=== PATIENT | female | born 1935 | race Hispanic/Latino ===

== ENCOUNTER 2018-03-19 11:46 | Inpatient (IN) | payer OTHER, SELFPAY ==
--- OUTSIDE RECORDS SUMMARY | 2018-03-19 11:49 | XMS REPORT ---
:1935 [facility] Address [address] [place] [address] Care Team Providers Name Role Phone HERLINDA BOO Unavailable Unavailable Problems This patient has no known problems. Allergies, Adverse Reactions, Alerts This patient has no known allergies or adverse reactions. Medications This patient has no known medications. Results Test Description Test Time Test Comments Text Results Atomic Results Result Comments POCT-GLUCOSE METER 2018-02-04 13:06:00 Test Item Value Reference Range Comments POC-GLUCOSE METER (BEAKER) (test 187 mg/dL 70-110 TESTED AT [facility] [address] [place] [address] yyvi=[id number]) [facility] [address] POCT-GLUCOSE [id number] 08:56:00 Test Item Value Reference Range Comments POC-GLUCOSE METER (BEAKER) 243 mg/dL 70-110 TESTED AT [address] (test gbds=9956) [facility] [address] BASIC METABOLIC [id number] 04:21:00 Test Item Value Reference Range Comments SODIUM (BEAKER) (test 136 meq/L 136-145 acig=038) POTASSIUM (BEAKER) (test 3.9 meq/L 3.5-5.1 vhrj=532) CHLORIDE (BEAKER) (test 103 meq/L 98-107 dlgr=479) CO2 (BEAKER) (test 26 meq/L 22-29 drrb=337) BLOOD UREA NITROGEN 17 mg/dL 7-21 (BEAKER) (test buiw=438) CREATININE (BEAKER) (test 0.80 mg/dL 0.57-1.25 luma=392) GLUCOSE RANDOM (BEAKER) 152 mg/dL 70-105 (test bdrs=827) CALCIUM (BEAKER) (test 8.7 mg/dL 8.4-10.2 runj=142) EGFR (BEAKER) (test mL/min/1.73 sq m INSUFFICIENT CLINICAL DATA cgjb=6033) TO CALCULATE ESTIMATED GFR. [id number] 04:19:00 Test Item Value Reference Range Comments MAGNESIUM (BEAKER) (test ofve=621) 2.4 mg/dL 1.6-2.6 CBC W/PLT COUNT & AUTO [id number] 04:15:00 Test Item Value Reference Range Comments WHITE BLOOD CELL COUNT (BEAKER) (test xnnd=573) 10.3 K/ L 3.5-10.5 RED BLOOD CELL COUNT (BEAKER) (test gifc=343) 3.03 M/ L 3.93-5.22 HEMOGLOBIN (BEAKER) (test ggpb=720) 9.6 GM/DL 11.2-15.7 HEMATOCRIT (BEAKER) (test kdou=929) 28.6 % 34.1-44.9 MEAN CORPUSCULAR VOLUME (BEAKER) (test exys=548) 94.4 fL 79.4-94.8 MEAN CORPUSCULAR HEMOGLOBIN (BEAKER) (test 31.7 pg 25.6-32.2 lhww=911) MEAN CORPUSCULAR HEMOGLOBIN CONC (BEAKER) (test 33.6 GM/DL 32.2-35.5 kmsz=560) RED CELL DISTRIBUTION WIDTH (BEAKER) (test 12.7 % 11.7-14.4 tysd=129) PLATELET COUNT (BEAKER) (test ghwr=630) 183 K/CU MM 150-450 MEAN PLATELET VOLUME (BEAKER) (test fdsf=770) 10.9 fL 9.4-12.3 NUCLEATED RED BLOOD CELLS (BEAKER) (test 0 /100 WBC 0-0 lfyk=239) NEUTROPHILS RELATIVE PERCENT (BEAKER) (test 73 % bzsp=508) LYMPHOCYTES RELATIVE PERCENT (BEAKER) (test 15 % ulbv=814) MONOCYTES RELATIVE PERCENT (BEAKER) (test 9 % qkjn=077) EOSINOPHILS RELATIVE PERCENT (BEAKER) (test 3 % gvjp=493) BASOPHILS RELATIVE PERCENT (BEAKER) (test 0 % ocoz=679) NEUTROPHILS ABSOLUTE COUNT (BEAKER) (test 7.50 K/ L 1.56-6.13 spue=329) LYMPHOCYTES ABSOLUTE COUNT (BEAKER) (test 1.53 K/ L 1.18-3.74 tirh=341) MONOCYTES ABSOLUTE COUNT (BEAKER) (test 0.91 K/ L 0.24-0.36 pduy=015) EOSINOPHILS ABSOLUTE COUNT (BEAKER) (test 0.30 K/ L 0.04-0.36 xxmy=965) BASOPHILS ABSOLUTE COUNT (BEAKER) (test 0.02 K/ L 0.01-0.08 lisa=400) IMMATURE GRANULOCYTES-RELATIVE PERCENT (BEAKER) 0 % 0-1 (test klxw=8378) POCT-GLUCOSE [id number] 17:40:00 Test Item Value Reference Range Comments POC-GLUCOSE METER (BEAKER) 281 mg/dL 70-110 TESTED AT [address] (test epne=6256) [place] [address] POCT-GLUCOSE [id number] 12:44:00 Test Item Value Reference Range Comments POC-GLUCOSE METER (BEAKER) 273 mg/dL 70-110 TESTED AT [address] (test rmbj=5344) [place] [address] RAD, CHEST, 1 VIEW, NON [id number] 08:46:00Reason for exam:->s/p dual chamber PPM eval for PTXShould this be performed at the bedside?->YesFINAL REPORT Chest one view. Clinical history: s/p dual chamber PPM eval forPTX Comparison: January 30, 2018 Discussion: A frontal chest is provided. Cardiomediastinal contours are unchanged. Status post placement of a left-sided dual-lead pacemaker, leads project over the expected location of right atrium and right ventricle. There is no pneumothorax. Mild vascular congestion. No new consolidation. There is mild atelectasis at the left lung base, question a small left effusion. Signed: Aixa Swift Verified Date/ Time: 02/03/2018 08:46:43 Reading Location: [facility] [id number] Consult Reading Room POCT -GLUCOSE [id number] 08:36:00 Test Item Value Reference Range Comments POC-GLUCOSE METER (BEAKER) 242 mg/dL 70-110 TESTED AT [address] (test vfpo=5997) [place] [id number] BASIC METABOLIC [id number] 05:37:00 Test Item Value Reference Range Comments SODIUM (BEAKER) (test 137 meq/L 136-145 ezqt=844) POTASSIUM (BEAKER) (test 4.0 meq/L 3.5-5.1 gbvj=451) CHLORIDE (BEAKER) (test 103 meq/L 98-107 qnfl=613) CO2 (BEAKER) (test 28 meq/L 22-29 uoya=424) BLOOD UREA NITROGEN 24 mg/dL 7-21 (BEAKER) (test gwrk=314) CREATININE (BEAKER) (test 0.87 mg/dL 0.57-1.25 gauf=202) GLUCOSE RANDOM (BEAKER) 248 mg/dL 70-105 (test cpnl=103) CALCIUM (BEAKER) (test 8.5 mg/dL 8.4-10.2 gtmj=681) EGFR (BEAKER) (test mL/min/1.73 sq m INSUFFICIENT CLINICAL DATA uhwn=4137) TO CALCULATE ESTIMATED GFR. [id number] 05:35:00 Test Item Value Reference Range Comments MAGNESIUM (BEAKER) (test eayu=035) 2.4 mg/dL 1.6-2.6 CBC W/PLT COUNT & AUTO [id number] 05:08:00 Test Item Value Reference Range Comments WHITE BLOOD CELL COUNT (BEAKER) (test dhzu=887) 8.6 K/ L 3.5-10.5 RED BLOOD CELL COUNT (BEAKER) (test bjbc=409) 2.74 M/ L 3.93-5.22 HEMOGLOBIN (BEAKER) (test rkyj=490) 8.7 GM/DL 11.2-15.7 HEMATOCRIT (BEAKER) (test sddl=147) 26.1 % 34.1-44.9 MEAN CORPUSCULAR VOLUME (BEAKER) (test zwfa=095) 95.3 fL 79.4-94.8 MEAN CORPUSCULAR HEMOGLOBIN (BEAKER) (test 31.8 pg 25.6-32.2 kgsj=623) MEAN CORPUSCULAR HEMOGLOBIN CONC (BEAKER) (test 33.3 GM/DL 32.2-35.5 mnad=299) RED CELL DISTRIBUTION WIDTH (BEAKER) (test 12.6 % 11.7-14.4 yyfe=064) PLATELET COUNT (BEAKER) (test efsr=943) 172 K/CU MM 150-450 MEAN PLATELET VOLUME (BEAKER) (test vgdp=587) 11.5 fL 9.4-12.3 NUCLEATED RED BLOOD CELLS (BEAKER) (test 0 /100 WBC 0-0 biom=030) NEUTROPHILS RELATIVE PERCENT (BEAKER) (test 74 % wfkf=916) LYMPHOCYTES RELATIVE PERCENT (BEAKER) (test 14 % zkfw=012) MONOCYTES RELATIVE PERCENT (BEAKER) (test 9 % fsbz=517) EOSINOPHILS RELATIVE PERCENT (BEAKER) (test 3 % kdin=775) BASOPHILS RELATIVE PERCENT (BEAKER) (test 0 % dcyc=327) NEUTROPHILS ABSOLUTE COUNT (BEAKER) (test 6.32 K/ L 1.56-6.13 jerv=245) LYMPHOCYTES ABSOLUTE COUNT (BEAKER) (test 1.18 K/ L 1.18-3.74 ovmg=281) MONOCYTES ABSOLUTE COUNT (BEAKER) (test 0.79 K/ L 0.24-0.36 ocht=109) EOSINOPHILS ABSOLUTE COUNT (BEAKER) (test 0.21 K/ L 0.04-0.36 acxi=893) BASOPHILS ABSOLUTE COUNT (BEAKER) (test 0.03 K/ L 0.01-0.08 lujg=288) IMMATURE GRANULOCYTES-RELATIVE PERCENT (BEAKER) 1 % 0-1 (test xygd=3407) POCT-GLUCOSE [id number] 16:20:00 Test Item Value Reference Range Comments POC-GLUCOSE METER (BEAKER) 195 mg/dL 70-110 TESTED AT [facility] [address] [facility] (test pigj=2236) [facility] [address] BASIC METABOLIC [id number] 04:16:00 Test Item Value Reference Range Comments SODIUM (BEAKER) (test 136 meq/L 136-145 cqqn=095) POTASSIUM (BEAKER) (test 4.4 meq/L 3.5-5.1 oyyr=747) CHLORIDE (BEAKER) (test 101 meq/L 98-107 drtr=309) CO2 (BEAKER) (test 28 meq/L 22-29 qils=911) BLOOD UREA NITROGEN 33 mg/dL 7-21 (BEAKER) (test cjbb=257) CREATININE (BEAKER) (test 1.16 mg/dL 0.57-1.25 ssxc=533) GLUCOSE RANDOM (BEAKER) 211 mg/dL 70-105 (test rwud=866) CALCIUM (BEAKER) (test 8.4 mg/dL 8.4-10.2 ciso=341) EGFR (BEAKER) (test mL/min/1.73 sq m INSUFFICIENT CLINICAL DATA twyv=2569) TO CALCULATE ESTIMATED GFR. [id number] 04:08:00 Test Item Value Reference Range Comments MAGNESIUM (BEAKER) (test irqg=201) 2.2 mg/dL 1.6-2.6 CBC W/PLT COUNT & AUTO [id number] 03:52:00 Test Item Value Reference Range Comments WHITE BLOOD CELL COUNT (BEAKER) (test dzdy=895) 9.0 K/ L 3.5-10.5 RED BLOOD CELL COUNT (BEAKER) (test xpkz=925) 2.73 M/ L 3.93-5.22 HEMOGLOBIN (BEAKER) (test lljx=037) 8.7 GM/DL 11.2-15.7 HEMATOCRIT (BEAKER) (test gdme=502) 25.9 % 34.1-44.9 MEAN CORPUSCULAR VOLUME (BEAKER) (test ijlu=983) 94.9 fL 79.4-94.8 MEAN CORPUSCULAR HEMOGLOBIN (BEAKER) (test 31.9 pg 25.6-32.2 nltj=501) MEAN CORPUSCULAR HEMOGLOBIN CONC (BEAKER) (test 33.6 GM/DL 32.2-35.5 nsvk=116) RED CELL DISTRIBUTION WIDTH (BEAKER) (test 12.8 % 11.7-14.4 ihbt=941) PLATELET COUNT (BEAKER) (test pdft=418) 172 K/CU MM 150-450 MEAN PLATELET VOLUME (BEAKER) (test bfgd=344) 11.5 fL 9.4-12.3 NUCLEATED RED BLOOD CELLS (BEAKER) (test 0 /100 WBC 0-0 edgx=543) NEUTROPHILS RELATIVE PERCENT (BEAKER) (test 70 % zmtv=751) LYMPHOCYTES RELATIVE PERCENT (BEAKER) (test 17 % jlwj=346) MONOCYTES RELATIVE PERCENT (BEAKER) (test 9 % ukra=736) EOSINOPHILS RELATIVE PERCENT (BEAKER) (test 3 % jvqf=239) BASOPHILS RELATIVE PERCENT (BEAKER) (test 0 % tabj=127) NEUTROPHILS ABSOLUTE COUNT (BEAKER) (test 6.29 K/ L 1.56-6.13 khbv=248) LYMPHOCYTES ABSOLUTE COUNT (BEAKER) (test 1.55 K/ L 1.18-3.74 qgge=468) MONOCYTES ABSOLUTE COUNT (BEAKER) (test 0.83 K/ L 0.24-0.36 ethn=745) EOSINOPHILS ABSOLUTE COUNT (BEAKER) (test 0.22 K/ L 0.04-0.36 haha=760) BASOPHILS ABSOLUTE COUNT (BEAKER) (test 0.03 K/ L 0.01-0.08 ajlp=584) IMMATURE GRANULOCYTES-RELATIVE PERCENT (BEAKER) 0 % 0-1 (test vkxo=8766) BASIC METABOLIC [id number] 06:15:00 Test Item Value Reference Range Comments SODIUM (BEAKER) (test 137 meq/L 136-145 kycs=243) POTASSIUM (BEAKER) (test 4.6 meq/L 3.5-5.1 gccz=311) CHLORIDE (BEAKER) (test 100 meq/L 98-107 wbef=099) CO2 (BEAKER) (test 26 meq/L 22-29 nrbq=125) BLOOD UREA NITROGEN 38 mg/dL 7-21 (BEAKER) (test vodo=877) CREATININE (BEAKER) (test 1.55 mg/dL 0.57-1.25 yfmm=229) GLUCOSE RANDOM (BEAKER) 191 mg/dL 70-105 (test pipy=925) CALCIUM (BEAKER) (test 8.5 mg/dL 8.4-10.2 jfkw=861) EGFR (BEAKER) (test mL/min/1.73 sq m INSUFFICIENT CLINICAL DATA proa=7089) TO CALCULATE ESTIMATED GFR. [id number] 05:44:00 Test Item Value Reference Range Comments MAGNESIUM (BEAKER) (test gztx=153) 2.4 mg/dL 1.6-2.6 CBC W/PLT COUNT & AUTO [id number] 04:51:00 Test Item Value Reference Range Comments WHITE BLOOD CELL COUNT (BEAKER) (test vzcs=487) 9.4 K/ L 3.5-10.5 RED BLOOD CELL COUNT (BEAKER) (test cavu=541) 3.04 M/ L 3.93-5.22 HEMOGLOBIN (BEAKER) (test wzoj=120) 9.6 GM/DL 11.2-15.7 HEMATOCRIT (BEAKER) (test dgfq=175) 29.3 % 34.1-44.9 MEAN CORPUSCULAR VOLUME (BEAKER) (test cekg=923) 96.4 fL 79.4-94.8 MEAN CORPUSCULAR HEMOGLOBIN (BEAKER) (test 31.6 pg 25.6-32.2 hvdp=216) MEAN CORPUSCULAR HEMOGLOBIN CONC (BEAKER) (test 32.8 GM/DL 32.2-35.5 ggsb=597) RED CELL DISTRIBUTION WIDTH (BEAKER) (test 13.0 % 11.7-14.4 qkft=378) PLATELET COUNT (BEAKER) (test okzc=549) 181 K/CU MM 150-450 MEAN PLATELET VOLUME (BEAKER) (test dwfq=228) 11.7 fL 9.4-12.3 NUCLEATED RED BLOOD CELLS (BEAKER) (test 0 /100 WBC 0-0 hfyl=916) NEUTROPHILS RELATIVE PERCENT (BEAKER) (test 71 % jtxn=992) LYMPHOCYTES RELATIVE PERCENT (BEAKER) (test 19 % djup=446) MONOCYTES RELATIVE PERCENT (BEAKER) (test 8 % uyow=577) EOSINOPHILS RELATIVE PERCENT (BEAKER) (test 2 % leqg=570) BASOPHILS RELATIVE PERCENT (BEAKER) (test 0 % flxh=798) NEUTROPHILS ABSOLUTE COUNT (BEAKER) (test 6.65 K/ L 1.56-6.13 wojh=616) LYMPHOCYTES ABSOLUTE COUNT (BEAKER) (test 1.81 K/ L 1.18-3.74 xjmz=568) MONOCYTES ABSOLUTE COUNT (BEAKER) (test 0.71 K/ L 0.24-0.36 tnov=915) EOSINOPHILS ABSOLUTE COUNT (BEAKER) (test 0.20 K/ L 0.04-0.36 oecx=999) BASOPHILS ABSOLUTE COUNT (BEAKER) (test 0.03 K/ L 0.01-0.08 qzyk=265) IMMATURE GRANULOCYTES-RELATIVE PERCENT (BEAKER) 0 % 0-1 (test mtod=8502) [id number] 21:49:00 Test Item Value Reference Range Comments POTASSIUM (BEAKER) (test imvt=283) 5.2 meq/L 3.5-5.1 Check Serum Potassium level 2 hours after oral potassium replacement completed or 30 min after intravenous potassium replacement.[id number] 21:49:00 Test Item Value Reference Range Comments MAGNESIUM (BEAKER) (test brvn=039) 2.2 mg/dL 1.6-2.6 Check Serum Potassium level 2 hours after oral potassium replacement completed or 30 min after intravenous potassium replacement.URINALYSIS W/ [id number] 10:39:00 Test Item Value Reference Range Comments COLOR (BEAKER) (test zfuj=367) Light Yellow CLARITY (BEAKER) (test ddmj=056) Clear SPECIFIC GRAVITY UA (BEAKER) (test dovx=950) 1.005 1.001-1.035 PH UA (BEAKER) (test vqrg=055) 5.0 5.0-8.0 PROTEIN UA (BEAKER) (test dafk=003) Negative Negative GLUCOSE UA (BEAKER) (test nnyw=082) Negative Negative KETONES UA (BEAKER) (test clib=306) Negative Negative BILIRUBIN UA (BEAKER) (test pfzm=452) Negative Negative BLOOD UA (BEAKER) (test rhpc=184) Negative Negative NITRITE UA (BEAKER) (test zjpb=700) Negative Negative LEUKOCYTE ESTERASE UA (BEAKER) (test chhu=147) Negative Negative UROBILINOGEN UA (BEAKER) (test vwzv=493) 0.2 mg/dL 0.2-1.0 RBC UA (BEAKER) (test rbxc=394) 1 /HPF WBC UA (BEAKER) (test ghla=823) 3 /HPF SQUAMOUS EPITHELIAL (BEAKER) (test tdrh=302) 1 /HPF AMORPHOUS CRYSTALS (BEAKER) (test jffj=0459) Rare SOURCE(BEAKER) (test dwmo=2905) Urine, [place] CREATINE KINASE (CK), TOTAL AND [id number] 10:07:00 Test Item Value Reference Range Comments CREATINE KINASE TOTAL (BEAKER) (test eixf=297) 35 U/L 29-200 CREATINE KINASE-MB (BEAKER) (test rxig=848) 1.7 ng/mL 0.0-6.6 CREATINE KINASE-MB INDEX (BEAKER) (test veue=932) 4.9 % CK-MB Reference Range:<6.7 Normal6.7-10.0 Borderline>10.0 AbnormalTROPONIN [id number] 10:07:00 Test Item Value Reference Range Comments TROPONIN I (BEAKER) (test oduf=078) 0.02 ng/mL 0.00-0.03 Troponin I (TnI) levels must be interpreted in the context of the presenting symptoms and the clinical findings. Elevated TnI levels indicate myocardial damage, but are not specific for ischemic heart disease. Elevated TnI levels are seen in patients with other cardiac conditions (including myocarditis and congestive heart failure), and slight TnI elevations occur in patients with other conditions, including sepsis, renal failure, acidosis, acute neurological disease, and persistent tachyarrhythmia.BASIC METABOLIC [id number] 05:51:00 Test Item Value Reference Range Comments SODIUM (BEAKER) (test 141 meq/L 136-145 mkjx=203) POTASSIUM (BEAKER) (test 3.7 meq/L 3.5-5.1 dgkm=315) CHLORIDE (BEAKER) (test 103 meq/L 98-107 pzwr=090) CO2 (BEAKER) (test 26 meq/L 22-29 jiwt=384) BLOOD UREA NITROGEN 35 mg/dL 7-21 (BEAKER) (test tqoz=704) CREATININE (BEAKER) (test 1.22 mg/dL 0.57-1.25 ocej=096) GLUCOSE RANDOM (BEAKER) 121 mg/dL 70-105 (test sqqh=046) CALCIUM (BEAKER) (test 8.9 mg/dL 8.4-10.2 bplb=550) EGFR (BEAKER) (test mL/min/1.73 sq m INSUFFICIENT CLINICAL DATA addq=8244) TO CALCULATE ESTIMATED GFR. [id number] 05:50:00 Test Item Value Reference Range Comments MAGNESIUM (BEAKER) (test urrb=664) 2.4 mg/dL 1.6-2.6 CBC W/PLT COUNT & AUTO [id number] 05:04:00 Test Item Value Reference Range Comments WHITE BLOOD CELL COUNT (BEAKER) (test vtcv=674) 9.8 K/ L 3.5-10.5 RED BLOOD CELL COUNT (BEAKER) (test dbwt=558) 3.09 M/ L 3.93-5.22 HEMOGLOBIN (BEAKER) (test zile=501) 9.7 GM/DL 11.2-15.7 HEMATOCRIT (BEAKER) (test klic=844) 29.4 % 34.1-44.9 MEAN CORPUSCULAR VOLUME (BEAKER) (test olrl=551) 95.1 fL 79.4-94.8 MEAN CORPUSCULAR HEMOGLOBIN (BEAKER) (test 31.4 pg 25.6-32.2 wrtl=276) MEAN CORPUSCULAR HEMOGLOBIN CONC (BEAKER) (test 33.0 GM/DL 32.2-35.5 pujs=332) RED CELL DISTRIBUTION WIDTH (BEAKER) (test 12.9 % 11.7-14.4 ncuv=361) PLATELET COUNT (BEAKER) (test pxhs=542) 186 K/CU MM 150-450 MEAN PLATELET VOLUME (BEAKER) (test emcy=937) 11.8 fL 9.4-12.3 NUCLEATED RED BLOOD CELLS (BEAKER) (test 0 /100 WBC 0-0 raox=831) NEUTROPHILS RELATIVE PERCENT (BEAKER) (test 75 % mpst=980) LYMPHOCYTES RELATIVE PERCENT (BEAKER) (test 15 % dobu=476) MONOCYTES RELATIVE PERCENT (BEAKER) (test 8 % bdtx=871) EOSINOPHILS RELATIVE PERCENT (BEAKER) (test 2 % mtlu=025) BASOPHILS RELATIVE PERCENT (BEAKER) (test 0 % sxhc=541) NEUTROPHILS ABSOLUTE COUNT (BEAKER) (test 7.36 K/ L 1.56-6.13 efjy=559) LYMPHOCYTES ABSOLUTE COUNT (BEAKER) (test 1.42 K/ L 1.18-3.74 rsou=776) MONOCYTES ABSOLUTE COUNT (BEAKER) (test 0.75 K/ L 0.24-0.36 xrqh=027) EOSINOPHILS ABSOLUTE COUNT (BEAKER) (test 0.20 K/ L 0.04-0.36 aata=478) BASOPHILS ABSOLUTE COUNT (BEAKER) (test 0.03 K/ L 0.01-0.08 mstj=445) IMMATURE GRANULOCYTES-RELATIVE PERCENT (BEAKER) 0 % 0-1 (test mewn=8838) CREATINE KINASE (CK), TOTAL AND [id number] 03:23:00 Test Item Value Reference Range Comments CREATINE KINASE TOTAL (BEAKER) (test ttlw=666) 27 U/L 29-200 CREATINE KINASE-MB (BEAKER) (test bssv=545) 1.3 ng/mL 0.0-6.6 CREATINE KINASE-MB INDEX (BEAKER) (test bqoz=778) 4.8 % CK-MB Reference Range:<6.7 Normal6.7-10.0 Borderline>10.0 AbnormalTROPONIN [id number] 03:23:00 Test Item Value Reference Range Comments TROPONIN I (BEAKER) (test rgza=436) 0.03 ng/mL 0.00-0.03 Troponin I (TnI) levels must be interpreted in the context of the presenting symptoms and the clinical findings. Elevated TnI levels indicate myocardial damage, but are not specific for ischemic heart disease. Elevated TnI levels are seen in patients with other cardiac conditions (including myocarditis and congestive heart failure), and slight TnI elevations occur in patients with other conditions, including sepsis, renal failure, acidosis, acute neurological disease, and persistent tachyarrhythmia.RAD, CHEST, 1 VIEW, NON [id number] 22:06:00Reason for exam:->SOBShould this be performed at the bedside?-> YesFINAL REPORT INDICATION: SOB COMPARISON: None. TECHNIQUE: Chest radiograph, single view, portable technique. FINDINGS / IMPRESSION: There is mild hyperexpansion which may represent chronic obstructive pulmonary disease. There is mild enlargement of the heart shadow and pulmonaryvenous congestion. No consolidation, pneumothorax, or large pleural effusion. Osseous structures unremarkable. Signed: [facility] Verified Date/Time: 01/30/2018 22:06:47 Reading Location: [address] Consult Reading Room CREATINE KINASE (CK), TOTAL AND [id number] 21:32:00 Test Item Value Reference Range Comments CREATINE KINASE TOTAL (BEAKER) (test yrvd=747) 29 U/L 29-200 CREATINE KINASE-MB (BEAKER) (test xjfx=342) 1.1 ng/mL 0.0-6.6 CREATINE KINASE-MB INDEX (BEAKER) (test paos=108) 3.8 % CK-MB Reference Range:<6.7 Normal6.7-10.0 Borderline>10.0 AbnormalTROPONIN [id number] 21:32:00 Test Item Value Reference Range Comments TROPONIN I (BEAKER) (test nydq=439) 0.03 ng/mL 0.00-0.03 Troponin I (TnI) levels must be interpreted in the context of the presenting symptoms and the clinical findings. Elevated TnI levels indicate myocardial damage, but are not specific for ischemic heart disease. Elevated TnI levels are seen in patients with other cardiac conditions (including myocarditis and congestive heart failure), and slight TnI elevations occur in patients with other conditions, including sepsis, renal failure, acidosis, acute neurological disease, and persistent tachyarrhythmia.B-TYPE NATRIURETIC FACTOR (BNP) 21:32:00 Test Item Value Reference Range Comments B-TYPE NATRIURETIC PEPTIDE (BEAKER) (test 2547 pg/mL 0-100 jqzm=295) BASIC METABOLIC [id number] 21:27:00 Test Item Value Reference Range Comments SODIUM (BEAKER) (test 139 meq/L 136-145 urvp=056) POTASSIUM (BEAKER) (test 4.0 meq/L 3.5-5.1 ixqm=426) CHLORIDE (BEAKER) (test 104 meq/L 98-107 gkzm=108) CO2 (BEAKER) (test 26 meq/L 22-29 cnwc=347) BLOOD UREA NITROGEN 38 mg/dL 7-21 (BEAKER) (test fndp=026) CREATININE (BEAKER) (test 1.32 mg/dL 0.57-1.25 kpli=901) GLUCOSE RANDOM (BEAKER) 125 mg/dL 70-105 (test dtyu=869) CALCIUM (BEAKER) (test 9.1 mg/dL 8.4-10.2 ogim=539) EGFR (BEAKER) (test mL/min/1.73 sq m INSUFFICIENT CLINICAL DATA ynwg=7033) TO CALCULATE ESTIMATED GFR. [id number] 21:26:00 Test Item Value Reference Range Comments PHOSPHORUS (BEAKER) (test egyn=602) 4.0 mg/dL 2.3-4.7 [id number] 21:26:00 Test Item Value Reference Range Comments MAGNESIUM (BEAKER) (test hylb=665) 2.4 mg/dL 1.6-2.6 HEPATIC FUNCTION [id number] 21:26:00 Test Item Value Reference Range Comments TOTAL PROTEIN (BEAKER) (test hfqm=294) 7.2 gm/dL 6.0-8.3 ALBUMIN (BEAKER) (test nmpc=8801) 3.7 g/dL 3.5-5.0 BILIRUBIN TOTAL (BEAKER) (test zheu=924) 0.6 mg/dL 0.2-1.2 BILIRUBIN DIRECT (BEAKER) (test glfy=138) 0.3 mg/dL 0.1-0.5 ALKALINE PHOSPHATASE (BEAKER) (test pcie=912) 103 U/L 40-150 AST (SGOT) (BEAKER) (test qhsb=715) 32 U/L 5-34 ALT (SGPT) (BEAKER) (test pkos=131) 18 U/L 6-55 [id number] 21:22:00 Test Item Value Reference Range Comments PARTIAL THROMBOPLASTIN TIME (BEAKER) (test 34.5 seconds 22.5-36.0 mihx=719) PROTHROMBIN [id number] 21:16:00 Test Item Value Reference Range Comments PROTIME (BEAKER) (test jjym=902) 15.9 seconds 11.7-14.7 INR (BEAKER) (test knju=048) 1.3 <=5.9 RECOMMENDED COUMADIN/WARFARIN INR THERAPY RANGESSTANDARD DOSE: 2.0 - 3.0 Includes: PROPHYLAXIS forvenous thrombosis, systemic embolization; TREATMENT for venous thrombosis and/or pulmonary embolus.HIGH RISK: Target INR is 2.5-3.5 for patients with mechanical heart valves.CBC W/PLT COUNT & AUTO [id number] 21:08:00 Test Item Value Reference Range Comments WHITE BLOOD CELL COUNT (BEAKER) (test vpmx=719) 9.4 K/ L 3.5-10.5 RED BLOOD CELL COUNT (BEAKER) (test gxoy=240) 3.20 M/ L 3.93-5.22 HEMOGLOBIN (BEAKER) (test njeo=732) 10.1 GM/DL 11.2-15.7 HEMATOCRIT (BEAKER) (test vsdd=910) 30.7 % 34.1-44.9 MEAN CORPUSCULAR VOLUME (BEAKER) (test xyiq=197) 95.9 fL 79.4-94.8 MEAN CORPUSCULAR HEMOGLOBIN (BEAKER) (test 31.6 pg 25.6-32.2 psui=516) MEAN CORPUSCULAR HEMOGLOBIN CONC (BEAKER) (test 32.9 GM/DL 32.2-35.5 btjs=311) RED CELL DISTRIBUTION WIDTH (BEAKER) (test 13.1 % 11.7-14.4 smzj=573) PLATELET COUNT (BEAKER) (test dkng=631) 189 K/CU MM 150-450 MEAN PLATELET VOLUME (BEAKER) (test umrp=518) 11.7 fL 9.4-12.3 NUCLEATED RED BLOOD CELLS (BEAKER) (test 0 /100 WBC 0-0 uphg=350) NEUTROPHILS RELATIVE PERCENT (BEAKER) (test 73 % vmwr=295) LYMPHOCYTES RELATIVE PERCENT (BEAKER) (test 18 % owjc=756) MONOCYTES RELATIVE PERCENT (BEAKER) (test 8 % wsuh=064) EOSINOPHILS RELATIVE PERCENT (BEAKER) (test 1 % mope=939) BASOPHILS RELATIVE PERCENT (BEAKER) (test 0 % okji=287) NEUTROPHILS ABSOLUTE COUNT (BEAKER) (test 6.87 K/ L 1.56-6.13 hkod=611) LYMPHOCYTES ABSOLUTE COUNT (BEAKER) (test 1.70 K/ L 1.18-3.74 ehar=825) MONOCYTES ABSOLUTE COUNT (BEAKER) (test 0.71 K/ L 0.24-0.36 uddy=954) EOSINOPHILS ABSOLUTE COUNT (BEAKER) (test 0.11 K/ L 0.04-0.36 rdmd=160) BASOPHILS ABSOLUTE COUNT (BEAKER) (test 0.03 K/ L 0.01-0.08 guqb=604) IMMATURE GRANULOCYTES-RELATIVE PERCENT (BEAKER) 0 % 0-1 (test zpkg=5218)
--- OUTSIDE RECORDS SUMMARY | 2018-03-19 11:49 | XMS REPORT ---
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 inadequate dietary iron intake Assessment Cold intolerance R68.89 Active Assessment Type 2 diabetes mellitus without E11.9 Active complications Assessment senior care current use of 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 Problem Iron deficiency anemia due to D50.0 Active chronic blood loss Assessment Pacemaker Z95.0 Active Problem Allergic rhinitis, seasonal J30.2 Active Assessment Mixed hyperlipidemia E78.2 Active Problem Diabetes mellitus type 2 in E11.9 Active nonobese Problem Asthma without acute exacerbation J45.909 Active Problem Mixed hyperlipidemia E78.2 Active Problem Pacemaker Z95.0 Active Problem senior care current use of 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 Assessment CHF (congestive heart failure) I50.9 Active Assessment Bilateral edema of lower extremity R60.0 Active Problem HTN (hypertension) I10 Active Assessment HTN (hypertension) I10 Active Problem Pulmonary hypertension, unspecified I27.20 Active Problem 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 Problem Type 2 diabetes mellitus without E11.9 Active complications Problem Iron deficiency anemia 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 inadequate dietary iron intake Problem CAD (coronary artery disease) I25.10 Active Problem Anxiety F41.9 Active Problem CHF (congestive heart failure) I50.9 Active Problem Weakness R53.1 Active Problem Gastro-esophageal reflux disease K21.9 Active without esophagitis Problem Unsteady gait R26.81 Active Problem COPD (chronic obstructive pulmonary J44.9 Active disease) Problem Hypertension I10 Active Medications Medication Code Code Instructions Start End Status Dosage System Date Date Xanax [facility] 50844420256 0.5 MG Orally Active 1 tablet Twice a day Ventolin HFA ND 80059294613 90 MCG/ACT Active 2 puffs as Inhalation needed every 6 hrs Ferrous ND 57054901044 325MG Active TAKE ONE Sulfate TABLET BY MOUTH THREE TIMES DAILY Advair Diskus [facility] 23632098823 250/50 Active INHALE ONE DOSE BY MOUTH TWICE DAILY Aspirin 81 [facility] 97042326190 81 MG Orally Active 1 tablet Once a day Losartan [facility] 55690766572 50 MG Active TAKE 1 TABLET Potassium EVERY DAY Amlodipine ND 76514675707 10 MG Orally Dec 23, Inactive 1 tablet Besylate Once a day 2018 Zocor [facility] 02924761941 20 MG Orally Active 1 tablet in Once a day the evening Tresiba [facility] 56426279700 200 UNIT/ML Active not defined FlexTouch Subcutaneous Neurontin [facility] 21633438154 300 MG Orally Active 1 capsule Once a day before bedtime Iron [facility] 06520451551 325 (65 Fe) MG Active 1 tablet Orally Once a day Furosemide ND 30085823170 40 MG Orally Dec 23, Active 1 tablet Once a day and 2018 may increase to twice daily x approiximatly 3-7 days if increased swelling Trulicity [facility] 50172369013 0.75 MG/0.5ML Inactive not defined Subcutaneous Nystatin [facility] 03947270307 610663 UNIT/GM Active 1 application Externally to affected Twice a day area Lasix [facility] 45912112984 20 MG Orally Inactive 1 tablet Once a day Advair Diskus [facility] [address]-89 250-50 MCG/DOSE Active not defined Inhalation NitroQuick ND 0 0.4 MG Active not defined Sublingual Zantac [facility] 78956549538 150 MG Orally Active 1 tablet at Once a day bedtime Results No Known Results Summary Purpose eClinicalWorks Submission
--- OUTSIDE RECORDS SUMMARY | 2018-03-19 11:49 | XMS REPORT ---
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
--- OUTSIDE RECORDS SUMMARY | 2018-03-19 11:49 | XMS REPORT | Clinical Summary ---
:1935 Author Organization [facility] Address [address] [place] [address] Phone Care Team Providers Name Role Phone Unavailable Primary Care Provider Unavailable Allergies Active Allergy Reactions Severity Noted Date Comments Penicillins Rash Low 01/30/2018 Current Medications Prescription Sig. Disp. Refills Start End Date Status Date fluticasone-salmeterol Inhale 1 Active (ADVAIR) 250-50 mcg/dose puff by diskus inhaler mouth via inhaler 2 (two) times daily. aspirin 81 MG EC tablet Take 81 mg Active by mouth daily. gabapentin (NEURONTIN) Take 300 mg Active 300 MG capsule by mouth 3 (three) times daily. traMADol (ULTRAM) 50 mg Take 50 mg Active tablet by mouth every 4 (four) hours as needed for Pain. albuterol HFA (VENTOLIN Inhale 1 Active HFA) 90 mcg/actuation puff by inhaler mouth via inhaler every 4 (four) hours as needed for Wheezing. amLODIPine (NORVASC) 10 Take 1 30 tablet 02/06/20 Active MG tablet tablet (10 8 19 mg total) by mouth daily. hydroCHLOROthiazide Take 1 30 tablet 02/06/20 Active (HYDRODIURIL) 25 MG tablet (25 8 19 tablet mg total) by mouth daily. losartan (COZAAR) 100 MG Take 1 30 tablet 02/06/20 Active tablet tablet (100 8 19 mg total) by mouth daily. losartan-hydroCHLOROthia Take 1 02/05/20 Discontinued zide (HYZAAR) 50-12.5 mg tablet by 18 per tablet mouth daily. spironolactone-hydroCHLO Take 1 02/05/20 Discontinued ROthiazide (ALDACTAZIDE) tablet by 18 25-25 mg per tablet mouth daily. minocycline Take 1 10 capsule 0 02/10/20 (MINOCIN,DYNACIN) 100 MG capsule (100 8 18 capsule mg total) by mouth every 12 (twelve) hours for 5 days. Active Problems Not on file Encounters Date Type Specialty Care Team Description 02/02/2018 Anesthesia Event Rusty Lutz MD 02/02/2018 Procedure Pass 02/02/2018 Surgery Jose, PACEMAKER LEADS - MD Shanelle INSERTION (DUAL) 01/30/2018 - Hospital Encounter Cardiology Bandeali, 02/04/2018 MD Mauro Leary Lubna Syed, MD 01/30/2018 Orders Only General Internal Medicine after 03/18/2017 Family History Medical History Relation Name Comments Diabetes Brother Cancer Father Diabetes Mother Diabetes Sister Relation Name Status Comments Brother Father Ca back Mother Sister Social History Tobacco Use Types Packs/Day Years Used Date Never Smoker Smokeless Tobacco: Never Used Alcohol Use Drinks/Week oz/Week Comments No Sex Assigned at Date Recorded Not on file Last Filed Vital Signs Vital Sign Reading Time Taken Blood Pressure 156/57 02/04/2018 10:35 AM SHIPPING ASSOCIATE Pulse 73 02/04/2018 10:35 AM SHIPPING ASSOCIATE Temperature 36.9 C (98.5 F) 02/04/2018 7:00 AM SHIPPING ASSOCIATE Respiratory Rate 13 02/04/2018 10:35 AM SHIPPING ASSOCIATE Oxygen Saturation 97% 02/04/2018 10:35 AM SHIPPING ASSOCIATE Inhaled Oxygen Concentration - - Weight 57.5 kg (126 lb 12.8 oz) 02/03/2018 8:00 AM SHIPPING ASSOCIATE Height 147.3 cm (4' 10") 01/30/2018 8:00 PM SHIPPING ASSOCIATE Body Mass Index 26.5 02/03/2018 8:00 AM SHIPPING ASSOCIATE Plan of Treatment Not on file Implants Implanted Type Area Pharmacologist Device Expiration Model / Identifier Date Serial / Lot Ld Pacing Ingevity Active 52cm 7741 - [id number] Pacemaker Lead N/A: [employer] 08/15/2019 7741 / Implanted: Qty: 1 on 02/02/2018 by Shanelle Garcia MD Heart SCI:CARDIAC [id number] / RHYTHM [place] Ld Pacing Ingevity Active 45 7740 - [id number] Pacemaker Lead N/A: [employer] 11/04/2019 7740 / Implanted: Qty: 1 on 02/02/2018 by Shanelle Garcia MD Heart SCI:CARDIAC [id number] / RHYTHM MNGT [address] Pacemaker Pacemakers N/A: [employer] 11/11/2019 L111 / Implanted: Qty: 1 on 02/02/2018 by Shanelle Garcia MD Chest SCIENTIFIC [id number] / Procedures Procedure Name Priority Date/Time Associated Diagnosis Comments PACEMAKER LEADS - 02/02/2018 5:15 PM SHIPPING ASSOCIATE chest pain INSERTION (DUAL) after 03/18/2017 Results CARDIAC CATH REPORT - SCAN (02/05/2018 3:22 PM)ARRYTHMIA IMPLANT REPORT - SCAN (02/05/2018 1:11 PM)RHYTHM STRIP - SCAN (02/05/2018 1:11 PM)POC-Glucose meter (02/04/2018 12:08 PM)Only the most recent of6 resultswithin the time period is included. Component Value Ref Range POC-Glucose Meter 187 (H)Comment: TESTED AT [address] 70 - 110 mg/[place] [address] Specimen Performing Laboratory Blood [facility] [address] [address] CBC with platelet count + automated diff (02/04/2018 3:52 AM)Only the most recent of6 resultswithin the time period is included. Component Value Ref Range WBC 10.3 3.5 - 10.5 K/L RBC 3.03 (L) 3.93 - 5.22 M/L Hemoglobin 9.6 (L) 11.2 - 15.7 GM/DL Hematocrit 28.6 (L) 34.1 - 44.9 % MCV 94.4 79.4 - 94.8 fL MCH 31.7 25.6 - 32.2 pg MCHC 33.6 32.2 - 35.5 GM/DL RDW 12.7 11.7 - 14.4 % Platelets 183 150 - 450 K/CU MM MPV 10.9 9.4 - 12.3 fL nRBC 0 0 - 0 /100 WBC % Neutros 73 % % Lymphs 15 % % Monos 9 % % Eos 3 % % Baso 0 % # Neutros 7.50 (H) 1.56 - 6.13 K/L # Lymphs 1.53 1.18 - 3.74 K/L # Monos 0.91 (H) 0.24 - 0.36 K/L # Eos 0.30 0.04 - 0.36 K/L # Baso 0.02 0.01 - 0.08 K/L Immature Granulocytes-Relative 0 0 - 1 % Specimen Performing Laboratory Blood [address] [address] CBC with platelet count + automated diff (02/04/2018 3:52 AM)Only the most recent of6 resultswithin the time period is included. Specimen Performing Laboratory Blood Narrative The following orders were created for panel order CBC with platelet count + automated diff. Procedure Abnormality Status --------- ------ CBC with platelet count ...[[id number]]AbnormalFinal result Please view results for these tests on the individual orders. Magnesium (02/04/2018 3:52 AM)Only the most recent of7 resultswithin the time period is included. Component Value Ref Range Magnesium 2.4 1.6 - 2.6 mg/dL Specimen Performing Laboratory Blood [address] [address] Basic Metabolic Panel (02/04/2018 3:52 AM)Only the most recent of6 resultswithin the time period is included. Component Value Ref Range Sodium 136 136 - 145 meq/L Potassium 3.9 3.5 - 5.1 meq/L Chloride 103 98 - 107 meq/L CO2 26 22 - 29 meq/L BUN 17 7 - 21 mg/dL Creatinine 0.80 0.57 - 1.25 mg/dL Glucose 152 (H) 70 - 105 mg/dL Calcium 8.7 8.4 - 10.2 mg/dL EGFR Comment: INSUFFICIENT CLINICAL DATA TO CALCULATE mL/min/1.73 sq m ESTIMATED GFR. Specimen Performing Laboratory Blood [address] [address] XR chest 1 view portable / bedside (02/03/2018 8:18 AM)Only the most recent of2 resultswithin the time period is included. Specimen Performing Laboratory GE RIS Narrative FINAL REPORT Chest one view. Clinical history: s/p dual chamber PPM eval for PTX Comparison: January 30, 2018 Discussion: A frontal chest is provided. Cardiomediastinal contours are unchanged. Status post placement of a left-sided dual-lead pacemaker, leads project over the expected location of right atrium and right ventricle. There is no pneumothorax. Mild vascular congestion. No new consolidation. There is mild atelectasis at the left lung base, question a small left effusion. Signed: Aixa Swift MD Report Verified Date/Time:02/03/2018 08:46:43 Reading Location: [facility] B1 C013X Ortho Consult Reading Room Procedure Note Interface, External Ris In - 02/03/2018 8:48 AM SHIPPING ASSOCIATE FINAL REPORT Chest one view. Clinical history: s/p dual chamber PPM eval for PTX Comparison: January 30, 2018 Discussion: A frontal chest is provided. Cardiomediastinal contours are unchanged. Status post placement of a left-sided dual-lead pacemaker, leads project over the expected location of right atrium and right ventricle. There is no pneumothorax. Mild vascular congestion. No new consolidation. There is mild atelectasis at the left lung base, question a small left effusion. Signed: Aixa Swift MD Report Verified Date/Time: 02/03/2018 08:46:43 Reading Location: [facility] B1 C013X Ortho Consult Reading Room CARDIOGRAM REPORT - SCAN (02/01/2018 1:50 PM)Potassium (01/31/2018 8:45 PM ) Component Value Ref Range Potassium 5.2 (H) 3.5 - 5.1 meq/L Specimen Performing Laboratory Blood - Arm, [place] [address] Narrative Check Serum Potassium level 2 hours after oral potassium replacement completed or 30 min after intravenous potassium replacement. Transthoracic 2D echo w/ doppler (cw/pw/color) (01/31/2018 12:57 PM) Component Value Ref Range Ejection Fraction Specimen Performing Laboratory [facility] Narrative Transthoracic Echocardiography Report (TTE) Demographics Patient NameMONTIEL, HELENDate of Study01/31/2018 YOMAIRA Female Visit [id number] Unknown Room [id number] [facility] Age 82 year(s)Budget Record Clerk Liberty Manning RDCS Interpreting [facility] Needs to be Pre PhysicianRead Alirio Peres MD Procedure Type of Study TTE procedure:2DECHO W DOPPLER(CW/PW/COLOR) (TAL) Indications:Known or suspected heart failure. Clinical History CHF;COPD;DM HGB 9.7 HCT 29.4 % Height: 58 inches Weight: 58.51 kg (129 lbs) BSA: 1.51 m^2 BMI: 26.96 kg/m^2 HR: 47 bpm BP: 159/47 mmHg Summary The left ventricle is chamber size (by PSLAX dimension) is small (female - LVIDd < 3.8cm) . Mild concentric LV hypertrophy. All of the LV segments contract normally . Estimated LVEF by qualitative assessment is increased (>70%) . Degree of diastolic dysfunction (LAP assessment) is inconclusive due to mitral annular calcification . The right ventricular chamber size and systolic function are within normal limits. There is mild aortic stenosis. Severe mitral annular calcification. Xfvz-ri-tsdcohla mitral regurgitation. MV gradients are increased in part due to mitral annular calcification . Estimated peak systolic PA pressure is 45-50 mmHg + RA pressure. No pericardial effusion is visualized. Signature Findings Left Ventricle The left ventricle is chamber size (by PSLAX dimension) is small (female - LVIDd < 3.8cm) . Mild concentric LV hypertrophy. All of the LV segments contract normally . Estimated LVEF by qualitative assessment is increased (>70 %) . Degree of diastolic dysfunction (LAP assessment) is inconclusive due to mitral annular calcification . Left AtriumLA size is severely enlarged . Right VentricleThe right ventricular chamber size and systolic function are within normal limits. Right Atrium RA size is mildly dilated. Aortic Valve Mild AoV cusp thickening. Mild AoV cusp calcification. There is mild aortic stenosis. Mitral Valve Mild MV leaflet thickening. Mild MV leaflet calcification. Severe mitral annular calcification. Ecjg-io-tldznucg mitral regurgitation. MV gradients are increased in part due to mitral annular calcification . Tricuspid ValveTV structure is normal. Mild tricuspid regurgitation. Estimated peak systolic PA pressure is 45-50 mmHg + RA pressure. Pulmonic Valve PV is not well visualized; function appears normal by Doppler visualized. AortaAortic root size (SInus of Valsalva diameter) is normal . PericardiumNo pericardial effusion is visualized. IVC/SVC/PA/PV/PleuralThe estimated RA pressure by IVC dynamics 5-10mmHg . Chambers/Structures Left Atrium LA Dimension: 4.27 cm LA Area: 30.5 cm^2 LA Volume: 112.23 ml LA Vol. Index: 74 ml/m^2 Left Ventricle LVIDd: 3.45 cm LVIDs: 1.32 cm LV Septum Diastolic: 1.19 cm LV PW Diastolic: 1.16 cm LV FS: 61.7 % LVOT Diameter: 1.82 cm Right Atrium RA Vol. (Sngl Plane): 56.27 ml Aorta Ao Root S of Kindra.: 2.74 cm Doppler/Quantitative Measurements Mitral Valve Mean Velocity: 0.96 m/s Mean Gradient: 6.07 mmHgArea (continuity): 1 cm^2 MV VTI: 87.79 cm MV Son. Peak: 2.5 m/s Aortic Valve Peak Velocity: 2.02 m/sMean Velocity: 1.28 m/s Peak Gradient: 16.29 mmHgMean Gradient: 7.83 mmHg AV Area (continuity): 1.76 cm^2 AV VTI: 49.66 cm AV DVI: 0.68 LVOT Peak Velocity: 1.3 m/sPeak Gradient: 6.71 mmHg Mean Velocity: 0.88 m/s Mean Gradient: 3.7 mmHg LVOT Diameter: 1.82 cmLVOT VTI: 33.63 cm LVOT Area: 2.6 cm^2 LVOT SV:87.45 ml LVOT CO: 4.11 l/min LVOT CI: 2.72 l/min/m^2 Procedure Note Interface, External Ris In - 02/01/2018 1:12 PM SHIPPING ASSOCIATE Transthoracic Echocardiography Report (TTE) Demographics Patient Name KEERTHI KISER Date of Study 01/31/2018 YOMAIRA Gender Female Visit Number [id number] Race Unknown Room Number C827 Number Date of 1935 Referring Stephanie Quiles Physician Age 82 year(s) Budget Record Clerk Liberty Manning RDCS Interpreting [facility] Needs to be Pre Physician Read Alirio Peres MD Procedure Type of Study TTE procedure:2DECHO W DOPPLER(CW/PW/COLOR) (TAL) Indications:Known or suspected heart failure. Clinical History CHF;COPD;DM HGB 9.7 HCT 29.4 % Height: 58 inches Weight: 58.51 kg (129 lbs) BSA: 1.51 m^2 BMI: 26.96 kg/m^2 HR: 47 bpm BP: 159/47 mmHg Summary The left ventricle is chamber size (by PSLAX dimension) is small (female - LVIDd < 3.8cm) . Mild concentric LV hypertrophy. All of the LV segments contract normally . Estimated LVEF by qualitative assessment is increased (>70%) . Degree of diastolic dysfunction (LAP assessment) is inconclusive due to mitral annular calcification . The right ventricular chamber size and systolic function are within normal limits. There is mild aortic stenosis. Severe mitral annular calcification. Apdh-lc-qrmaopaj mitral regurgitation. MV gradients are increased in part due to mitral annular calcification . Estimated peak systolic PA pressure is 45-50 mmHg + RA pressure. No pericardial effusion is visualized. Signature Findings Left Ventricle The left ventricle is chamber size (by PSLAX dimension) is small (female - LVIDd < 3.8cm) . Mild concentric LV hypertrophy. All of the LV segments contract normally . Estimated LVEF by qualitative assessment is increased (>70%) . Degree of diastolic dysfunction (LAP assessment) is inconclusive due to mitral annular calcification . Left Atrium LA size is severely enlarged . Right Ventricle The right ventricular chamber size and systolic function are within normal limits. Right Atrium RA size is mildly dilated. Aortic Valve Mild AoV cusp thickening. Mild AoV cusp calcification. There is mild aortic stenosis. Mitral Valve Mild MV leaflet thickening. Mild MV leaflet calcification. Severe mitral annular calcification. Vlrm-ja-eidzhleu mitral regurgitation. MV gradients are increased in part due to mitral annular calcification . Tricuspid Valve TV structure is normal. Mild tricuspid regurgitation. Estimated peak systolic PA pressure is 45-50 mmHg + RA pressure. Pulmonic Valve PV is not well visualized; function appears normal by Doppler visualized. Aorta Aortic root size (SInus of Valsalva diameter) is normal . Pericardium No pericardial effusion is visualized. IVC/SVC/PA/PV/Pleural The estimated RA pressure by IVC dynamics 5-10mmHg . Chambers/Structures Left Atrium LA Dimension: 4.27 cm LA Area: 30.5 cm^2 LA Volume: 112.23 ml LA Vol. Index: 74 ml/m^2 Left Ventricle LVIDd: 3.45 cm LVIDs: 1.32 cm LV Septum Diastolic: 1.19 cm LV PW Diastolic: 1.16 cm LV FS: 61.7 % LVOT Diameter: 1.82 cm Right Atrium RA Vol. (Sngl Plane): 56.27 ml Aorta Ao Root S of Kindra.: 2.74 cm Doppler/Quantitative Measurements Mitral Valve Mean Velocity: 0.96 m/s Mean Gradient: 6.07 mmHg Area (continuity): 1 cm^2 MV VTI: 87.79 cm MV Son. Peak: 2.5 m/s Aortic Valve Peak Velocity: 2.02 m/s Mean Velocity: 1.28 m/s Peak Gradient: 16.29 mmHg Mean Gradient: 7.83 mmHg AV Area (continuity): 1.76 cm^2 AV VTI: 49.66 cm AV DVI: 0.68 LVOT Peak Velocity: 1.3 m/s Peak Gradient: 6.71 mmHg Mean Velocity: 0.88 m/s Mean Gradient: 3.7 mmHg LVOT Diameter: 1.82 cm LVOT VTI: 33.63 cm LVOT Area: 2.6 cm^2 LVOT SV:87.45 ml LVOT CO: 4.11 l/min LVOT CI: 2.72 l/min/m^2 Troponin I (01/31/2018 9:05 AM)Only the most recent of3 resultswithin the time period is included. Component Value Ref Range Troponin I 0.02 0.00 - 0.03 ng/mL Specimen Performing [place] [address] Narrative Troponin I (TnI) levels must be interpreted [...] failure, acidosis, acute neurological disease, and persistent tachyarrhythmia. Creatine Kinase (CK), Total and MB (01/31/2018 9:05 AM)Only the most recent of3 resultswithin the time period is included. Component Value Ref Range Total CK 35 29 - 200 U/L CK-MB 1.7 0.0 - 6.6 ng/mL MB Relative Index 4.9 % Specimen Performing Laboratory Blood [address] [address] Narrative CK-MB Reference Range: <6.7Normal 6.7-10.0Borderline >10.0 Abnormal Urinalysis, Routine (01/31/2018 1:57 AM) Component Value Ref Range Color, UA Light Yellow Clarity, UA Clear Specific [place], UA 1.005 1.001 - 1.035 pH, UA 5.0 5.0 - 8.0 Protein, UA Negative Negative Glucose, UA Negative Negative Ketones, UA Negative Negative Bilirubin, UA Negative Negative Blood, UA Negative Negative Nitrite, UA Negative Negative Leukocytes, UA Negative Negative Urobilinogen, UA 0.2 0.2 - 1.0 mg/dL RBC, UA 1 /HPF WBC, UA 3 /HPF Squam Epithel, UA 1 /HPF Amorphous Crystals Rare Specimen Source Urine, [place] Specimen Performing Laboratory Urine - Urine, [place] [address] [address] aPTT (01/30/2018 8:51 PM) Component Value Ref Range PTT 34.5 22.5 - 36.0 seconds Specimen Performing Laboratory [address] [address] Prothrombin time/INR (01/30/2018 8:51 PM) Component Value Ref Range Protime 15.9 (H) 11.7 - 14.7 seconds INR 1.3 <=5.9 Specimen Performing Laboratory [address] [address] Narrative RECOMMENDED COUMADIN/WARFARIN INR THERAPY RANGES STANDARD DOSE: 2.0 - 3.0 Includes: PROPHYLAXIS for venous thrombosis, systemic embolization; TREATMENT for venous thrombosis and/or pulmonary embolus. HIGH RISK: Target INR is 2.5-3.5 for patients with mechanical heart valves. Phosphorus (01/30/2018 8:51 PM) Component Value Ref Range Phosphorus 4.0 2.3 - 4.7 mg/dL Specimen Performing Laboratory [address] [address] B-type natriuretic peptide (01/30/2018 8:51 PM) Component Value Ref Range BNP 2547 (H) 0 - 100 pg/mL Specimen Performing Laboratory [address] [address] Hepatic function panel (01/30/2018 8:51 PM) Component Value Ref Range Protein, Total 7.2 6.0 - 8.3 gm/dL Albumin 3.7 3.5 - 5.0 g/dL Total Bilirubin 0.6 0.2 - 1.2 mg/dL Bilirubin, Direct 0.3 0.1 - 0.5 mg/dL Alkaline Phosphatase 103 40 - 150 U/L AST 32 5 - 34 U/L ALT 18 6 - 55 U/L Specimen Performing Laboratory [address] [address] ECG 12 lead (01/30/2018 7:55 PM) Specimen Performing Laboratory GE MUSE Narrative Ventricular Rate 36 BPM Atrial Rate 54 BPM QRS Duration 90 ms Q-T Interval 616 ms QTC Calculation(Bazett) 476 ms P [place] 62 degrees R [place] 44 degrees T [place] 45 degrees Marked sinus bradycardia with 2:1 to 3:[address] abnormality, possible digitalis effect Abnormal ECG No previous ECGs available Confirmed by MD PERES JOSEPH P ([id number]) on 01/31/2018 7:39:41 AM Procedure Note Interface, External Ris In - 01/31/2018 7:39 AM SHIPPING ASSOCIATE Ventricular Rate 36 BPM Atrial Rate 54 BPM QRS Duration 90 ms Q-T Interval 616 ms QTC Calculation(Bazett) 476 ms P [place] 62 degrees R [place] 44 degrees T [place] 45 degrees Marked sinus bradycardia with 2:1 to 3:[address] abnormality, possible digitalis effect Abnormal ECG No previous ECGs available Confirmed by MD PERES JOSEPH P ([id number]) on 01/31/2018 7:39:41 AM after 03/18/2017
[2018-03-19 12:23] LABS: Protime INR 1.16
[2018-03-19 12:27] LABS: Absolute Lymphocytes (CBC) 1.2 K/uL (0.7-4.9); Absolute Monocytes 0.7 K/uL (0.1-1.3); Absolute Neutrophil 9.3 K/uL (1.8-8.0); Basophils % 0.4 % (0-1.3); Hematocrit 24.5 % (36.0-45.0); Lymphocytes % 10.6 % (15.3-44.8); MCH 32.1 pg (27.0-35.0); MCV 93.4 fL (80-100); MPV 10.6 fL (7.6-11.3); Monocytes % 5.9 % (3.3-12.3); RBC Red Blood Cell Count 2.62 M/uL (3.86-4.86)
[2018-03-19 12:38] LABS: Albumin 3.7 g/dL (3.2-5.5); Bilirubin Direct 0.1 mg/dL (0-0.2); Bilirubin Total 0.7 mg/dL (0.3-1.2); Magnesium 2.5 mg/dL (1.8-2.5); Protein, Total 7.4 g/dL (6.0-8.3)
--- NOTE | 2018-03-19 12:39 | RAD REPORT ---
EXAM DESCRIPTION: Dominique Single View03/19/2018 12:20 pm CLINICAL HISTORY: Cough COMPARISON: January 2018 FINDINGS: The left base is hazy. The remainder of the lungs appear clear. The heart is mildly to moderately enlarged Pacemaker leads are in place IMPRESSION: The left base is hazy which may be secondary to a small pleural effusion and atelectasis or pneumonia.
[2018-03-19] MEDS ORDERED: NA CHLORIDE 0.9% 1,000 ML ONE (12:53)
[2018-03-19] MEDS ORDERED: levoFLOXacin 500 MG TAB ONE (12:53)
[2018-03-19] MEDS ORDERED: LEVALBUTEROL 1.25 MG/3 ML NEB ONE (14:50)
--- NOTE | 2018-03-19 14:54 | ER ---
Nurse's Notes [facility] Name: Keerthi Kiser Age: 82 yrs Sex: Female : 1935 Arrival Date: 03/19/2018 Time: 11:49 Bed 6 Private MD: Diagnosis: Dehydration;Pneumonia due to other specified bacteria Presentation: 03/19 11:47 Presenting complaint: EMS states: pt c/o chest pain off and on for 3 days now, gets tw2 really sob when walking, pacemaker 3 weeks ago at [facility], vs stable, hx: afib, dm, htn. Transition of care: patient was not received from another setting of care. Onset of symptoms was March 19, 2018. Initial Sepsis Screen: Does the patient meet any 2 criteria? No. Patient's initial sepsis screen is negative. Does the patient have a suspected source of infection? No. Patient's initial sepsis screen is negative. Care prior to arrival: None. 11:47 Method Of Arrival: EMS: [facility] tw 11:47 Acuity: RAMA 3 tw2 Historical: - Allergies: 11:55 PENICILLINS; tw2 - Home Meds: 11:55 Ventolin Rotahaler/Rotacaps Inhl [Active]; Advair Diskus 250-50 mcg/dose Inhl dsdv tw2 [Active]; aspirin 81 mg Oral TbEC 1 tab once daily [Active]; azithromycin 500 mg Oral tab 1 tab once daily [Active]; Equate multivitamin/multimineral [Active]; gabapentin 300 mg Oral cap 1 cap 3 times per day [Active]; spironolacton-hydrochlorothiaz 25-25 mg Oral tab 1 tab once daily [Active]; losartan-hydrochlorothiazide 50-12.5 mg Oral tab 1 tab once daily [Active]; tramadol 50 mg Oral tab 1 tab every 4-6 hours [Active]; - PMHx: 11:55 Asthma; Diabetes - IDDM; Hypertension; COPD; tw2 - PSHx: 11:55 hip replacement (left); tw2 - Immunization history:: Adult Immunizations up to date. - Social history:: Smoking status: Patient/guardian denies using tobacco. Screenin:02 Abuse screen: Denies threats or abuse. Nutritional screening: No deficits noted. tw2 Tuberculosis screening: No symptoms or risk factors identified. Fall Risk None identified. Assessment: 11:56 General: Appears in no apparent distress. Behavior is calm, cooperative, appropriate tw2 for age. Pain: Complains of pain in chest Pain does not radiate. Pain began 2-3 days ago. Neuro: Level of Consciousness is awake, alert, obeys commands, Oriented to person, place, time, situation. Cardiovascular: Reports chest pain, shortness of breath, Heart tones S1 S2 Capillary refill < 3 seconds Patient's skin is warm and dry. pacemaker upper left chest. Respiratory: Airway is patent Respiratory effort is even, unlabored, Respiratory pattern is regular, symmetrical, Breath sounds are clear bilaterally. GI: No signs and/or symptoms were reported involving the gastrointestinal system. Abdomen is flat. : No deficits noted. Derm: Skin is intact, is healthy with good turgor, Skin temperature is warm. 12:48 Reassessment: Patient appears in no apparent distress at this time. No changes from tw2 previously documented assessment. Patient and/or family updated on plan of care and expected duration. Pain level reassessed. Patient is alert, oriented x 3, equal unlabored respirations, skin warm/dry/pink. 13:26 Reassessment: Daughter Zainab [phone]. hb 13:57 Reassessment: Patient appears in no apparent distress at this time. No changes from tw2 previously documented assessment. Patient and/or family updated on plan of care and expected duration. Pain level reassessed. Patient is alert, oriented x 3, equal unlabored respirations, skin warm/dry/pink. 14:30 Reassessment: Pt ambulated in hallway with assistance. Pt denied dizziness. HR 106-112, hb R25, SpO2 94% on RA. KIAMNI Crocker notified. 15:54 Reassessment: Patient appears in no apparent distress at this time. No changes from tw2 previously documented assessment. Patient and/or family updated on plan of care and expected duration. Pain level reassessed. Patient is alert, oriented x 3, equal unlabored respirations, skin warm/dry/pink. Vital Signs: 11:51 BP 146 / 62; Pulse 84; Resp 14; Temp 98.2(O); Pulse Ox 95% on R/A; Weight 56.25 kg (R); tw2 Height 4 ft. 10 in. (147.32 cm); Pain 8/10; 12:47 BP 142 / 50; Pulse 80; Resp 14; Pulse Ox 97% on R/A; tw2 13:57 BP 151 / 66; Pulse 80; Resp 18; Pulse Ox 97% on R/A; tw2 14:30 BP 177 / 77; Pulse 110; Resp 25; Pulse Ox 94% on R/A; Pain 0/10; hb 15:53 BP 179 / 69; Pulse 86; Resp 16; Pulse Ox 97% on R/A; tw2 11:51 Body Mass Index 25.92 (56.25 kg, 147.32 cm) tw2 ED Course: 11:49 Patient arrived in ED. tw2 11:49 Obi Sanchez PA is PHCP. jr8 11:49 Juan Rodriguez MD is Attending Physician. jr8 11:50 Arm band placed on. tw2 11:51 Triage completed. tw2 11:53 Jazmyn Barriga, RN is Primary Nurse. tw2 11:55 Bed in low position. Side rails up X2. quality assurance monitor body on. Pulse ox on. NIBP on. tw2 11:56 No provider procedures requiring assistance completed. Maintain EMS IV. Dressing tw2 intact. Good blood return noted. Site clean \T\ dry. Gauge \T\ site: 20g LEFT ac. Patient maintains SpO2 saturation greater than 95% on room air. 11:58 EKG done, by technical program manager. reviewed by Obi HARMAN. at1 12:17 X-ray completed. Portable x-ray completed in exam room. Patient tolerated procedure ml well. 12:19 XRAY Chest (1 view) In Process Unspecified. EDMS 14:52 Stephanie Adkins MD is Hospitalizing Provider. jr8 15:59 Patient admitted, IV remains in place. tw2 Administered Medications: 13:00 Drug: NS 0.9% 1000 ml Route: IV; Rate: 1000 ml; Site: left antecubital; hb 13:00 Drug: LevaQUIN 500 mg Route: PO; hb 15:08 Follow up: Response: No adverse reaction tw2 15:00 Drug: Xopenex 1.25 mg Route: Inhalation; tw2 Point of Care Testing: Blood Glucose: 15:58 Blood Glucose: 136 mg/dL; tw2 Ranges: Outcome: 14:53 Decision to Hospitalize by Provider. jr8 15:59 Admitted to Med/surg accompanied by kaylyn via wheelchair, room 212, with chart, Report tw2 called to OMAR Lazaro 15:59 Condition: stable 15:59 Instructed on the need for admit. 16:05 Patient left the ED. tw2 Signatures: Dispatcher [employer] Gale Yousif Josh, PA PA jr8 Alanna lopez, shake backboard notcher EKG Tat1 Sana De La Paz RN RN Jazmyn Barriga RN RN tw2 Corrections: (The following items were deleted from the chart) 12:48 11:51 Pulse 84bpm; Resp 14bpm; Pulse Ox 95% RA; Temp 98.2F Oral; 56.25 kg Reported; tw2 Height 4 ft. 10 in.; BMI: 25.9; Pain 8/10; tw2 15:15 13:30 BP 177 / 77; Pulse 110bpm; Resp 25bpm; Pulse Ox 94% RA; Pain 0/10; hb hb 15:56 11:51 BP 146 / 2; Pulse 84bpm; Resp 14bpm; Pulse Ox 95% RA; Temp 98.2F Oral; 56.25 kg tw2 Reported; Height 4 ft. 10 in.; BMI: 25.9; Pain 8/10; tw2
--- NOTE | 2018-03-19 14:54 | EDPHYS ---
Physician Documentation [facility] Name: Keerthi Kiser Age: 82 yrs Sex: Female : 1935 Arrival Date: 03/19/2018 Time: 11:49 Bed 6 Private MD: ED Physician Juan Rodriguez HPI: 03/19 12:36 This 82 yrs old Female presents to ER via EMS with complaints of Chest Pain > jr8 31 y/o. 12:36 The patient or guardian reports chest pain that is located primarily in the substernal jr8 area. Onset: gradually, 2 day(s) ago. The pain does not radiate. Associated signs and symptoms: Pertinent positives: shortness of breath. The chest pain is described as a pressure. Duration: The patient or guardian reports multiple episodes. Modifying factors: The symptoms are alleviated by remaining still, rest, the symptoms are aggravated by exertion. Severity of pain: At its worst the pain was mild in the emergency department the pain has improved. The patient has not experienced similar symptoms in the past. The patient has not recently seen a physician. Patient had pacemaker placed about 1 month ago. Since then has been doing well. For the past couple of days started to have shortness of breath with exertion and chest tightness. Denies shortness of breath at rest . Historical: - Allergies: 11:55 PENICILLINS; tw2 - Home Meds: 11:55 Ventolin Rotahaler/Rotacaps Inhl [Active]; Advair Diskus 250-50 mcg/dose Inhl dsdv tw2 [Active]; aspirin 81 mg Oral TbEC 1 tab once daily [Active]; azithromycin 500 mg Oral tab 1 tab once daily [Active]; Equate multivitamin/multimineral [Active]; gabapentin 300 mg Oral cap 1 cap 3 times per day [Active]; spironolacton-hydrochlorothiaz 25-25 mg Oral tab 1 tab once daily [Active]; losartan-hydrochlorothiazide 50-12.5 mg Oral tab 1 tab once daily [Active]; tramadol 50 mg Oral tab 1 tab every 4-6 hours [Active]; - PMHx: 11:55 Asthma; Diabetes - IDDM; Hypertension; COPD; tw2 - PSHx: 11:55 hip replacement (left); tw2 - Immunization history:: Adult Immunizations up to date. - Social history:: Smoking status: Patient/guardian denies using tobacco. ROS: 12:36 Eyes: Negative for injury, pain, redness, and discharge, ENT: Negative for injury, jr8 pain, and discharge, Neck: Negative for injury, pain, and swelling, Abdomen/GI: Negative for abdominal pain, nausea, vomiting, diarrhea, and constipation, Back: Negative for injury and pain, MS/Extremity: Negative for injury and deformity, Skin: Negative for injury, rash, and discoloration, Neuro: Negative for headache, weakness, numbness, tingling, and seizure. 12:36 Cardiovascular: Positive for chest pain, Negative for edema, orthopnea, palpitations, paroxysmal nocturnal dyspnea. 12:36 Respiratory: Positive for dyspnea on exertion, Negative for cough, shortness of breath, sputum production, wheezing. Exam: 12:36 Eyes: Pupils equal round and reactive to light, extra-ocular motions intact. Lids and jr8 lashes normal. Conjunctiva and sclera are non-icteric and not injected. Cornea within normal limits. Periorbital areas with no swelling, redness, or edema. ENT: Nares patent. No nasal discharge, no septal abnormalities noted. Tympanic membranes are normal and external auditory canals are clear. Oropharynx with no redness, swelling, or masses, exudates, or evidence of obstruction, uvula midline. Mucous membranes moist. Neck: Trachea midline, no thyromegaly or masses palpated, and no cervical lymphadenopathy. Supple, full range of motion without nuchal rigidity, or vertebral point tenderness. No Meningismus. Cardiovascular: Regular rate and rhythm with a normal S1 and S2. No gallops, murmurs, or rubs. Normal PMI, no JVD. No pulse deficits. Abdomen/GI: Soft, non-tender, with normal bowel sounds. No distension or tympany. No guarding or rebound. No evidence of tenderness throughout. Back: No spinal tenderness. No costovertebral tenderness. Full range of motion. Skin: Warm, dry with normal turgor. Normal color with no rashes, no lesions, and no evidence of cellulitis. MS/ Extremity: Pulses equal, no cyanosis. Neurovascular intact. Full, normal range of motion. Neuro: Awake and alert, GCS 15, oriented to person, place, time, and situation. Cranial nerves II-XII grossly intact. Motor strength 5/5 in all extremities. Sensory grossly intact. Cerebellar exam normal. Normal gait. 12:36 Respiratory: the patient does not display signs of respiratory distress, Respirations: normal, symetrical, no use of accessory muscles, no grunting, no evidence of nasal flaring, no prolonged exhalations, no pursed lip breathing, no retractions, no shallow respirations, no splinting, no tachypnea, Breath sounds: rales, that are mild, are located in both bases, are heard in the left posterior lower lobe. Vital Signs: 11:51 BP 146 / 62; Pulse 84; Resp 14; Temp 98.2(O); Pulse Ox 95% on R/A; Weight 56.25 kg (R); tw2 Height 4 ft. 10 in. (147.32 cm); Pain 8/10; 12:47 BP 142 / 50; Pulse 80; Resp 14; Pulse Ox 97% on R/A; tw2 13:57 BP 151 / 66; Pulse 80; Resp 18; Pulse Ox 97% on R/A; tw2 14:30 BP 177 / 77; Pulse 110; Resp 25; Pulse Ox 94% on R/A; Pain 0/10; hb 15:53 BP 179 / 69; Pulse 86; Resp 16; Pulse Ox 97% on R/A; tw2 11:51 Body Mass Index 25.92 (56.25 kg, 147.32 cm) tw2 MDM: 11:49 Patient medically screened. jr8 14:51 Data reviewed: vital signs, nurses notes, lab test result(s), EKG, radiologic studies, jr8 plain films, and as a result, I will admit patient. Data interpreted: Pulse oximetry: on room air is 95 %. Interpretation: acceptable. Counseling: I had a detailed discussion with the patient and/or guardian regarding: the historical points, exam findings, and any diagnostic results supporting the discharge/admit diagnosis, lab results, radiology results, the need for further work-up and treatment in the hospital. ED course: after fluids had patient do a light walk to assess respiratory status. Patient after walk was tachypneic, dyspneic, and fatigued. Will admit for oxygen therapy and continued antibiotics . 03/19 11:57 Order name: Basic Metabolic Panel; Complete Time: 12:42 jr8 03/19 11:57 Order name: BNP; Complete Time: 13:37 03/19 11:57 Order name: CBC with Diff; Complete Time: 12:28 03/19 11:57 Order name: LFT's; Complete Time: 12:42 03/19 11:57 Order name: Magnesium; Complete Time: 12:42 03/19 11:57 Order name: PT-INR; Complete Time: 12:28 03/19 11:57 Order name: Troponin (emerg Dept Use Only); Complete Time: 12:42 03/19 11:57 Order name: XRAY Chest (1 view); Complete Time: 12:42 03/19 11:57 Order name: EKG; Complete Time: 11:57 03/19 11:57 Order name: Cardiac monitoring; Complete Time: 12:49 03/19 11:57 Order name: EKG - Nurse/Tech; Complete Time: 12:49 03/19 11:57 Order name: IV Saline Lock; Complete Time: 12:50 03/19 11:57 Order name: Labs collected and sent; Complete Time: 12:50 03/19 11:57 Order name: O2 Per Protocol; Complete Time: 12:50 03/19 11:57 Order name: O2 Sat Monitoring; Complete Time: 12:50 Administered Medications: 13:00 Drug: NS 0.9% 1000 ml Route: IV; Rate: 1000 ml; Site: left antecubital; hb 13:00 Drug: LevaQUIN 500 mg Route: PO; hb 15:08 Follow up: Response: No adverse reaction tw2 15:00 Drug: Xopenex 1.25 mg Route: Inhalation; tw2 Point of Care Testing: Blood Glucose: 15:58 Blood Glucose: 136 mg/dL; tw2 Ranges: Critical Glucose Levels:Adult <50 mg/dl or >400 mg/dl <40 mg/dl or >180 mg/dl Disposition: 19:12 Co-signature as Attending Physician, Juan Rodriguez MD I agree with the assessment and glenda plan of care. Disposition: 03/19/18 14:53 Hospitalization ordered by Stephaine Adkins for Inpatient Admission. Preliminary diagnosis are Dehydration, Pneumonia due to other specified bacteria. - Bed requested for Telemetry/MedSurg (Inpatient). - Status is Inpatient Admission. tw2 - Condition is Stable. - Problem is new. - Symptoms are unchanged. UTI on Admission? No Signatures: Dispatcher [employer] EDJuan Oh MD MD cha Roszak, Josh, PA PA jr8 Sana De La Paz, RN RN Jazmyn Barriga RN RN tw2 David Pichardo 2
[2018-03-19] MEDS ORDERED: ACETAMINOPHEN 500 MG TAB PO PRN (15:00)
[2018-03-19] MEDS ORDERED: ONDANSETRON 4 MG/2 ML VIAL IV PRN (15:00)
[2018-03-19] MEDS ORDERED: ALBUTEROL 2.5 MG/3 ML NEB SOL NEB PRN (15:00)
--- NOTE | 2018-03-19 17:01 | EKG ---
Test Date: 2018-03-19 Test Time: 11:51:02 Immigration Manager: PADDY MEASUREMENT RESULTS: Intervals: Rate: 83 IA: 216 QRSD: 90 QT: 384 QTc: 451 [place]: P: 41 IA: 216 QRS: -13 T: 90 INTERPRETIVE STATEMENTS: Atrial-sensed ventricular-paced rhythm Abnormal ECG Compared to ECG 01/30/2018 15:44:02 Sinus tachycardia no longer present High degree AV block is no longer present Paced rhythm is now present Electronically Signed On 03-19-18 17:01:34 CDT by Chau Sultana
[2018-03-19] MEDS ORDERED: D50W 25 GM/50 ML SYRINGE IV PRN (17:18)
[2018-03-19] MEDS ORDERED: GLUCAGON 1 MG/VIAL IM PRN (17:18)
[2018-03-19] MEDS: ENOXAPARIN 30 MG/0.3 ML SQ SCH (17:21)
[2018-03-19] MEDS: NA CHLORIDE 0.9% 1,000 ML IV SCH (17:21)
[2018-03-19 17:51] VITALS: BMI 25.9
[2018-03-19] MEDS: IPRATROPIUM BROM 0.5MG/2.5ML NEB SCH (20:07)
[2018-03-19] MEDS: INSULIN -REGULAR HUMAN 50 UNIT/0.5 ML ML SQ SCH (21:00)
[2018-03-19] MEDS: CEFTRIAXONE/SWI 1gm 1 GM/10 ML SYR IVP SCH (21:32)
[2018-03-20] MEDS: IPRATROPIUM BROM 0.5MG/2.5ML NEB SCH ×4 (01:58→19:40)
[2018-03-20 02:23] LABS: Urine Appearance CLOUDY; Urine Bilirubin NEGATIVE (NEG); Urine Blood 2+ (NEG); Urine Color YELLOW; Urine Glucose NEGATIVE (NEG); Urine Protein TRACE (NEG); Urine Urobilinogen 0.2 mg/dL (0.2-1.0)
[2018-03-20 02:28] LABS: Urine Microscopic Reflex ORDER UMIC
--- NOTE | 2018-03-20 02:30 | HP ---
Date of Admission: 03/19/2018 Primary Care Physician: Dr. Power. Chief Complaint: Shortness of breath. History Of Present Illness: The patient is an 82-year-old female with past medical history of COPD, CHF, recent pacemaker placement approximately 1 month ago, and diabetes, who was in her usual state of health until 1 month ago when the patient had a pacemaker placement done at [facility]. Approximately 3-4 days ago, the patient started developing nausea, vomiting, and has been progressively dyspneic upon exertion for the past 2 days. The patient does report some cough, but no significant sputum production. Denies any fevers or chills, but has been lethargic and decreased appetite. No chest pain. The patient's symptoms are constant, moderate, and progressively worsening. The patient therefore came into the ER for further evaluation. Upon arrival, her vital signs were stable. She was afebrile, however, became very dyspneic with exertion. Her chest x-ray showed left base which is hazy secondary to small effusion, atelectasis, or pneumonia. The patient's lab workup revealed white count of 11.6 with left shift. Her BNP was 148. Creatinine was 1.58. Troponin was negative. The patient was therefore referred for admission for pneumonia. When seen in the ER, the patient was awake, alert, and oriented x3, somewhat in acute distress, lethargic. Past Medical History: Diabetes, asthma, hypertension, hyperlipidemia, diabetic neuropathy, and COPD. Past Surgical History: Hysterectomy. Social History: The patient is , lives with her daughter. Does need some assistance with her activities of daily living. Does not use any assistive ambulatory devices. Denies any smoking, alcohol, or illicit drug use. Family History: Mother had heart disease, hypertension, and diabetes. Father had asthma. Brother also has diabetes. Allergies: TO PENICILLIN, WHICH CAUSES ITCHING AND RASH. Medications: Reviewed. Review of Systems: An 11-point system reviewed, negative except as per HPI. Physical Examination: Vital Signs: Blood pressure 146/58, pulse 84, respirations 14, temperature 98.2 , and pulse ox 95% on room air. General: Awake, alert, and oriented x3, in some mild distress, ill-appearing elderly female, lethargic. HEENT: Normocephalic, atraumatic. PERRLA. EOMI. Slightly dry mucous membranes. Oropharynx is clear. Conjunctivae anicteric. Neck: Supple. Trachea midline. No JVD. CV: S1, S2. Regular rate and rhythm. Peripheral pulses are weak bilaterally. No murmurs. Respiratory: Diminished breath sounds, left worse than right. No crackles. Some rhonchi heard. No wheezing. No use of accessory muscles. No stridor. Gastrointestinal: Soft abdomen, nontender, nondistended. Positive bowel sounds. No guarding or rigidity. No palpable masses. Bowel sounds are positive. Extremities: No clubbing, cyanosis, or edema. No calf tenderness. Neuro: Cranial nerves 2 through 12 intact grossly. Strength is 5/5 in bilateral upper and lower extremities. Sensation intact to light touch except at the feet and decreased sensation to light touch. Speech is normal. Skin: No rashes. Normal skin turgor. Psych: Mood is okay. Affect is full. Insight and judgment are good. Laboratory Data: Sodium 135, potassium 4, chloride 98, CO2 31, BUN 71, creatinine 1.58, glucose 124, calcium 8.8, and magnesium 2.5. Troponin less than 0.03. BNP 148. Albumin 3.7. INR 1.16. WBC 11.6, H and H 8.4 and 24.5, and platelets 187, neutrophils 80%. Chest x-ray shows left base is hazy, which may be secondary to small pleural effusion, atelectasis, or pneumonia. Assessment: An 82-year-old female with; 1. Left basilar pneumonia. We will continue the patient on IV antibiotics. We will obtain blood cultures and sputum culture. Continue with IV fluids. The patient is not septic. 2. Diabetes mellitus type 2 with diabetic neuropathy. We will continue on sliding scale insulin. 3. Chronic kidney disease. Creatinine is 1.5, stage III. We will continue to monitor. Continue with IV fluids. 4. Essential hypertension. We will resume home medications as appropriate. 5. Chronic obstructive pulmonary disease, not oxygen dependent. We will continue with breathing treatments. 6. Hyperlipidemia, statin. 7. Congestive heart failure, diastolic dysfunction, compensated. BNP only mildly elevated. No peripheral edema. 8. Gastrointestinal and deep venous thrombosis prophylaxis PPI and Lovenox. Plan: Admit the patient to med-surg, place as inpatient. No medical power assistant city attorney or living will SA/MODL Voice ID: [id number] MTDD
[2018-03-20 03:24] LABS: Urine Bacteria <20 /HPF (<20); Urine Culture Reflex Order REFLEXED
[2018-03-20 03:25] LABS: Urine RBC <5 /HPF (NONE SEEN)
[2018-03-20 04:45] LABS: Absolute Lymphocytes (CBC) 1.2 K/uL (0.7-4.9); Absolute Monocytes 0.7 K/uL (0.1-1.3); Absolute Neutrophil 7.1 K/uL (1.8-8.0); Basophils % 0.2 % (0-1.3); Eosinophils % 2.3 % (0-4.4); Hematocrit 23.4 % (36.0-45.0); Lymphocytes % 13.4 % (15.3-44.8); MCV 93.8 fL (80-100); MPV 10.2 fL (7.6-11.3); Monocytes % 7.3 % (3.3-12.3); RBC Red Blood Cell Count 2.49 M/uL (3.86-4.86)
[2018-03-20 04:59] LABS: Albumin 3.2 g/dL (3.2-5.5); Bilirubin Total 0.6 mg/dL (0.3-1.2); Potassium 3.9 mEq/L (3.6-5.0); Protein, Total 6.3 g/dL (6.0-8.3)
[2018-03-20] MEDS: NA CHLORIDE 0.9% 1,000 ML IV SCH ×2 (05:08→09:40)
[2018-03-20] MEDS: INSULIN -REGULAR HUMAN 50 UNIT/0.5 ML ML SQ SCH ×4 (07:30→20:43)
[2018-03-20] MEDS ORDERED: POLYETHYL GLY 3350 17 GM/DOSE PO PRN (08:51)
[2018-03-20] MEDS: DOCUSATE NA 100 MG CAP PO SCH ×2 (09:00→20:42)
[2018-03-20] MEDS: CEFTRIAXONE/SWI 1gm 1 GM/10 ML SYR IVP SCH ×2 (09:41→20:42)
[2018-03-20] MEDS: AZITHROMYCIN IV 500 MG in NA CHLORIDE 0.9% 250 ML IVPB SCH (09:41)
[2018-03-20] MEDS: GABAPENTIN 300 MG CAP PO SCH ×2 (13:35→20:42)
--- NOTE | 2018-03-20 16:06 | PN ---
Date of Progress Note: 03/20/2018 Subjective: The patient seen and examined, chart reviewed and case discussed with RN. The patient s tates, she is feeling significantly better. No family at the bedside. The patient does report some swelling of her face. Review of Systems: Negative except as above. Medications: Reviewed. Physical Examination: Vital Signs: Temperature 98.2, heart rate 78, blood pressure 150/66, respirations 18, and O2 100% on room air. General: Awake, alert, oriented x3. Some mild distress, ill-appearing elderly female. CV: S1, S2. No murmurs. Regular rate and rhythm. Peripheral pulses present bilaterally. Respiratory: Diminished breath sounds. Some wheezing heard. No use of accessory muscles. No strid or Gastrointestinal: Abdomen is soft, nontender, nondistended. Positive bowel sounds. No guarding or rigidity. Extremities: No clubbing, cyanosis, or edema. Neurologic: Nonfocal. Laboratory Data: Sodium 139, potassium 3.9, chloride 103, CO2 30, BUN 53, creatinine 1.22, and gluco se 73. Calcium 8.6. Albumin 3.2. WBC 9.3, H and H 8 and 23.4, platelets 179, and neutrophils 76%. Blood cultures pending. Urine culture pending. Assessment And Plan: An 82-year-old female with; 1.Left basilar pneumonia. We will continue antibiotics and follow up on cultures. 2.Diabetes mellitus type 2 with diabetic neuropathy. We will continue sliding scale insulin. Tyra nue Accu-Cheks. 3.Chronic kidney disease. Creatinine around baseline, stage 3. We will discontinue IV fluids. We will encourage p.o. intake and oral hydration. 4.Essential hypertension. We will resume home medications as appropriate, stable. 5.Chronic obstructive pulmonary disease, not oxygen dependent. We will continue breathing treatment s. 6.Hyperlipidemia. 7.Continue statin. 8.Congestive heart failure, diastolic dysfunction, compensated. Monitor urinary output and fluid ba love closely. Free fluid restriction. 9.Gastrointestinal and deep venous thrombosis prophylaxis with PPI and Lovenox. SA/MODL Voice ID: [id number] Report ID: [id number]
[2018-03-20] MEDS: ENOXAPARIN 30 MG/0.3 ML SQ SCH (17:12)
[2018-03-20] MEDS: CARVEDILOL 3.125 MG TAB PO SCH (20:43)
[2018-03-21] MEDS: IPRATROPIUM BROM 0.5MG/2.5ML NEB SCH ×3 (01:27→13:39)
[2018-03-21] MEDS: NA CHLORIDE 0.9% 1,000 ML IV SCH (03:56)
[2018-03-21 05:26] LABS: Absolute Lymphocytes (CBC) 1.5 K/uL (0.7-4.9); Absolute Monocytes 0.7 K/uL (0.1-1.3); Basophils % 0.4 % (0-1.3); Eosinophils % 2.8 % (0-4.4); Hematocrit 22.1 % (36.0-45.0); Lymphocytes % 17.3 % (15.3-44.8); MCH 32.1 pg (27.0-35.0); MCV 93.8 fL (80-100); Monocytes % 8.8 % (3.3-12.3); RBC Red Blood Cell Count 2.35 M/uL (3.86-4.86)
[2018-03-21 05:39] LABS: Albumin 2.9 g/dL (3.2-5.5); Bilirubin Total 0.4 mg/dL (0.3-1.2); Potassium 3.6 mEq/L (3.6-5.0); Protein, Total 5.9 g/dL (6.0-8.3)
[2018-03-21] MEDS: INSULIN -REGULAR HUMAN 50 UNIT/0.5 ML ML SQ SCH ×2 (07:30→11:30)
--- NOTE | 2018-03-21 08:27 | RAD REPORT ---
EXAM DESCRIPTION: Dominique Single View03/21/2018 6:51 am CLINICAL HISTORY: Chest pain COMPARISON: March 19 2018 FINDINGS: The left basilar opacities have partially resolved. No other change is noted IMPRESSION: Partial resolution in left basilar opacities
[2018-03-21] MEDS ORDERED: hydroCHLOROthiazide 25 MG TAB PO SCH (09:00)
[2018-03-21] MEDS ORDERED: FERROUS SULFATE 325 MG TAB PO SCH (09:00)
[2018-03-21] MEDS ORDERED: PANTOPRAZOLE 40MG TABLET PO SCH (09:00)
[2018-03-21] MEDS ORDERED: INSULIN DEGLUDEC 20 UNIT SQ SCH (09:00)
[2018-03-21] MEDS ORDERED: AMLODIPINE 10 MG TAB PO SCH (09:00)
[2018-03-21] MEDS ORDERED: LOSARTAN POTASSIUM 50 MG TABLET PO SCH (09:00)
[2018-03-21] MEDS ORDERED: ASPIRIN EC 81 MG TAB PO SCH (09:00)
[2018-03-21] MEDS ORDERED: HOME MED 1 EA UNK (Fluticasone/Salmeterol [Advair 250-50 Diskus] 1 EACH) IH SCH (09:00)
[2018-03-21] MEDS: DOCUSATE NA 100 MG CAP PO SCH (09:00)
[2018-03-21] MEDS: CARVEDILOL 3.125 MG TAB PO SCH (09:47)
[2018-03-21] MEDS: CEFTRIAXONE/SWI 1gm 1 GM/10 ML SYR IVP SCH (09:48)
[2018-03-21] MEDS: AZITHROMYCIN IV 500 MG in NA CHLORIDE 0.9% 250 ML IVPB SCH (09:48)
[2018-03-21] MEDS: GABAPENTIN 300 MG CAP PO SCH (09:48)
[2018-03-21 10:04] VITALS: O2SAT 97
[2018-03-21 12:01] LABS: Hematocrit 24.2 % (36.0-45.0)
--- NOTE | 2018-03-21 14:16 | DS ---
Date of Discharge: 03/21/2018 Admitting Diagnoses: 1.Left basilar pneumonia. 2.Diabetes mellitus type 2 with diabetic neuropathy. 3.Chronic kidney disease, stage 3. 4.Essential hypertension. 5.Chronic obstructive pulmonary disease, qwm-glwtqw-vrtahckey. Chronic bronchitis. 6.Hyperlipidemia. 7.Diastolic heart failure, compensated, chronic. Discharge Diagnoses: 1.Left basilar pneumonia, improved. 2.Diabetes mellitus type 2 with diabetic neuropathy, insulin dependent. 3.Chronic kidney disease, stage 3. Creatinine is stable. 4.Hypertension, stable. 5.Chronic obstructive pulmonary disease, non-oxygen dependent, chronic bronchitis, stable. 6.Hyperlipidemia. 7.Continue statin. 8.Diastolic congestive heart failure, chronic. 9.Anemia normocytic normochromic, likely anemia of chronic disease. 10.Moderate protein-calorie malnutrition. Albumin 2.9. Hospital Course: The patient is an 82-year-old female who came in with shortness of breath. The pat ient has a history of COPD, CHF, recently had a pacemaker placed. The patient was found to have left basilar pneumonia on chest x-ray. She did have a white count of 11.6 with left shift. Troponin lev el was negative. The patient was started on IV antibiotics. Blood cultures were obtained, which didier wed no growth to date. Urine culture was also done, which did not show any growth, showed mixed wade a. The patient's white count improved. Her breathing also improved significantly. Her generalized weakness resolved. She was able to ambulate without assist. She was doing well on room air, not hav e any desaturation. The patient's hemoglobin did drop slightly to 7.5, likely secondary to dilutiona l effect of IV fluids. Repeat hemoglobin will be checked. The patient has been cleared for discharg e to go home in a stable condition. Activity: As tolerated. Fall precautions. Diet: Diabetic. Medications: As per medication reconciliation list. Followup: Follow up with primary care physician in 2-3 days. Return to ER for worsening condition. Medications: As per medication reconciliation list. Total time spent discharging patient was 35 minutes. Physical Examination: General: Awake, alert, oriented, no acute distress, elderly female. CV: S1, S2. No murmurs. Respiratory: Moving air well bilaterally. No wheezing. Abdomen: Soft, nontender, nondistended. Positive bowel sounds. Extremities: No clubbing, cyanosis, edema. Neuro: Nonfocal. SA/MODL Voice ID: [id number] Report ID: [id number]
[2018-03-21 15:16] VITALS: BP 135/59; TEMP 98.1
== END 2018-03-21 14:04 | disposition home health service (06) | DRG 194 ==
LOC: ER 11:46 → ERHOLD 14:54 → 2ND 15:59
PROVIDERS: ADMIT Family Medicine; ATTEND Family Medicine
DX: J18.9 Pneumonia, unspecified organism (principal); J44.0 Chronic obstructive pulmonary disease with (acute) lower respiratory infection; I13.0 Hypertensive heart and chronic kidney disease with heart failure and stage 1 through stage 4 chronic kidney disease, or unspecified chronic kidney disease; I50.32 Chronic diastolic (congestive) heart failure; E44.0 Moderate protein-calorie malnutrition; E11.22 Type 2 diabetes mellitus with diabetic chronic kidney disease; N18.3 Chronic kidney disease, stage 3 (moderate); E11.40 Type 2 diabetes mellitus with diabetic neuropathy, unspecified; E78.5 Hyperlipidemia, unspecified; D63.1 Anemia in chronic kidney disease; Z68.25 Body mass index [BMI] 25.0-25.9, adult; Z95.0 Presence of cardiac pacemaker; Z88.0 Allergy status to penicillin; Z96.642 Presence of left artificial hip joint
CPT/HCPCS: 36415; 71045; 80048; 80053; 80076; 81003; 81015; 82962; 83735; 83880; 84484; 85014; 85018; 85025; 85610; 87040; 87086; 87088; 93005; 94760; 97163; 99285; J0456; J0696; J1650; J7030

== ENCOUNTER 2020-02-10 20:45 | Emergency (ER) | payer OTHER, SELFPAY ==
--- OUTSIDE RECORDS SUMMARY | 2020-02-10 20:49 | XMS REPORT ---
:1935 [facility] Address [address] [place] [address] Care Team Providers Name Role Phone KAYLYNN BOO Unavailable Unavailable Problems This patient has no known problems. Allergies, Adverse Reactions, Alerts This patient has no known allergies or adverse reactions. Medications This patient has no known medications. Results Test Description Test Time Test Comments Text Results Atomic Results Result Comments POCT-GLUCOSE METER 2018-02-04 13:06:00 Test Item Value Reference Range Comments POC-GLUCOSE METER (BEAKER) (test 187 mg/dL 70-110 TESTED AT [facility] [address] [place] [address] oovu=[id number]) [facility] [address] POCT-GLUCOSE [id number] 08:56:00 Test Item Value Reference Range Comments POC-GLUCOSE METER (BEAKER) 243 mg/dL 70-110 TESTED AT [address] (test nrzn=3771) [facility] [address] BASIC METABOLIC [id number] 04:21:00 Test Item Value Reference Range Comments SODIUM (BEAKER) (test 136 meq/L 136-145 lzga=920) POTASSIUM (BEAKER) (test 3.9 meq/L 3.5-5.1 mmrl=435) CHLORIDE (BEAKER) (test 103 meq/L 98-107 vzdc=561) CO2 (BEAKER) (test 26 meq/L 22-29 fufq=519) BLOOD UREA NITROGEN 17 mg/dL 7-21 (BEAKER) (test hwkk=527) CREATININE (BEAKER) (test 0.80 mg/dL 0.57-1.25 sotd=081) GLUCOSE RANDOM (BEAKER) 152 mg/dL 70-105 (test dxbl=516) CALCIUM (BEAKER) (test 8.7 mg/dL 8.4-10.2 zrhc=029) EGFR (BEAKER) (test mL/min/1.73 sq m INSUFFICIENT CLINICAL DATA ogiy=4082) TO CALCULATE ESTIMATED GFR. [id number] 04:19:00 Test Item Value Reference Range Comments MAGNESIUM (BEAKER) (test righ=255) 2.4 mg/dL 1.6-2.6 CBC W/PLT COUNT & AUTO [id number] 04:15:00 Test Item Value Reference Range Comments WHITE BLOOD CELL COUNT (BEAKER) (test ivnj=322) 10.3 K/ L 3.5-10.5 RED BLOOD CELL COUNT (BEAKER) (test dtai=781) 3.03 M/ L 3.93-5.22 HEMOGLOBIN (BEAKER) (test fihk=678) 9.6 GM/DL 11.2-15.7 HEMATOCRIT (BEAKER) (test irxe=598) 28.6 % 34.1-44.9 MEAN CORPUSCULAR VOLUME (BEAKER) (test wgeg=085) 94.4 fL 79.4-94.8 MEAN CORPUSCULAR HEMOGLOBIN (BEAKER) (test 31.7 pg 25.6-32.2 bwdf=929) MEAN CORPUSCULAR HEMOGLOBIN CONC (BEAKER) (test 33.6 GM/DL 32.2-35.5 alnr=190) RED CELL DISTRIBUTION WIDTH (BEAKER) (test 12.7 % 11.7-14.4 lpkg=403) PLATELET COUNT (BEAKER) (test jcti=485) 183 K/CU MM 150-450 MEAN PLATELET VOLUME (BEAKER) (test krha=963) 10.9 fL 9.4-12.3 NUCLEATED RED BLOOD CELLS (BEAKER) (test 0 /100 WBC 0-0 flfi=784) NEUTROPHILS RELATIVE PERCENT (BEAKER) (test 73 % shnl=188) LYMPHOCYTES RELATIVE PERCENT (BEAKER) (test 15 % wkid=815) MONOCYTES RELATIVE PERCENT (BEAKER) (test 9 % rmnm=319) EOSINOPHILS RELATIVE PERCENT (BEAKER) (test 3 % mowr=229) BASOPHILS RELATIVE PERCENT (BEAKER) (test 0 % oqee=525) NEUTROPHILS ABSOLUTE COUNT (BEAKER) (test 7.50 K/ L 1.56-6.13 tkxk=547) LYMPHOCYTES ABSOLUTE COUNT (BEAKER) (test 1.53 K/ L 1.18-3.74 pwhf=378) MONOCYTES ABSOLUTE COUNT (BEAKER) (test 0.91 K/ L 0.24-0.36 fmwo=366) EOSINOPHILS ABSOLUTE COUNT (BEAKER) (test 0.30 K/ L 0.04-0.36 jrdk=199) BASOPHILS ABSOLUTE COUNT (BEAKER) (test 0.02 K/ L 0.01-0.08 inef=331) IMMATURE GRANULOCYTES-RELATIVE PERCENT (BEAKER) 0 % 0-1 (test ajnu=7737) POCT-GLUCOSE [id number] 17:40:00 Test Item Value Reference Range Comments POC-GLUCOSE METER (BEAKER) 281 mg/dL 70-110 TESTED AT [address] (test yxyx=1717) [place] [address] POCT-GLUCOSE [id number] 12:44:00 Test Item Value Reference Range Comments POC-GLUCOSE METER (BEAKER) 273 mg/dL 70-110 TESTED AT [address] (test mlpf=6395) [place] [address] RAD, CHEST, 1 VIEW, NON [id number] 08:46:00Reason for exam:->s/p dual chamber PPM eval [...] Verified Date/ Time: 02/03/2018 08:46:43 Reading Location: [facility] [id number] Consult Reading Room POCT -GLUCOSE [id number] 08:36:00 Test Item Value Reference Range Comments POC-GLUCOSE METER (BEAKER) 242 mg/dL 70-110 TESTED AT [address] (test zmci=0167) [place] [id number] BASIC METABOLIC [id number] 05:37:00 Test Item Value Reference Range Comments SODIUM (BEAKER) (test 137 meq/L 136-145 gktn=486) POTASSIUM (BEAKER) (test 4.0 meq/L 3.5-5.1 vzag=304) CHLORIDE (BEAKER) (test 103 meq/L 98-107 ljjl=380) CO2 (BEAKER) (test 28 meq/L 22-29 pfqk=853) BLOOD UREA NITROGEN 24 mg/dL 7-21 (BEAKER) (test aoeu=069) CREATININE (BEAKER) (test 0.87 mg/dL 0.57-1.25 vjmf=663) GLUCOSE RANDOM (BEAKER) 248 mg/dL 70-105 (test teka=132) CALCIUM (BEAKER) (test 8.5 mg/dL 8.4-10.2 ilpu=218) EGFR (BEAKER) (test mL/min/1.73 sq m INSUFFICIENT CLINICAL DATA eebi=2064) TO CALCULATE ESTIMATED GFR. [id number] 05:35:00 Test Item Value Reference Range Comments MAGNESIUM (BEAKER) (test gxqr=191) 2.4 mg/dL 1.6-2.6 CBC W/PLT COUNT & AUTO [id number] 05:08:00 Test Item Value Reference Range Comments WHITE BLOOD CELL COUNT (BEAKER) (test foed=326) 8.6 K/ L 3.5-10.5 RED BLOOD CELL COUNT (BEAKER) (test qciy=882) 2.74 M/ L 3.93-5.22 HEMOGLOBIN (BEAKER) (test iiwx=848) 8.7 GM/DL 11.2-15.7 HEMATOCRIT (BEAKER) (test aalu=787) 26.1 % 34.1-44.9 MEAN CORPUSCULAR VOLUME (BEAKER) (test qfda=168) 95.3 fL 79.4-94.8 MEAN CORPUSCULAR HEMOGLOBIN (BEAKER) (test 31.8 pg 25.6-32.2 nkto=591) MEAN CORPUSCULAR HEMOGLOBIN CONC (BEAKER) (test 33.3 GM/DL 32.2-35.5 owqs=273) RED CELL DISTRIBUTION WIDTH (BEAKER) (test 12.6 % 11.7-14.4 zpir=343) PLATELET COUNT (BEAKER) (test bhcc=153) 172 K/CU MM 150-450 MEAN PLATELET VOLUME (BEAKER) (test srou=837) 11.5 fL 9.4-12.3 NUCLEATED RED BLOOD CELLS (BEAKER) (test 0 /100 WBC 0-0 olbm=877) NEUTROPHILS RELATIVE PERCENT (BEAKER) (test 74 % ntyf=198) LYMPHOCYTES RELATIVE PERCENT (BEAKER) (test 14 % dvtd=693) MONOCYTES RELATIVE PERCENT (BEAKER) (test 9 % knzo=043) EOSINOPHILS RELATIVE PERCENT (BEAKER) (test 3 % boyx=977) BASOPHILS RELATIVE PERCENT (BEAKER) (test 0 % ymoz=745) NEUTROPHILS ABSOLUTE COUNT (BEAKER) (test 6.32 K/ L 1.56-6.13 ildh=881) LYMPHOCYTES ABSOLUTE COUNT (BEAKER) (test 1.18 K/ L 1.18-3.74 vcoz=026) MONOCYTES ABSOLUTE COUNT (BEAKER) (test 0.79 K/ L 0.24-0.36 xzvi=185) EOSINOPHILS ABSOLUTE COUNT (BEAKER) (test 0.21 K/ L 0.04-0.36 acus=585) BASOPHILS ABSOLUTE COUNT (BEAKER) (test 0.03 K/ L 0.01-0.08 qmbz=897) IMMATURE GRANULOCYTES-RELATIVE PERCENT (BEAKER) 1 % 0-1 (test mrgv=1041) POCT-GLUCOSE [id number] 16:20:00 Test Item Value Reference Range Comments POC-GLUCOSE METER (BEAKER) 195 mg/dL 70-110 TESTED AT [facility] [address] [facility] (test dqrz=3348) [facility] [address] BASIC METABOLIC [id number] 04:16:00 Test Item Value Reference Range Comments SODIUM (BEAKER) (test 136 meq/L 136-145 kwwj=239) POTASSIUM (BEAKER) (test 4.4 meq/L 3.5-5.1 kuep=364) CHLORIDE (BEAKER) (test 101 meq/L 98-107 nkra=575) CO2 (BEAKER) (test 28 meq/L 22-29 vicv=614) BLOOD UREA NITROGEN 33 mg/dL 7-21 (BEAKER) (test chra=036) CREATININE (BEAKER) (test 1.16 mg/dL 0.57-1.25 curl=366) GLUCOSE RANDOM (BEAKER) 211 mg/dL 70-105 (test xqrh=037) CALCIUM (BEAKER) (test 8.4 mg/dL 8.4-10.2 uugi=651) EGFR (BEAKER) (test mL/min/1.73 sq m INSUFFICIENT CLINICAL DATA mofv=9989) TO CALCULATE ESTIMATED GFR. [id number] 04:08:00 Test Item Value Reference Range Comments MAGNESIUM (BEAKER) (test evxa=987) 2.2 mg/dL 1.6-2.6 CBC W/PLT COUNT & AUTO [id number] 03:52:00 Test Item Value Reference Range Comments WHITE BLOOD CELL COUNT (BEAKER) (test ivly=190) 9.0 K/ L 3.5-10.5 RED BLOOD CELL COUNT (BEAKER) (test eipp=004) 2.73 M/ L 3.93-5.22 HEMOGLOBIN (BEAKER) (test waqa=330) 8.7 GM/DL 11.2-15.7 HEMATOCRIT (BEAKER) (test jqqk=995) 25.9 % 34.1-44.9 MEAN CORPUSCULAR VOLUME (BEAKER) (test gsvs=543) 94.9 fL 79.4-94.8 MEAN CORPUSCULAR HEMOGLOBIN (BEAKER) (test 31.9 pg 25.6-32.2 lbvu=797) MEAN CORPUSCULAR HEMOGLOBIN CONC (BEAKER) (test 33.6 GM/DL 32.2-35.5 vxbt=049) RED CELL DISTRIBUTION WIDTH (BEAKER) (test 12.8 % 11.7-14.4 kdko=598) PLATELET COUNT (BEAKER) (test nrml=518) 172 K/CU MM 150-450 MEAN PLATELET VOLUME (BEAKER) (test umoc=764) 11.5 fL 9.4-12.3 NUCLEATED RED BLOOD CELLS (BEAKER) (test 0 /100 WBC 0-0 epew=882) NEUTROPHILS RELATIVE PERCENT (BEAKER) (test 70 % rcdm=471) LYMPHOCYTES RELATIVE PERCENT (BEAKER) (test 17 % ihvs=098) MONOCYTES RELATIVE PERCENT (BEAKER) (test 9 % pvpr=914) EOSINOPHILS RELATIVE PERCENT (BEAKER) (test 3 % nkkk=346) BASOPHILS RELATIVE PERCENT (BEAKER) (test 0 % ncdt=511) NEUTROPHILS ABSOLUTE COUNT (BEAKER) (test 6.29 K/ L 1.56-6.13 gsqr=699) LYMPHOCYTES ABSOLUTE COUNT (BEAKER) (test 1.55 K/ L 1.18-3.74 rilf=081) MONOCYTES ABSOLUTE COUNT (BEAKER) (test 0.83 K/ L 0.24-0.36 lkir=835) EOSINOPHILS ABSOLUTE COUNT (BEAKER) (test 0.22 K/ L 0.04-0.36 vnbb=420) BASOPHILS ABSOLUTE COUNT (BEAKER) (test 0.03 K/ L 0.01-0.08 ouug=856) IMMATURE GRANULOCYTES-RELATIVE PERCENT (BEAKER) 0 % 0-1 (test xudh=4664) BASIC METABOLIC [id number] 06:15:00 Test Item Value Reference Range Comments SODIUM (BEAKER) (test 137 meq/L 136-145 bilq=740) POTASSIUM (BEAKER) (test 4.6 meq/L 3.5-5.1 xbfz=502) CHLORIDE (BEAKER) (test 100 meq/L 98-107 msmy=026) CO2 (BEAKER) (test 26 meq/L 22-29 qqdg=219) BLOOD UREA NITROGEN 38 mg/dL 7-21 (BEAKER) (test rqqs=156) CREATININE (BEAKER) (test 1.55 mg/dL 0.57-1.25 woey=149) GLUCOSE RANDOM (BEAKER) 191 mg/dL 70-105 (test blei=806) CALCIUM (BEAKER) (test 8.5 mg/dL 8.4-10.2 oitl=541) EGFR (BEAKER) (test mL/min/1.73 sq m INSUFFICIENT CLINICAL DATA nqma=0579) TO CALCULATE ESTIMATED GFR. [id number] 05:44:00 Test Item Value Reference Range Comments MAGNESIUM (BEAKER) (test jwom=300) 2.4 mg/dL 1.6-2.6 CBC W/PLT COUNT & AUTO [id number] 04:51:00 Test Item Value Reference Range Comments WHITE BLOOD CELL COUNT (BEAKER) (test crbb=730) 9.4 K/ L 3.5-10.5 RED BLOOD CELL COUNT (BEAKER) (test egur=877) 3.04 M/ L 3.93-5.22 HEMOGLOBIN (BEAKER) (test olra=151) 9.6 GM/DL 11.2-15.7 HEMATOCRIT (BEAKER) (test fquw=627) 29.3 % 34.1-44.9 MEAN CORPUSCULAR VOLUME (BEAKER) (test hdnh=711) 96.4 fL 79.4-94.8 MEAN CORPUSCULAR HEMOGLOBIN (BEAKER) (test 31.6 pg 25.6-32.2 zsah=221) MEAN CORPUSCULAR HEMOGLOBIN CONC (BEAKER) (test 32.8 GM/DL 32.2-35.5 omjw=474) RED CELL DISTRIBUTION WIDTH (BEAKER) (test 13.0 % 11.7-14.4 uhaj=067) PLATELET COUNT (BEAKER) (test xurc=405) 181 K/CU MM 150-450 MEAN PLATELET VOLUME (BEAKER) (test yfkt=294) 11.7 fL 9.4-12.3 NUCLEATED RED BLOOD CELLS (BEAKER) (test 0 /100 WBC 0-0 xnnb=452) NEUTROPHILS RELATIVE PERCENT (BEAKER) (test 71 % vbhg=614) LYMPHOCYTES RELATIVE PERCENT (BEAKER) (test 19 % ldnx=855) MONOCYTES RELATIVE PERCENT (BEAKER) (test 8 % gnca=911) EOSINOPHILS RELATIVE PERCENT (BEAKER) (test 2 % drqk=111) BASOPHILS RELATIVE PERCENT (BEAKER) (test 0 % ufnc=363) NEUTROPHILS ABSOLUTE COUNT (BEAKER) (test 6.65 K/ L 1.56-6.13 sgnt=522) LYMPHOCYTES ABSOLUTE COUNT (BEAKER) (test 1.81 K/ L 1.18-3.74 oqac=785) MONOCYTES ABSOLUTE COUNT (BEAKER) (test 0.71 K/ L 0.24-0.36 sffg=520) EOSINOPHILS ABSOLUTE COUNT (BEAKER) (test 0.20 K/ L 0.04-0.36 dzav=249) BASOPHILS ABSOLUTE COUNT (BEAKER) (test 0.03 K/ L 0.01-0.08 cjue=863) IMMATURE GRANULOCYTES-RELATIVE PERCENT (BEAKER) 0 % 0-1 (test hbjg=6501) [id number] 21:49:00 Test Item Value Reference Range Comments POTASSIUM (BEAKER) (test johp=438) 5.2 meq/L 3.5-5.1 Check Serum Potassium level 2 hours after oral potassium replacement completed or 30 min after intravenous potassium replacement.[id number] 21:49:00 Test Item Value Reference Range Comments MAGNESIUM (BEAKER) (test oymy=016) 2.2 mg/dL 1.6-2.6 Check Serum Potassium level 2 hours after oral potassium replacement completed or 30 min after intravenous potassium replacement.URINALYSIS W/ [id number] 10:39:00 Test Item Value Reference Range Comments COLOR (BEAKER) (test fpdm=432) Light Yellow CLARITY (BEAKER) (test obps=690) Clear SPECIFIC GRAVITY UA (BEAKER) (test nvsz=976) 1.005 1.001-1.035 PH UA (BEAKER) (test etfa=752) 5.0 5.0-8.0 PROTEIN UA (BEAKER) (test vkyo=929) Negative Negative GLUCOSE UA (BEAKER) (test tgbz=905) Negative Negative KETONES UA (BEAKER) (test rxrq=741) Negative Negative BILIRUBIN UA (BEAKER) (test jram=609) Negative Negative BLOOD UA (BEAKER) (test yrdd=207) Negative Negative NITRITE UA (BEAKER) (test nzfv=195) Negative Negative LEUKOCYTE ESTERASE UA (BEAKER) (test czyn=247) Negative Negative UROBILINOGEN UA (BEAKER) (test qdhq=287) 0.2 mg/dL 0.2-1.0 RBC UA (BEAKER) (test wqcb=984) 1 /HPF WBC UA (BEAKER) (test lpht=023) 3 /HPF SQUAMOUS EPITHELIAL (BEAKER) (test zpyr=295) 1 /HPF AMORPHOUS [place] (BEAKER) (test klwk=3055) Rare SOURCE(BEAKER) (test valv=8416) Urine, [place] CREATINE KINASE (CK), TOTAL AND [id number] 10:07:00 Test Item Value Reference Range Comments CREATINE KINASE TOTAL (BEAKER) (test cwag=034) 35 U/L 29-200 CREATINE KINASE-MB (BEAKER) (test balz=023) 1.7 ng/mL 0.0-6.6 CREATINE KINASE-MB INDEX (BEAKER) (test ulht=859) 4.9 % CK-MB Reference Range:<6.7 Normal6.7-10.0 Borderline>10.0 AbnormalTROPONIN [id number] 10:07:00 Test Item Value Reference Range Comments TROPONIN I (BEAKER) (test deih=806) 0.02 ng/mL 0.00-0.03 Troponin I (TnI) levels [...] acute neurological disease, and persistent tachyarrhythmia.BASIC METABOLIC [id number] 05:51:00 Test Item Value Reference Range Comments SODIUM (BEAKER) (test 141 meq/L 136-145 cikp=702) POTASSIUM (BEAKER) (test 3.7 meq/L 3.5-5.1 tbrm=430) CHLORIDE (BEAKER) (test 103 meq/L 98-107 kefi=088) CO2 (BEAKER) (test 26 meq/L 22-29 sbyw=888) BLOOD UREA NITROGEN 35 mg/dL 7-21 (BEAKER) (test gcru=282) CREATININE (BEAKER) (test 1.22 mg/dL 0.57-1.25 ygda=375) GLUCOSE RANDOM (BEAKER) 121 mg/dL 70-105 (test omve=161) CALCIUM (BEAKER) (test 8.9 mg/dL 8.4-10.2 hkte=001) EGFR (BEAKER) (test mL/min/1.73 sq m INSUFFICIENT CLINICAL DATA vxik=5008) TO CALCULATE ESTIMATED GFR. [id number] 05:50:00 Test Item Value Reference Range Comments MAGNESIUM (BEAKER) (test oznl=714) 2.4 mg/dL 1.6-2.6 CBC W/PLT COUNT & AUTO [id number] 05:04:00 Test Item Value Reference Range Comments WHITE BLOOD CELL COUNT (BEAKER) (test kpun=035) 9.8 K/ L 3.5-10.5 RED BLOOD CELL COUNT (BEAKER) (test svwh=285) 3.09 M/ L 3.93-5.22 HEMOGLOBIN (BEAKER) (test divf=246) 9.7 GM/DL 11.2-15.7 HEMATOCRIT (BEAKER) (test ltet=912) 29.4 % 34.1-44.9 MEAN CORPUSCULAR VOLUME (BEAKER) (test ylhp=748) 95.1 fL 79.4-94.8 MEAN CORPUSCULAR HEMOGLOBIN (BEAKER) (test 31.4 pg 25.6-32.2 lzcp=624) MEAN CORPUSCULAR HEMOGLOBIN CONC (BEAKER) (test 33.0 GM/DL 32.2-35.5 nril=585) RED CELL DISTRIBUTION WIDTH (BEAKER) (test 12.9 % 11.7-14.4 hgwf=017) PLATELET COUNT (BEAKER) (test tzpp=552) 186 K/CU MM 150-450 MEAN PLATELET VOLUME (BEAKER) (test vldr=357) 11.8 fL 9.4-12.3 NUCLEATED RED BLOOD CELLS (BEAKER) (test 0 /100 WBC 0-0 hvlb=074) NEUTROPHILS RELATIVE PERCENT (BEAKER) (test 75 % mrtl=755) LYMPHOCYTES RELATIVE PERCENT (BEAKER) (test 15 % pnbr=446) MONOCYTES RELATIVE PERCENT (BEAKER) (test 8 % zgob=744) EOSINOPHILS RELATIVE PERCENT (BEAKER) (test 2 % zqye=963) BASOPHILS RELATIVE PERCENT (BEAKER) (test 0 % vbzy=356) NEUTROPHILS ABSOLUTE COUNT (BEAKER) (test 7.36 K/ L 1.56-6.13 waih=428) LYMPHOCYTES ABSOLUTE COUNT (BEAKER) (test 1.42 K/ L 1.18-3.74 ydag=411) MONOCYTES ABSOLUTE COUNT (BEAKER) (test 0.75 K/ L 0.24-0.36 vdok=011) EOSINOPHILS ABSOLUTE COUNT (BEAKER) (test 0.20 K/ L 0.04-0.36 qnzc=292) BASOPHILS ABSOLUTE COUNT (BEAKER) (test 0.03 K/ L 0.01-0.08 vqph=419) IMMATURE GRANULOCYTES-RELATIVE PERCENT (BEAKER) 0 % 0-1 (test nxah=5576) CREATINE KINASE (CK), TOTAL AND [id number] 03:23:00 Test Item Value Reference Range Comments CREATINE KINASE TOTAL (BEAKER) (test xamu=680) 27 U/L 29-200 CREATINE KINASE-MB (BEAKER) (test lfur=739) 1.3 ng/mL 0.0-6.6 CREATINE KINASE-MB INDEX (BEAKER) (test nktx=865) 4.8 % CK-MB Reference Range:<6.7 Normal6.7-10.0 Borderline>10.0 AbnormalTROPONIN [id number] 03:23:00 Test Item Value Reference Range Comments TROPONIN I (BEAKER) (test dbbm=577) 0.03 ng/mL 0.00-0.03 Troponin I (TnI) levels [...] and persistent tachyarrhythmia.RAD, CHEST, 1 VIEW, NON [id number] 22:06:00Reason for exam:->SOBShould this be performed at the bedside?-> YesFINAL REPORT INDICATION: SOB COMPARISON: None. TECHNIQUE: Chest radiograph, single view, portable technique. FINDINGS / IMPRESSION: There is mild hyperexpansion which may represent chronic obstructive pulmonary disease. There is mild enlargement of the heart shadow and pulmonaryvenous congestion. No consolidation, pneumothorax, or large pleural effusion. Osseous structures unremarkable. Signed: [facility] Verified Date/Time: 01/30/2018 22:06:47 Reading Location: [address] Consult Reading Room CREATINE KINASE (CK), TOTAL AND [id number] 21:32:00 Test Item Value Reference Range Comments CREATINE KINASE TOTAL (BEAKER) (test qfee=250) 29 U/L 29-200 CREATINE KINASE-MB (BEAKER) (test yeqw=702) 1.1 ng/mL 0.0-6.6 CREATINE KINASE-MB INDEX (BEAKER) (test evga=510) 3.8 % CK-MB Reference Range:<6.7 Normal6.7-10.0 Borderline>10.0 AbnormalTROPONIN [id number] 21:32:00 Test Item Value Reference Range Comments TROPONIN I (BEAKER) (test oyfa=330) 0.03 ng/mL 0.00-0.03 Troponin I (TnI) levels [...] NATRIURETIC PEPTIDE (BEAKER) (test 2547 pg/mL 0-100 lqht=957) BASIC METABOLIC [id number] 21:27:00 Test Item Value Reference Range Comments SODIUM (BEAKER) (test 139 meq/L 136-145 keor=777) POTASSIUM (BEAKER) (test 4.0 meq/L 3.5-5.1 hcfu=290) CHLORIDE (BEAKER) (test 104 meq/L 98-107 yyzg=503) CO2 (BEAKER) (test 26 meq/L 22-29 gitt=621) BLOOD UREA NITROGEN 38 mg/dL 7-21 (BEAKER) (test qgqd=996) CREATININE (BEAKER) (test 1.32 mg/dL 0.57-1.25 zgyz=602) GLUCOSE RANDOM (BEAKER) 125 mg/dL 70-105 (test bldi=052) CALCIUM (BEAKER) (test 9.1 mg/dL 8.4-10.2 zrif=269) EGFR (BEAKER) (test mL/min/1.73 sq m INSUFFICIENT CLINICAL DATA fmxz=0208) TO CALCULATE ESTIMATED GFR. [id number] 21:26:00 Test Item Value Reference Range Comments PHOSPHORUS (BEAKER) (test tekx=773) 4.0 mg/dL 2.3-4.7 [id number] 21:26:00 Test Item Value Reference Range Comments MAGNESIUM (BEAKER) (test zxjl=424) 2.4 mg/dL 1.6-2.6 HEPATIC FUNCTION [id number] 21:26:00 Test Item Value Reference Range Comments TOTAL PROTEIN (BEAKER) (test kjsr=006) 7.2 gm/dL 6.0-8.3 ALBUMIN (BEAKER) (test yube=0669) 3.7 g/dL 3.5-5.0 BILIRUBIN TOTAL (BEAKER) (test qllw=991) 0.6 mg/dL 0.2-1.2 BILIRUBIN DIRECT (BEAKER) (test yaaz=348) 0.3 mg/dL 0.1-0.5 ALKALINE PHOSPHATASE (BEAKER) (test rbbw=248) 103 U/L 40-150 AST (SGOT) (BEAKER) (test rdwh=453) 32 U/L 5-34 ALT (SGPT) (BEAKER) (test noha=013) 18 U/L 6-55 [id number] 21:22:00 Test Item Value Reference Range Comments PARTIAL THROMBOPLASTIN TIME (BEAKER) (test 34.5 seconds 22.5-36.0 mees=598) PROTHROMBIN [id number] 21:16:00 Test Item Value Reference Range Comments PROTIME (BEAKER) (test tepq=404) 15.9 seconds 11.7-14.7 INR (BEAKER) (test flcr=519) 1.3 <=5.9 RECOMMENDED COUMADIN/WARFARIN INR THERAPY RANGESSTANDARD DOSE: 2.0 - 3.0 Includes: PROPHYLAXIS forvenous thrombosis, systemic embolization; TREATMENT for venous thrombosis and/or pulmonary embolus.HIGH RISK: Target INR is 2.5-3.5 for patients with mechanical heart valves.CBC W/PLT COUNT & AUTO [id number] 21:08:00 Test Item Value Reference Range Comments WHITE BLOOD CELL COUNT (BEAKER) (test jemm=807) 9.4 K/ L 3.5-10.5 RED BLOOD CELL COUNT (BEAKER) (test dqru=920) 3.20 M/ L 3.93-5.22 HEMOGLOBIN (BEAKER) (test gtca=977) 10.1 GM/DL 11.2-15.7 HEMATOCRIT (BEAKER) (test iavb=020) 30.7 % 34.1-44.9 MEAN CORPUSCULAR VOLUME (BEAKER) (test ndpj=957) 95.9 fL 79.4-94.8 MEAN CORPUSCULAR HEMOGLOBIN (BEAKER) (test 31.6 pg 25.6-32.2 xvlq=929) MEAN CORPUSCULAR HEMOGLOBIN CONC (BEAKER) (test 32.9 GM/DL 32.2-35.5 xgpx=636) RED CELL DISTRIBUTION WIDTH (BEAKER) (test 13.1 % 11.7-14.4 kmol=793) PLATELET COUNT (BEAKER) (test rapv=808) 189 K/CU MM 150-450 MEAN PLATELET VOLUME (BEAKER) (test lrdf=409) 11.7 fL 9.4-12.3 NUCLEATED RED BLOOD CELLS (BEAKER) (test 0 /100 WBC 0-0 pqgi=710) NEUTROPHILS RELATIVE PERCENT (BEAKER) (test 73 % jrsh=022) LYMPHOCYTES RELATIVE PERCENT (BEAKER) (test 18 % mbnm=565) MONOCYTES RELATIVE PERCENT (BEAKER) (test 8 % tewc=371) EOSINOPHILS RELATIVE PERCENT (BEAKER) (test 1 % gznp=727) BASOPHILS RELATIVE PERCENT (BEAKER) (test 0 % ikif=798) NEUTROPHILS ABSOLUTE COUNT (BEAKER) (test 6.87 K/ L 1.56-6.13 pxyi=766) LYMPHOCYTES ABSOLUTE COUNT (BEAKER) (test 1.70 K/ L 1.18-3.74 ofbe=232) MONOCYTES ABSOLUTE COUNT (BEAKER) (test 0.71 K/ L 0.24-0.36 cdzr=601) EOSINOPHILS ABSOLUTE COUNT (BEAKER) (test 0.11 K/ L 0.04-0.36 ckkx=501) BASOPHILS ABSOLUTE COUNT (BEAKER) (test 0.03 K/ L 0.01-0.08 flfr=905) IMMATURE GRANULOCYTES-RELATIVE PERCENT (BEAKER) 0 % 0-1 (test jmkn=1202)
--- OUTSIDE RECORDS SUMMARY | 2020-02-10 20:50 | XMS REPORT ---
:1935 Author Organization eClinicalWorks Care Team Providers Name Role Phone Power, Na Provider Role Unavailable Allergies, Adverse Reactions, Alerts Substance Reaction Event Type Macrobid Info Not Available Drug Allergy Amoxicillin Info Not Available Drug Allergy Problems Problem Type Condition Code Onset Dates Condition Status Problem Hypertension I10 Active Problem Anxiety F41.9 Active Problem CHF (congestive heart failure) I50.9 Active Problem Unsteady gait R26.81 Active Problem Weakness R53.1 Active Assessment 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 Problem CAD (coronary artery disease) I25.10 Active Assessment Weakness R53.1 Active Problem 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 Problem Iron deficiency anemia due to D50.0 Active chronic blood loss Problem Allergic rhinitis, seasonal J30.2 Active Problem Diabetes mellitus type 2 in E11.9 Active nonobese Problem Hospital discharge follow-up Z09 Active Problem Essential hypertension I10 Active Problem Mixed hyperlipidemia E78.2 Active Problem 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 Active associated with type 2 diabetes mellitus Problem Pericardial effusion I31.3 Active Problem Iron deficiency anemia, unspecified D50.9 Active iron deficiency anemia type Problem 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 Problem Type 2 diabetes mellitus with E11.40 Active diabetic neuropathy, unspecified Problem Pulmonary hypertension, unspecified I27.20 Active Problem Asthma without acute exacerbation J45.909 Active Assessment 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 Problem 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 Problem Gastro-esophageal reflux disease K21.9 Active without esophagitis Assessment 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 Problem Seasonal allergic rhinitis, J30.2 Active unspecified trigger Assessment Iron deficiency anemia, unspecified D50.9 Active iron deficiency anemia type Problem Gastroesophageal reflux disease, K21.9 Active esophagitis presence not specified Assessment Gastroesophageal reflux disease, K21.9 Active esophagitis presence not specified Problem Type 2 diabetes mellitus with E11.65 Active hyperglycemia Assessment Unsteady gait R26.81 Active Problem Cough R05 Active Assessment Type 2 diabetes mellitus with E11.65 Active hyperglycemia Problem Type 2 diabetes mellitus without E11.9 Active complications Problem HTN (hypertension) I10 Active Assessment Mixed hyperlipidemia E78.2 Active Problem Iron deficiency anemia 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 inadequate dietary iron intake Assessment Type 2 diabetes mellitus with E11.40 Active diabetic neuropathy, unspecified Problem prison current use of 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 Assessment 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 Active failure Problem Chronic fatigue R53.82 Active Assessment Essential hypertension I10 Active Problem 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 Active failure Problem Pacemaker Z95.0 Active Problem 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 Medications Medication Code Code Instructions Start End Status Dosage System Date Date NitroQuick NDC 0 0.4 MG Active not defined Sublingual Furosemide ND 64987876286 40 MG Orally Active 1 tablet Once a day and may increase to twice daily x approiximatly 3-7 days if increased swelling Gabapentin ND 47594661987 300 MG Active TAKE 1 CAPSULE THREE TIMES DAILY Breo Ellipta [facility] 58067508274 100-25 MCG/INH Active USE 1 INHALATION ORALLY EVERY DAY Ventolin HFA ND 41346761275 90 MCG/ACT Active 2 puffs as Inhalation needed every 6 hrs Breo Ellipta ND 58595413490 100-25 MCG/INH Active 1 puff Inhalation Once a day Tresiba ND 36516439937 200 UNIT/ML Active 20 units in FlexTouch Subcutaneous pm once a day Losartan ND 45687304789 100 MG Orally Active 1 tablet Potassium Once a day Flonase ND 58879803948 50 MCG/DOSE Oct 19, Active 2 spray in Nasally Once a 2017 each nostril day FreeStyle [place]inka ND 34136767502 - daily Active as directed 14 Day [place] Klor-Con M20 ND 69683691658 20 MEQ Orally Active 1 tablet with Once a day food Zocor ND 02238960037 20 MG Orally Active 1 tablet in Once a day the evening Cetirizine HCl ND 90214519249 10 MG Orally Oct 19, Active 1 tablet Once a day 2018 Alcohol Prep ND 0 May Active as directed 2017 Metoprolol ND 51829264522 25 MG Orally Active 1 tablet Succinate ER Once a day Xanax ND 70994804029 0.5 MG Orally Active 1 tablet Twice a day Lidocaine [facility] 07967449828 5 % Externally May Active 1 patch to Once a day 10, skin remove 2017 after 12 hours Neurontin [facility] 82085357169 300 MG Orally Active 2 capsule Once a day before bedtime Multi For Her [facility] 64988625678 - Orally Active as directed 50+ Metoprolol [facility] 84224381401 25 MG Orally Active 1 tablet Succinate ER Once a day Lancets Super ND 0 n/s finger Active one Thin stick twice a day Accu-Chek Yaa [facility] 77640099602 - In Vitro Active as directed Plus twice daily Nystatin [facility] 32012229065 948308 UNIT/GM Active 1 application Externally to affected Twice a day area Aspirin 81 [facility] 70287229610 81 MG Orally Active 1 tablet Once a day FreeStyle Yinka [facility] 01490552270 - Active USE 14 Day Sensor DIRECTED EVERY 14 DAYS Diclofenac [facility] 29053715396 1 % Transdermal Dec 16March Active 2 gram Sodium Three times a 2019, application day 2019 to affected area Ferrous Sulfate [facility] 83979451167 325 (65 Fe) MG Active 1 tablet Orally three times a day Rosuvastatin [facility] 81219026137 10 MG Orally Active 1 tablet Calcium Once a day Ferrous Sulfate [facility] 80824711171 325MG Active TAKE ONE TABLET BY MOUTH THREE TIMES DAILY Pantoprazole [facility] 86725658089 40 MG Orally Active 1 tablet Sodium Once a day Results Name Result Date Reference Range Unit Abnormality Flag Ferritin, Serum ----Ferritin, Serum 513 52812371 15-150 ng/mL H Microalbumin/Creat Ratio, Random Ur ----Creatinine, Urine 61.8 73123124 Not Estab. mg/dL ----Alb/Creat Ratio 69.7 80111387 0.0-30.0 mg/g creat H ----Albumin, Urine 43.1 10019212 Not Estab. ug/mL Lipid Panel w/ Chol/HDL Ratio ----T. Chol/HDL Ratio 2.9 54632249 0.0-4.4 ratio ----LDL Cholesterol Calc 44 36129027 0-99 mg/dL ----Cholesterol, Total 153 49723183 100-199 mg/dL ----Triglycerides 279 37659296 0-149 mg/dL H ----HDL Cholesterol 53 20191216 >39 mg/dL ----VLDL Cholesterol Baron 56 20191216 5-40 mg/dL H Iron and TIBC ----Iron Saturation 23 21035759 15-55 % ----UIBC 187 20191216 118-369 ug/dL ----Iron 55 20191216 27-139 ug/dL ----Iron Bind.Cap.(TIBC) 242 20191216 250-450 ug/dL L CBC w/ Diff w/o Plt ----MCH 31.9 48612661 26.6-33.0 pg ----MCV 99 59656967 79-97 fL H ----Immature Grans (Abs) 0.0 10850018 0.0-0.1 x10E3/uL ----Hematocrit 33.0 98524390 34.0-46.6 % L ----Hemoglobin 10.7 82374287 11.1-15.9 g/dL L ----Neutrophils 73 93763982 Not Estab. % ----RDW 13.1 97844411 11.7-15.4 % ----MCHC 32.4 76882415 31.5-35.7 g/dL ----Eos 2 51009584 Not Estab. % ----Basos 0 44029513 Not Estab. % ----Neutrophils 7.1 81453029 1.4-7.0 x10E3/uL H (Absolute) ----Lymphs (Absolute) 1.7 68067120 0.7-3.1 x10E3/uL ----RBC 3.35 24472498 3.77-5.28 x10E6/uL L ----WBC 9.7 46226932 3.4-10.8 x10E3/uL ----Lymphs 18 79309058 Not Estab. % ----Monocytes 7 74342653 Not Estab. % ----Baso (Absolute) 0.0 30453019 0.0-0.2 x10E3/uL ----Immature 0 36239419 Not Estab. % Granulocytes ----Monocytes(Absolute) 0.7 21483053 0.1-0.9 x10E3/uL ----Eos (Absolute) 0.1 16792912 0.0-0.4 x10E3/uL Shoulder Right 2 View Hemoglobin A1c ----Hemoglobin A1c 7.7 41930029 4.8-5.6 % H Comp. Metabolic Panel (14) (CMP) ----Creatinine 1.65 39666787 0.57-1.00 mg/dL H ----BUN 47 47708005 8-27 mg/dL H ----eGFR If Africn Am 33 80950773 >59 mL/min/1.73 L ----eGFR If NonAfricn Am 29 84965902 >59 mL/min/1.73 L ----Sodium 142 46245668 134-144 mmol/L ----BUN/Creatinine Ratio 28 11569393 12-28 ----Chloride 100 31502360 96-106 mmol/L ----Potassium 5.2 09622392 3.5-5.2 mmol/L ----Carbon Dioxide, 22 21966357 20-29 mmol/L Total ----Protein, Total 7.4 69344165 6.0-8.5 g/dL ----Calcium 8.9 73041415 8.7-10.3 mg/dL ----Globulin, Total 3.4 62565314 1.5-4.5 g/dL ----Albumin 4.0 70916007 3.5-4.7 g/dL ----Bilirubin, Total 0.3 65900600 0.0-1.2 mg/dL ----Glucose 261 26759596 65-99 mg/dL H ----A/G Ratio 1.2 79450920 1.2-2.2 ----ALT (SGPT) 9 32082035 0-32 IU/L ----Alkaline Phosphatase 96 97728073 39-117 IU/L ----AST (SGOT) 20 77729375 0-40 IU/L Summary Purpose eClinicalWorks Submission
--- OUTSIDE RECORDS SUMMARY | 2020-02-10 20:50 | XMS REPORT ---
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 Problem Gastro-esophageal reflux disease K21.9 Active without esophagitis Problem Seasonal allergic rhinitis, J30.2 Active unspecified trigger Problem Gastroesophageal reflux disease, K21.9 Active esophagitis presence not specified Problem Type 2 diabetes mellitus with E11.65 Active hyperglycemia Problem Cough R05 Active Problem Type 2 diabetes mellitus without E11.9 Active complications Problem HTN (hypertension) I10 Active Problem Iron deficiency anemia 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 inadequate dietary iron intake Problem 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
--- OUTSIDE RECORDS SUMMARY | 2020-02-10 20:50 | XMS REPORT ---
:1935 Author Organization [employer]Works Care Team Providers Name Role Phone AllanSuhas Provider Role Unavailable Allergies, Adverse Reactions, Alerts Substance Reaction Event Type Macrobid Info Not Available Drug Allergy Amoxicillin Info Not Available Drug Allergy Problems Problem Type Condition Code Onset Dates Condition Status Problem CHF (congestive heart failure) I50.9 Active Problem Unsteady gait R26.81 Active Problem CAD (coronary artery disease) I25.10 Active Problem Weakness R53.1 Active Problem 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 Problem Iron deficiency anemia due to D50.0 Active chronic blood loss Problem Allergic rhinitis, seasonal J30.2 Active Problem Diabetes mellitus type 2 in E11.9 Active nonobese Problem Mixed hyperlipidemia E78.2 Active Problem Gastro-esophageal reflux disease K21.9 Active without esophagitis Problem 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 Active associated with type 2 diabetes mellitus Problem Iron deficiency anemia, unspecified D50.9 Active iron deficiency anemia type Problem Asthma without acute exacerbation J45.909 Active Problem Pericardial effusion I31.3 Active Problem Seasonal allergic rhinitis, J30.2 Active unspecified trigger Problem Gastroesophageal reflux disease, K21.9 Active esophagitis presence not specified Problem Rotator cuff arthropathy of right M12.811 Active shoulder Problem 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 Problem 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 of 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 Problem Iron deficiency anemia 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 inadequate dietary iron intake Problem Rotator cuff arthropathy of left M12.812 Active shoulder Problem Pulmonary hypertension, unspecified I27.20 Active Problem Type 2 diabetes mellitus with E11.65 Active hyperglycemia Problem Cough R05 Active Problem 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 Problem Type 2 diabetes mellitus with E11.40 Active diabetic neuropathy, unspecified Problem Anxiety F41.9 Active Problem Pacemaker Z95.0 Active Problem Hypertension I10 Active Problem 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 Assessment Pain in joint of right shoulder M25.511 Active Problem Type 2 diabetes mellitus without E11.9 Active complications Problem HTN (hypertension) I10 Active Problem Hospital discharge follow-up Z09 Active Assessment Rotator cuff arthropathy of right M12.811 Active shoulder Problem Essential hypertension I10 Active Problem Chronic fatigue R53.82 Active Problem 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 Active failure Medications Medication Code Code Instructions Start End Status Dosage System Date Date Lidocaine ND 73990502655 5 % Externally May Active 1 patch to Once a day 10, skin remove 2017 after 12 hours Flonase ND 89928560848 50 MCG/DOSE Oct 19, Active 2 spray in Nasally Once a 2018 each nostril day Breo Ellipta ND 51122845436 100-25 MCG/INH Active USE 1 INHALATION ORALLY EVERY DAY Accu-Chek Yaa ND 06714761073 - In Vitro Active as directed Plus twice daily Klor-Con M20 [facility] 56765168044 20 MEQ Orally Active 1 tablet with Once a day food Ventolin HFA ND 35912956628 90 MCG/ACT Active 2 puffs as Inhalation needed every 6 hrs Breo Ellipta ND 88720085534 100-25 MCG/INH Active 1 puff Inhalation Once a day Nystatin ND 62038586568 426053 UNIT/GM Active 1 application Externally to affected Twice a day area Gabapentin ND 77141683078 300 MG Active TAKE 1 CAPSULE THREE TIMES DAILY Ferrous Sulfate ND 95850047160 325MG Active TAKE ONE TABLET BY MOUTH THREE TIMES DAILY FreeStyle Yinka [facility] 40117588659 - Active USE 14 Day Sensor DIRECTED EVERY 14 DAYS FreeStyle [place] ND 20600446763 - daily Active as directed 14 Day [place] Diclofenac ND 20493701611 1 % Transdermal Dec 16March Active 2 gram Sodium Three times a 2019, application day 2019 to affected area Tresiba ND 45078469621 200 UNIT/ML Active 20 units in FlexTouch Subcutaneous pm once a day Alcohol Prep NDC 0 May Active as directed Pads 2017 NitroQuick NDC 0 0.4 MG Active not defined Sublingual Xanax ND 33458539408 0.5 MG Orally Active 1 tablet Twice a day Multi For Her ND 23933182054 - Orally Active as directed 50+ Ferrous Sulfate ND 67774231899 325 (65 Fe) MG Active 1 tablet Orally three times a day Lancets Super NDC 0 n/s finger Active one Thin stick twice a day Neurontin [facility] 17482685389 300 MG Orally Active 2 capsule Once a day before bedtime Metoprolol [facility] 43721814885 25 MG Orally Active 1 tablet Succinate ER Once a day Furosemide [facility] 73953807380 40 MG Orally Active 1 tablet Once a day and may increase to twice daily x approiximatly 3-7 days if increased swelling Aspirin 81 [facility] 58794707171 81 MG Orally Active 1 tablet Once a day Zocor [facility] 90982238263 20 MG Orally Active 1 tablet in Once a day the evening Cetirizine HCl [facility] 29124157173 10 MG Orally Oct 19, Active 1 tablet Once a day 2017 Rosuvastatin [facility] 91956227788 10 MG Orally Active 1 tablet Calcium Once a day Losartan [facility] 24375263222 100 MG Orally Active 1 tablet Potassium Once a day Metoprolol [facility] 41041732250 25 MG Orally Active 1 tablet Succinate ER Once a day Pantoprazole [facility] 12974576932 40 MG Orally Active 1 tablet Sodium Once a day Results No Known Results Summary Purpose eClinicalWorks Submission
--- OUTSIDE RECORDS SUMMARY | 2020-02-10 20:50 | XMS REPORT ---
:1936 Author Organization eClinicalWorks Care Team Providers Name Role Phone Power, Na Provider Role Unavailable Allergies, Adverse Reactions, Alerts Substance Reaction Event Type Macrobid Info Not Available Drug Allergy Amoxicillin Info Not Available Drug Allergy Problems Problem Type Condition Code Onset Dates Condition Status Problem Anxiety F41.9 Active Problem Unsteady gait R26.81 Active Problem Hypertension I10 Active Problem CHF (congestive heart failure) I50.9 Active Problem Weakness R53.1 Active Assessment Weakness R53.1 Active Problem CAD (coronary artery disease) I25.10 Active Problem 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 Problem Iron deficiency anemia due to D50.0 Active chronic blood loss Problem Allergic rhinitis, seasonal J30.2 Active Problem Essential hypertension I10 Active Problem Hospital discharge follow-up Z09 Active Problem Diabetes mellitus type 2 in E11.9 Active nonobese Problem Chronic fatigue R53.82 Active Problem Iron deficiency anemia, unspecified D50.9 Active iron deficiency anemia type Problem 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 Active failure Problem Type 2 diabetes mellitus with E11.65 Active hyperglycemia Problem 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 Problem Gastro-esophageal reflux disease K21.9 Active without esophagitis Problem Asthma without acute exacerbation J45.909 Active Assessment 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 Problem Type 2 diabetes mellitus with E11.40 Active diabetic neuropathy, unspecified Problem Mixed hyperlipidemia E78.2 Active Assessment Iron deficiency anemia, unspecified D50.9 Active iron deficiency anemia type Problem Gastroesophageal reflux disease, K21.9 Active esophagitis presence not specified Assessment Gastroesophageal reflux disease, K21.9 Active esophagitis presence not specified Problem Pericardial effusion I31.3 Active Assessment Needs flu shot Z23 Active Problem Seasonal allergic rhinitis, J30.2 Active unspecified trigger Assessment Unsteady gait R26.81 Active Problem Cough R05 Active Assessment Type 2 diabetes mellitus with E11.40 Active diabetic neuropathy, unspecified Problem long-term current use of 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 Assessment Type 2 diabetes mellitus with E11.65 Active hyperglycemia Problem Type 2 diabetes mellitus without E11.9 Active complications Assessment Mixed hyperlipidemia E78.2 Active Problem Pulmonary hypertension, unspecified I27.20 Active Assessment 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 Problem Iron deficiency anemia 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 inadequate dietary iron intake Assessment Essential hypertension I10 Active Problem 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 Assessment 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 Active failure Problem 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 Active associated with type 2 diabetes mellitus Problem HTN (hypertension) I10 Active Problem Pacemaker Z95.0 Active Medications Medication Code Code Instructions Start End Status Dosage System Date Date Gabapentin [facility] 40303737144 300 MG Active take 1 capsule three times daily Accu-Chek Yaa [facility] 69342795917 - In Vitro Active as directed Plus twice daily Ferrous Sulfate [facility] 69569637365 325 (65 Fe) MG Active 1 tablet Orally three times a day Tresiba ND 15969136296 200 UNIT/ML Active 20 units in FlexTouch Subcutaneous pm once a day Flonase ND 06416389996 50 MCG/DOSE Oct 19, Active 2 spray in Nasally Once a 2018 each nostril day NitroQuick ND 0 0.4 MG Active not defined Sublingual Xanax ND 35362885147 0.5 MG Orally Active 1 tablet Twice a day Neurontin ND 04566407968 300 MG Orally Active 2 capsule Once a day before bedtime Gabapentin ND 04832545488 300 MG Active take 1 capsule three times daily Metoprolol ND 43002892121 25 MG Orally Active 1 tablet Succinate ER Once a day Rosuvastatin ND 06829687885 10 MG Orally Aug 31, Active 1 tablet Calcium Once a day 2019 Breo Ellipta ND 38335937443 100-25 MCG/INH Nov 22, Active 1 puff Inhalation Once 2019 a day Nystatin [facility] 53608693145 788265 UNIT/GM Active 1 application Externally to affected Twice a day area Ferrous Sulfate [facility] 77893126484 325MG Active TAKE ONE TABLET BY MOUTH THREE TIMES DAILY Ventolin HFA ND 23116216111 90 MCG/ACT Active 2 puffs as Inhalation needed every 6 hrs Lancets Super ND 0 n/s finger Active one Thin stick twice a day Metoprolol [facility] 91257106786 25 MG Orally Active 1 tablet Succinate ER Once a day Alcohol Prep ND 0 May Active as directed Pads 2017 Zocor [facility] 97273017487 20 MG Orally Active 1 tablet in Once a day the evening Aspirin 81 ND 11986832095 81 MG Orally Active 1 tablet Once a day Breo Ellipta ND 56460425952 100-25 MCG/INH Sep 18, Active 1 puff Inhalation Once 2018 a day Cetirizine HCl ND 02243491788 10 MG Orally Oct 19, Active 1 tablet Once a day 2017 FreeStyle Yinka [facility] 99674812473 - daily Aug 31, Active as directed 14 Day [place] 2019 Multi For Her ND 47510146653 - Orally Active as directed 50+ Losartan ND 22575832258 100 MG Orally Active 1 tablet Potassium Once a day Klor-Con M20 [facility] 95825458005 20 MEQ Orally January Active 1 tablet with Once a day , food 2019 Lidocaine ND 48941467275 5 % Externally May Active 1 patch to Once a day 10, skin remove 2017 after 12 hours FreeStyle Yinka [facility] 27246375547 - Aug 31, Active USE 14 Day Sensor 2019 DIRECTED EVERY 14 DAYS Pantoprazole ND 45844886379 40 MG Orally Active 1 tablet Sodium Once a day Furosemide ND 98881072143 40 MG Orally Active 1 tablet Once a day and may increase to twice daily x approiximatly 3-7 days if increased swelling Results Name Result Date Reference Range Unit Abnormality Flag Comprehensive Metabolic Panel ----Alkaline Phosphatase 111 20190906 45-117 U/L ----ALT/SGPT 13 20190906 12-78 U/L ----Chloride Level 106 20190906 98-107 mmol/L ----Bicarbonate 29 20190906 21-32 mmol/L ----Albumin/Globulin Ratio 0.8 20190906 1.1-1.8 L ----Glucose Level 86 20190906 74-106 mg/dL ----Globulin 4.4 20190906 2.3-3.5 g/dL H ----BUN Blood Urea Nitrogen 56 20190906 7-18 mg/dL H ----Albumin 3.7 20190906 3.4-5.0 g/dL ----Creatinine 1.68 20190906 0.55-1.3 mg/dL H ----Protein, Total 8.1 20190906 6.4-8.2 g/dL ----Glomerular Filtration 29 20190906 =/>90 mL L Rate ----Calcium Level 9.0 20190906 8.5-10.1 mg/dL ----Sodium Level 142 20190906 136-145 mmol/L ----AST/SGOT 16 20190906 15-37 U/L ----Potassium 4.3 20190906 3.5-5.1 mmol/L ----Bilirubin Total 0.4 20190906 0.2-1.0 mg/dL Hemoglobin A1C ----Hemoglobin A1c 8.3 20190906 4.2-6.3 % H Lipid Profile ----Cholesterol/HDL Ratio 4.26 20190906 ----Cholesterol Level 226 65454316 <200 mg/dL H ----Triglycerides Level 205 34117211 <150 mg/dL H ----HDL Cholesterol 53 20190906 40-60 mg/dL ----LDL Cholesterol, 132 28365179 <130 H Calculated Urine Microalbumin, Random ----UR MICROALBUMIN 1.7 [id number] < 1.9 mg/dL IRON AND TOTAL IRON BINDING CAPACITY Immunizations Vaccine Administration Date FluAD Aug 31, 2019 Summary Purpose eClinicalWorks Submission
[2020-02-10] MEDS ORDERED: NA CHLORIDE 0.9% 1,000 ML ONE (22:57)
[2020-02-10 23:27] LABS: Protime INR 1.11
[2020-02-10 23:28] LABS: Absolute Lymphocytes (CBC) 1.7 K/uL (0.7-4.9); Basophils % 0.3 % (0-1.3); Hematocrit 29.7 % (36.0-45.0); Lymphocytes % 19.6 % (15.3-44.8); RBC Red Blood Cell Count 3.08 M/uL (3.86-4.86)
[2020-02-10 23:40] LABS: ALT/SGPT 13 U/L (12-78); AST/SGOT 16 U/L (15-37); Albumin 3.3 g/dL (3.4-5.0); Alkaline Phosphatase 116 U/L (45-117); BUN Blood Urea Nitrogen 49 mg/dL (7-18); Bicarbonate 29 mmol/L (21-32); Bilirubin Direct 0.2 mg/dL (0-0.2); Bilirubin Total 0.6 mg/dL (0.2-1.0); Glucose Level 152 mg/dL (74-106); Magnesium 2.5 mg/dL (1.8-2.4); NT PRO-BNP 4034 pg/mL (<450); Potassium 4.7 mmol/L (3.5-5.1); Protein, Total 7.6 g/dL (6.4-8.2); Sodium Level 139 mmol/L (136-145); Troponin (Emerg Dept Use Only) < 0.02 ng/mL (0.0-0.045)
--- NOTE | 2020-02-11 00:06 | ER ---
Nurse's Notes [facility] Name: Keerthi Kiser Age: 84 yrs Sex: Female : 1935 Arrival Date: 02/10/2020 Time: 20:48 Bed 6 Private MD: Diagnosis: Type 1 diabetes mellitus-POORLY CONTROLLED;Anemia, unspecified;Unspecified kidney failure-CHRONIC;Urinary tract infection, site not specified Presentation: 02/09 20:53 Chief complaint: Patient's son or daughter states: She hasn't been feeling well since aj1 Friday last night we checked her blood sugar and it was 318 and then today it was 350. We called Dr. Power's answering service and they said to come here. Coronavirus screen: The patient has NOT traveled to a country currently being monitored by the [facility] within the last 14 days. Ebola Screen: Patient denies travel to an Ebola-affected area in the 21 days before illness onset. Initial Sepsis Screen: Does the patient meet any 2 criteria? No. Patient's initial sepsis screen is negative. Does the patient have a suspected source of infection? No. Patient's initial sepsis screen is negative. Risk Assessment: Do you want to hurt yourself or someone else? Patient reports no desire to harm self or others. 20:53 Method Of Arrival: Ambulatory aj 20:53 Acuity: RAMA 3 aj1 20:53 Onset of symptoms is unknown. Triage Assessment: 20:58 General: Appears in no apparent distress. comfortable, Behavior is calm, cooperative, aj1 appropriate for age. Pain: Denies pain. Neuro: Level of Consciousness is awake, alert, obeys commands. Cardiovascular: Patient's skin is warm and dry. Respiratory: Airway is patent Respiratory effort is even, unlabored, Respiratory pattern is regular, symmetrical. Historical: - Allergies: 20:58 PENICILLINS; aj1 - Home Meds: 20:58 aspirin 81 mg Oral TbEC 1 tab once daily [Active]; Breo Ellipta 100-25 mcg/dose aj1 inhalation dsdv 1 puff once daily [Active]; ferrous sulfate 325 mg (65 mg iron) Oral TbEC daily [Active]; furosemide 40 mg Oral tab 1 tab once daily [Active]; gabapentin 300 mg oral cap 1 cap at bedtime [Active]; losartan 100 mg oral tab 1 tab once daily [Active]; metoprolol tartrate 25 mg Oral tab 1 tab 2 times per day [Active]; Equate multivitamin/multimineral [Active]; pantoprazole 40 mg oral TbEC 1 tab once daily [Active]; Ventolin Rotahaler/Rotacaps Inhl [Active]; cetirizine 10 mg oral tab 1 tab once daily [Active]; Tresiba FlexTouch U-200 200 unit/mL (3 mL) subcutaneous inpn [Active]; - PMHx: 20:58 Asthma; COPD; Diabetes - IDDM; Hypertension; Pacemaker; CHF; aj1 - Immunization history:: Flu vaccine is not up to date. - Social history:: Smoking status: Patient/guardian denies using tobacco. - Family history:: not pertinent. Screenin/13 00:20 Abuse screen: Denies threats or abuse. Nutritional screening: No deficits noted. ah Tuberculosis screening: No symptoms or risk factors identified. Fall Risk None identified. Assessment: 02/09 22:00 General: Appears in no apparent distress. Behavior is calm. Pain: Denies pain. Neuro: ah Level of Consciousness is awake, alert, Oriented to person, place, time, [employer] are equal bilaterally. Neuro: Denies blurred vision. Cardiovascular: Heart tones S1 S2 present Capillary refill < 3 seconds Patient's skin is warm and dry. Respiratory: Airway is patent Respiratory effort is even, unlabored, Respiratory pattern is regular, symmetrical. GI: Bowel sounds present X 4 quads. Abd is soft and non tender X 4 quads. : No signs and/or symptoms were reported regarding the genitourinary system. EENT: No signs and/or symptoms were reported regarding the EENT system. Derm: No signs and/or symptoms reported regarding the dermatologic system. Musculoskeletal: Reports generalized weakness. 23:55 Reassessment: Patient appears in no apparent distress at this time. Patient is alert, ah oriented x 3, equal unlabored respirations, skin warm/dry/pink. Assisted Pt to the restroom so she can give urine sample. Vital Signs: 20:53 BP 128 / 58; Pulse 89; Resp 18; Temp 97.0; Pulse Ox 98% on R/A; Weight 66.22 kg (R); aj1 Height 4 ft. 11 in. (149.86 cm) (R); 21:15 BP 131 / 76; Pulse 53; Resp 16; Pulse Ox 97% ; 22:00 BP 124 / 50; Pulse 80; Resp 16; Pulse Ox 100% ; 02/10 00:15 BP 149 / 41; Pulse 78; Resp 16; Pulse Ox 100% ; 02/09 20:53 Body Mass Index 29.49 (66.22 kg, 149.86 cm) [facility] ED Course: 02/09 20:48 Patient arrived in ED. jg7 20:55 Triage completed. [facility] 20:58 Arm band placed on Patient placed in waiting room, Patient notified of wait time. [facility] 21:45 Michelle Sultana, RN is Primary Nurse. 21:55 Juan Rodriguez MD is Attending Physician. [facility] 23:01 XRAY Chest (1 view) In Process Unspecified. EDCA 02/10 00:20 Patient has correct armband on for positive identification. Placed in gown. Bed in low ah position. Call light in reach. Side rails up X2. Adult w/ patient. 00:20 No provider procedures requiring assistance completed. IV discontinued, intact, bleeding controlled, No redness/swelling at site. Pressure dressing applied. Administered Medications: Discontinued: NS 0.9% 1000 ml IV at 1 bolus Per protocol; 1000 mL bolus 02/09 23:20 Drug: NS 0.9% 1000 ml Route: IV; Rate: 1 bolus; Site: left antecubital; 02/10 04:55 Follow up: IV Status: Order to discontinue infusion 00:12 Drug: Rocephin 1 grams Route: IV; Rate: per protocol; Site: left antecubital; rr5 00:47 Follow up: Response: No adverse reaction; IV Status: Completed infusion; IV Intake: 10ml 00:12 Drug: Cipro 250 mg Route: PO; rr5 00:47 Follow up: Response: No adverse reaction Intake: 00:47 IV: 10ml; Total: 10ml. Outcome: 00:05 Discharge ordered by . [facility] 00:45 Discharged to home ambulatory. 00:45 Condition: good 00:45 Discharge instructions given to patient, family, Instructed on discharge instructions, medication usage, Demonstrated understanding of instructions, Prescriptions given X 1. 00:48 Patient left the ED. Addendum: 02/13/2020 07:18 Addendum: Culture Results: Positive urine culture. No further action required. Bacteria e b sensitive to prescribed antibiotic. Signatures: Dispatcher [employer] Ivonne Johnson, RN RN [email or web address] Juan Rodriguez MD MD cha Botello, Elizabeth eb Roque, Raymond RN RN rr5 Milton, Michelle Leblanc, RN RN ah
--- NOTE | 2020-02-11 00:08 | EDPHYS ---
Physician Documentation [facility] Name: Keerthi Kiser Age: 84 yrs Sex: Female : 1935 Arrival Date: 02/10/2020 Time: 20:48 Bed 6 Private MD: BASIA Physician Juan Rodriguez HPI: 02/09 22:47 This 84 yrs old Female presents to ER via Ambulatory with complaints of High glenda Blood Sugar. 22:47 The patient or guardian reports hyperglycemia. Onset: The symptoms/episode glenda began/occurred 2 day(s) ago. Associated signs and symptoms: Pertinent positives: nausea. Current symptoms: In the emergency department the patient's symptoms have improved, moderately. The patient has not experienced similar symptoms in the past. Historical: - Allergies: 20:58 PENICILLINS; aj1 - Home Meds: 20:58 aspirin 81 mg Oral TbEC 1 tab once daily [Active]; Breo Ellipta 100-25 mcg/dose aj1 inhalation dsdv 1 puff once daily [Active]; ferrous sulfate 325 mg (65 mg iron) Oral TbEC daily [Active]; furosemide 40 mg Oral tab 1 tab once daily [Active]; gabapentin 300 mg oral cap 1 cap at bedtime [Active]; losartan 100 mg oral tab 1 tab once daily [Active]; metoprolol tartrate 25 mg Oral tab 1 tab 2 times per day [Active]; Equate multivitamin/multimineral [Active]; pantoprazole 40 mg oral TbEC 1 tab once daily [Active]; Ventolin Rotahaler/Rotacaps Inhl [Active]; cetirizine 10 mg oral tab 1 tab once daily [Active]; Tresiba FlexTouch U-200 200 unit/mL (3 mL) subcutaneous inpn [Active]; - PMHx: 20:58 Asthma; COPD; Diabetes - IDDM; Hypertension; Pacemaker; CHF; aj1 - Immunization history:: Flu vaccine is not up to date. - Social history:: Smoking status: Patient/guardian denies using tobacco. - Family history:: not pertinent. ROS: 22:47 Constitutional: Negative for fever, chills, and weight loss, Eyes: Negative for injury, glenda pain, redness, and discharge, ENT: Negative for injury, pain, and discharge, Neck: Negative for injury, pain, and swelling, Cardiovascular: Negative for chest pain, palpitations, and edema, Respiratory: Negative for shortness of breath, cough, wheezing, and pleuritic chest pain, Abdomen/GI: Negative for abdominal pain, nausea, vomiting, diarrhea, and constipation, Back: Negative for injury and pain, : Negative for injury, bleeding, discharge, and swelling, MS/Extremity: Negative for injury and deformity, Skin: Negative for injury, rash, and discoloration, Psych: Negative for depression, anxiety, suicide ideation, homicidal ideation, and hallucinations, Allergy/Immunology: Negative for hives, rash, and allergies, Endocrine: Negative for neck swelling, polydipsia, polyuria, polyphagia, and marked weight changes, Hematologic/Lymphatic: Negative for swollen nodes, abnormal bleeding, and unusual bruising. 22:47 Neuro: Positive for weakness. Exam: 22:47 Constitutional: This is a well developed, well nourished patient who is awake, alert, glenda and in no acute distress. Head/Face: Normocephalic, atraumatic. Eyes: Pupils equal round and reactive to light, extra-ocular motions intact. Lids and lashes normal. Conjunctiva and sclera are non-icteric and not injected. Cornea within normal limits. Periorbital areas with no swelling, redness, or edema. ENT: Nares patent. No nasal discharge, no septal abnormalities noted. Tympanic membranes are normal and external auditory canals are clear. Oropharynx with no redness, swelling, or masses, exudates, or evidence of obstruction, uvula midline. Mucous membranes moist. Neck: Trachea midline, no thyromegaly or masses palpated, and no cervical lymphadenopathy. Supple, full range of motion without nuchal rigidity, or vertebral point tenderness. No Meningismus. Chest/axilla: Normal chest wall appearance and motion. Nontender with no deformity. No lesions are appreciated. Cardiovascular: Regular rate and rhythm with a normal S1 and S2. No gallops, murmurs, or rubs. Normal PMI, no JVD. No pulse deficits. Respiratory: Lungs have equal breath sounds bilaterally, clear to auscultation and percussion. No rales, rhonchi or wheezes noted. No increased work of breathing, no retractions or nasal flaring. Abdomen/GI: Soft, non-tender, with normal bowel sounds. No distension or tympany. No guarding or rebound. No evidence of tenderness throughout. Back: No spinal tenderness. No costovertebral tenderness. Full range of motion. Skin: Warm, dry with normal turgor. Normal color with no rashes, no lesions, and no evidence of cellulitis. MS/ Extremity: Pulses equal, no cyanosis. Neurovascular intact. Full, normal range of motion. Neuro: Awake and alert, GCS 15, oriented to person, place, time, and situation. Cranial nerves II-XII grossly intact. Motor strength 5/5 in all extremities. Sensory grossly intact. Cerebellar exam normal. Normal gait. Psych: Awake, alert, with orientation to person, place and time. Behavior, mood, and affect are within normal limits. 22:47 Musculoskeletal/extremity: DVT Exam: No signs of deep vein thrombosis. no pain, no swelling, no tenderness, negative Homans' sign noted on exam, no appreciated bluish discoloration, no erythema, no increased warmth. Vital Signs: 20:53 BP 128 / 58; Pulse 89; Resp 18; Temp 97.0; Pulse Ox 98% on R/A; Weight 66.22 kg (R); aj1 Height 4 ft. 11 in. (149.86 cm) (R); 21:15 BP 131 / 76; Pulse 53; Resp 16; Pulse Ox 97% ; 22:00 BP 124 / 50; Pulse 80; Resp 16; Pulse Ox 100% ; 02/10 00:15 BP 149 / 41; Pulse 78; Resp 16; Pulse Ox 100% ; 02/09 20:53 Body Mass Index 29.49 (66.22 kg, 149.86 cm) [facility] MDM: 02/09 21:55 Patient medically screened. [facility] 22:49 Data reviewed: vital signs, nurses notes, lab test result(s), EKG, radiologic studies, glenda plain films. 02/09 21:14 Order name: Glucose, Ancillary Testing; Complete Time: 23:32 EDFL 02/09 22:47 Order name: Basic Metabolic Panel; Complete Time: 23:53 [facility] 02/09 22:47 Order name: CBC with Diff; Complete Time: 23:32 glenda 02/09 22:47 Order name: LFT's; Complete Time: 23:53 [facility] 02/09 22:47 Order name: Magnesium; Complete Time: 23:53 [facility] 02/09 22:47 Order name: NT PRO-BNP; Complete Time: 23:53 [facility] 02/09 22:47 Order name: PT-INR; Complete Time: 23:32 [facility] 02/09 22:47 Order name: Troponin (emerg Dept Use Only); Complete Time: 23:53 [facility] 02/09 22:47 Order name: XRAY Chest (1 view) [facility] 02/09 22:47 Order name: Urine Culture [facility] 02/10 00:10 Order name: Urine Dipstick--Ancillary (enter results) [facility] 02/09 22:47 Order name: EKG; Complete Time: 22:48 [facility] 02/09 22:47 Order name: Cardiac monitoring; Complete Time: 23:34 [facility] 02/09 22:47 Order name: EKG - Nurse/Tech; Complete Time: 23:34 [facility] 02/09 22:47 Order name: IV Saline Lock; Complete Time: 23:34 [facility] 02/09 22:47 Order name: Labs collected and sent; Complete Time: 23:34 [facility] 02/09 22:47 Order name: O2 Per Protocol; Complete Time: 23:34 [facility] 02/09 22:47 Order name: O2 Sat Monitoring; Complete Time: 23:34 [facility] Administered Medications: Discontinued: NS 0.9% 1000 ml IV at 1 bolus Per protocol; 1000 mL bolus 23:20 Drug: NS 0.9% 1000 ml Route: IV; Rate: 1 bolus; Site: left antecubital; 02/10 04:55 Follow up: IV Status: Order to discontinue infusion 00:12 Drug: Rocephin 1 grams Route: IV; Rate: per protocol; Site: left antecubital; rr5 00:47 Follow up: Response: No adverse reaction; IV Status: Completed infusion; IV Intake: 10ml 00:12 Drug: Cipro 250 mg Route: PO; rr5 00:47 Follow up: Response: No adverse reaction Disposition: 02/11/20 00:05 Discharged to Home. Impression: Type 1 diabetes mellitus - POORLY CONTROLLED, Anemia, unspecified, Unspecified kidney failure - CHRONIC, Urinary tract infection, site not specified. - Condition is Stable. - Discharge Instructions: Anemia, Nonspecific, Type 1 Diabetes Mellitus, Diagnosis, Adult, Urinary Tract Infection, Adult, Urinary Tract Infection, Adult, [id number]-[id number], Diabetes Mellitus and Food, Chronic Kidney Disease, Adult, Hbxp-yx-Fypx, Type 1 Diabetes Mellitus, Self Care, Adult, Type 1 Diabetes Mellitus, Diagnosis, Adult, [id number], Type 1 Diabetes Mellitus, Self Care, Adult, Lztf-bi-Jynm. - Prescriptions for Cipro 250 mg Oral Tablet - take 1 tablet by ORAL route every 12 hours; 14 tablet. - Medication Reconciliation Form, Thank You Letter, Antibiotic Education, Prescription Opioid Use form. - Follow up: Private Physician; When: 2 - 3 days; Reason: Recheck today's complaints, Continuance of care, Re-evaluation by your physician. - Problem is new. - Symptoms have improved. Signatures: Dispatcher [employer] EDIvonne Vela RN RN aj1 Juan Rodriguez MD MD cha Roque, Raymond RN RN rr5 Michlele Sultana RN RN Corrections: (The following items were deleted from the chart) 00:48 00:05 02/11/2020 00:05 Discharged to Home. Impression: Type 1 diabetes mellitus - ah POORLY CONTROLLED; Anemia, unspecified; Unspecified kidney failure - CHRONIC; Urinary tract infection, site not specified. Condition is Stable. Discharge Instructions: Anemia, Nonspecific, Type 1 Diabetes Mellitus, Diagnosis, Adult, Diabetes Mellitus and Food, Chronic Kidney Disease, Adult, Ctct-je-[id number], Type 1 Diabetes Mellitus, Self Care, Adult, Type 1 Diabetes Mellitus, Diagnosis, Adult, Bzuk-dq-Hwrv, Type 1 Diabetes Mellitus, Self Care, Adult, Jyhx-pi-Wisj. Forms are Medication Reconciliation Form, Thank You Letter, Antibiotic Education, Prescription Opioid Use. Follow up: Private Physician; When: 2 - 3 days; Reason: Recheck today's complaints, Continuance of care, Re-evaluation by your physician. Problem is new. Symptoms have improved. glenda
[2020-02-11] MEDS ORDERED: CIPROFLOXACIN HCL 500 MG TAB ONE (00:12)
[2020-02-11] MEDS ORDERED: CEFTRIAXONE/SWI 1gm 1 GM/10 ML SYR ONE (00:12)
[2020-02-11 00:38] LABS: Urine Blood TRACE (NEG); Urine Glucose NEGATIVE (NEG); Urine Protein 1+ (NEG); Urine Specific Gravity 1.015 (1.005-1.030)
[2020-02-11 00:54] VITALS: TEMP 97
[2020-02-11 00:57] VITALS: O2SAT 100
[2020-02-11 00:58] VITALS: BP 149/41
--- NOTE | 2020-02-11 07:29 | EKG ---
Test Date: 2020-02-10 Test Time: 23:02:09 Disposal Operator: SANDRA MEASUREMENT RESULTS: Intervals: Rate: 78 DC: 196 QRSD: 104 QT: 410 QTc: 467 [place]: P: 57 DC: 196 QRS: -14 T: 73 INTERPRETIVE STATEMENTS: Normal sinus rhythm Incomplete right bundle branch block Nonspecific ST and T wave abnormality Abnormal ECG Compared to ECG 03/19/2018 11:51:02 Incomplete right bundle-branch block now present ST (T wave) deviation now present Ventricular-paced complex(es) or rhythm no longer present Atrial-sensed ventricular-paced complex(es) or rhythm no longer present Electronically Signed On 02-11-20 07:27:41 CDT by Chalo Brown
--- NOTE | 2020-02-11 08:34 | RAD REPORT ---
EXAM DESCRIPTION: RAD - Chest Single View - 02/10/2020 11:00 pm CLINICAL HISTORY: COUGH, hyperglycemia COMPARISON: Portable chest March 2018 TECHNIQUE: AP portable chest image was obtained 02/10/2020 11:00 pm . FINDINGS: Lung volumes are low. No peripheral mass or consolidation. Interstitial pattern is not sub stantially different from comparison. There is no cardiomegaly on the current examination. Pulmonary vasculature within normal limits. Pacemaker remains in place. No measurable pleural effusion and no p neumothorax. No acute bony abnormality seen. No acute aortic findings suspected. IMPRESSION: No acute cardiopulmonary process. Baseline interstitial pattern is accentuated by shallow inspiration.
== END 2020-02-11 00:48 | disposition home or self-care (01) ==
LOC: ER 20:45
DX: E10.65 Type 1 diabetes mellitus with hyperglycemia (principal); N39.0 Urinary tract infection, site not specified; D64.9 Anemia, unspecified; E10.22 Type 1 diabetes mellitus with diabetic chronic kidney disease; I13.0 Hypertensive heart and chronic kidney disease with heart failure and stage 1 through stage 4 chronic kidney disease, or unspecified chronic kidney disease; N18.9 Chronic kidney disease, unspecified; I50.9 Heart failure, unspecified; J44.9 Chronic obstructive pulmonary disease, unspecified; Z79.82 Long term (current) use of aspirin; Z79.4 Long term (current) use of insulin; Z95.0 Presence of cardiac pacemaker
CPT/HCPCS: 96365; 96361; 93005; 87088; 85025; 87086; 80048; 36415; 83735; 85610; 82947; 80076; 87077; 87186; 81003; 84484; 83880; 71045; 99283; J0696; J7030

== ENCOUNTER 2020-06-22 08:45 | Emergency (ER) | payer OTHER ==
--- OUTSIDE RECORDS SUMMARY | 2020-06-22 09:04 | XMS REPORT | Clinical Summary ---
:1935 Author Organization [facility] Address [address] [place] [address] Care Team Providers Name Role Phone Jesika Power DO Primary Care Provider Allergies Active Allergy Reactions Severity Noted Date Comments Penicillins Rash Low 04/24/2018 Medications Medication Sig Dispensed Refills Start Date End Date Status gabapentin (NEURONTIN) Take 600 mg by 0 Active 300 mg capsule mouth nightly. furosemide (LASIX) 40 Take 40 mg by 0 Active mg tablet mouth daily. potassium chloride Take 20 mEq by 0 Active (K-DUR,KLOR-CON) 10 MEQ mouth daily. CR tablet Active Problems Problem Noted Date Pleural effusion 05/01/2018 Pericardial effusion 04/24/2018 Pericardial effusion 04/24/2018 Essential hypertension 04/24/2018 Type 2 diabetes mellitus 04/24/2018 Moderate asthma 04/24/2018 Arthritis 04/24/2018 Pacemaker 04/24/2018 Social History Tobacco Use Types Packs/Day Years Used Date Never Smoker Alcohol Use Drinks/Week oz/Week Comments No Sex Assigned at Date Recorded Not on file Job Start Date Occupation Industry Not on file Not on file Not on file Travel History Travel Start Travel End No recent travel history available. Last Filed Vital Signs Not on file Plan of Treatment Health Maintenance Due Date Last Done Comments DIABETIC RETINAL EYE EXAM 1935 DIABETIC FOOT EXAM 1945 URINE MICROALBUMIN 1946 SHINGLES VACCINES (#1) 1986 65+ PNEUMOCOCCAL VACCINE (1 of 2 - PCV13) 2001 INFLUENZA VACCINE 07/01/2020 Results Not on fileafter 06/22/2019 Insurance Payer Benefit Plan / Subscriber ID Effective Dates Phone Addre ss Type Group HUMANA MEDICARE HUMANA MEDICARE xxxxxxxxx 2017-Present PPO PPO/PFFS/ERS [place] ([place]) [place] [address] Advance Directives For more information, please contact: [phone] Type Date Recorded Patient Social Work Supervisor Explanati on Advance Directives, Living Will and Medical Power of Water Pumper Code Status Date Activated Date Inactivated Comments Full Code 04/24/2018 6:52 PM 05/05/2018 3:38 PM Code Status decision reached by: Patient
--- OUTSIDE RECORDS SUMMARY | 2020-06-22 09:04 | XMS REPORT | Clinical Summary ---
:1935 [facility] Address [address] [place] [address] Care Team Providers Name Role Phone Unavailable Primary Care Provider Unavailable Allergies Active Allergy Reactions Severity Noted Date Comments Penicillins Rash Low 01/30/2018 Medications Medication Sig Dispensed Refills Start Date End Date Status fluticasone-salmeterol Inhale 1 puff by 0 Active (ADVAIR) 250-50 mouth via inhaler mcg/dose diskus 2 (two) times inhaler daily. aspirin 81 MG EC Take 81 mg by 0 Active tablet mouth daily. gabapentin (NEURONTIN) Take 300 mg by 0 Active 300 MG capsule mouth 3 (three) times daily. traMADol (ULTRAM) 50 Take 50 mg by 0 Active mg tablet mouth every 4 (four) hours as needed for Pain. albuterol HFA Inhale 1 puff by 0 Active (VENTOLIN HFA) 90 mouth via inhaler mcg/actuation inhaler every 4 (four) hours as needed for Wheezing. Active Problems Not on file Family History Medical History Relation Name Comments [...] Signs Not on file Plan of Treatment Not on file Implants Implanted Type Area Field Education Coordinator Device Shelf Model / Identifier Expiration Serial / Date Lot Ld Pacing Ingevity Active 52cm [id number] - [id number] Pacemaker Lead N/A: [employer] 08/15/2019 7741 / Implanted: Qty: 1 on 02/02/2018 by Shanelle Garcia MD Heart SCI:CARDIAC [id number] / RHYTHM MNGT Ld Pacing Ingevity Active 45 1669 - [id number] Pacemaker Lead N/A: [employer] 11/04/2019 7740 / Implanted: Qty: 1 on 02/02/2018 by Shanelle Garcia MD Heart SCI:CARDIAC [id number] / RHYTHM MNGT [address] Pacemaker Pacemakers N/A: [employer]ON 10/2019 L111 / Implanted: Qty: 1 on 02/02/2018 by Shanelle Garcia MD Chest SCIENTIFIC [id number] / Results Not on fileafter 06/22/2019 Insurance Payer Benefit Plan / Group Subscriber ID Type Phone A ddress HUMANA - MEDICARE MGD HUMANA MEDICARE ADV xxxxxxxxx Maps Contracted CARE (Home) [place] [address] Advance Directives For more information, please contact:[address] [phone] Code Status Date Activated Date Inactivated Comments Full Code 01/30/2018 8:36 PM 02/04/2018 2:37 PM This code status was determined by: Patient
--- OUTSIDE RECORDS SUMMARY | 2020-06-22 09:06 | XMS REPORT ---
:1935 Author Organization [employer] Care Team Providers Name Role Phone Bashir Kirk Provider Role Unavailable Allergies No Known Allergies Problems Problem Type Condition Code Onset Dates Condition Statu s Problem Weakness R53.1 Active Problem CHF (congestive heart failure) I50.9 Active Problem 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 Problem CAD (coronary artery disease) I25.10 Active Problem Iron deficiency anemia due to D50.0 Active chronic blood loss Problem Allergic rhinitis, seasonal J30.2 Active Problem Diabetes mellitus type 2 in E11.9 Active nonobese Problem Mixed hyperlipidemia E78.2 Active Problem Gastro-esophageal reflux disease K21.9 Active without esophagitis Problem Asthma without acute exacerbation J45.909 Active Problem Iron deficiency anemia, unspecified D50.9 Active iron deficiency anemia type Problem Pericardial effusion I31.3 Active Problem Pulmonary hypertension, unspecified I27.20 Active Problem Gastroesophageal reflux disease, K21.9 Active esophagitis presence not specified Problem Cough R05 Active Problem Seasonal allergic rhinitis, J30.2 Active unspecified trigger Problem Rotator cuff arthropathy of left M12.812 Active shoulder Problem Rotator cuff arthropathy of right M12.811 Active shoulder Problem Type 2 diabetes mellitus without E11.9 Active complications 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 Problem Neuropathy G62.9 Active Problem Iron deficiency anemia 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 inadequate dietary iron intake Problem Type 2 diabetes mellitus with E11.40 Active diabetic neuropathy, unspecified Problem Type 2 diabetes mellitus with E11.65 Active hyperglycemia Problem 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 Problem 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 Problem Hypertension I10 Active Problem 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 Problem Unsteady gait R26.81 Active Problem Chronic fatigue R53.82 Active Problem HTN (hypertension) I10 Active Problem Anxiety F41.9 Active Problem Pacemaker Z95.0 Active Problem Essential hypertension I10 Activ e Problem 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
--- OUTSIDE RECORDS SUMMARY | 2020-06-22 09:06 | XMS REPORT | Continuity of Care Document ---
:1935 Author Organization [facility] t Address [address] [place] [address] Care Team Providers Name Role Phone Kim Power DO Primary Care Physician HERLINDA BOO Attending Clinician Unavailable HERLINDA BOO Admitting Clinician Unavailable Problems Condition Condition Condition Status Onset Resolution Last Treating Co mments Source Name Details Category Date Date Treatment Clinician Date Pleural Pleural Disease Active [place] effusion effusion 6-01 Method i 00:00: st Pericardia Pericardia Disease Active [place] l effusion l effusion 5-25 Me thodi 00:00: st 00 Essential Essential Disease Active Elisabeth ston hypertensi hypertensi 5-25 Me thodi on on 00:00: st 00 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 5-25 Method i mellitus mellitus 00:00: st 00 Moderate Moderate Disease Active [place] on asthma asthma 5-25 Methodi 00:00: st 00 Arthritis Arthritis Disease Active Elisabeth ston 5-25 Methodi 00:00: st Pacemaker Pacemaker Disease Active Elisabeth ston 5-25 Methodi 00:00: st 00 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 kes - anemia anemia Memoria secondary secondary l to to Outpati inadequate inadequate en t dietary dietary Clinics iron iron intake intake Type 2 Type 2 [facility] - mellitus mellitus Memori a without without l complicati complicati Ou tpati ons ons ent Clinics [facility] Problem Active [facility] current current [facility] - use of use of Memoria insulin insulin l Outpati ent Clinics 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 Me moria to chronic to chronic l blood loss blood loss Ou tpati ent Clinics Pacemaker Pacemaker Problem Active [facility] Seasonal Seasonal Problem Active [facility] allergic allergic [facility]ukes - rhinitis, rhinitis, Lazarus selwny unspecifie unspecifie l d trigger d trigger Outp ati ent Clinics 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 hyperlipid Eve kes - emia emia Memoria l Outpati ent Clinics Asthma Asthma Problem Active [facility] without without [facility] - acute acute Memoria exacerbati exacerbati l on on Outpati ent Clinics CHF CHF Problem Active [facility] (congestiv (congestiv Eve kes - e heart e heart Memoria failure) failure) l [facility] Clinics Essential Essential Problem Active [facility] hypertensi hypertensi Eve kes - on on Memoria l [facility] Clin[facility] Pulmonary Pulmonary Problem Active [facility] hypertensi hypertensi Eve kes - on, on, Memoria unspecifie unspecifie l d d Outpati ent Clinics Other Other Problem Active [facility] specified specified Luke s - diabetes diabetes Memori a mellitus mellitus l with with Outpati diabetic diabetic ent polyneurop polyneurop Cl inics athy athy CAD CAD Problem Active [facility] (coronary (coronary Luke s - artery artery Memoria disease) disease) l Outpati ent Clinics Anxiety Anxiety Problem Active [facility] Weakness Weakness Problem Active [facility] Gastroesop Gastroesop Problem Active [facility] hageal hageal Lukes - reflux reflux Memoria disease, disease, l esophagiti esophagiti Ou tpati s presence s presence en t not not Clinics specified specified Unsteady Unsteady Problem Active [facility] gait gait [facility] - [facility] COPD COPD Problem Active [facility] (chronic (chronic [facility]ukes - obstructiv obstructiv Me moria e e l pulmonary pulmonary Outp ati disease) disease) ent with with Clinics chronic chronic bronchitis bronchitis Diabetic Diabetic Problem Active [facility] 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 Me moria associated associated l with type with type Outp ati 2 diabetes 2 diabetes en t mellitus mellitus Clinic s Chronic Chronic Problem Active [facility] fatigue fatigue [facility] - [facility] Iron Iron Problem Active [facility] deficiency deficiency Eve kes - anemia, anemia, Memoria unspecifie unspecifie l d iron d iron Outpati deficiency deficiency en t anemia anemia Clinics type type Chronic Chronic Problem Active [facility] diastolic diastolic Luke s - congestive congestive Me moria heart heart l failure failure [facility] Hospital Hospital Problem Active [facility] discharge discharge Luke s - follow-up follow-up Lazarus selwyn l [facility] Clinics Pericardia Pericardia Problem Active [facility] l effusion l effusion Eve kes - Memoria l [facility] Clinics Cough Cough Problem Active [facility] Type 2 Type [address] diabetes diabetes Lukes - mellitus mellitus Memori a with with l hyperglyce hyperglyce Ou tpati kenji kenji ent Clinics 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 Eve kes - athy athy Memoria associated associated l with type with type Outp ati 2 diabetes 2 diabetes en t mellitus mellitus Clinic s Type 2 Type [address] diabetes diabetes Lukes - mellitus mellitus Memori a with with l diabetic diabetic Outpat i neuropathy neuropathy en t , , Clinics unspecifie unspecifie d d Primary Primary Problem Active [facility] osteoarthr osteoarthr Eve kes - itis [facility] l shoulder shoulder Outpat i ent Clinics Rotator Rotator Problem Active [facility] cuff cuff [facility]ukes - arthropath arthropath Me moria y of right y of right l shoulder shoulder Outpat i ent Clinics Rotator Rotator Problem Active [facility] cuff cuff Lukes - arthropath arthropath Me moria y of left y of left l shoulder shoulder Outpat i ent Clinics Neuropathy Neuropathy Problem Active [facility] Strain of Strain of Diagnosis Active [facility] left left [facility]ukes - shoulder, shoulder, Lazarus selwyn initial initial l encounter encounter Outp ati ent Clinics Contusion Contusion Diagnosis Active [facility] of left of left Lukes - shoulder, shoulder, Lazarus selwyn initial initial l encounter encounter Outp ati ent Clinics Pain, Pain, Diagnosis Active [facility] joint, joint, Lukes - shoulder, shoulder, Lazarus selwyn left left l [facility] Clinics Allergies, Adverse Reactions, Alerts Allergy Allergy Status Severity Reaction(s) Onset Inactive Treating Comm ents Source Name Type Date Date Clinician Penicill Propensi Active Rash [place] ins ty to 04-24 Methodi adverse 00:00: st reaction 00 s to drug Penicill Propensi Active Rash [facility] ins ty to 3 [facility] - adverse 00:00: Medical reaction 00 Center s Macrobid Adverse Active Info Not [facility] t Reaction Available [facility] Amoxicil Adverse Active Info Not [facility] t shanda Reaction Available [facility] Family History Family Member Diagnosis Comments Start Date Stop Date Source Natural brother Diabetes [facility] Natural father Cancer [facility] Natural mother Diabetes [facility] Natural sister Diabetes [facility] Social History Social Habit Start Date Stop Date Quantity Comments Source Sex Assigned At [facility] ethodist Alcohol intake 2018-05-05 2018-05-05 Current [facility] thodi 00:00:00 00:00:00 non-drinker of alcohol (finding) Smoking Status Start Date Stop Date Source Never smoker [place] [email or web address] Medications Ordered Filled Start Stop Current Ordering Indication Dosage Frequency Signature Comments Components Source Medication Medication Date Date Medication? Clinician (SIG) Name Name Cem Priest 2017-12 Yes Su[place] 2 spray in [facility] each Lukes - 00:00: nostril Memoria 00 [facility] ent [facility] Cetirizine Cetirizine 2017-12 Yes Suhas 1 tablet [facility] HCl HCl 12-19 Allan Lukes - 00:00: Memoria 00 [facility] ent [facility] Lidocaine Lidocaine Yes Suhas [address] [facility] St 06-09 Allan skin Lukes - 00:00: remove Memoria 00 after 12 l hours [facility] ent [facility] Alcohol Alcohol Yes Suhas as [facility] St Prep Pads Prep Pads 06-08 Allan directed L ukes - 00:00: Memoria 00 [facility] ent Clinics gabapentin Yes 600mg QD Take 600 [place] (NEURONTIN) 6-05 mg by Methodi 300 mg 11:38: mouth st capsule 03 nightly. furosemide Yes 40mg QD Take 40 mg [place] (LASIX) 40 6-05 by mouth Metho di mg tablet 11:38: daily. st 03 potassium Yes 20meq QD Take 20 [place] chloride 6-05 mEq by Methodi (K-DUR,KLOR 11:38: mouth st -CON) 10 03 daily. MEQ CR tablet aspirin 81 Yes 81mg QD Take [address] MG EC 3-02 by mouth Lukes - tablet 20:22: daily. Medical [facility] Center gabapentin Yes 300mg [id number] Take [address] (NEURONTIN) 3-02 [id number] mg by L ukes - 300 MG 20:22: 3D mouth 3 Medical capsule 50 (three) Center times daily. traMADol Yes 50mg Take [address] (ULTRAM) 50 3-02 by mouth Luke s - mg tablet 20:22: every 4 Medic al 50 (four) Center hours as needed for Pain. albuterol Yes 1{puff} Inhale [address] HFA 3-02 puff by Lukes - (VENTOLIN 20:22: mouth via Med ical HFA) 90 50 inhaler Center mcg/actuati every 4 on inhaler (four) hours as needed for Wheezing. fluticasone Yes 1{puff} Q.5D Inhale [address] -salmeterol 3-02 puff by Lukes - (ADVAIR) 20:22: mouth via Medi ottoniel 250-50 49 inhaler 2 Center mcg/dose (two) diskus times inhaler daily. Losartan Losartan Yes Suhas [address] Potassium Potassium Allan [facility] - Memoria l [facility] Clinics FreeStyle FreeStyle Yes Suhas as [facility] Yinka 14 Yinka 14 Allan directed Hanna es - Day [place] Day [place] Mem oria l [facility] Clinics Ventolin Ventolin Yes Suhas [address] HFA HFA Allan needed [facility]ukes - Memoria l Outpati ent Clinics Ferrous Ferrous Yes Suhas [address] Sulfate Sulfate Allan [facility] - Memoria l Outpati ent Clinics Aspirin 81 Aspirin 81 Yes Suhas [address] Allan [facility] - Memoria l Outpati ent Clinics Breo Breo Yes Suhas INHALE [address] [facility] Ellipta Ellipta Allan PUFF EVERY Hanna es - DAY Memoria l [facility] Clinics Xanax Xanax Yes Suhas [address] Allan [facility] - Memoria l Outpati ent Clinics Gabapentin Gabapentin Yes Suhas TAKE [address] [facility] Allan CAPSULE Lukes - THREE Memoria TIMES l DAILY Outpati ent Clinics Furosemide Furosemide Yes Suhas [address] [facility] Allan [facility] - Memoria l [facility]ics Klor-Con Klor-Con Yes Suhas [address] M20 M20 Allan with food Lukes - Memoria l [facility] Clinics Pantoprazol Pantoprazol Yes Suhas [address] e Sodium e Sodium Allan [facility]ukes - Memoria l Outpati ent Clinics Accu-Chek Accu-Chek Yes Suhas as [facility] Yaa Plus Yaa Plus Allan directed Lukes - Memoria l Outpati ent Clinics NitroQuick NitroQuick Yes Suhas not [facility] Allan defined [facility]ukes - Memoria l [facility] Clinics Lancets Lancets Yes Suhas one [facility] Super Thin Super Thin Allan Hanna es - Memoria l Outpati ent Clinics Rosuvastati Rosuvastati Yes Suhas [address] n Calcium n Calcium Allan [facility]ukes - Memoria l Outpati ent Clinics FreeStyle FreeStyle Yes Suhas USE [facility] Yinka 14 Yinka 14 Allan DIRECTED Hanna es - Day Sensor Day Sensor EVERY 14 Memoria DAYS l Outpati ent Clinics Multi For Multi For Yes Suhas as [facility] Her 50+ Her 50+ Allan directed Lukes - Memoria l [facility] Clinics Metoprolol Metoprolol Yes Suhas [address] Succinate Succinate Allan [facility]ukes - ER ER Memoria l Outpati ent Clinics [facility] Yes Suhas [address] FlexTouch FlexTouch Allan in pm Luke s - Memoria l [facility] Clinics Immunizations Ordered Filled Immunization Date Status Comments Sour e Immunization Name Name FluAD FluAD 2019-08-[address] [facility] - 00:[facility]00 [facility] Outpatient Clinics FluAD FluAD 2018-08-[address] [facility] - 00:[facility]:00 [facility] Outpatient Clinics Procedures This patient has no known procedures. Plan of Care Planned Activity Planned Date Details Comments Source Future Scheduled 2020-07-01 INFLUENZA VACCINE [place] enedelia [facility] Test 00:00:00 [code = INFLUENZA VACCINE] Future Scheduled 2001 65+ PNEUMOCOCCAL Ramírez [facility] Test 00:00:00 VACCINE (1 of 2 - PCV13) [code = 65+ PNEUMOCOCCAL VACCINE (1 of 2 - PCV13)] Future Scheduled 1986 SHINGLES VACCINES (#1) [place] [facility] Test 00:00:00 [code = SHINGLES VACCINES (#1)] Future Scheduled 1946 DIABETIC FOOT EXAM [place] [facility] Test 00:00:00 [code = DIABETIC FOOT EXAM] Future Scheduled 1945 URINE MICROALBUMIN [place] [facility] Test 00:00:00 [code = URINE MICROALBUMIN] Future Scheduled 1936 DIABETIC RETINAL EYE Elisabeth ston [facility] Test 00:00:00 EXAM [code = DIABETIC RETINAL EYE EXAM] Encounters Start End Encounter Admission Attending Care Care Encounter Source Date/Time Date/Time Type Type Clinicians Facility Department ID 2020-03-31 2020-03-31 [facility] [id number] 10:30:00 10:30:00 t [facility] Medicine [facility] Clinics 2020-03-29 2020-03-29 [facility] [id number] 10:30:00 10:30:00 t Bone Bone and [facility] - and Joint Joint [facility] a Clinic of [facility] ent [facility] 2020-03-16 2020-03-16 [facility] [id number] 10:00:00 10:00:00 t [employer] [facility] Medicine l Medicine [facility] Clinics 2020-02-25 2020-02-25 [facility] [id number] 15:47:00 15:47:00 t [employer] [facility] Medicine l Medicine Outpati ent Clinics 2020-02-21 2020-02-21 [facility] [id number] 15:00:00 15:00:00 [facility] [employer] [facility] Medicine Outpati ent Clinics 2020-02-21 2020-02-21 [facility] [id number] 13:45:00 13:45:00 t [employer] [facility] Medicine [facility] Clinics 2020-02-21 2020-02-21 [facility] [id number] 11:15:00 11:15:00 [place] [employer] [facility] Medicine l Medicine Outpati ent Clinics 2020-02-15 2020-02-15 [facility] [id number] 13:29:00 13:29:00 [place] [employer] - Drive [facility] Medicine l Medicine Outpati ent Clinics 2020-01-11 2020-01-11 [facility] [id number] 09:00:00 09:00:00 t Bone Bone and [facility] - and Joint Joint Memori a [facility] ent Clinics 2019-12-21 2019-12-21 [facility] [id number] 12:09:00 12:09:00 [place] [employer] [facility] Medicine Outpati ent Clinics 2019-12-16 2019-12-16 [facility] [id number] 15:00:00 15:00:00 [place] [employer] [facility] Medicine Outpati ent Clinics 2019-08-31 2019-08-31 [facility] [id number] 08:00:00 08:00:00 [place] [employer] - [employer] [facility] Medicine Outpati ent Clinics 2019-07-23 2019-07-23 [facility] [id number] 12:30:00 12:30:00 [place] [employer] [facility] Medicine Outpati ent Clinics 2019-05-31 2019-05-31 [facility] [id number] 08:00:00 08:00:00 [place] [employer] [facility] Medicine Medicine Outpati ent Clinics 2019-02-18 2019-02-18 [facility] [id number] 08:02:00 08:02:00 [place] [employer] [facility] Medicine Outpati ent Clinics 2019-02-02 2019-02-02 [facility] [id number] 16:06:00 16:06:00 [place] [employer] - [employer] [facility] Medicine Outpati ent Clinics 2019-01-08 2019-01-08 [facility] [id number] 11:50:00 11:50:[address] Luke s - Drive [facility] Medicine l Medicine Outpati ent Clinics 2018-12-29 2018-12-29 [facility] [id number] 09:15:00 09:15:[address] Luke s - Drive [facility] Medicine l Medicine Outpati ent Clinics 2018-11-27 2018-11-27 [facility] [id number] 10:44:00 10:44:[address] Luke s - Drive [facility] Family Medicine l Medicine Outpati ent Clinics 2018-11-12 2018-11-12 [facility] [id number] 08:30:00 08:30:[address] Luke s - Drive [facility] Medicine l Medicine Outpati ent Clinics 2018-10-19 2018-10-19 [facility] [id number] 08:45:00 08:45:[address] Luke s - Drive [facility] Medicine l Medicine Outpati ent Clinics 2018-09-01 2018-09-01 [facility] [id number] 16:33:00 16:33:[address] Luke s - Drive [facility] Medicine l Medicine Outpati ent Clinics 2018-08-11 2018-08-11 [facility] [id number] 09:15:00 09:15:[address] Luke s - Drive [facility] Medicine l Medicine Outpati ent Clinics 2018-07-07 2018-07-07 [facility] [id number] 10:03:00 10:03:[address] Luke s - Drive [facility] Medicine l Medicine Outpati ent Clinics 2018-06-30 2018-06-30 [facility] [id number] 10:44:00 10:44:[address] Luke s - Drive [facility] Medicine l Medicine Outpati ent Clinics 2018-06-19 2018-06-19 [facility] [id number] 15:24:00 15:24:[address] Luke s - Drive [facility] Medicine l Medicine Outpati ent Clinics 2018-06-11 2018-06-11 [facility] [id number] 09:51:00 09:51:[address] Luke s - Drive [facility] Medicine l Medicine Outpati ent Clinics 2018-06-11 2018-06-11 [facility] [id number] 09:47:00 09:47:[address] Luke s - Drive [facility] Medicine l Medicine Outpati ent Clinics 2018-06-09 2018-06-09 [facility] [id number] 14:12:00 14:12:[address] Luke s - Drive [facility] Medicine l Medicine Outpati ent Clinics 2018-06-08 2018-06-08 [facility] [id number] 12:50:00 12:50:[address] [place] Luke s - Drive [facility] Medicine l Medicine Outpati ent Clinics 2018-05-25 2018-05-25 [facility] [id number] 09:48:00 09:48:[address] Luke s - Drive [facility] Medicine l Medicine Outpati ent Clinics 2018 2018 [facility] [id number] 09:30:00 09:30:[address] Luke s - Drive [facility] Medicine l Medicine Outpati ent Clinics 2018-04-02 2018-04-02 [facility] [id number] 11:30:00 11:30:[address] Luke s - Drive [facility] Medicine l Medicine Outpati ent Clinics 2018-03-23 2018-03-23 [facility] [id number] 11:04:00 11:04:[address] Luke s - Drive [facility] Medicine l Medicine Outpati ent Clinics 2018-03-09 2018-03-09 [facility] [id number] 14:13:00 14:13:[address] Luke s - Drive [facility] Medicine l Medicine Outpati ent Clinics 2018-02-17 2018-02-17 [facility] [id number] 11:30:00 11:30:00 [facility] Medicine Outpati ent Clinics Results Test Description Test Time Test Comments Results Result Comments Source POCT-GLUCOSE METER 2018-02-04 13:06:00 Test Item Value Reference Range Interpretation Comme nts POC-GLUCOSE METER (BEAKER) (test 187 mg/dL 70-110 H TESTED AT [facility] [address] code = 1538) [place] [address] POCT-GLUCOSE [id number] 08:56:00 Test Item Value Reference Range Interpretation Comments POC-GLUCOSE METER 243 mg/dL 70-110 H TESTED AT [facility] [address] (BEAKER) (test code = [address] R [place] 1538) [id number] BASIC METABOLIC [id number] 04:21:00 Test Item Value Reference Range Interpretation Comments SODIUM (BEAKER) 136 meq/L 136-145 (test code = 381) POTASSIUM (BEAKER) 3.9 meq/L 3.5-5.1 (test code = 379) CHLORIDE (BEAKER) 103 meq/L 98-107 (test code = 382) CO2 (BEAKER) (test 26 meq/L 22-29 code = 355) BLOOD UREA NITROGEN 17 mg/dL 7-21 (BEAKER) (test code = 354) CREATININE (BEAKER) 0.80 mg/dL 0.57-1.25 (test code = 358) GLUCOSE RANDOM 152 mg/dL 70-105 H (BEAKER) (test code = 652) CALCIUM (BEAKER) 8.7 mg/dL 8.4-10.2 (test code = 697) EGFR (BEAKER) (test mL/min/1.73 INSUFFIC IENT CLINICAL code = 1092) sq m DATA TO CALCULA TE ESTIMATED GFR. [id number] 04:19:00 Test Item Value Reference Range Interpretation Comments MAGNESIUM (BEAKER) (test code = 2.4 mg/dL 1.6-2.6 627) CBC W/PLT COUNT & AUTO [id number] 04:15:00 Test Item Value Reference Range Interpretation Comments WHITE BLOOD CELL COUNT (BEAKER) 10.3 K/ L 3.5-10.5 (test code = 775) RED BLOOD CELL COUNT (BEAKER) 3.03 M/ L 3.93-5.22 L (test code = 761) HEMOGLOBIN (BEAKER) (test code = 9.6 GM/DL 11.2-15.7 L 410) HEMATOCRIT (BEAKER) (test code = 28.6 % 34.1-44.9 L 411) MEAN CORPUSCULAR VOLUME (BEAKER) 94.4 fL 79.4-94.8 (test code = 753) MEAN CORPUSCULAR HEMOGLOBIN 31.7 pg 25.6-32.2 (BEAKER) (test code = 751) MEAN CORPUSCULAR HEMOGLOBIN CONC 33.6 GM/DL 32.2-35.5 (BEAKER) (test code = 752) RED CELL DISTRIBUTION WIDTH 12.7 % 11.7-14.4 (BEAKER) (test code = 412) PLATELET COUNT (BEAKER) (test 183 K/CU MM 150-450 code = 756) MEAN PLATELET VOLUME (BEAKER) 10.9 fL 9.4-12.3 (test code = 754) NUCLEATED RED BLOOD CELLS 0 /100 WBC 0-0 (BEAKER) (test code = 413) NEUTROPHILS RELATIVE PERCENT 73 % (BEAKER) (test code = 429) LYMPHOCYTES RELATIVE PERCENT 15 % (BEAKER) (test code = 430) MONOCYTES RELATIVE PERCENT 9 % (BEAKER) (test code = 431) EOSINOPHILS RELATIVE PERCENT 3 % (BEAKER) (test code = 432) BASOPHILS RELATIVE PERCENT 0 % (BEAKER) (test code = 437) NEUTROPHILS ABSOLUTE COUNT 7.50 K/ L 1.56-6.13 H (BEAKER) (test code = 670) LYMPHOCYTES ABSOLUTE COUNT 1.53 K/ L 1.18-3.74 (BEAKER) (test code = 414) MONOCYTES ABSOLUTE COUNT (BEAKER) 0.91 K/ L 0.24-0.36 H (test code = 415) EOSINOPHILS ABSOLUTE COUNT 0.30 K/ L 0.04-0.36 (BEAKER) (test code = 416) BASOPHILS ABSOLUTE COUNT (BEAKER) 0.02 K/ L 0.01-0.08 (test code = 417) IMMATURE GRANULOCYTES-RELATIVE 0 % 0-1 PERCENT (BEAKER) (test code = 2801) POCT-GLUCOSE [id number] 17:40:00 Test Item Value Reference Range Interpretation Comments POC-GLUCOSE METER 281 mg/dL 70-110 H TESTED AT [facility] 6720 (BEAKER) (test code = DARIO Guerra [facility] 1538) [id number] POCT-GLUCOSE [id number] 12:44:00 Test Item Value Reference Range Interpretation Comments POC-GLUCOSE METER 273 mg/dL 70-110 H TESTED AT [place] [address] ([facility]) (test code = DARIO Guerra [facility] 1538) [id number] RAD, CHEST, 1 VIEW, NON [id number] 08:46:00Reason for exam:->s/p dual chamber PPM eval [...] small left effusion. Signed: Aixa Swift Verified Date/Time: 02/03/2018 08:46:43 Reading Location: [facility] [id number] Consult Reading Room POCT-GLUCOSE [id number] 08:36:00 Test Item Value Reference Range Interpretation Comments POC-GLUCOSE METER 242 mg/dL 70-110 H TESTED AT [place] [address] ([facility]) (test code = DARIO Guerra [facility] [place] 1538) [address] BASIC METABOLIC [id number] 05:37:00 Test Item Value Reference Range Interpretation Comments SODIUM (BEAKER) 137 meq/L 136-145 (test code = 381) POTASSIUM (BEAKER) 4.0 meq/L 3.5-5.1 (test code = 379) CHLORIDE (BEAKER) 103 meq/L 98-107 (test code = 382) CO2 (BEAKER) (test 28 meq/L 22-29 code = 355) BLOOD UREA NITROGEN 24 mg/dL 7-21 H (BEAKER) (test code = 354) CREATININE (BEAKER) 0.87 mg/dL 0.57-1.25 (test code = 358) GLUCOSE RANDOM 248 mg/dL 70-105 H (BEAKER) (test code = 652) CALCIUM (BEAKER) 8.5 mg/dL 8.4-10.2 (test code = 697) EGFR (BEAKER) (test mL/min/1.73 INSUFFIC IENT CLINICAL code = 1092) sq m DATA TO CALCULA TE ESTIMATED GFR. [id number] 05:35:00 Test Item Value Reference Range Interpretation Comments MAGNESIUM (BEAKER) (test code = 2.4 mg/dL 1.6-2.6 627) CBC W/PLT COUNT & AUTO [id number] 05:08:00 Test Item Value Reference Range Interpretation Comments WHITE BLOOD CELL COUNT (BEAKER) 8.6 K/ L 3.5-10.5 (test code = 775) RED BLOOD CELL COUNT (BEAKER) 2.74 M/ L 3.93-5.22 L (test code = 761) HEMOGLOBIN (BEAKER) (test code = 8.7 GM/DL 11.2-15.7 L 410) HEMATOCRIT (BEAKER) (test code = 26.1 % 34.1-44.9 L 411) MEAN CORPUSCULAR VOLUME (BEAKER) 95.3 fL 79.4-94.8 H (test code = 753) MEAN CORPUSCULAR HEMOGLOBIN 31.8 pg 25.6-32.2 (BEAKER) (test code = 751) MEAN CORPUSCULAR HEMOGLOBIN CONC 33.3 GM/DL 32.2-35.5 (BEAKER) (test code = 752) RED CELL DISTRIBUTION WIDTH 12.6 % 11.7-14.4 (BEAKER) (test code = 412) PLATELET COUNT (BEAKER) (test 172 K/CU MM 150-450 code = 756) MEAN PLATELET VOLUME (BEAKER) 11.5 fL 9.4-12.3 (test code = 754) NUCLEATED RED BLOOD CELLS 0 /100 WBC 0-0 (BEAKER) (test code = 413) NEUTROPHILS RELATIVE PERCENT 74 % (BEAKER) (test code = 429) LYMPHOCYTES RELATIVE PERCENT 14 % (BEAKER) (test code = 430) MONOCYTES RELATIVE PERCENT 9 % (BEAKER) (test code = 431) EOSINOPHILS RELATIVE PERCENT 3 % (BEAKER) (test code = 432) BASOPHILS RELATIVE PERCENT 0 % (BEAKER) (test code = 437) NEUTROPHILS ABSOLUTE COUNT 6.32 K/ L 1.56-6.13 H (BEAKER) (test code = 670) LYMPHOCYTES ABSOLUTE COUNT 1.18 K/ L 1.18-3.74 (BEAKER) (test code = 414) MONOCYTES ABSOLUTE COUNT (BEAKER) 0.79 K/ L 0.24-0.36 H (test code = 415) EOSINOPHILS ABSOLUTE COUNT 0.21 K/ L 0.04-0.36 (BEAKER) (test code = 416) BASOPHILS ABSOLUTE COUNT (BEAKER) 0.03 K/ L 0.01-0.08 (test code = 417) IMMATURE GRANULOCYTES-RELATIVE 1 % 0-1 PERCENT (BEAKER) (test code = 2801) POCT-GLUCOSE [id number] 16:20:00 Test Item Value Reference Range Interpretation Comments POC-GLUCOSE METER 195 mg/dL 70-110 H TESTED AT [facility] [address] (BEAKER) (test code = DARIO RAMÍREZ [place] 1538) [address] BASIC METABOLIC [id number] 04:16:00 Test Item Value Reference Range Interpretation Comments SODIUM (BEAKER) 136 meq/L 136-145 (test code = 381) POTASSIUM (BEAKER) 4.4 meq/L 3.5-5.1 (test code = 379) CHLORIDE (BEAKER) 101 meq/L 98-107 (test code = 382) CO2 (BEAKER) (test 28 meq/L 22-29 code = 355) BLOOD UREA NITROGEN 33 mg/dL 7-21 H (BEAKER) (test code = 354) CREATININE (BEAKER) 1.16 mg/dL 0.57-1.25 (test code = 358) GLUCOSE RANDOM 211 mg/dL 70-105 H (BEAKER) (test code = 652) CALCIUM (BEAKER) 8.4 mg/dL 8.4-10.2 (test code = 697) EGFR (BEAKER) (test mL/min/1.73 INSUFFIC IENT CLINICAL code = 1092) sq m DATA TO CALCULA TE ESTIMATED GFR. [id number] 04:08:00 Test Item Value Reference Range Interpretation Comments MAGNESIUM (BEAKER) (test code = 2.2 mg/dL 1.6-2.6 627) CBC W/PLT COUNT & AUTO [id number] 03:52:00 Test Item Value Reference Range Interpretation Comments WHITE BLOOD CELL COUNT (BEAKER) 9.0 K/ L 3.5-10.5 (test code = 775) RED BLOOD CELL COUNT (BEAKER) 2.73 M/ L 3.93-5.22 L (test code = 761) HEMOGLOBIN (BEAKER) (test code = 8.7 GM/DL 11.2-15.7 L 410) HEMATOCRIT (BEAKER) (test code = 25.9 % 34.1-44.9 L 411) MEAN CORPUSCULAR VOLUME (BEAKER) 94.9 fL 79.4-94.8 H (test code = 753) MEAN CORPUSCULAR HEMOGLOBIN 31.9 pg 25.6-32.2 (BEAKER) (test code = 751) MEAN CORPUSCULAR HEMOGLOBIN CONC 33.6 GM/DL 32.2-35.5 (BEAKER) (test code = 752) RED CELL DISTRIBUTION WIDTH 12.8 % 11.7-14.4 (BEAKER) (test code = 412) PLATELET COUNT (BEAKER) (test 172 K/CU MM 150-450 code = 756) MEAN PLATELET VOLUME (BEAKER) 11.5 fL 9.4-12.3 (test code = 754) NUCLEATED RED BLOOD CELLS 0 /100 WBC 0-0 (BEAKER) (test code = 413) NEUTROPHILS RELATIVE PERCENT 70 % (BEAKER) (test code = 429) LYMPHOCYTES RELATIVE PERCENT 17 % (BEAKER) (test code = 430) MONOCYTES RELATIVE PERCENT 9 % (BEAKER) (test code = 431) EOSINOPHILS RELATIVE PERCENT 3 % (BEAKER) (test code = 432) BASOPHILS RELATIVE PERCENT 0 % (BEAKER) (test code = 437) NEUTROPHILS ABSOLUTE COUNT 6.29 K/ L 1.56-6.13 H (BEAKER) (test code = 670) LYMPHOCYTES ABSOLUTE COUNT 1.55 K/ L 1.18-3.74 (BEAKER) (test code = 414) MONOCYTES ABSOLUTE COUNT (BEAKER) 0.83 K/ L 0.24-0.36 H (test code = 415) EOSINOPHILS ABSOLUTE COUNT 0.22 K/ L 0.04-0.36 (BEAKER) (test code = 416) BASOPHILS ABSOLUTE COUNT (BEAKER) 0.03 K/ L 0.01-0.08 (test code = 417) IMMATURE GRANULOCYTES-RELATIVE 0 % 0-1 PERCENT (BEAKER) (test code = 2804) BASIC METABOLIC [id number] 06:15:00 Test Item Value Reference Range Interpretation Comments SODIUM (BEAKER) 137 meq/L 136-145 (test code = 381) POTASSIUM (BEAKER) 4.6 meq/L 3.5-5.1 (test code = 379) CHLORIDE (BEAKER) 100 meq/L 98-107 (test code = 382) CO2 (BEAKER) (test 26 meq/L 22-29 code = 355) BLOOD UREA NITROGEN 38 mg/dL 7-21 H (BEAKER) (test code = 354) CREATININE (BEAKER) 1.55 mg/dL 0.57-1.25 H (test code = 358) GLUCOSE RANDOM 191 mg/dL 70-105 H (BEAKER) (test code = 652) CALCIUM (BEAKER) 8.5 mg/dL 8.4-10.2 (test code = 697) EGFR (BEAKER) (test mL/min/1.73 INSUFFIC IENT CLINICAL code = 1092) sq m DATA TO CALCULA TE ESTIMATED GFR. [id number] 05:44:00 Test Item Value Reference Range Interpretation Comments MAGNESIUM (BEAKER) (test code = 2.4 mg/dL 1.6-2.6 627) CBC W/PLT COUNT & AUTO [id number] 04:51:00 Test Item Value Reference Range Interpretation Comments WHITE BLOOD CELL COUNT (BEAKER) 9.4 K/ L 3.5-10.5 (test code = 775) RED BLOOD CELL COUNT (BEAKER) 3.04 M/ L 3.93-5.22 L (test code = 761) HEMOGLOBIN (BEAKER) (test code = 9.6 GM/DL 11.2-15.7 L 410) HEMATOCRIT (BEAKER) (test code = 29.3 % 34.1-44.9 L 411) MEAN CORPUSCULAR VOLUME (BEAKER) 96.4 fL 79.4-94.8 H (test code = 753) MEAN CORPUSCULAR HEMOGLOBIN 31.6 pg 25.6-32.2 (BEAKER) (test code = 751) MEAN CORPUSCULAR HEMOGLOBIN CONC 32.8 GM/DL 32.2-35.5 (BEAKER) (test code = 752) RED CELL DISTRIBUTION WIDTH 13.0 % 11.7-14.4 (BEAKER) (test code = 412) PLATELET COUNT (BEAKER) (test 181 K/CU MM 150-450 code = 756) MEAN PLATELET VOLUME (BEAKER) 11.7 fL 9.4-12.3 (test code = 754) NUCLEATED RED BLOOD CELLS 0 /100 WBC 0-0 (BEAKER) (test code = 413) NEUTROPHILS RELATIVE PERCENT 71 % (BEAKER) (test code = 429) LYMPHOCYTES RELATIVE PERCENT 19 % (BEAKER) (test code = 430) MONOCYTES RELATIVE PERCENT 8 % (BEAKER) (test code = 431) EOSINOPHILS RELATIVE PERCENT 2 % (BEAKER) (test code = 432) BASOPHILS RELATIVE PERCENT 0 % (BEAKER) (test code = 437) NEUTROPHILS ABSOLUTE COUNT 6.65 K/ L 1.56-6.13 H (BEAKER) (test code = 670) LYMPHOCYTES ABSOLUTE COUNT 1.81 K/ L 1.18-3.74 (BEAKER) (test code = 414) MONOCYTES ABSOLUTE COUNT (BEAKER) 0.71 K/ L 0.24-0.36 H (test code = 415) EOSINOPHILS ABSOLUTE COUNT 0.20 K/ L 0.04-0.36 (BEAKER) (test code = 416) BASOPHILS ABSOLUTE COUNT (BEAKER) 0.03 K/ L 0.01-0.08 (test code = 417) IMMATURE GRANULOCYTES-RELATIVE 0 % 0-1 PERCENT (BEAKER) (test code = 2801) [id number] 21:49:00 Test Item Value Reference Range Interpretation Comments POTASSIUM (BEAKER) (test code = 5.2 meq/L 3.5-5.1 H 379) Check Serum Potassium level 2 hours after oral potassium replacement completed or 30 min after intravenous potassium replacement.[id number] 21:49:00 Test Item Value Reference Range Interpretation Comments MAGNESIUM (BEAKER) (test code = 2.2 mg/dL 1.6-2.6 627) Check Serum Potassium level 2 hours after oral potassium replacement completed or 30 min after intravenous potassium replacement.URINALYSIS W/ MICROSCOPIC 2018-01-31 10:39:00 Test Item Value Reference Range Interpretation Comments COLOR (BEAKER) (test code = 470) Light Yellow CLARITY (BEAKER) (test code = Clear 469) SPECIFIC GRAVITY UA (BEAKER) 1.005 1.001-1.035 (test code = 468) PH UA (BEAKER) (test code = 467) 5.0 5.0-8.0 PROTEIN UA (BEAKER) (test code = Negative Negative 464) GLUCOSE UA (BEAKER) (test code = Negative Negative 365) KETONES UA (BEAKER) (test code = Negative Negative 371) BILIRUBIN UA (BEAKER) (test code Negative Negative = 462) BLOOD UA (BEAKER) (test code = Negative Negative 461) NITRITE UA (BEAKER) (test code = Negative Negative 465) LEUKOCYTE ESTERASE UA (BEAKER) Negative Negative (test code = 466) UROBILINOGEN UA (BEAKER) (test 0.2 mg/dL 0.2-1.0 code = 463) RBC UA (BEAKER) (test code = 1 /HPF 519) WBC UA (BEAKER) (test code = 3 /HPF 520) SQUAMOUS EPITHELIAL (BEAKER) 1 /HPF (test code = 516) AMORPHOUS CRYSTALS (BEAKER) Rare (test code = 1584) SOURCE(BEAKER) (test code = Urine, [place] 6865) CREATINE KINASE (CK), TOTAL AND [id number] 10:07:00 Test Item Value Reference Range Interpretation Comments CREATINE KINASE TOTAL (BEAKER) 35 U/L 29-200 (test code = 380) CREATINE KINASE-MB (BEAKER) (test 1.7 ng/mL 0.0-6.6 code = 750) CREATINE KINASE-MB INDEX (BEAKER) 4.9 % (test code = 395) CK-MB Reference Range:<6.7 Normal6.7-10.0 Borderline>10.0 AbnormalTROPONIN [id number] 10:07:00 Test Item Value Reference Range Interpretation Comments TROPONIN I (BEAKER) (test code = 0.02 ng/mL 0.00-0.03 397) Troponin I (TnI) levels must be interpreted [...] acute neurological disease, and persistent tachyarrhythmia.BASIC METABOLIC [id number] 05:51:00 Test Item Value Reference Range Interpretation Comments SODIUM (BEAKER) 141 meq/L 136-145 (test code = 381) POTASSIUM (BEAKER) 3.7 meq/L 3.5-5.1 (test code = 379) CHLORIDE (BEAKER) 103 meq/L 98-107 (test code = 382) CO2 (BEAKER) (test 26 meq/L 22-29 code = 355) BLOOD UREA NITROGEN 35 mg/dL 7-21 H (BEAKER) (test code = 354) CREATININE (BEAKER) 1.22 mg/dL 0.57-1.25 (test code = 358) GLUCOSE RANDOM 121 mg/dL 70-105 H (BEAKER) (test code = 652) CALCIUM (BEAKER) 8.9 mg/dL 8.4-10.2 (test code = 697) EGFR (BEAKER) (test mL/min/1.73 INSUFFIC IENT CLINICAL code = 1092) sq m DATA TO CALCULA TE ESTIMATED GFR. [id number] 05:50:00 Test Item Value Reference Range Interpretation Comments MAGNESIUM (BEAKER) (test code = 2.4 mg/dL 1.6-2.6 627) CBC W/PLT COUNT & AUTO [id number] 05:04:00 Test Item Value Reference Range Interpretation Comments WHITE BLOOD CELL COUNT (BEAKER) 9.8 K/ L 3.5-10.5 (test code = 775) RED BLOOD CELL COUNT (BEAKER) 3.09 M/ L 3.93-5.22 L (test code = 761) HEMOGLOBIN (BEAKER) (test code = 9.7 GM/DL 11.2-15.7 L 410) HEMATOCRIT (BEAKER) (test code = 29.4 % 34.1-44.9 L 411) MEAN CORPUSCULAR VOLUME (BEAKER) 95.1 fL 79.4-94.8 H (test code = 753) MEAN CORPUSCULAR HEMOGLOBIN 31.4 pg 25.6-32.2 (BEAKER) (test code = 751) MEAN CORPUSCULAR HEMOGLOBIN CONC 33.0 GM/DL 32.2-35.5 (BEAKER) (test code = 752) RED CELL DISTRIBUTION WIDTH 12.9 % 11.7-14.4 (BEAKER) (test code = 412) PLATELET COUNT (BEAKER) (test 186 K/CU MM 150-450 code = 756) MEAN PLATELET VOLUME (BEAKER) 11.8 fL 9.4-12.3 (test code = 754) NUCLEATED RED BLOOD CELLS 0 /100 WBC 0-0 (BEAKER) (test code = 413) NEUTROPHILS RELATIVE PERCENT 75 % (BEAKER) (test code = 429) LYMPHOCYTES RELATIVE PERCENT 15 % (BEAKER) (test code = 430) MONOCYTES RELATIVE PERCENT 8 % (BEAKER) (test code = 431) EOSINOPHILS RELATIVE PERCENT 2 % (BEAKER) (test code = 432) BASOPHILS RELATIVE PERCENT 0 % (BEAKER) (test code = 437) NEUTROPHILS ABSOLUTE COUNT 7.36 K/ L 1.56-6.13 H (BEAKER) (test code = 670) LYMPHOCYTES ABSOLUTE COUNT 1.42 K/ L 1.18-3.74 (BEAKER) (test code = 414) MONOCYTES ABSOLUTE COUNT (BEAKER) 0.75 K/ L 0.24-0.36 H (test code = 415) EOSINOPHILS ABSOLUTE COUNT 0.20 K/ L 0.04-0.36 (BEAKER) (test code = 416) BASOPHILS ABSOLUTE COUNT (BEAKER) 0.03 K/ L 0.01-0.08 (test code = 417) IMMATURE GRANULOCYTES-RELATIVE 0 % 0-1 PERCENT (BEAKER) (test code = 2801) CREATINE KINASE (CK), TOTAL AND [id number] 03:23:00 Test Item Value Reference Range Interpretation Comments CREATINE KINASE TOTAL (BEAKER) 27 U/L 29-200 L (test code = 380) CREATINE KINASE-MB (BEAKER) (test 1.3 ng/mL 0.0-6.6 code = 750) CREATINE KINASE-MB INDEX (BEAKER) 4.8 % (test code = 395) CK-MB Reference Range:<6.7 Normal6.7-10.0 Borderline>10.0 AbnormalTROPONIN [id number] 03:23:00 Test Item Value Reference Range Interpretation Comments TROPONIN I (BEAKER) (test code = 0.03 ng/mL 0.00-0.03 397) Troponin I (TnI) levels must be interpreted [...] and persistent tachyarrhythmia.RAD, CHEST, 1 VIEW, NON [id number] 22:06:00Reason for exam:->SOBShould this be performed at the bedside?->Yes FINAL REPORT INDICATION: SOB COMPARISON: None. TECHNIQUE: Chest radiograph, single view, portable technique. FINDINGS / IMPRESSION: There is mild hyperexpansion which may represent chronic obstructive pulmonary disease. There is mild enlargement of the heart shadow and pulmonaryvenous congestion. No consolidation, pneumothorax, or large pleural effusion. Osseous structures unremarkable. Signed: Minh Lafleur MDReport Verified Date/Time: 01/30/2018 22:06:47 Reading Location: [address] Consult Reading Room TINE KINASE (CK), TOTAL AND [id number] 21:32:00 Test Item Value Reference Range Interpretation Comments CREATINE KINASE TOTAL (BEAKER) 29 U/L 29-200 (test code = 380) CREATINE KINASE-MB (BEAKER) (test 1.1 ng/mL 0.0-6.6 code = 750) CREATINE KINASE-MB INDEX (BEAKER) 3.8 % (test code = 395) CK-MB Reference Range:<6.7 Normal6.7-10.0 Borderline>10.0 AbnormalTROPONIN [id number] 21:32:00 Test Item Value Reference Range Interpretation Comments TROPONIN I (BEAKER) (test code = 0.03 ng/mL 0.00-0.03 397) Troponin I (TnI) levels must be interpreted [...] disease, and persistent tachyarrhythmia.B-TYPE NATRIURETIC FACTOR (BNP) 2018-01-30 21:32:00 Test Item Value Reference Range Interpretation Comments B-TYPE NATRIURETIC PEPTIDE 2547 pg/mL 0-100 H (BEAKER) (test code = 700) BASIC METABOLIC [id number] 21:27:00 Test Item Value Reference Range Interpretation Comments SODIUM (BEAKER) 139 meq/L 136-145 (test code = 381) POTASSIUM (BEAKER) 4.0 meq/L 3.5-5.1 (test code = 379) CHLORIDE (BEAKER) 104 meq/L 98-107 (test code = 382) CO2 (BEAKER) (test 26 meq/L 22-29 code = 355) BLOOD UREA NITROGEN 38 mg/dL 7-21 H (BEAKER) (test code = 354) CREATININE (BEAKER) 1.32 mg/dL 0.57-1.25 H (test code = 358) GLUCOSE RANDOM 125 mg/dL 70-105 H (BEAKER) (test code = 652) CALCIUM (BEAKER) 9.1 mg/dL 8.4-10.2 (test code = 697) EGFR (BEAKER) (test mL/min/1.73 INSUFFIC IENT CLINICAL code = 1092) sq m DATA TO CALCULA TE ESTIMATED GFR. [id number] 21:26:00 Test Item Value Reference Range Interpretation Comments PHOSPHORUS (BEAKER) (test code = 4.0 mg/dL 2.3-4.7 604) [id number] 21:26:00 Test Item Value Reference Range Interpretation Comments MAGNESIUM (BEAKER) (test code = 2.4 mg/dL 1.6-2.6 627) HEPATIC FUNCTION [id number] 21:26:00 Test Item Value Reference Range Interpretation Comments TOTAL PROTEIN (BEAKER) (test code = 7.2 gm/dL 6.0-8.3 770) ALBUMIN (BEAKER) (test code = 1145) 3.7 g/dL 3.5-5.0 BILIRUBIN TOTAL (BEAKER) (test code 0.6 mg/dL 0.2-1.2 = 377) BILIRUBIN DIRECT (BEAKER) (test 0.3 mg/dL 0.1-0.5 code = 706) ALKALINE PHOSPHATASE (BEAKER) (test 103 U/L 40-150 code = 346) AST (SGOT) (BEAKER) (test code = 32 U/L 5-34 353) ALT (SGPT) (BEAKER) (test code = 18 U/L 6-55 347) [id number] 21:22:00 Test Item Value Reference Range Interpretation Comments PARTIAL THROMBOPLASTIN TIME 34.5 seconds 22.5-36.0 (BEAKER) (test code = 760) PROTHROMBIN TIME/[id number] 21:16:00 Test Item Value Reference Range Interpretation Comments PROTIME (BEAKER) (test code = 15.9 seconds 11.7-14.7 H 759) INR (BEAKER) (test code = 370) 1.3 <=5.9 RECOMMENDED COUMADIN/WARFARIN INR THERAPY RANGESSTANDARD DOSE: 2.0 - 3.0 Includes: PROPHYLAXIS forvenous thrombosis, systemic embolization; TREATMENT for venous thrombosis and/or pulmonary embolus.HIGH RISK: Target INR is 2.5-3.5 for patients with mechanical heart valves.CBC W/PLT COUNT & AUTO DIFFERENTIAL 2018-01-30 21:08:00 Test Item Value Reference Range Interpretation Comments WHITE BLOOD CELL COUNT (BEAKER) 9.4 K/ L 3.5-10.5 (test code = 775) RED BLOOD CELL COUNT (BEAKER) 3.20 M/ L 3.93-5.22 L (test code = 761) HEMOGLOBIN (BEAKER) (test code = 10.1 GM/DL 11.2-15.7 L 410) HEMATOCRIT (BEAKER) (test code = 30.7 % 34.1-44.9 L 411) MEAN CORPUSCULAR VOLUME (BEAKER) 95.9 fL 79.4-94.8 H (test code = 753) MEAN CORPUSCULAR HEMOGLOBIN 31.6 pg 25.6-32.2 (BEAKER) (test code = 751) MEAN CORPUSCULAR HEMOGLOBIN CONC 32.9 GM/DL 32.2-35.5 (BEAKER) (test code = 752) RED CELL DISTRIBUTION WIDTH 13.1 % 11.7-14.4 (BEAKER) (test code = 412) PLATELET COUNT (BEAKER) (test 189 K/CU MM 150-450 code = 756) MEAN PLATELET VOLUME (BEAKER) 11.7 fL 9.4-12.3 (test code = 754) NUCLEATED RED BLOOD CELLS 0 /100 WBC 0-0 (BEAKER) (test code = 413) NEUTROPHILS RELATIVE PERCENT 73 % (BEAKER) (test code = 429) LYMPHOCYTES RELATIVE PERCENT 18 % (BEAKER) (test code = 430) MONOCYTES RELATIVE PERCENT 8 % (BEAKER) (test code = 431) EOSINOPHILS RELATIVE PERCENT 1 % (BEAKER) (test code = 432) BASOPHILS RELATIVE PERCENT 0 % (BEAKER) (test code = 437) NEUTROPHILS ABSOLUTE COUNT 6.87 K/ L 1.56-6.13 H (BEAKER) (test code = 670) LYMPHOCYTES ABSOLUTE COUNT 1.70 K/ L 1.18-3.74 (BEAKER) (test code = 414) MONOCYTES ABSOLUTE COUNT (BEAKER) 0.71 K/ L 0.24-0.36 H (test code = 415) EOSINOPHILS ABSOLUTE COUNT 0.11 K/ L 0.04-0.36 (BEAKER) (test code = 416) BASOPHILS ABSOLUTE COUNT (BEAKER) 0.03 K/ L 0.01-0.08 (test code = 417) IMMATURE GRANULOCYTES-RELATIVE 0 % 0-1 PERCENT (BEAKER) (test code = 4930)
--- OUTSIDE RECORDS SUMMARY | 2020-06-22 09:06 | XMS REPORT ---
[...] exacerbation J45.909 Active Problem Iron deficiency anemia, D50.9 Acti ve unspecified iron deficiency anemia type Problem Pericardial effusion I31.3 Active Problem Pulmonary hypertension, I27.20 Acti ve unspecified Problem Gastroesophageal reflux disease, K21.9 Active esophagitis presence not specified Problem Cough R05 Active Problem Seasonal allergic rhinitis, J30.2 Active unspecified trigger Problem Rotator cuff arthropathy of left M12.812 Active shoulder Problem Rotator cuff arthropathy of right M12.811 Active shoulder Problem Type 2 diabetes mellitus without E11.9 Active complications Problem skilled nursing current use of 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 Assessment Strain of left shoulder, initial S46.912A Active encounter Problem Neuropathy G62.9 Active Problem Iron deficiency anemia secondary D50.8 Active to inadequate dietary iron intake Problem Type 2 diabetes mellitus with E11.40 Active diabetic neuropathy, unspecified Problem Type 2 diabetes mellitus with E11.65 Active hyperglycemia Problem 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 Problem 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 Problem Hypertension I10 Active Problem 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 Problem Unsteady gait R26.81 Active Problem Chronic fatigue R53.82 Active Problem HTN (hypertension) I10 Active Problem Anxiety F41.9 Active Problem Pacemaker Z95.0 Active Assessment Contusion of left shoulder, S40.012A Active initial encounter Problem Essential hypertension I10 Activ e Assessment Pain, joint, shoulder, left M25.512 Active Problem 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 Active associated with type 2 diabetes mellitus Problem 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 Active failure Problem Hospital discharge follow-up Z09 Active Medications Medication Code Code Instructions Start End Status Dosage System Date Date Losartan ND 76322885701 100 MG Orally Active 1 tab let Potassium Once a day FreeStyle Yinka [facility] 27986840330 - daily Active as directed 14 Day Clovis Ventolin HFA ND 99956692902 90 MCG/ACT Active 2 pu ffs as Inhalation every needed 6 hrs Ferrous Sulfate ND 00817404248 325 (65 Fe) MG Activ e 1 tablet Orally three times a day Aspirin 81 ND 49084246593 81 MG Orally Active 1 ta blet Once a day Breo Ellipta ND 75261800714 100-25 MCG/INH Active 1 puff Inhalation Once a day Xanax ND 09314631651 0.5 MG Orally Active 1 tabl et Twice a day Gabapentin ND 82436051749 300 MG Active TAKE 1 CAPSULE THREE TIMES DAILY Furosemide ND 10214963664 40 MG Orally Active 1 ta blet Once a day and may increase to twice daily x approiximatly 3-7 days if increased swelling Klor-Con M20 ND 89558848639 20 MEQ Orally Active 1 tablet Once a day with food Pantoprazole ND 67841293921 40 MG Orally Active 1 tablet Sodium Once a day Accu-Chek Yaa ND 82844461587 - In Vitro twice Act calin as directed Plus daily Flonase ND 89236526882 50 MCG/DOSE Oct 19, Active 2 spray in Nasally Once a 2018 each day nostril NitroQuick NDC 0 0.4 MG Active not defined Sublingual Lancets Super NDC 0 n/s finger stick Active o ne Thin twice a day Breo Ellipta ND 36812759534 100-25 MCG/INH Active INHALE 1 PUFF EVERY DAY Rosuvastatin ND 85772543605 10 MG Orally Active 1 tablet Calcium Once a day FreeStyle Yinka ND 32179853105 - Active USE 14 Day Sensor DIRECTED EVERY 14 DAYS Multi For Her ND 55898489412 - Orally Active as di rected 50+ Lidocaine ND 18883192971 5 % Externally June 09, Active 1 patch to Once a day 2017 skin remove after 12 hours Alcohol Prep ND 0 June 08, Active as directe d Pads 2017 Metoprolol ND 30558439104 25 MG Orally Active 1 ta blet Succinate ER Once a day Tresiba [facility] 17198466784 200 UNIT/ML Active 20 units in FlexTouch Subcutaneous pm once a day Cetirizine HCl [facility] 10805696683 10 MG Orally Oct 19, Active 1 tablet Once a day 2017 Results No Known Results Summary Purpose eClinicalWorks Submission
[2020-06-22 09:23] LABS: Absolute Lymphocytes (CBC) 0.9 K/uL (0.7-4.9); Basophils % 0.8 % (0-1.3); Hematocrit 35.8 % (36.0-45.0); Lymphocytes % 10.4 % (15.3-44.8); MPV 10.4 fL (7.6-11.3); RBC Red Blood Cell Count 3.77 M/uL (3.86-4.86)
[2020-06-22 09:26] LABS: Protime INR 1.05
[2020-06-22 09:39] LABS: ALT/SGPT 19 U/L (12-78); AST/SGOT 25 U/L (15-37); Albumin 3.6 g/dL (3.4-5.0); Alkaline Phosphatase 126 U/L (45-117); BUN Blood Urea Nitrogen 43 mg/dL (7-18); Bicarbonate 30 mmol/L (21-32); Bilirubin Direct 0.2 mg/dL (0-0.2); Bilirubin Total 0.6 mg/dL (0.2-1.0); Ferritin 424.7 ng/mL (8-388); Glucose Level 151 mg/dL (74-106); Lipase 229 U/L (73-393); Potassium 4.4 mmol/L (3.5-5.1); Protein, Total 8.4 g/dL (6.4-8.2); Sodium Level 139 mmol/L (136-145); Troponin (Emerg Dept Use Only) < 0.02 ng/mL (0.0-0.045)
--- NOTE | 2020-06-22 09:49 | RAD REPORT ---
EXAM DESCRIPTION: RAD - Chest Single View - 06/22/2020 9:44 am CLINICAL HISTORY: COUGH Chest pain. COMPARISON: Chest Single View dated 02/10/2020; Chest Single View dated 03/21/2018; Chest Single View dated 03/19/2018; Chest Single View dated 01/30/2018 FINDINGS: Portable technique limits examination quality. The lungs are grossly clear. The heart is upper limit normal in size with a dual lead pacer device pr esent. No displaced fractures.Aortic atherosclerosis. IMPRESSION: No acute intrathoracic process suspected.
[2020-06-22] MEDS ORDERED: NA CHLORIDE 0.9% 250 ML ONE (10:13)
--- NOTE | 2020-06-22 10:18 | RAD REPORT ---
EXAM DESCRIPTION: CT - Chest For Pe Angio - 06/22/2020 10:02 am CLINICAL HISTORY: Chest pain. R/O PE COMPARISON: No comparisons TECHNIQUE: CT angiogram of the pulmonary arteries was performed with MIP. All CT scans are performed using dose optimization technique as appropriate and may include automated exposure control or mA/KV adjustment according to patient size. FINDINGS: No evidence of pulmonary thromboembolism. No acute aortic finding demonstrated. Linear subsegmental atelectasis is seen in the lingula. The lungs are otherwise clear. No significant pericardial or pleural fluid. No concerning bony finding. IMPRESSION: No evidence of pulmonary thromboembolism. No acute lung findings.
[2020-06-22 10:49] LABS: Urine Blood 2+ (NEG); Urine Glucose NEGATIVE (NEG); Urine Protein 2+ (NEG); Urine Specific Gravity 1.015 (1.005-1.030)
--- NOTE | 2020-06-22 11:19 | ER ---
Nurse's Notes [facility] Name: Keerthi Kiser Age: 85 yrs Sex: Female : 1935 Arrival Date: 06/22/2020 Time: 08:47 Bed 6 Private MD: Diagnosis: Fever, unspecified;Urinary tract infection, site not specified Presentation: 06/22 08:39 Chief complaint: EMS states: generalized weakness, cough, sore throat, fever that sv started today. BP 136/82 HR-92 97% RA Temp 101 BS-157. Coronavirus screen: Patient reports a cough. Patient denies shortness of breath or difficulty breathing. Patient reports a measured and/or subjective temperature greater than 100.4F. Patient denies travel on a cruise ship or to a country the [facility] currently lists as an affected area. Patient denies contact with known and/or suspected case of COVID-19. Patient instructed to continue to wear a mask when interacting with others. Patient moved to private room, placed in contact and droplet isolation with eye protection until further assessment. Ebola Screen: No symptoms or risks identified at this time. 08:39 Method Of Arrival: EMS: [facility] sv 08:43 Initial Sepsis Screen: Does the patient meet any 2 criteria? Temp <36.0*C (96.8*F)) or sv > 38.3*C (100.9*F). HR > 90 bpm. Yes Does the patient have a suspected source of infection? Yes: Other: fever. Risk Assessment: Do you want to hurt yourself or someone else? Patient reports no desire to harm self or others. Onset of symptoms was June 22, 2020. 08:43 Acuity: RAMA 2 sv Triage Assessment: 08:39 General: Appears in no apparent distress. comfortable, well developed, Behavior is sv calm, cooperative, appropriate for age. General: Reports fever for 0-12 hours. Pain: Complains of pain in sore throat. EENT: Reports pain when swallowing. Neuro: Level of Consciousness is awake, alert, obeys commands, Oriented to person, place, time, situation, Moves all extremities. Full function Gait is steady, Speech is normal. Neuro: Reports weakness. Cardiovascular: Rhythm is paced. Respiratory: Reports cough that is non-productive, dry, Airway is patent Respiratory effort is even, unlabored, Respiratory pattern is regular, symmetrical. Derm: Skin is normal. Musculoskeletal: Range of motion: intact in all extremities. Historical: - Allergies: : PENICILLINS; sv - PMHx: :26 Diabetes - IDDM; CHF; Asthma; COPD; Hypertension; Pacemaker; sv - Immunization history:: Adult Immunizations up to date. - Social history:: Smoking status: Patient denies any tobacco usage or history of. Screenin:26 Abuse screen: Denies threats or abuse. Denies injuries from another. Nutritional sv screening: No deficits noted. Tuberculosis screening: No symptoms or risk factors identified. Fall Risk None identified. Assessment: 10:40 Reassessment: Patient appears in no apparent distress at this time. No changes from sv previously documented assessment. Patient and/or family updated on plan of care and expected duration. Pain level reassessed. Patient is alert, oriented x 3, equal unlabored respirations, skin warm/dry/pink. 11:48 Reassessment: Patient appears in no apparent distress at this time. No changes from sv previously documented assessment. Patient and/or family updated on plan of care and expected duration. Pain level reassessed. Patient is alert, oriented x 3, equal unlabored respirations, skin warm/dry/pink. Vital Signs: 08:43 BP 134 / 55; Pulse 108 MON; Resp 16; Temp 100.9(O); Pulse Ox 98% ; sv 09:42 BP 142 / 48; Pulse 81; Resp 15; Pulse Ox 97% on R/A; Weight 66 kg; Height 4 ft. 11 in. sv (149.86 cm); 10:34 BP 125 / 60; Pulse 89; Resp 12; Pulse Ox 98% on R/A; sv 11:30 BP 114 / 51; Pulse 89; Resp 12; Temp 98.9; Pulse Ox 96% ; sv 09:42 Body Mass Index 29.39 (66.00 kg, 149.86 cm) sv 08:43 Paced sv ED Course: 08:45 Arm band placed on. sv 08:45 Patient has correct armband on for positive identification. Placed in gown. Bed in low sv position. Call light in reach. Side rails up X2. teletypesetter monitor on. Pulse ox on. NIBP on. Door closed. Head of bed elevated. 08:47 Patient arrived in ED. sv 08:50 Initial lab(s) drawn, by wa, sent to lab. Inserted saline lock: 20 gauge in right kj1 antecubital area, using aseptic technique. Blood collected. 08:50 First set of blood cultures drawn by ED staff. sv 08:57 Second set of blood cultures drawn by ED staff. sv 09:05 Apollo Price MD is Attending Physician. kdr 09:06 Ree Qureshi, OMAR is Primary Nurse. sv 09:25 Triage completed. sv 09:27 Awaiting lab results, Awaiting for x-ray. sv 09:31 Notified ED physician of a critical lab result(s). [id number]. sv 09:35 X-ray(s) taken. sv 09:43 CXR XRAY In Process Unspecified. EDMS 10:02 CT Chest For PE Angio In Process Unspecified. EDMS 10:06 Patient moved back from CT. sv 11:47 No provider procedures requiring assistance completed. IV discontinued, intact, sv bleeding controlled, No redness/swelling at site. Pressure dressing applied. Administered Medications: 10:40 Drug: NS 0.9% 250 ml Route: IV; Rate: bolus; Site: right antecubital; sv 11:00 Follow up: Response: No adverse reaction; IV Status: Completed infusion; IV Intake: sv 250ml 11:47 Drug: Bactrim (160 mg-800 mg (DS) 1 tablet Route: PO; sv 11:47 Follow up: Response: Medication administered at discharge. sv Intake: 11:00 IV: 250ml; Total: 250ml. sv Outcome: 11:19 Discharge ordered by . kdr 11:48 Discharged to home via wheelchair, with family. sv 11:48 Condition: stable 11:48 Discharge instructions given to patient, family, Instructed on discharge instructions, follow up and referral plans. medication usage, Demonstrated understanding of instructions, follow-up care, medications, Prescriptions given X 1. 11:49 Patient left the ED. sv Addendum: 06/24/2020 13:11 Addendum: COVID-19 Result: Positive result giiven to ED physician to notify pt. h b Physician: Juan Rodriguez MD. 13:14 Addendum: COVID-19 Result: Positive result giiven to ED physician to notify pt. h b Physician was able to contact pt and pt was notified of positive COVID-19 swab result. Physician answered pt questions. 06/25/2020 10:10 Addendum: Culture Results: Positive urine culture. Bacteria is resistant to, has a a5 intermediate sensitivity, or is not tested against prescribed antibiotics. Report given to DERICK for further evaluation and then to match marker for follow up with patient. Prescription called-in to pharmacy of choice. to [facility] pharmacy in [place], [place] per pt's choice. Called-in Macrobid 100mg PO BID x 10 days per Ravinder Lorenzo NP. Signatures: Dispatcher [employer] EDRee Best, RN RN sv Apollo Price MD MD [facility] Sarah Bryant RN RN [id number] Sana De La Paz RN RN Carmen Garcia kj1 Corrections: (The following items were deleted from the chart) 06/22 09:45 09:42 BP 142 / 48; Pulse 81bpm; Resp 15bpm; Pulse Ox 97% RA; sv sv 11:49 11:30 BP 114 / 51; Pulse 89bpm; Resp 12bpm; Pulse Ox 96%; sv sv
--- NOTE | 2020-06-22 11:20 | EDPHYS ---
Physician Documentation [facility] Name: Keerthi Kiser Age: 85 yrs Sex: Female : 1935 Arrival Date: 06/22/2020 Time: 08:47 Bed 6 Private MD: ED Physician Apollo Price HPI: 06/22 10:47 This 85 yrs old Female presents to ER via EMS with complaints of Fever, Cough, kdr General Weakness, Sore Throat. 10:47 The patient or guardian reports cough, that is intermittent, described as mild. Onset: kdr The symptoms/episode began/occurred gradually, yesterday. Modifying factors: The symptoms are alleviated by nothing. the symptoms are aggravated by nothing. Associated signs and symptoms: The patient has no apparent associated signs or symptoms. The patient reports fever, not measured (subjective). Modifying factors: Recent medications: none. Severity of symptoms: At their worst the symptoms were mild in the emergency department the symptoms are unchanged. Associated signs and symptoms: Pertinent positives: cough, Pertinent negatives:. Severity of symptoms: At their worst the symptoms were very mild in the emergency department the symptoms are unchanged. The patient has not experienced similar symptoms in the past. The patient has not recently seen a physician. Historical: - Allergies: 09:26 PENICILLINS; sv - PMHx: 09:26 Diabetes - IDDM; CHF; Asthma; COPD; Hypertension; Pacemaker; sv - Immunization history:: Adult Immunizations up to date. - Social history:: Smoking status: Patient denies any tobacco usage or history of. ROS: 10:43 Constitutional: Negative for fever, chills, and weight loss, Eyes: Negative for injury, kdr pain, redness, and discharge, ENT: Negative for injury, pain, and discharge, Neck: Negative for injury, pain, and swelling, Cardiovascular: Negative for chest pain, palpitations, and edema, Abdomen/GI: Negative for abdominal pain, nausea, vomiting, diarrhea, and constipation, Back: Negative for injury and pain, : Negative for injury, bleeding, discharge, and swelling, MS/Extremity: Negative for injury and deformity, Skin: Negative for injury, rash, and discoloration, Neuro: Negative for headache, weakness, numbness, tingling, and seizure activity. Psych: Negative for depression, anxiety, suicide ideation, homicidal ideation, and hallucinations, Allergy/Immunology: Negative for hives, rash, and allergies, Endocrine: Negative for neck swelling, polydipsia, polyuria, polyphagia, and marked weight changes, Hematologic/Lymphatic: Negative for swollen nodes, abnormal bleeding, and unusual bruising. 10:43 Respiratory: Positive for cough, with no reported sputum, Negative for dyspnea on exertion, hemoptysis, orthopnea, pleurisy, shortness of breath, sputum production, wheezing. Exam: 10:43 Constitutional: This is a well developed, well nourished patient who is awake, alert, kdr and in no acute distress. Head/Face: Normocephalic, atraumatic. Eyes: Pupils equal round and reactive to light, extra-ocular motions intact. Lids and lashes normal. Conjunctiva and sclera are non-icteric and not injected. Cornea within normal limits. Periorbital areas with no swelling, redness, or edema. Neck: Trachea midline, no thyromegaly or masses palpated, and no cervical lymphadenopathy. Supple, full range of motion without nuchal rigidity, or vertebral point tenderness. No Meningismus. Chest/axilla: Normal chest wall appearance and motion. Nontender with no deformity. No lesions are appreciated. Cardiovascular: Regular rate and rhythm with a normal S1 and S2. No gallops, murmurs, or rubs. Normal PMI, no JVD. No pulse deficits. Respiratory: Lungs have equal breath sounds bilaterally, clear to auscultation and percussion. No rales, rhonchi or wheezes noted. No increased work of breathing, no retractions or nasal flaring. Abdomen/GI: Soft, non-tender, with normal bowel sounds. No distension or tympany. No guarding or rebound. No evidence of tenderness throughout. Back: No spinal tenderness. No costovertebral tenderness. Full range of motion. Skin: Warm, dry with normal turgor. Normal color with no rashes, no lesions, and no evidence of cellulitis. MS/ Extremity: Pulses equal, no cyanosis. Neurovascular intact. Full, normal range of motion. Neuro: Awake and alert, GCS 15, oriented to person, place, time, and situation. Cranial nerves II-XII grossly intact. Motor strength 5/5 in all extremities. Sensory grossly intact. Cerebellar exam normal. Normal gait. Psych: Awake, alert, with orientation to person, place and time. Behavior, mood, and affect are within normal limits. 11:56 ECG was reviewed by the Attending Physician. kdr Vital Signs: 08:43 BP 134 / 55; Pulse 108 MON; Resp 16; Temp 100.9(O); Pulse Ox 98% ; sv 09:42 BP 142 / 48; Pulse 81; Resp 15; Pulse Ox 97% on R/A; Weight 66 kg; Height 4 ft. 11 in. sv (149.86 cm); 10:34 BP 125 / 60; Pulse 89; Resp 12; Pulse Ox 98% on R/A; sv 11:30 BP 114 / 51; Pulse 89; Resp 12; Temp 98.9; Pulse Ox 96% ; sv 09:42 Body Mass Index 29.39 (66.00 kg, 149.86 cm) sv 08:43 Paced sv MDM: 10:43 Data reviewed: vital signs, nurses notes, lab test result(s), radiologic studies. kdr Counseling: I had a detailed discussion with the patient and/or guardian regarding: the historical points, exam findings, and any diagnostic results supporting the discharge/admit diagnosis, lab results, radiology results. 11:19 Patient medically screened. kdr 06/22 09:07 Order name: Blood Culture Adult (2) sv 06/22 09:07 Order name: BMP; Complete Time: 09:48 sv 06/22 09:07 Order name: C-Reactive Protein; Complete Time: 09:48 06/22 09:07 Order name: CBC with Diff; Complete Time: 09:48 06/22 09:07 Order name: COVID-19 sv 06/22 09:07 Order name: D-Dimer; Complete Time: 09:48 sv 06/22 09:07 Order name: Ferritin; Complete Time: 09:48 sv 06/22 09:07 Order name: Flu; Complete Time: 09:48 06/22 09:07 Order name: Lactate; Complete Time: 09:48 sv 06/22 09:07 Order name: LFT's; Complete Time: 09:48 sv 06/22 09:07 Order name: Lipase; Complete Time: 09:48 06/22 09:07 Order name: Procalcitonin; Complete Time: 10:21 06/22 09:07 Order name: PT-INR; Complete Time: 09:48 06/22 09:07 Order name: Ptt, Activated; Complete Time: 09:48 sv 06/22 09:07 Order name: Strep; Complete Time: 09:48 sv 06/22 09:07 Order name: Troponin (emerg Dept Use Only); Complete Time: 09:48 sv 06/22 09:07 Order name: Urine Microscopic Only sv 06/22 09:07 Order name: CXR XRAY; Complete Time: 10:21 sv 06/22 09:07 Order name: EKG; Complete Time: 09:08 sv 06/22 09:07 Order name: Cardiac monitoring; Complete Time: 09:27 sv 06/22 09:07 Order name: Droplet/Contact Precautions; Complete Time: 09:27 sv 06/22 09:07 Order name: EKG - Nurse/Tech; Complete Time: 09:27 sv 06/22 09:33 Order name: CT Chest For PE Angio; Complete Time: 10:21 bd 06/22 09:37 Order name: Throat Culture EDMS 06/22 10:24 Order name: Urine Dipstick--Ancillary (enter results); Complete Time: 11:11 bd 06/22 11:03 Order name: Urine Dipstick--Ancillary (enter results) bd 06/22 11:15 Order name: Urine Culture kdr 06/22 09:07 Order name: IV Start; Complete Time: 09:27 sv 06/22 09:07 Order name: Labs collected and sent; Complete Time: 09:27 sv 06/22 09:07 Order name: O2 Per Protocol; Complete Time: 09:27 sv 06/22 09:07 Order name: O2 Sat Monitoring; Complete Time: 09:27 sv 06/22 09:07 Order name: Urine Dipstick-Ancillary (obtain specimen); Complete Time: 10:56 sv EC:56 Rate is 87 beats/min. Rhythm is regular, Paced with No ectopy. QRS [place] is Normal. AR kdr interval is normal. QRS interval is normal. QT interval is normal. Clinical impression: No evidence of ischemia and paced rhythm. Administered Medications: 10:40 Drug: NS 0.9% 250 ml Route: IV; Rate: bolus; Site: right antecubital; sv 11:00 Follow up: Response: No adverse reaction; IV Status: Completed infusion; IV Intake: sv 250ml 11:47 Drug: Bactrim (160 mg-800 mg (DS) 1 tablet Route: PO; sv 11:47 Follow up: Response: Medication administered at discharge. sv Disposition: 06/22/20 11:19 Discharged to Home. Impression: Fever, unspecified, Urinary tract infection, site not specified. - Condition is Stable. - Discharge Instructions: Dysuria, Urinary Tract Infection, Adult, [id number], Antibiotic Medicine, [id number]. - Prescriptions for Bactrim DS 800- 160 mg Oral Tablet - take 1 tablet by ORAL route every 12 hours for 7 days; 14 tablet. - Medication Reconciliation Form, Thank You Letter, Antibiotic Education form. - Follow up: Private Physician; When: 2 - 3 days; Reason: If symptoms return, Further diagnostic work-up, Recheck today's complaints, Continuance of care, Re-evaluation by your physician. - Problem is new. - Symptoms have improved. Signatures: Dispatcher [employer] Ree Ray RN RN sv Rittger, Kevin, MD MD kdr Attema, Lee, AIR QUALITY ENGINEER-C AIR QUALITY ENGINEER-Cla1 Corrections: (The following items were deleted from the chart) 11:49 11:19 06/22/2020 11:19 Discharged to Home. Impression: Fever, unspecified; Urinary sv tract infection, site not specified. Condition is Stable. Forms are Medication Reconciliation Form, Thank You Letter, Antibiotic Education, Prescription Opioid Use. Follow up: Private Physician; When: 2 - 3 days; Reason: If symptoms return, Further diagnostic work-up, Recheck today's complaints, Continuance of care, Re-evaluation by your physician. Problem is new. Symptoms have improved. kdr
[2020-06-22 11:42] LABS: Urine Bacteria >50 /HPF (<20); Urine Culture Reflex Order REFLEXED; Urine RBC <5 /HPF (NONE SEEN)
[2020-06-22] MEDS ORDERED: SMZ./TMP. 800/160 MG TABLET ONE (11:45)
[2020-06-22 12:02] VITALS: BP 114/51; TEMP 98.9; O2SAT 96
[2020-06-22 13:34] LABS: Urine Blood TRACE (NEG); Urine Glucose NEGATIVE (NEG); Urine Protein 2+ (NEG); Urine Specific Gravity 1.015 (1.005-1.030)
--- NOTE | 2020-06-23 15:28 | EKG ---
Test Date: 2020-06-22 Test Time: 08:55:10 Cigar Brander: STEVEN MEASUREMENT RESULTS: Intervals: Rate: 87 NV: 210 QRSD: 136 QT: 406 QTc: 488 [place]: P: 74 NV: 210 QRS: -64 T: 102 INTERPRETIVE STATEMENTS: Electronic ventricular pacemaker Compared to ECG 02/10/2020 23:02:09 Sinus rhythm no longer present Incomplete right bundle-branch block no longer present ST (T wave) deviation no longer present Electronically Signed On 06-23-20 15:24:30 CDT by Chalo Brown
== END 2020-06-22 11:49 | disposition home or self-care (01) ==
LOC: ER 08:45
DX: N39.0 Urinary tract infection, site not specified (principal); I10 Essential (primary) hypertension; Z95.0 Presence of cardiac pacemaker; Z88.0 Allergy status to penicillin
CPT/HCPCS: 96365; 93005; 87040 ×2; 87070; 87088; 85025; 87086; 80048; 36415; 85610; 85379; 80076; 87081; 83605; 85730; 87077; 87186; 84484; 82728; 83690; 84145; 86140; 87804 ×2; 71275; 71045; 99285; U0002; Q9967; J7050; 81003; 81015

== ENCOUNTER 2020-07-12 13:26 | Inpatient (IN) | payer OTHER ==
--- OUTSIDE RECORDS SUMMARY | 2020-07-12 14:26 | XMS REPORT | Clinical Summary ---
:1935 [facility] Address [address] [place] [address] Care Team Providers Name Role Phone Unavailable [...] Not on file Implants Implanted Type Area Mica Plate Layer Device Shelf Model / Identifier Expiration Serial / Date Lot Ld Pacing Ingevity Active 52cm [id number] - [id number] Pacemaker Lead N/A: [employer] 08/15/2019 7741 / Implanted: Qty: 1 on 02/02/2018 by Sahnelle Garcia MD Heart SCI:CARDIAC [id number] / RHYTHM MNGT Ld Pacing Ingevity Active 45 2154 - [id number] Pacemaker Lead N/A: [employer] 11/04/2019 7740 / Implanted: Qty: 1 on 02/02/2018 by Shanelle Garcia MD Heart SCI:CARDIAC [id number] / RHYTHM MNGT [address] Pacemaker Pacemakers N/A: [employer]ON 10/2019 L111 / Implanted: Qty: 1 on 02/02/2018 by Shanelle Garcia MD Chest SCIENTIFIC [id number] / Results Not on fileafter 07/12/2019 Insurance Payer Benefit Plan / Group Subscriber ID Type Phone A ddress HUMANA - MEDICARE MGD HUMANA MEDICARE ADV xxxxxxxxx Maps Contracted CARE (Home) [place] [address] Advance Directives For more information, please contact:[address] [phone] Code Status Date Activated Date Inactivated Comments Full Code 01/30/2018 8:36 PM 02/04/2018 2:37 PM This code status was determined by: Patient
--- OUTSIDE RECORDS SUMMARY | 2020-07-12 14:26 | XMS REPORT | Clinical Summary ---
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
--- OUTSIDE RECORDS SUMMARY | 2020-07-12 14:28 | XMS REPORT ---
:1935 Author Organization [employer] Care Team Providers Name Role Phone Shanna Kirkh Provider Role Unavailable Allergies, Adverse Reactions, Alerts Substance Reaction Event Type Macrobid Info Not Available Drug Allergy Amoxicillin Info Not Available Drug Allergy Problems Problem Type Condition Code Onset Dates Condition Statu s Problem Anxiety F41.9 Active Problem Mixed hyperlipidemia E78.2 Active Problem Unsteady gait R26.81 Active Problem Hypertension I10 Active Problem CHF (congestive heart failure) I50.9 Active Problem Weakness R53.1 Active Problem CAD (coronary artery disease) I25.10 Active Problem 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 Problem Asthma without acute exacerbation J45.909 Active Problem Pulmonary hypertension, unspecified I27.20 Active Problem Iron deficiency anemia 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 inadequate dietary iron intake Problem Pacemaker Z95.0 Active Problem HTN (hypertension) I10 Active Problem Type 2 diabetes mellitus without E11.9 Active complications Problem 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 Problem Chronic fatigue R53.82 Active Problem 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 Problem Hospital discharge follow-up Z09 Active Problem 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 Active failure Problem Iron deficiency anemia, unspecified D50.9 Active iron deficiency anemia type Problem Essential hypertension I10 Activ e Problem 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 Active associated with type 2 diabetes mellitus Assessment Weakness R53.1 Active Assessment 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 Assessment Type 2 diabetes mellitus with E11.40 Active diabetic neuropathy, unspecified Assessment CKD (chronic kidney disease) stage N18.4 Active 4, GFR 15-29 ml/min Assessment Iron deficiency anemia, unspecified D50.9 Active iron deficiency anemia type Assessment 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 Assessment Essential hypertension I10 Activ e Problem Pericardial effusion I31.3 Active Assessment Gastroesophageal reflux disease, K21.9 Active esophagitis presence not specified Problem Gastroesophageal reflux disease, K21.9 Active esophagitis presence not specified Problem Seasonal allergic rhinitis, J30.2 Active unspecified trigger Problem 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 Problem Cough R05 Active Problem Neuropathy G62.9 Active Problem Rotator cuff arthropathy of left M12.812 Active shoulder Problem CKD (chronic kidney disease) stage N18.4 Active 4, GFR 15-29 ml/min Assessment Fever, unspecified fever cause R50.9 Active Problem Type 2 diabetes mellitus with E11.40 Active diabetic neuropathy, unspecified Assessment Type 2 diabetes mellitus with E11.65 Active hyperglycemia Problem Type 2 diabetes mellitus with E11.65 Active hyperglycemia Assessment 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 Problem Rotator cuff arthropathy of right M12.811 Active shoulder Assessment 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 Active failure Problem 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 Assessment Mixed hyperlipidemia E78.2 Active Problem Allergic rhinitis, seasonal J30.2 Active Problem Diabetes mellitus type 2 in E11.9 Active nonobese Problem Iron deficiency anemia due to D50.0 Active chronic blood loss Problem Gastro-esophageal reflux disease K21.9 Active without esophagitis Assessment Acute cystitis with hematuria N30.01 Active Medications Medication Code Code Instructions Start End Status Dosage System Date Date Lancets Super NDC 0 n/s finger stick Active o ne Thin twice a day Multi For Her ND 50216536227 - Orally Active as di rected 50+ Accu-Chek Yaa ND 26867608906 - In Vitro twice Act calin as directed Plus daily Losartan ND 26106653371 100 MG Orally Active 1 tab let Potassium Once a day Easy Touch Pen ND 72165269023 32G X 5 MM March 31, Active 1 needle [place] subcutaneously 2019 for Tresi ba once a day Furosemide NDC 47130048752 40 MG Active TAKE 1 TABLET ONE TIME DAILY (MAY INCREASE TO TWICE DAILY FOR 3 TO 7 DAYS IF INCREASED SWELLING) Breo Ellipta ND 77739617602 100-25 MCG/INH Active 1 puff Inhalation Once a day Cetirizine HCl NDC 07470544890 10 MG Orally Oct 19, Active 1 tablet Once a day 2017 Breo Ellipta NDC 64211428892 100-25 MCG/INH Active INHALE 1 PUFF EVERY DAY Klor-Con M20 ND 20668553126 20 MEQ Orally Active 1 tablet Once a day with food NitroQuick NDC 0 0.4 MG Active not defined Sublingual Xanax [facility] [place] 14598050492 0.5 MG Orally Active 1 tabl et Twice a day Tresiba ND 84073563253 200 UNIT/ML Active 20 units in FlexTouch Subcutaneous pm once a day Gabapentin ND 94511843199 300 MG Inactive TAKE 1 CAPSULE THREE TIMES DAILY Furosemide ND 50716748264 40 MG Orally Active 1 ta blet Once a day and may increase to twice daily x approiximatly 3-7 days if increased swelling FreeStyle Yinka [facility] [place] 12468358520 - daily Active as directed 14 Day Warren Ventolin HFA [facility] [place] 09023911783 90 MCG/ACT Active 2 pu ffs as Inhalation every needed 6 hrs Aspirin 81 ND 53358318742 81 MG Orally Active 1 ta blet Once a day Metoprolol ND 11687404441 25 MG Orally Active 1 ta blet Succinate ER Once a day Flonase [facility] [place] 44657490043 50 MCG/DOSE Oct 19, Active 2 spray in Nasally Once a 2018 each day nostril Rosuvastatin [facility] [place] 88065566626 10 MG Orally Active 1 tablet Calcium Once a day Alcohol Prep ND 0 May Active as directed Pads 2017 Pantoprazole [facility] [place] 20914054675 40 MG Orally Active 1 tablet Sodium Once a day Lidocaine [facility] [place] 75516033168 5 % Externally May Active 1 p atch to Once a day 10, skin remove 2017 after 12 hours FreeStyle Yinka [facility] [place] 59822591581 - Active USE 14 Day Sensor DIRECTED EVERY 14 DAYS Ferrous Sulfate [facility] [place] 33179230729 325 (65 Fe) MG Activ e 1 tablet Orally three times a day Results No Known Results Summary Purpose [employer] Submission
--- OUTSIDE RECORDS SUMMARY | 2020-07-12 14:28 | XMS REPORT ---
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 Problem Cough R05 Active Problem Neuropathy G62.9 Active Problem Rotator cuff arthropathy of left M12.812 Active shoulder Problem Pacemaker Z95.0 Active Problem HTN (hypertension) I10 Active Problem CKD (chronic kidney disease) stage N18.4 Active 4, GFR 15-29 ml/min Problem Type 2 diabetes mellitus without E11.9 Active complications Problem Type 2 diabetes mellitus with E11.40 Active diabetic neuropathy, unspecified Problem Type 2 diabetes mellitus with E11.65 Active hyperglycemia Problem Rotator cuff arthropathy of right M12.811 Active shoulder Problem 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 Problem Allergic rhinitis, seasonal J30.2 Active Problem 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 Problem Diabetes mellitus type 2 in E11.9 Active nonobese Problem Chronic fatigue R53.82 Active Problem Iron deficiency anemia due to D50.0 Active chronic blood loss 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
--- OUTSIDE RECORDS SUMMARY | 2020-07-12 14:28 | XMS REPORT ---
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
--- OUTSIDE RECORDS SUMMARY | 2020-07-12 14:28 | XMS REPORT ---
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
--- OUTSIDE RECORDS SUMMARY | 2020-07-12 14:28 | XMS REPORT | Continuity of Care Document ---
:1935 Author Organization [facility] t Address [address] [place] [address] Care Team Providers Name Role Phone Kim Power DO Primary Care Physician Silvio RN Attending Clinician HERLINDA BOO Attending Clinician Unavailable HERLINDA BOO Admitting Clinician Unavailable Problems Condition Condition Condition Status Onset Resolution Last Treating Co mments Source Name Details Category Date Date Treatment Clinician Date Pleural Pleural Disease Active [place] effusion effusion 6-01 Method i 00:00: st 00 Pericardia Pericardia Disease Active [place] l effusion l effusion 525 Me thodi 00:00: st 00 Essential Essential Disease Active Elisabeth ston hypertensi hypertensi 5-25 Me thodi on on 00:00: st 00 Type 2 Type 2 Disease Active [place]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 diabetes 5-25 Method i mellitus mellitus 00:00: st 00 Moderate Moderate Disease Active [place] asthma asthma 5-25 Methodi 00:00: st 00 Arthritis Arthritis Disease Active Elisabeth ston 5-25 Methodi 00:00: st 00 Pacemaker Pacemaker Disease Active Elisabeth bautista 5-25 Methodi 00:00: st 00 Iron Iron Problem Active [facility] deficiency deficiency Eve kes - anemia anemia Memoria secondary secondary l to to Outpati inadequate inadequate en t dietary dietary Clinics iron iron intake intake Diabetes Diabetes Problem Active [facility] mellitus mellitus [facility] - type 2 in type 2 in Lazarus [place] nonobese nonobese l Outpati ent Clinics 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 Active [facility] current current [facility] - use of use of Memoria insulin insulin l Outpati ent Clinics 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 Me moria to chronic to chronic l blood loss blood loss Ou tpati ent Clinics Pacemaker Pacemaker Problem [facility] Allergic Allergic Problem Active [facility] rhinitis, rhinitis, Luke s - seasonal seasonal Memori a l [facility] 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 hyperlipid Eve kes - emia emia Memoria l Outpati ent Clinics Asthma Asthma Problem Active [facility] without without [facility] - acute acute Memoria exacerbati exacerbati l on on Outpati ent Clinics CHF CHF Problem Active [facility] (congestiv (congestiv Eve kes - e heart e heart Memoria failure) failure) l Outpati ent Clinics Essential Essential Problem Active [facility] hypertensi hypertensi Eve kes - on on Memoria l [facility] Pulmonary Pulmonary Problem Active [...] [facility] Weakness Weakness Problem Active [facility] Gastro-eso Gastro-eso Problem Active [facility] phageal phageal Lukes - reflux reflux Memoria disease disease l without without Outpati esophagiti esophagiti en t s s Clinics Unsteady Unsteady Problem Active [facility] gait gait [facility] Clin[facility] COPD COPD Problem Active CH[facility] [...] St fatigue fatigue [facility] - [facility] ent Clinics Iron Iron Problem Active [facility] deficiency deficiency Eve kes - anemia, anemia, Memoria unspecifie unspecifie l d iron d iron Outpati deficiency deficiency en t anemia anemia Clinics type type Chronic Chronic Problem Active [facility] diastolic diastolic Luke s - congestive congestive Me moria heart heart l failure failure Outpati ent Clinics Hospital Hospital Problem Active [facility] t discharge discharge Luke s - follow-up follow-up Lazar[place] l [facility] Clinics Pericardia Pericardia Problem Active [facility] l effusion l effusion Eve kes - Memoria l Outpati ent Clinics Cough Cough Problem Active [facility] Clin[facility] Type 2 Type 2 Problem [...] unspecifie d d Primary Primary Problem Active [facility] St osteoarthr osteoarthr Eve kes - itis of itis of Memoria right right l shoulder shoulder Outpat i [...] [facility] Out[facility] Clinics CKD CKD Problem Active [facility] (chronic (chronic [facility] - kidney kidney Memoria disease) disease) l stage 4, stage 4, Outpat i GFR 15-29 GFR 15-29 ent ml/min ml/min Clinics Allergies, Adverse Reactions, Alerts Allergy Allergy Status Severity Reaction(s) Onset Inactive Treating Comm ents Source Name Type Date Date Clinician Penicill Propensi Active Rash [place] ins ty to 04-24 Methodi adverse 00:00: st reaction 00 s to drug Penicill Propensi Active Rash [facility] ins [facility] to 01-30 [facility] - adverse 00:00: Medical reaction 00 Center s Macrobid Adverse Active Info Not [facility] Reaction Available [facility] Amoxicil Adverse Active Info Not [facility] t shanda Reaction Available [facility] Family History Family Member Diagnosis Comments Start Date Stop Date Source Natural brother Diabetes [facility] Natural father Cancer [facility] Natural mother Diabetes [facility] Natural sister Diabetes [facility] Social History Social Habit Start Date Stop Date Quantity Comments Source Sex Assigned [facility] Alcohol intake 2018-05-05 2018-05-05 [facility] 00:00:00 non-drinker of alcohol (finding) Smoking Status Start Date Stop Date Source Never smoker [facility] Medications Ordered Filled Start Stop Current Ordering Indication Dosage Frequency Signature Comments Components Source Medication Medication Date Date Medication? Clinician (SIG) Name Name Easy Touch Easy Touch Yes Bashir [address] [facility] Pen [place] 03-31 Kirk for [facility]ukes - 00:00: Tresiba Memoria 00 l [facility] Clinics Flonase Flonase 2017-12 Yes Bashir [address] [facility] 1-19 Kirk each [facility]ukes - 00:00: nostril Memoria 00 l [facility] Clinics Cetirizine Cetirizine 2017-12 Yes Bashir [address] [facility] HCl HCl 1-19 Kirk [facility] - 00:00: Memoria 00 [facility] Clin[facility] Lidocaine Lidocaine Yes Bashir [address] [facility] 7-10 Kirk skin [facility]ukes - 00:00: remove Memoria 00 after 12 l hours [facility] Alcohol Alcohol Yes Bashir as [facility] t Prep Pads Prep Pads 06-08 Kirk directed [facility]ukes - 00:00: Memoria 00 l [facility] Clinics gabapentin 20180 Yes 600mg QD Take 600 [place] (NEURONTIN) 6-05 mg by Methodi 300 mg 11:38: mouth st capsule 03 nightly. furosemide 2018-0 Yes 40mg QD Take 40 mg [place] (LASIX) 40 6-05 by mouth Metho di mg tablet 11:38: daily. st 03 potassium 2018-0 Yes 20meq QD Take 20 [place] chloride 6-05 mEq by Methodi (K-DUR,KLOR 11:38: mouth st -CON) 10 03 daily. MEQ CR tablet aspirin 81 2018-0 Yes 81mg QD Take [address] MG EC 3-02 by mouth [facility]ukes - tablet 20:22: daily. Medical 50 Center gabapentin 20180 Yes 300mg Q.[id number] Take [address] (NEURONTIN) 3-02 [id number] mg by L ukes - 300 MG 20:22: 3D mouth 3 Medical capsule 50 (three) Center times daily. traMADol 20180 Yes 50mg Take [address] (ULTRAM) 50 3-02 by mouth Luke s - mg tablet 20:22: every 4 Medic al 50 (four) Center hours as needed for Pain. albuterol 20180 Yes 1{puff} Inhale [address] HFA 3-02 puff by Lukes - (VENTOLIN 20:22: mouth via Med ical HFA) 90 50 inhaler Center mcg/actuati every 4 on inhaler (four) hours as needed for Wheezing. fluticasone 20180 Yes 1{puff} Q.5D Inhale [address] -salmeterol 3-02 puff by Lukes - (ADVAIR) 20:22: mouth via Medi ottoniel 250-50 49 inhaler 2 Center mcg/dose (two) diskus times inhaler daily. Losartan Losartan Yes Bashir [address] Potassium Potassium Kirk Luke s - Memoria l [facility] Clinics FreeStyle FreeStyle Yes Bashir as [facility] Yinka 14 Yinka 14 Kirk directed Eve kes - Day [place] Day [place] [facility] Ventolin Ventolin Yes Bashir [address] [facility] HFA HFA Kirk needed Greg ford [facility] Ferrous Ferrous Yes Bashir [address] Sulfate Sulfate Kirk [facility]ukes - Memoria l [facility] Clinics Aspirin 81 Aspirin 81 Yes Bashir [address] [facility] [facility] Kirk [facility] - Memoria l [facility] Clinics Breo Breo Yes Bashir INHALE [address] [facility] [facility] Ellipta Ellipta Kirk PUFF EVERY Eve kes - DAY Memoria l [facility] Clinics Xanax Xanax Yes Bashir [address] [facility] [facility] Kirk [facility] - Memoria l [facility]ics Gabapentin Gabapentin Yes Bashir TAKE [address] [facility] Kirk CAPSULE Lukes - THREE Memoria TIMES l DAILY [facility] Furosemide Furosemide Yes Bashir [address] [facility] [facility] Kirk [facility] - Memoria l [facility] Clinics Klor-Con Klor-Con Yes Bashir [address] M20 M20 Kirk with food Lukes - Memoria l [facility] Clinics Pantoprazol Pantoprazol Yes Bashir [address] e Sodium e Sodium Kirk [facility] - Memoria l [facility] Clinics Accu-Chek Accu-Chek Yes Bashir as [facility] Yaa Plus Yaa Plus Kirk directed Lukes - Memoria l [facility] Clinics NitroQuick NitroQuick Yes Bashir not [facility] Kirk defined [facility]ukes - Memoria l [facility] Clinics Lancets Lancets Yes Bashir one [facility] Super Thin Super Thin Kirk Eve kes - Memoria l [facility] Clinics Rosuvastati Rosuvastati Yes Bashir [address] [facility] n Calcium n Calcium Kirk Luke s - Memoria l [facility] Clinics FreeStyle FreeStyle Yes Bashir USE [facility] Yinka 14 Yinka 14 Kirk DIRECTED Eve kes - Day Sensor Day Sensor EVERY 14 Memoria DAYS l [facility] ent Clinics Multi For Multi For Yes Bashir as [facility] Her 50+ Her 50+ Kirk directed Luke s - Memoria l [facility] Clinics Metoprolol Metoprolol Yes Bashir [address] Succinate Succinate Kirk Luke s - ER ER Memoria l [facility] Clinics Tresiba Tresiba Yes Bashir [address] FlexTouch FlexTouch Kirk in pm Hanna es - Memoria l [facility] ent Clinics Immunizations Ordered Filled Immunization Date Status Comments Sourc e Immunization Name Name FluAD FluAD 2019-08-[address] [facility] - 00:00:00 [facility] FluAD FluAD 2018-08-[address] [facility] - 00:00:00 [facility] Outpatient [facility] Procedures This patient has no known procedures. Plan of Care Planned Activity Planned Date Details Comments Source Future Scheduled 2020-08-01 INFLUENZA VACCINE [place] [facility] 00:00:00 [code = INFLUENZA VACCINE] Future Scheduled 2001 65+ PNEUMOCOCCAL [place] [facility] Test 00:00:00 VACCINE (1 of 2 - PCV13) [code = 65+ PNEUMOCOCCAL VACCINE (1 of 2 - PCV13)] Future Scheduled 1986 SHINGLES VACCINES (#1) [place] [facility] Test 00:00:00 [code = SHINGLES VACCINES (#1)] Future Scheduled 1946 DIABETIC FOOT EXAM [place] [facility] Test 00:00:00 [code = DIABETIC FOOT EXAM] Future Scheduled 1945 URINE MICROALBUMIN [place] [facility] Test 00:00:00 [code = URINE MICROALBUMIN] Future Scheduled 1936 DIABETIC RETINAL EYE Elisabeth ston [facility] Test 00:00:00 EXAM [code = DIABETIC RETINAL EYE EXAM] Encounters Start End Encounter Admission Attending Care Care Encounter Source Date/Time Date/Time Type Type Clinicians Facility Department ID 2020-07-07 2020-07-07 [facility] [id number] 16:55:00 16:55:00 t 9facts [facility] Medicine [facility] 2020-07-07 2020-07-07 Chauncey Perez [id number] 00:00:00 00:00:00 of Care Frida Mckenna [id number] Humberto [id number] [facility] 2020-07-06 2020-07-06 [facility] [id number] 08:46:00 08:46:00 t 9facts [facility] Medicine [facility] Clin[facility] 2020-06-29 2020-06-29 [facility] [id number] 10:46:00 10:46:00 t 9facts [facility] Medicine Medicine [facility] Clin[facility] 2020-06-28 2020-06-28 [facility] [id number] 09:15:00 09:15:00 t [employer] s - [employer] [facility] Medicine l Medicine Outpati ent Clinics 2020-06-23 2020-06-23 [facility] [id number] 11:15:00 11:15:00 t [employer] s - Drive [facility] l Medicine Outpati ent Clinics 2020-06-22 2020-06-22 [facility] [id number] 11:12:00 11:12:00 t [employer] [facility] Medicine Outpati ent Clinics 2020-03-31 2020-03-31 [facility] [id number] 10:30:00 10:30:00 t [employer] [facility] l Medicine Outpati ent Clinics 2020-03-29 2020-03-29 [facility] [id number] 10:30:00 10:30:00 t Bone Bone and [facility] - and Joint [facility] 2020-03-16 2020-03-16 [facility] [id number] 10:00:00 10:00:00 t Breath of Life s [employer] [facility] Medicine Outpati ent Clinics 2020-02-25 2020-02-25 [facility] [id number] 15:47:00 15:47:00 t Bre[employer] s - [employer] [facility] Medicine Outpati ent Clinics 2020-02-21 2020-02-21 [facility] [id number] 15:00:00 15:00:00 [facility] Phase Holographic Imaging s [employer] [facility] Medicine Outpati ent Clinics 2020-02-21 2020-02-21 [facility] [id number] 13:45:00 13:45:00 t Breath of [employer] s [employer] [facility] Medicine Outpati ent Clinics 2020-02-21 2020-02-21 [facility] [id number] 11:15:00 11:15:00 t Breath of [employer] s [employer] [facility] Medicine Outpati ent Clinics 2020-02-15 2020-02-15 [facility] [id number] 13:29:00 13:29:00 t Greenleaf [employer] s - Eng[employer] [facility] Family Medicine l Medicine Outpati ent Clinics 2020-01-11 2020-01-11 [facility] [id number] 09:00:00 09:00:00 t Bone Bone and Lukes - and Joint Joint [facility] a [facility] ent Clinics 2019-12-21 2019-12-21 [facility] [id number] 12:09:00 12:09:00 t [employer] s - [employer] [facility] Medicine l Medicine Outpati ent Clinics 2019-12-16 2019-12-16 [facility] [id number] 15:00:00 15:00:00 t [employer] s - [employer] [facility] Medicine l Medicine Outpati ent Clinics 2019-08-31 2019-08-31 [facility] [id number] 08:00:00 08:00:00 t [employer] s - [employer] [facility] Medicine l Medicine Outpati ent Clinics 2019-07-23 2019-07-23 [facility] [id number] 12:30:00 12:30:00 t [employer] s - Eng[employer] [facility] Family Medicine l Medicine Outpati ent Clinics 2019-05-31 2019-05-31 [facility] [id number] 08:00:00 08:00:00 t [employer] s - [employer] [facility] Medicine l Medicine Outpati ent Clinics 2019-02-18 2019-02-18 [facility] [id number] 08:02:00 08:02:00 t Greenleaf [employer] s - Eng[employer] [facility] Medicine l Medicine Outpati ent Clinics 2019-02-02 2019-02-02 [facility] [id number] 16:06:00 16:06:00 t [employer] [facility] Medicine l Medicine Outpati ent Clinics 2019-01-08 2019-01-08 [facility] [id number] 11:50:00 11:50:00 t [employer] [facility] Medicine Medicine Outpati ent Clinics 2018-12-29 2018-12-29 [facility] [id number] 09:15:00 09:15:[address] Luke s - Drive [facility] l Medicine Outpati ent Clinics 2018-11-27 2018-11-27 [facility] [id number] 10:44:00 10:44:00 t Greenleaf [employer] Luke s - Drive [facility] Medicine Outpati ent Clinics 2018-11-12 2018-11-12 [facility] [id number] 08:30:00 08:30:00 t Greenleaf [employer] s - Drive [facility] Medicine Outpati ent Clinics 2018-10-19 2018-10-19 [facility] [id number] 08:45:00 08:45:00 t Greenleaf [employer] s - Drive [facility] Medicine Outpati ent Clinics 2018-09-01 2018-09-01 [facility] [id number] 16:33:00 16:33:00 t Greenleaf [employer] s - Drive [facility] Medicine Medicine Outpati ent Clinics 2018-08-11 2018-08-11 [facility] [id number] 09:15:00 09:15:00 t Greenleaf [employer] s - Drive [facility] Medicine Outpati ent Clinics 2018-07-07 2018-07-07 [facility] [id number] 10:03:00 10:03:00 t Greenleaf [employer] s - Drive [facility] Medicine Outpati ent Clinics 2018-06-30 2018-06-30 [facility] [id number] 10:44:00 10:44:00 t Greenleaf [employer] s - Drive [facility] Medicine Medicine Outpati ent Clinics 2018-06-19 2018-06-19 [facility] [id number] 15:24:00 15:24:00 t Greenleaf [employer] s - Drive [facility] Medicine Outpati ent Clinics 2018-06-11 2018-06-11 [facility] [id number] 09:51:00 09:51:[address] Luke s - Drive [facility] Family Medicine l Medicine Outpati ent Clinics 2018-06-11 2018-06-11 [facility] [id number] 09:47:00 09:47:[address] Luke s - Drive [facility] Medicine l Medicine Outpati ent Clinics 2018-06-09 2018-06-09 [facility] [id number] 14:12:00 14:12:00 t [employer]leaf [employer] Luke s - Drive [facility] Family Medicine l Medicine Outpati ent Clinics 2018-06-08 2018-06-08 [facility] [id number] 12:50:00 12:50:00 t Greenleaf [employer] s - Drive [facility] Medicine l Medicine Outpati ent Clinics 2018-05-25 2018-05-25 [facility] [id number] 09:48:00 09:48:00 t Greenleaf [employer] s - Drive [facility] Medicine l Medicine Outpati ent Clinics 2018 2018 [facility] [id number] 09:30:00 09:30:00 t [employer]leaf [employer] Luke s - Drive [facility] Medicine l Medicine Outpati ent Clinics 2018-04-02 2018-04-02 [facility] [id number] 11:30:00 11:30:00 t Greenleaf [employer] s - Drive [facility] Medicine l Medicine Outpati ent Clinics 2018-03-23 2018-03-23 [facility] [id number] 11:04:00 11:04:00 t [employer]leaf [employer] Luke s - Drive [facility] Medicine l Medicine Outpati ent Clinics 2018-03-09 2018-03-09 [facility] [id number] 14:13:00 14:13:00 t Greenleaf [employer] s - Drive [facility] Medicine l Medicine Outpati ent Clinics 2018-02-17 2018-02-17 [facility] [id number] 11:30:00 11:30:00 t Greenleaf [employer] s - Drive [facility] Medicine l Medicine Outpati ent Clinics Results Test Description Test Time Test Comments Results Result Comments Source POCT-GLUCOSE METER 2018-02-04 13:06:00 Test Item Value Reference Range Interpretation Comme nts POC-GLUCOSE METER (BEAKER) (test 187 mg/dL 70-110 H TESTED AT [facility] [address] code = 1538) [place] [address] POCT-GLUCOSE [id number] 08:56:00 Test Item Value Reference Range Interpretation Comments POC-GLUCOSE METER 243 mg/dL 70-110 H [facility] [address] (BEAKER) (test code = BERTNE R [place] 1538) [id number] BASIC METABOLIC [id number] 04:21:00 Test Item Value Reference Range Interpretation [...] m DATA TO CALCULA TE ESTIMATED GFR. [id number] 04:19:00 Test Item Value Reference Range Interpretation Comments MAGNESIUM (BEAKER) (test code = 2.4 mg/dL 1.6-2.6 627) CBC W/PLT COUNT & AUTO [id number] 04:15:00 Test Item Value Reference Range Interpretation [...] PERCENT (BEAKER) (test code = 2801) POCT-GLUCOSE [id number] 17:40:00 Test Item Value Reference Range Interpretation Comments POC-GLUCOSE METER 281 mg/dL 70-110 H TESTED AT [facility] [address] (BEAKER) (test code = DARIO KEENAN 1538) [id number] POCT-GLUCOSE [id number] 12:44:00 Test Item Value Reference Range Interpretation Comments POC-GLUCOSE METER 273 mg/dL 70-110 H TESTED AT [facility] [address] ([facility]) (test code = DARIO Guerra [place] 1538) [address] RAD, CHEST, 1 VIEW, NON [id number] 08:46:00Reason for exam:->s/p dual chamber PPM eval [...] Swift Verified Date/Time: 02/03/2018 08:46:43 Reading Location: [facility] [id number] Consult Reading Room POCT-GLUCOSE [id number] 08:36:00 Test Item Value Reference Range Interpretation Comments POC-GLUCOSE METER 242 mg/dL 70-110 H TESTED AT [facility] 67[address] ([facility]) (test code = DARIO Guerra [facility] 1538) [id number] BASIC METABOLIC [id number] 05:37:00 Test Item Value Reference Range Interpretation [...] m DATA TO CALCULA TE ESTIMATED GFR. [id number] 05:35:00 Test Item Value Reference Range Interpretation Comments MAGNESIUM (BEAKER) (test code = 2.4 mg/dL 1.6-2.6 627) CBC W/PLT COUNT & AUTO [id number] 05:08:00 Test Item Value Reference Range Interpretation [...] PERCENT (BEAKER) (test code = 2801) POCT-GLUCOSE [id number] 16:20:00 Test Item Value Reference Range Interpretation Comments POC-GLUCOSE METER 195 mg/dL 70-110 H TESTED AT [facility] 6720 (BEAKER) (test code = DARIO RAMÍREZ [place] 1538) [address] BASIC METABOLIC [id number] 04:16:00 Test Item Value Reference Range Interpretation [...] m DATA TO CALCULA TE ESTIMATED GFR. [id number] 04:08:00 Test Item Value Reference Range Interpretation Comments MAGNESIUM (BEAKER) (test code = 2.2 mg/dL 1.6-2.6 627) CBC W/PLT COUNT & AUTO [id number] 03:52:00 Test Item Value Reference Range Interpretation [...] 0-1 PERCENT (BEAKER) (test code = 2801) BASIC METABOLIC [id number] 06:15:00 Test Item Value Reference Range Interpretation [...] m DATA TO CALCULA TE ESTIMATED GFR. [id number] 05:44:00 Test Item Value Reference Range Interpretation Comments MAGNESIUM (BEAKER) (test code = 2.4 mg/dL 1.6-2.6 627) CBC W/PLT COUNT & AUTO [id number] 04:51:00 Test Item Value Reference Range Interpretation [...] 0-1 PERCENT (BEAKER) (test code = 2801) [id number] 21:49:00 Test Item Value Reference Range Interpretation Comments POTASSIUM (BEAKER) (test code = 5.2 meq/L 3.5-5.1 H 379) Check Serum Potassium level 2 hours after oral potassium replacement completed or 30 min after intravenous potassium replacement.[id number] 21:49:00 Test Item Value Reference Range Interpretation [...] 1584) SOURCE(BEAKER) (test code = Urine, [place] 0693) CREATINE KINASE (CK), TOTAL AND [id number] 10:07:00 Test Item Value Reference Range Interpretation Comments CREATINE KINASE TOTAL (BEAKER) 35 U/L 29-200 (test code = 380) CREATINE KINASE-MB (BEAKER) (test 1.7 ng/mL 0.0-6.6 code = 750) CREATINE KINASE-MB INDEX (BEAKER) 4.9 % (test code = 395) CK-MB Reference Range:<6.7 Normal6.7-10.0 Borderline>10.0 AbnormalTROPONIN [id number] 10:07:00 Test Item Value Reference Range Interpretation [...] acute neurological disease, and persistent tachyarrhythmia.BASIC METABOLIC [id number] 05:51:00 Test Item Value Reference Range Interpretation [...] m DATA TO CALCULA TE ESTIMATED GFR. [id number] 05:50:00 Test Item Value Reference Range Interpretation Comments MAGNESIUM (BEAKER) (test code = 2.4 mg/dL 1.6-2.6 627) CBC W/PLT COUNT & AUTO [id number] 05:04:00 Test Item Value Reference Range Interpretation [...] = 2801) CREATINE KINASE (CK), TOTAL AND [id number] 03:23:00 Test Item Value Reference Range Interpretation Comments CREATINE KINASE TOTAL (BEAKER) 27 U/L 29-200 L (test code = 380) CREATINE KINASE-MB (BEAKER) (test 1.3 ng/mL 0.0-6.6 code = 750) CREATINE KINASE-MB INDEX (BEAKER) 4.8 % (test code = 395) CK-MB Reference Range:<6.7 Normal6.7-10.0 Borderline>10.0 AbnormalTROPONIN [id number] 03:23:00 Test Item Value Reference Range Interpretation [...] and persistent tachyarrhythmia.RAD, CHEST, 1 VIEW, NON [id number] 22:06:00Reason for exam:->SOBShould this be performed at the bedside?->Yes FINAL REPORT INDICATION: SOB COMPARISON: None. TECHNIQUE: Chest radiograph, single view, portable technique. FINDINGS / IMPRESSION: There is mild hyperexpansion which may represent chronic obstructive pulmonary disease. There is mild enlargement of the heart shadow and pulmonaryvenous congestion. No consolidation, pneumothorax, or large pleural effusion. Osseous structures unremarkable. Signed: Minh Galindo [facility] [place] Verified Date/Time: 01/30/2018 22:06:47 Reading Location: [facility] [id number] Consult Reading Room TINE KINASE (CK), TOTAL AND [id number] 21:32:00 Test Item Value Reference Range Interpretation Comments CREATINE KINASE TOTAL (BEAKER) 29 U/L 29-200 (test code = 380) CREATINE KINASE-MB (BEAKER) (test 1.1 ng/mL 0.0-6.6 code = 750) CREATINE KINASE-MB INDEX (BEAKER) 3.8 % (test code = 395) CK-MB Reference Range:<6.7 Normal6.7-10.0 Borderline>10.0 AbnormalTROPONIN [id number] 21:32:00 Test Item Value Reference Range Interpretation [...] (BEAKER) (test code = 700) BASIC METABOLIC [id number] 21:27:00 Test Item Value Reference Range Interpretation [...] m DATA TO CALCULA TE ESTIMATED GFR. [id number] 21:26:00 Test Item Value Reference Range Interpretation Comments PHOSPHORUS (BEAKER) (test code = 4.0 mg/dL 2.3-4.7 604) [id number] 21:26:00 Test Item Value Reference Range Interpretation Comments MAGNESIUM (BEAKER) (test code = 2.4 mg/dL 1.6-2.6 627) HEPATIC FUNCTION [id number] 21:26:00 Test Item Value Reference Range Interpretation [...] (test code = 18 U/L 6-55 347) [id number] 21:22:00 Test Item Value Reference Range Interpretation Comments PARTIAL THROMBOPLASTIN TIME 34.5 seconds 22.5-36.0 (BEAKER) (test code = 760) PROTHROMBIN TIME/[id number] 21:16:00 Test Item Value Reference Range Interpretation [...] % 0-1 PERCENT (BEAKER) (test code = 7218)
--- OUTSIDE RECORDS SUMMARY | 2020-07-12 14:30 | XMS REPORT | Summary of Care ---
:1935 Author Organization [facility] Address [address] [place] [id number] Care Team Providers Name Role Phone Javad Kirk Primary Care Provider Reason for Referral (Routine) Status Reason Specialty Diagnoses / Referred By Referred To Procedures Contact Contact New Request IM-CARDIOVASCULAR Diagnoses COVID-19 Nonrheumatic mitral valve stenosis Akil Perez, DISEASE Procedures Discharge Follow-Up: Specialty Service IM-CARDIOVASCULAR DISEASE (Dr. Ramos); [address] [place] [phone] (Routine) Status Reason Specialty Diagnoses / Referred By Referred To Procedures Contact Contact New Request Vascular Surgery Procedures Akil Perez, BILATERAL VENOUS DUPLEX LOWER [address] [place] [address] EXTREMITY [facility] [place] [address] (Routine) Status Reason Specialty Diagnoses / Referred By Referred To Procedures Contact Contact New Request Echocardiograph Diagnoses Chest pain, unspecified type Yuly Cain, Procedures ECHO ROUTINE W/DOPPLER COLOR [address] [place] [phone] MRI/CAT Scan (TAL) Status Reason Specialty Diagnoses / Referred By Referred To Procedures Contact Contact New Request Diagnostic Diagnoses Diarrhea, unspecified type Yuly Cain, Radiology Procedures CT ABDOMEN PELVIS WO CONTRAST [address] [place] [phone] Radiology Services (STAT) Status Reason Specialty Diagnoses / Referred By Referred To Procedures Contact Contact New Request Diagnostic Diagnoses Chest pain, unspecified type Nahed Fiore Radiology Procedures XR CHEST 1 VW COVID XR CHEST 1 VW J, DO [address] [place] [address] Reason for Visit Reason Comments Dehydration Vomiting Auth/Cert Status Reason Specialty Diagnoses / Referred By Referred To Procedures Contact Contact Emergency Medicine [facility] Dept [address] [place] [phone] Fax: Encounter Details Date Type Department Care Team Description 07/03/2020 - Hospital Encounter ADC Intensive Care Nahed Fiore, [address] [place] [id number] COVID-19 07/06/2020 Unit Yuly Cain MD [address] [place] [phone] [place] [address] [phone] Allergies Active Allergy Reactions Severity Noted Date Comments Nitrofurantoin Monohyd/M-Cryst Rash 07/03/2020 Penicillin Rash 07/03/2020 documented as of this encounter (statuses as of 07/06/2020) Medications Medication Sig Dispensed Refills Start Date End Date Status insulin degludec inject 20 0 Act calin (TRESIBA Units under FLEXTOUCH U-200) the skin at 200 unit/mL (3 bedtime. mL) InPn albuterol Inhale 2 Puffs 0 Activ e (VENTOLIN HFA) 90 every 4 (four) mcg/actuation hours as inhaler needed for Wheezing or Shortness of Breath. fluticasone/vilan Inhale 1 Puff 0 Active terol (BREO every morning. ELLIPTA INHALE) gabapentin 300 mg Take 300 mg by 0 Active capsule mouth at bedtime. rosuvastatin 10 Take 10 mg by 0 Active mg tablet mouth at bedtime. cetirizine 10 mg Take 10 mg by 0 Active tablet mouth at bedtime. vit B-comp Take 65 mg by 0 Activ e w-Fe,Ca,FA<1mg mouth daily. (IRON-VITAMINS ORAL) aspirin 81 mg Take 81 mg by 0 Ac tive chewable tablet mouth daily with breakfast. KCL 20 mEq tablet Take 20 mEq by 0 Active mouth daily. pantoprazole Take 40 mg by 0 Act calin sodium mouth with (PANTOPRAZOLE lunch. ORAL) furosemide 20 mg Take 1 tablet 30 tablet 0 07/06/2020 Active tabletIndications by mouth : COVID-19, daily. Nonrheumatic mitral valve stenosis metoprolol Take 1 tablet 60 tablet 0 07/06/2020 Acti ve succinate XL 50 by mouth 2 mg 24 hr (two) times tabletIndications daily. : COVID-19, Nonrheumatic mitral valve stenosis furosemide 40 mg Take 40 mg by 0 Discontinued tablet mouth daily. 0 (Reorde r) metoprolol Take 25 mg by 0 Disco ntinued succinate XL 25 mouth with 0 (Re order) mg 24 hr tablet lunch. After lunch losartan 50 mg Take 50 mg by 0 D iscontinued tablet mouth with 0 lunch. documented as of this encounter (statuses as of 07/06/2020) Active Problems Problem Noted Date Nonrheumatic mitral valve stenosis 07/04/2020 Pulmonary hypertension 07/04/2020 COVID-19 07/03/2020 Troponin I above reference range 07/03/2020 Elevated brain natriuretic peptide (BNP) level 020 Pacemaker 07/03/2020 Chronic diastolic congestive heart failure 07/03/2020 EDU (acute kidney injury) 07/03/2020 Essential hypertension 07/03/2020 Other hyperlipidemia 07/03/2020 Type 2 diabetes mellitus without complication, without long-term current 07/03/2020 use of insulin documented as of this encounter (statuses as of 07/06/2020) Social History Tobacco Use Types Packs/Day Years Used Date Never Smoker Smokeless Tobacco: Never Used Sex Assigned at Date Recorded Not on file COVID-19 Exposure Response Date Recorded In the last month, have you been in contact with Yes 07/03/2020 3:15 AM CDT someone who was confirmed or suspected to have Coronavirus / COVID-19? documented as of this encounter Last Filed Vital Signs Vital Sign Reading Time Taken Comments Blood Pressure 131/43 07/06/2020 12:00 PM CDT Pulse 95 07/06/2020 12:00 PM CDT Temperature 36.7 C (98.1 F) 07/06/2020 11:30 AM CDT Respiratory Rate 23 07/06/2020 12:00 PM CDT Oxygen Saturation 97% 07/06/2020 12:00 PM CDT Inhaled Oxygen Concentration - - Weight 52.9 kg (116 lb 11.2 oz) 07/03/2020 6:16 AM CDT Height - - Body Mass Index - - documented in this encounter Discharge Instructions AttachmentsThe following attachments cannot be sent through Care Everywhere. Infection, Preventing the Spread of: Understanding Isolation Procedures ([facility])Metoprolol tablets ([facility])Furosemide tablets ([facility])Valve Problems, Heart: Mitral Valve Stenosis ([facility])documented in this encounter Progress Notes Rashawn Michael RN - 07/06/2020 9:56 AM CDT Care Management Discharge Disposition Note (DCDN) 5-2-1 Interventions: Home visit/home health referral 5-2-1 Providers: Nurse Calculation Clerk 5-2-1 Patient Capacity Improvements: Transportation arrangements Discharge Plan for ongoing care and services: Home Health (HH) Is this a new referral: Yes Patient Choice completed for referred services: Yes DME location: Other DME location: Durable Medical Equipment: Home Health location: [address] P [phone] F [phone] Discharge location(s): Home Health location: [address] P [phone] F [phone] Patient choice completed for referred services: Yes Discussed with patient/patients family involved in decision making: Yes Patient or family caregiver understands, and agrees with discharge plan. Community resources/referrals made or provided to patient: Resources/Referrals: Transportation: Private Vehicle Mental Status: Alert & Oriented to Person,Place & Time Living Arrangement: Home Other living arrangement: Address of living arrangement: [address] [place] [address] Funding Resources: Medicare Replacement Nursing informed of discharge plan: Yes Name of RN informed: Expected discharge date: Time: Additional Information: ALEXANDER/AYESHA Name & Contact number: Rashawn Michael RN Ph. Rashawn Michael RN, BSN [facility] ADC Commercial Pest Control Technician O [phone] F [phone] The following information has been provided to the facility noted above: reason for the patient discharge or transfer; patients physical and psychosocial status; summary of care, treatment, servicesprovided to patient; and the patient progress toward goals. EPCIONTCbessie, MD Leonardo - 07/06/2020 8:31 AM CDT [facility] Cardiology progress note Date of Service: 07/06/2020 Keerthi Kiser is an 85 years old female hospitalized for COVID. No cardiac events. PHYSICAL EXAM Vitals: 07/06/20 0400 07/06/20 0727 07/06/20 0800 07/06/20 0826 BP: (!) 173/67 135/48 137/58 Pulse: 89 99 Resp: 24 Temp: 35.8 C (96.4 F) 36.6 C (97.9 F) TempSrc: Temporal Artery Axillary SpO2: 94% 96% 94% 96% Weight: Exam is limited due to COVID Constitutional: no apparent distress ENT: normocephalic atraumatic GI: non-distended : not examined Medications: I have reviewed the patient's medications; see Medication Reconciliation. Labs: I have reviewed the patient's labs. ASSESSMENT AND PLAN Principal Problem: COVID-19 Active Problems: Troponin I above reference range Elevated brain natriuretic peptide (BNP) level Pacemaker Chronic diastolic congestive heart failure EDU (acute kidney injury) Essential hypertension Other hyperlipidemia Type 2 diabetes mellitus without complication, without long-term current use of insulin Nonrheumatic mitral valve stenosis Pulmonary hypertension COVID infection--per primary team Troponin elevation--Likely type 2 ME due to demand ischemia. ECHO showed normal LVEF and wall motion. BNP elevation--Chronic HFpEF seems to be compensated. Due to EDU, hold lasix for now. BNP improving. EDU--Improved. HTN--better controlled. Will continue Toprol XL at 50 mg BID. S/p pacemaker--V-paced. Significant mitral stenosis--maybe why BNP is so elevated. We increased Toprol XL to 50 mg BID to lower the heart rate. HR is stable. Leonardo Culp MD, [facility], [employer] Hydraulic Governor Assembler, Division of Cardiology [facility] OlivierNj DO - 07/05/2020 5:33 PM CDT Nephrology Progress Note Admit Date: 07/03/2020 CPS stable without CP or SOB. No acute events overnight. Feeling better. Good urine output. Temp: [35.9 C (96.6 F)-37 C (98.6 F)] Heart Rate (monitor): [83-95] Pulse: [83-98] Resp: [18-21] BP: (143-165)/(46-80) MAP (mmHg): [75-105] POCT Blood Glucose (manual): [125 mg/dL-133 mg/dL] Vitals and medications reviewed in the chart. Blood work and imaging reviewed in the chart. PE: Gen: NAD HEENT: NCAT. MMM. Neck: Supple. No LAD. Lungs: CTA CVS: RRR Abd: Soft. NT. +BS Ext: No C/C. LE Edema none. Skin: No rash Psych: AAO Neuro: Normal speech ASSESSMENT/PLAN Keerthi Kiser is a 85 year old female with PMH as listed above, admitted to the hospital with: The primary encounter diagnosis was Chest pain, unspecified type. Diagnoses of Diarrhea, unspecifiedtype, COVID-19, and Edema, unspecified type were also pertinent to this visit. A/ EDU/ CKD III Hypernatremia Hyperkalemia Acidosis HTN with CKD/ CHF. Diastolic CHF, chronic. Moderate Mitral Stenosis. Pulmonary HTN. DM II with CKD Anemia in chronic illness. Suspected Liver Cirrhosis. Gastroenteritis COVID19. P/ Continue current POC and Medications other than changes listed below. Please see chart and orders for complete details. Encourage free water intake. Consider oral bicarb. COVID isolation. Maintain Oxygen saturation. Titrate insulin as needed. No NSAIDs. AM labs. Daily weight. 07/03/20 0616 Weight: 52.9 kg (116 lb 11.2 oz) Vitals: 07/05/20 1206 07/05/20 1600 07/05/20 1604 07/05/201999 BP: (!) 165/80 Pulse: 86 89 Resp: 20 Temp: 36.6 C (97.9 F) 36.8 C (98.3 F) 35.9 C (96.6 F) TempSrc: Oral Temporal Artery SpO2: 96% Weight: Intake/Output Summary (Last 24 hours) at 07/04/2020 1836 Last data filed at 07/04/2020 0500 Gross per 24 hour Intake Output 500 ml Net -500 ml Hospital Encounter on 07/03/20 XR CHEST 1 VW COVID Narrative PROCEDURE: CHEST, SINGLE VIEW CLINICAL INDICATION: 85 years Female presenting with sob COMPARISON: Chest radiographs None FINDINGS: Lines/hardware: Left chest wall pacemaker with leads terminating in the right ventricle right atrium. Lungs: Fine lower lung zone peripheral airspace opacities are indeterminate.. No focal consolidation, pleural effusion, or pneumothorax. The left costophrenic angle is blunted. Mediastinum: The cardiomediastinal silhouette is normal in size. Osseous structures: No acute bony abnormality. Impression Findings lower lung zone airspace opacities are indeterminate. No focal consolidation, pleural effusion or pneumothorax. Preliminary Report Dictated by Resident: Neto Rodriguez MD., have reviewed this study and agree with the above report. CT ABDOMEN PELVIS WO CONTRAST Narrative Exam: CT ABDOMEN PELVIS WO CONTRAST Clinical History: Abd pain, acute, generalized Comparison: None Findings: Visualized lung bases show multifocal peripheral groundglass opacities. There is no evidence of pleural or pericardial effusion. Valvular calcifications are partially evaluated. The visualized breast tissue is symmetric. Limited evaluation of the solid organs in the absence of IV contrast. The nodular contour of the liver is concerning for cirrhosis. No focal lesions are seen in the liver. No evidence of intrahepatic biliary ductal dilatation. Hyperdense layering sludge/gallstones are seen in the gallbladder. The spleen, adrenals, pancreas, and the kidneys are unremarkable. No evidence of free fluid, air, or lymphadenopathy seen in the abdomen and pelvis. No evidence of dilated bowel loops. Diverticulosis with no evidence of diverticulitis. No evidence of appendicitis is seen. 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 Urinary bladder and the prostate are unremarkable. The abdominal wall is thin and there is atrophy of bilateral rectus abdominis muscle. A hernia is seen in the midline anterior abdominal wall, at the level of the umbilicus with herniation of a part of a small bowel loop best seen on 2:118 and 6:67). The vasculature shows atherosclerotic calcifications. Degenerative changes are seen in the spine with no suspicious lesions. Impression Impression: 1. Findings seen in lung bases suggest Covid 19 pneumonia. 2. Nodular contour of the liver is concerning for cirrhosis. Hyperdense layering gallstones versus sludge. Recommend right upper quadrant ultrasound, as clinically indicated. 3. Thinning of the anterior abdominal wall and a umbilical hernia containing a portion of a small bowel loop. 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 Recent Results (from the past 48 hour(s)) POCT GLUCOSE (AUTOMATED) Collection Time: 07/04/20 4:23 AM Result Value Ref Range POCT GLU 128 (H) 70 - 110 mg/dL CBC WITH DIFF Collection Time: 07/04/20 4:26 AM Result Value Ref Range WBC 20.65 (H) 4.30 - 11.10 10*3/L RBC 3.46 (L) 3.93 - 5.25 10*6/L HGB 11.1 (L) 11.6 - 15.0 g/dL HCT 34.9 (L) 35.7 - 45.2 % MCV 100.9 (H) 80.6 - 95.5 fL MCH 32.1 25.9 - 32.8 pg MCHC 31.8 31.6 - 35.1 g/dL RDW-SD 46.7 39.0 - 49.9 fL RDW-CV 12.7 12.0 - 15.5 % PLT 188 166 - 358 10*3/L MPV 11.7 9.5 - 12.9 fL NRBC/100 WBC 0.0 0.0 - 10.0 /100 WBCs NRBC x10^3 <0.01 10*3/L GRAN MAT (NEUT) % 90.5 % IMM GRAN % 1.50 % LYMPH % 3.5 % MONO % 4.4 % EOS % 0.0 % BASO % 0.1 % GRAN MAT x10^3(ANC) 18.66 (H) 1.88 - 7.09 10*3/uL IMM GRAN x10^3 0.32 (H) 0.00 - 0.06 10*3/uL LYMPH x10^3 0.73 (L) 1.32 - 3.29 10*3/uL MONO x10^3 0.91 0.33 - 0.92 10*3/uL EOS x10^3 <0.03 (L) 0.03 - 0.39 10*3/uL BASO x10^3 0.03 0.01 - 0.07 10*3/uL LIPASE Collection Time: 07/04/20 4:27 AM Result Value Ref Range LIPASE 331 (H) 0 - 220 U/L C-REACTIVE PROTEIN Collection Time: 07/04/20 4:27 AM Result Value Ref Range CRP 6.8 (H) <0.8 mg/dL TROPONIN I Collection Time: 07/04/20 4:27 AM Result Value Ref Range TROPONIN I 0.057 (H) <=0.034 ng/mL COMP. METABOLIC PANEL (33302) Collection Time: 07/04/20 4:27 AM Result Value Ref Range NA 146 (H) 135 - 145 mmol/L K 4.5 3.5 - 5.0 mmol/L CL 122 (H) 98 - 108 mmol/L CO2 TOTAL 18 (L) 23 - 31 mmol/L AGAP 6 2 - 16 BUN 59 (H) 7 - 23 mg/dL GLUCOSE 124 (H) 70 - 110 mg/dL CREATININE 1.19 (H) 0.50 - 1.04 mg/dL TOTAL BILI 0.4 0.1 - 1.1 mg/dL CALCIUM 9.0 8.6 - 10.6 mg/dL T PROTEIN 7.1 6.3 - 8.2 g/dL ALBUMIN 3.5 3.5 - 5.0 g/dL ALK PHOS 84 34 - 122 U/L ALTv 14 5 - 35 U/L AST(SGOT) 40 13 - 40 U/L eGFR Calculation (Non-) 43.2 mL/min/1.73m2 eGFR Calculation () 52.4 mL/min/1.73m2 N-TERMINAL PRO-BNP Collection Time: 07/04/20 4:27 AM Result Value Ref Range NT-proBNP 15,700 (H) <=450 pg/mL D-DIMER Collection Time: 07/04/20 4:28 AM Result Value Ref Range D-DIMER 3.95 (H) <0.41 g/mL (FEU) PROCALCITONIN Collection Time: 07/04/20 4:28 AM Result Value Ref Range Procalcitonin 0.05 <0.07 ng/mL POCT GLUCOSE (AUTOMATED) Collection Time: 07/04/20 7:53 AM Result Value Ref Range POCT GLU 120 (H) 70 - 110 mg/dL BLOOD CULTURE SCREEN Collection Time: 07/04/20 10:07 AM Specimen: VENOUS; Blood Result Value Ref Range Blood Culture-Aerobic No growth at 24 hours No growth Blood Culture-Anaerobic No growth at 24 hours No growth BLOOD CULTURE SCREEN Collection Time: 07/04/20 10:18 AM Specimen: ARM, LEFT; Blood Result Value Ref Range Blood Culture-Aerobic No growth at 24 hours No growth Blood Culture-Anaerobic No growth at 24 hours No growth POCT GLUCOSE (AUTOMATED) Collection Time: 07/04/20 11:52 AM Result Value Ref Range POCT GLU 171 (H) 70 - 110 mg/dL POCT GLUCOSE (AUTOMATED) Collection Time: 07/05/20 7:59 AM Result Value Ref Range POCT GLU 126 (H) 70 - 110 mg/dL BASIC METABOLIC PANEL (NA, K, CL, CO2, GLUCOSE, BUN, CREATININE, CA) Collection Time: 07/05/20 9:31 AM Result Value Ref Range NA 145 135 - 145 mmol/L K 4.6 3.5 - 5.0 mmol/L CL 119 (H) 98 - 108 mmol/L CO2 TOTAL 19 (L) 23 - 31 mmol/L AGAP 7 2 - 16 BUN 42 (H) 7 - 23 mg/dL GLUCOSE 135 (H) 70 - 110 mg/dL CREATININE 1.09 (H) 0.50 - 1.04 mg/dL CALCIUM 9.2 8.6 - 10.6 mg/dL eGFR Calculation (Non-) 47.8 mL/min/1.73m2 eGFR Calculation () 58.0 mL/min/1.73m2 N-TERMINAL PRO-BNP Collection Time: 07/05/20 9:31 AM Result Value Ref Range NT-proBNP 18,000 (H) <=450 pg/mL CBC WITH DIFF Collection Time: 07/05/20 9:32 AM Result Value Ref Range WBC 16.55 (H) 4.30 - 11.10 10*3/L RBC 3.72 (L) 3.93 - 5.25 10*6/L HGB 11.9 11.6 - 15.0 g/dL HCT 37.2 35.7 - 45.2 % MCV 100.0 (H) 80.6 - 95.5 fL MCH 32.0 25.9 - 32.8 pg MCHC 32.0 31.6 - 35.1 g/dL RDW-SD 45.7 39.0 - 49.9 fL RDW-CV 12.6 12.0 - 15.5 % PLT 181 166 - 358 10*3/L MPV 11.6 9.5 - 12.9 fL NRBC/100 WBC 0.0 0.0 - 10.0 /100 WBCs NRBC x10^3 <0.01 10*3/L GRAN MAT (NEUT) % 91.0 % IMM GRAN % 1.20 % LYMPH % 4.4 % MONO % 3.1 % EOS % 0.1 % BASO % 0.2 % GRAN MAT x10^3(ANC) 15.04 (H) 1.88 - 7.09 10*3/uL IMM GRAN x10^3 0.20 (H) 0.00 - 0.06 10*3/uL LYMPH x10^3 0.73 (L) 1.32 - 3.29 10*3/uL MONO x10^3 0.52 0.33 - 0.92 10*3/uL EOS x10^3 <0.03 (L) 0.03 - 0.39 10*3/uL BASO x10^3 0.04 0.01 - 0.07 10*3/uL POCT GLUCOSE (AUTOMATED) Collection Time: 07/05/20 12:06 PM Result Value Ref Range POCT GLU 125 (H) 70 - 110 mg/dL POCT GLUCOSE (AUTOMATED) Collection Time: 07/05/20 4:05 PM Result Value Ref Range POCT GLU 133 (H) 70 - 110 mg/dL POCT GLUCOSE (AUTOMATED) Collection Time: 07/05/20 8:25 PM Result Value Ref Range POCT GLU 118 (H) 70 - 110 mg/dL Current Facility-Administered Medications Medication Dose Route Frequency Last Rate Last Dose gabapentin (NEURONTIN) capsule 300 mg 300 mg Oral QHS 300 mg at 07/05/202149 metoprolol succinate XL (TOPROL XL) tablet 50 mg 50 mg Oral BID 50 mg at 07/05/202151 acetaminophen (TYLENOL) tablet 650 mg 650 mg Oral Q6HPRN albuterol (VENTOLIN) inhaler 2 Puff 2 Puff Inhalation Q4HPRN ascorbic acid (vitamin C) (VITAMIN C) tablet 500 mg 500 mg Oral BID 500 mg at 07/05/202149 aspirin chewable tablet 81 mg 81 mg Oral DAILY 81 mg at 07/05/20 08 budesonide-formoteroL (SYMBICORT) 160-4.5 mcg/actuation inhaler 2 Puff 2 Puff Inhalation BID 2 Puff at 07/05/201948 dextromethorphan-guaifenesin (ROBITUSSIN DM) 10-100 mg/5 mL solution 5 mL 5 mL Oral Q6HPRN 5 mL at 07/04/202115 ergocalciferol (vitamin d2) (CALCIFEROL) capsule 50,000 Units 50,000 Units Oral QWEEKLY 50,000 Units at 07/03/20 08 ferrous sulfate tablet 325 mg 325 mg Oral BID 325 mg at 07/05/202149 heparin (porcine) injection 5,000 Units 5,000 Units Subcutaneous Q8H 5,000 Units at 07/05/202149 hydralAZINE (APRESOLINE) injection 10 mg 10 mg Intravenous Q4HPRN 10 mg at 07/03/20 0703 insulin glargine (LANTUS U-100) injection 20 Units 20 Units Subcutaneous QHS 10 Units at 07/05/202101 ondansetron (ZOFRAN (PF)) injection 4 mg 4 mg Slow IV Push Q6HPRN pantoprazole (PROTONIX) EC tablet 40 mg 40 mg Oral DAILY 40 mg at 07/05/20 0818 Sliding Scale Insulin-Regular + Fsbg Testing Subcutaneous Q4H Stopped at 07/04/20 1600 zinc sulfate (ORAZINC) capsule 220 mg 220 mg Oral BID 220 mg at 07/05/202149 Greater than 30min patient care. Kole case PTA - 07/05/2020 3:30 PM CDT Physical Therapy Progress Note: Discharge Recommendations: Therapy Needs and Potential: Patient demonstrates good potential to improve and meet therapy goals with further physical therapy services. Challenges to Home Transition: increased risk of falls decreased safety awareness Equipment recommendations: rolling walker PAIN: denies pain PRECAUTIONS: Weight Bearing Precaution: NA General Precautions: PPE used:Gloves, Gown and N-95 Mask, IV . Bracing/Cast present or required:N/A S: Patient agreeable to working with PT. Patient declines OOB or sitting at EOB but agrees to in bed exercise. At end of session patient reports discomfort to B heels. O: Patient met Semi reclined in bed. Patient seen for the following: Therapeutic exercise: instructed patient in the following: B UE/LE AROM in supine, all avaiable planes x 10 reps After session, patient supine in bed and call selby provided. RN aware A: Patient tolerated session fair. Patient reports she does not walk much at home and is too fatigued after her bath to get OOB. Patient fatigued after AROM. Also noted B heels with purple discoloration in circular pattern. Heels off loaded and RN advised. P: PT will continue POC with emphasis on functional mobility. Total Timed Tx Codes in Minutes: 21 Min Total Treatment Time in Minutes: 21 Min Kole Amador PTA Dennis Lic [id number] [facility] Rehab Services [facility] [phone] Nury Marcus PT supv Akil Perez MD - 07/05/2020 12:43 PM CDT [facility] Hospitalist Progress Note SUBJECTIVE: No acute events overnight. CURRENT MEDICATIONS - reviewed. Current Facility-Administered Medications Medication Dose Route Frequency Last Rate Last Dose metoprolol succinate XL (TOPROL XL) tablet 50 mg 50 mg Oral BID 50 mg at 07/05/20816 acetaminophen (TYLENOL) tablet 650 mg 650 mg Oral Q6HPRN albuterol (VENTOLIN) inhaler 2 Puff 2 Puff Inhalation Q4HPRN ascorbic acid (vitamin C) (VITAMIN C) tablet 500 mg 500 mg Oral BID 500 mg at 07/05/20816 aspirin chewable tablet 81 mg 81 mg Oral DAILY 81 mg at 07/05/20 0817 budesonide-formoteroL (SYMBICORT) 160-4.5 mcg/actuation inhaler 2 Puff 2 Puff Inhalation BID 2 Puff at 07/05/20 08 dextromethorphan-guaifenesin (ROBITUSSIN DM) 10-100 mg/5 mL solution 5 mL 5 mL Oral Q6HPRN 5 mL at 07/04/20 211 ergocalciferol (vitamin d2) (CALCIFEROL) capsule 50,000 Units 50,000 Units Oral QWEEKLY 50,000 Units at 07/03/20 08 ferrous sulfate tablet 325 mg 325 mg Oral BID 325 mg at 07/05/20 08 gabapentin (NEURONTIN) capsule 300 mg 300 mg Oral TID Stopped at 07/04/201999 heparin (porcine) injection 5,000 Units 5,000 Units Subcutaneous Q8H 5,000 Units at 07/05/20 08 hydralAZINE (APRESOLINE) injection 10 mg 10 mg Intravenous Q4HPRN 10 mg at 07/03/20 0703 insulin glargine (LANTUS U-100) injection 20 Units 20 Units Subcutaneous QHS 20 Units at 07/04/20 211 ondansetron (ZOFRAN (PF)) injection 4 mg 4 mg Slow IV Push Q6HPRN pantoprazole (PROTONIX) EC tablet 40 mg 40 mg Oral DAILY 40 mg at 07/05/20 08 Sliding Scale Insulin-Regular + Fsbg Testing Subcutaneous Q4H Stopped at 07/04/20 1600 zinc sulfate (ORAZINC) capsule 220 mg 220 mg Oral BID 220 mg at 07/05/20 0817 PHYSICAL EXAM: BP (!) 144/48 | Pulse 83 | Temp 36.6 C (97.9 F) | Resp 20 | Wt 116 lb 11.2 oz (52.9 kg) | SpO2 95% General: No respiratory distress Skin: No rash or lesions Neuro: AAOx3, no focal deficits Psych: Normal affect LABS/IMAGING - reviewed, pertinent results as below: CBC BMP PT/INR WBC (10*3/L) Date Value 07/05/2020 16.55 (H) NA (mmol/L) Date Value 07/05/2020 145 No results found for: PT RBC (10*6/L) Date Value 07/05/2020 3.72 (L) K (mmol/L) Date Value 07/05/2020 4.6 No results found for: PTINR PLT (10*3/L) Date Value 07/05/2020 181 CALCIUM (mg/dL) Date Value 07/05/2020 9.2 HGB (g/dL) Date Value 07/05/2020 11.9 CL (mmol/L) Date Value 07/05/2020 119 (H) aPTT HCT (%) Date Value 07/05/2020 37.2 BUN (mg/dL) Date Value 07/05/2020 42 (H) No results found for: APTTPAT CREATININE (mg/dL) Date Value 07/05/2020 1.09 (H) IMAGING- Hospital Encounter on 07/03/20 XR CHEST 1 VW COVID Narrative PROCEDURE: CHEST, SINGLE VIEW CLINICAL INDICATION: 85 years Female presenting with sob COMPARISON: Chest radiographs None FINDINGS: Lines/hardware: Left chest wall pacemaker with leads terminating in the right ventricle right atrium. Lungs: Fine lower lung zone peripheral airspace opacities are indeterminate.. No focal consolidation, pleural effusion, or pneumothorax. The left costophrenic angle is blunted. Mediastinum: The cardiomediastinal silhouette is normal in size. Osseous structures: No acute bony abnormality. Impression Findings lower lung zone airspace opacities are indeterminate. No focal consolidation, pleural effusion or pneumothorax. Preliminary Report Dictated by Resident: Neto Rodriguez MD., have reviewed this study and agree with the above report. CT ABDOMEN PELVIS WO CONTRAST Narrative Exam: CT ABDOMEN PELVIS WO CONTRAST Clinical History: Abd pain, acute, generalized Comparison: None Findings: Visualized lung bases show multifocal peripheral groundglass opacities. There is no evidence of pleural or pericardial effusion. Valvular calcifications are partially evaluated. The visualized breast tissue is symmetric. Limited evaluation of the solid organs in the absence of IV contrast. The nodular contour of the liver is concerning for cirrhosis. No focal lesions are seen in the liver. No evidence of intrahepatic biliary ductal dilatation. Hyperdense layering sludge/gallstones are seen in the gallbladder. The spleen, adrenals, pancreas, and the kidneys are unremarkable. No evidence of free fluid, air, or lymphadenopathy seen in the abdomen and pelvis. No evidence of dilated bowel loops. Diverticulosis with no evidence of diverticulitis. No evidence of appendicitis is seen. 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 Urinary bladder and the prostate are unremarkable. The abdominal wall is thin and there is atrophy of bilateral rectus abdominis muscle. A hernia is seen in the midline anterior abdominal wall, at the level of the umbilicus with herniation of a part of a small bowel loop best seen on 2:118 and 6:67). The vasculature shows atherosclerotic calcifications. Degenerative changes are seen in the spine with no suspicious lesions. Impression Impression: 1. Findings seen in lung bases suggest Covid 19 pneumonia. 2. Nodular contour of the liver is concerning for cirrhosis. Hyperdense layering gallstones versus sludge. Recommend right upper quadrant ultrasound, as clinically indicated. 3. Thinning of the anterior abdominal wall and a umbilical hernia containing a portion of a small bowel loop. 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 ASSESSMENT/PLAN Keerhti Kiser is a 85 year old female with PMH as listed above, admitted to the hospital with: Covid + - cxr was neg for pneumonia. And no respiratory distress or need for O2 Resume supportive care. Will hold steroid/z-gail (given diarrhea and no respiratory symptoms, and have completed 4 days) COVID 19 isolation protocol O2 per Protocol Keep SpO2 > 92 % Aggressive Incentive spirometry Albuterol inhaler Zinc, Vit C and Vit D Po Inflammatory markers Some leukocytosis like sec to steroids, check urine antigens Repeat blood cx for persistent leukocytosis Diarrhea - maybe be related to covid vs recent antibiotics Iv fluids -gentle (given elvated bnp) Stool studies, c diff dm2 w/ hyperglycemia - sec to recent steroid use Will hold steroids Given insulin R 10 units in ER Will resume lantus 20 units qhs and RISS q4 (until b/s improves) No AG to suggest dka hga1c Elevated lipase - no sig abdominal discomfort to suggest pancreatitis Will get CT a/p to eval pancreas For now IV fluid in case of pancreatitis is noted + troponin, high BNP - likey sec to demand Echo showed mod-sev mitral stenosis F/u trend, serial trop, tele, TTE Aspirin/statin Cardio consult. Increase metoprolol to 50 mg bid today and monitor bp, HR. edu - prior 2017 creatinine was 0.8 in careE. likely sec to dehydration, hold lasix/losartan 100 mg F/u bmp, avoid nephrotoxic agents Consult nephro - dr. [facility] (has seen in past) hypperkalemia - mild like sec to edu Hold kcl 10 and losartan F/u trend Chronic diastolic CHF - clinically no sign of volume overload, patient seem more dehydrated Will get TTE to check for any covid related cardiomyopathy Hold lasix 40 mg and losartan 100. Resume toprol xl 25 mg htn - resume toprol xl 25 mg. Hold losartan 100 mg and lasix 40 mg Asthma - no breo will do symbicort dyslipid -crestor 10 mg Iron def anemia -ferrous sulfate Neuropathy -gabapentin 300 tid Prophylaxis: DVT- heparin Stress Ulcer: pantoprazole Code Status: Full Disposition: Home health when medically cleared Akil Perez MD Rashawn Gonzalez RN - 07/05/2020 11:24 AM [facility] referral faxed over to [facility]. Awaiting auth and acceptance. Rashawn Michael RN, BSN [facility] ADC Commercial Pest Control Technician O [phone] Leonardo Hammer MD - 07/05/2020 8:23 AM CDT [facility] Cardiology progress note Date of Service: 07/05/2020 Keerthi Kiser is an 85 years old female hospitalized for COVID. No cardiac events. PHYSICAL EXAM Vitals: 07/05/20 0100 07/05/20 0400 07/05/20 0800 07/05/20 0809 BP: (!) 143/46 (!) 148/67 Pulse: 84 86 98 Resp: 18 18 21 Temp: 37 C (98.6 F) 36.6 C (97.9 F) TempSrc: Oral Oral SpO2: 96% 95% 95% Weight: Exam is limited due to COVID Constitutional: no apparent distress ENT: normocephalic atraumatic GI: non-distended : not examined Medications: I have reviewed the patient's medications; see Medication Reconciliation. Labs: I have reviewed the patient's labs. ASSESSMENT AND PLAN Principal Problem: COVID-19 Active Problems: Troponin I above reference range Elevated brain natriuretic peptide (BNP) level Pacemaker Chronic diastolic congestive heart failure EDU (acute kidney injury) Essential hypertension Other hyperlipidemia Type 2 diabetes mellitus without complication, without long-term current use of insulin Nonrheumatic mitral valve stenosis Pulmonary hypertension COVID infection--per primary team Troponin elevation--Likely type 2 ME due to demand ischemia. ECHO showed normal LVEF and wall motion. BNP elevation--Chronic HFpEF seems to be compensated. Due to EDU, hold lasix for now. EDU--Improved. HTN--elevated. Will increase Toprol XL to 50 mg BID. S/p pacemaker--V-paced. Significant mitral stenosis--maybe why BNP is so elevated. Will increase Toprol XL to 50 mg BID to lower the heart rate. HR is better. Leonardo Culp MD, FAC, [employer], Division of Cardiology [facility] Akil Wallace MD - 07/04/2020 6:41 PM CDT [facility] Hospitalist Progress Note SUBJECTIVE: No acute events overnight. CURRENT MEDICATIONS - reviewed. Current Facility-Administered Medications Medication Dose Route Frequency Last Rate Last Dose metoprolol succinate XL (TOPROL XL) tablet 50 mg 50 mg Oral DAILY 50 mg at 07/04/20 0950 acetaminophen (TYLENOL) tablet 650 mg 650 mg Oral Q6HPRN albuterol (VENTOLIN) inhaler 2 Puff 2 Puff Inhalation Q4HPRN ascorbic acid (vitamin C) (VITAMIN C) tablet 500 mg 500 mg Oral BID 500 mg at 07/04/20 0950 aspirin chewable tablet 81 mg 81 mg Oral DAILY 81 mg at 07/04/20 0950 budesonide-formoteroL (SYMBICORT) 160-4.5 mcg/actuation inhaler 2 Puff 2 Puff Inhalation BID 2 Puff at 07/04/20 0740 dextromethorphan-guaifenesin (ROBITUSSIN DM) 10-100 mg/5 mL solution 5 mL 5 mL Oral Q6HPRN ergocalciferol (vitamin d2) (CALCIFEROL) capsule 50,000 Units 50,000 Units Oral QWEEKLY 50,000 Units at 07/03/20 0823 ferrous sulfate tablet 325 mg 325 mg Oral BID 325 mg at 07/04/20 0950 gabapentin (NEURONTIN) capsule 300 mg 300 mg Oral TID 300 mg at 07/04/20 1435 heparin (porcine) injection 5,000 Units 5,000 Units Subcutaneous Q8H 5,000 Units at 07/04/20 1435 hydralAZINE (APRESOLINE) injection 10 mg 10 mg Intravenous Q4HPRN 10 mg at 07/03/20 0703 insulin glargine (LANTUS U-100) injection 20 Units 20 Units Subcutaneous QHS 10 Units at 07/03/202058 ondansetron (ZOFRAN (PF)) injection 4 mg 4 mg Slow IV Push Q6HPRN pantoprazole (PROTONIX) EC tablet 40 mg 40 mg Oral DAILY 40 mg at 07/04/20 0950 Sliding Scale Insulin-Regular + Fsbg Testing Subcutaneous Q4H Stopped at 07/04/20 1600 zinc sulfate (ORAZINC) capsule 220 mg 220 mg Oral BID 220 mg at 07/04/20 0950 PHYSICAL EXAM: BP (!) 140/56 | Pulse 86 | Temp 36.8 C (98.2 F) (Oral) | Resp 18 | Wt 116 lb 11.2 oz (52.9 kg) | SpO2 96% General: No respiratory distress Skin: No rash or lesions Neuro: AAOx3, no focal deficits Psych: Normal affect LABS/IMAGING - reviewed, pertinent results as below: CBC BMP PT/INR WBC (10*3/L) Date Value 07/04/2020 20.65 (H) NA (mmol/L) Date Value 07/04/2020 146 (H) No results found for: PT RBC (10*6/L) Date Value 07/04/2020 3.46 (L) K (mmol/L) Date Value 07/04/2020 4.5 No results found for: PTINR PLT (10*3/L) Date Value 07/04/2020 188 CALCIUM (mg/dL) Date Value 07/04/2020 9.0 HGB (g/dL) Date Value 07/04/2020 11.1 (L) CL (mmol/L) Date Value 07/04/2020 122 (H) aPTT HCT (%) Date Value 07/04/2020 34.9 (L) BUN (mg/dL) Date Value 07/04/2020 59 (H) No results found for: APTTPAT CREATININE (mg/dL) Date Value 07/04/2020 1.19 (H) IMAGING- Hospital Encounter on 07/03/20 XR CHEST 1 VW COVID Narrative PROCEDURE: CHEST, SINGLE VIEW CLINICAL INDICATION: 85 years Female presenting with sob COMPARISON: Chest radiographs None FINDINGS: Lines/hardware: Left chest wall pacemaker with leads terminating in the right ventricle right atrium. Lungs: Fine lower lung zone peripheral airspace opacities are indeterminate.. No focal consolidation, pleural effusion, or pneumothorax. The left costophrenic angle is blunted. Mediastinum: The cardiomediastinal silhouette is normal in size. Osseous structures: No acute bony abnormality. Impression Findings lower lung zone airspace opacities are indeterminate. No focal consolidation, pleural effusion or pneumothorax. Preliminary Report Dictated by Resident: Alisa Crowder I, Neto Hollingsworth MD., have reviewed this study and agree with the above report. CT ABDOMEN PELVIS WO CONTRAST Narrative Exam: CT ABDOMEN PELVIS WO CONTRAST Clinical History: Abd pain, acute, generalized Comparison: None Findings: Visualized lung bases show multifocal peripheral groundglass opacities. There is no evidence of pleural or pericardial effusion. Valvular calcifications are partially evaluated. The visualized breast tissue is symmetric. Limited evaluation of the solid organs in the absence of IV contrast. The nodular contour of the liver is concerning for cirrhosis. No focal lesions are seen in the liver. No evidence of intrahepatic biliary ductal dilatation. Hyperdense layering sludge/gallstones are seen in the gallbladder. The spleen, adrenals, pancreas, and the kidneys are unremarkable. No evidence of free fluid, air, or lymphadenopathy seen in the abdomen and pelvis. No evidence of dilated bowel loops. Diverticulosis with no evidence of diverticulitis. No evidence of appendicitis is seen. 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 Urinary bladder and the prostate are unremarkable. The abdominal wall is thin and there is atrophy of bilateral rectus abdominis muscle. A hernia is seen in the midline anterior abdominal wall, at the level of the umbilicus with herniation of a part of a small bowel loop best seen on 2:118 and 6:67). The vasculature shows atherosclerotic calcifications. Degenerative changes are seen in the spine with no suspicious lesions. Impression Impression: 1. Findings seen in lung bases suggest Covid 19 pneumonia. 2. Nodular contour of the liver is concerning for cirrhosis. Hyperdense layering gallstones versus sludge. Recommend right upper quadrant ultrasound, as clinically indicated. 3. Thinning of the anterior abdominal wall and a umbilical hernia containing a portion of a small bowel loop. 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 ASSESSMENT/PLAN Keerthi Kiser is a 85 year old female with PMH as listed above, admitted to the hospital with: Covid + - cxr was neg for pneumonia. And no respiratory distress or need for O2 Resume supportive care. Will hold steroid/z-gail (given diarrhea and no respiratory symptoms, and have completed 4 days) COVID 19 isolation protocol O2 per Protocol Keep SpO2 > 92 % Aggressive Incentive spirometry Albuterol inhaler Zinc, Vit C and Vit D Po Inflammatory markers Some leukocytosis like sec to steroids, check urine antigens Repeat blood cx for persistent leukocytosis Diarrhea - maybe be related to covid vs recent antibiotics Iv fluids -gentle (given elvated bnp) Stool studies, c diff dm2 w/ hyperglycemia - sec to recent steroid use Will hold steroids Given insulin R 10 units in ER Will resume lantus 20 units qhs and RISS q4 (until b/s improves) No AG to suggest dka hga1c Elevated lipase - no sig abdominal discomfort to suggest pancreatitis Will get CT a/p to eval pancreas For now IV fluid in case of pancreatitis is noted + troponin, high BNP - likey sec to demand Echo showed mod-sev mitral stenosis F/u trend, serial trop, tele, TTE Aspirin/statin Cardio consult edu - prior 2018 creatinine was 0.8 in careE. likely sec to dehydration, hold lasix/losartan 100 mg F/u bmp, avoid nephrotoxic agents Consult nephro - dr. [facility] (has seen in past) hypperkalemia - mild like sec to edu Hold kcl 10 and losartan F/u trend Chronic diastolic CHF - clinically no sign of volume overload, patient seem more dehydrated Will get TTE to check for any covid related cardiomyopathy Hold lasix 40 mg and losartan 100. Resume toprol xl 25 mg htn - resume toprol xl 25 mg. Hold losartan 100 mg and lasix 40 mg Asthma - no breo will do symbicort dyslipid -crestor 10 mg Iron def anemia -ferrous sulfate Neuropathy -gabapentin 300 tid Prophylaxis: DVT- heparin Stress Ulcer: pantoprazole Code Status: Full Disposition: Home when medically cleared Akil Perez MD [facility] o[facility] - 07/04/2020 3:36 PM CDT Nephrology Progress Note Admit Date: 07/03/2020 CPS stable without CP or SOB. No acute events overnight. Poor oral intake. Fatigue. Temp: [36.3 C (97.4 F)-36.9 C (98.4 F)] Heart Rate (monitor): [87-103] Pulse: [85-103] Resp: [16-23] BP: (140-148)/(46-57) MAP (mmHg): [72-83] Vitals and medications reviewed in the chart. Blood work and imaging reviewed in the chart. PE: Gen: NAD HEENT: NCAT. MMM. Neck: Supple. No LAD. Lungs: CTA CVS: RRR Abd: Soft. NT. +BS Ext: No C/C. LE Edema none. Skin: No rash Psych: AAO Neuro: Normal speech ASSESSMENT/PLAN Keerthi Kiser is a 85 year old female with PMH as listed above, admitted to the hospital with: The primary encounter diagnosis was Chest pain, unspecified type. Diagnoses of Diarrhea, unspecifiedtype, COVID-19, and Edema, unspecified type were also pertinent to this visit. A/ EDU/ CKD III Hypernatremia Hyperkalemia Acidosis HTN with CKD/ CHF. Diastolic CHF, chronic. Moderate Mitral Stenosis. Pulmonary HTN. DM II with CKD Anemia in chronic illness. Suspected Liver Cirrhosis. Gastroenteritis COVID19. P/ Continue current POC and Medications other than changes listed below. Please see chart and orders for complete details. Encourage free water intake. COVID isolation. Maintain Oxygen saturation. Titrate insulin as needed. No NSAIDs. AM labs. Daily weight. 07/03/20 0616 Weight: 52.9 kg (116 lb 11.2 oz) Vitals: 07/04/20 0945 07/04/20 1000 07/04/20 1200 07/04/20 1600 BP: (!) 140/56 Pulse: 103 103 86 Resp: 18 Temp: 36.9 C (98.4 F) 36.8 C (98.2 F) TempSrc: Oral Oral SpO2: (!) 89% 94% 96% Weight: Intake/Output Summary (Last 24 hours) at 07/04/2020 1836 Last data filed at 07/04/2020 0500 Gross per 24 hour Intake Output 500 ml Net -500 ml Hospital Encounter on 07/03/20 XR CHEST 1 VW COVID Narrative PROCEDURE: CHEST, SINGLE VIEW CLINICAL INDICATION: 85 years Female presenting with sob COMPARISON: Chest radiographs None FINDINGS: Lines/hardware: Left chest wall pacemaker with leads terminating in the right ventricle right atrium. Lungs: Fine lower lung zone peripheral airspace opacities are indeterminate.. No focal consolidation, pleural effusion, or pneumothorax. The left costophrenic angle is blunted. Mediastinum: The cardiomediastinal silhouette is normal in size. Osseous structures: No acute bony abnormality. Impression Findings lower lung zone airspace opacities are indeterminate. No focal consolidation, pleural effusion or pneumothorax. Preliminary Report Dictated by Resident: Neto Rodriguez MD., have reviewed this study and agree with the above report. CT ABDOMEN PELVIS WO CONTRAST Narrative Exam: CT ABDOMEN PELVIS WO CONTRAST Clinical History: Abd pain, acute, generalized Comparison: None Findings: Visualized lung bases show multifocal peripheral groundglass opacities. There is no evidence of pleural or pericardial effusion. Valvular calcifications are partially evaluated. The visualized breast tissue is symmetric. Limited evaluation of the solid organs in the absence of IV contrast. The nodular contour of the liver is concerning for cirrhosis. No focal lesions are seen in the liver. No evidence of intrahepatic biliary ductal dilatation. Hyperdense layering sludge/gallstones are seen in the gallbladder. The spleen, adrenals, pancreas, and the kidneys are unremarkable. No evidence of free fluid, air, or lymphadenopathy seen in the abdomen and pelvis. No evidence of dilated bowel loops. Diverticulosis with no evidence of diverticulitis. No evidence of appendicitis is seen. 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 Urinary bladder and the prostate are unremarkable. The abdominal wall is thin and there is atrophy of bilateral rectus abdominis muscle. A hernia is seen in the midline anterior abdominal wall, at the level of the umbilicus with herniation of a part of a small bowel loop best seen on 2:118 and 6:67). The vasculature shows atherosclerotic calcifications. Degenerative changes are seen in the spine with no suspicious lesions. Impression Impression: 1. Findings seen in lung bases suggest Covid 19 pneumonia. 2. Nodular contour of the liver is concerning for cirrhosis. Hyperdense layering gallstones versus sludge. Recommend right upper quadrant ultrasound, as clinically indicated. 3. Thinning of the anterior abdominal wall and a umbilical hernia containing a portion of a small bowel loop. 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 Recent Results (from the past 48 hour(s)) TROPONIN I Collection Time: 07/03/20 3:36 AM Result Value Ref Range TROPONIN I 0.042 (H) <=0.034 ng/mL COMP. METABOLIC PANEL (17419) Collection Time: 07/03/20 3:36 AM Result Value Ref Range NA 141 135 - 145 mmol/L K 5.2 (H) 3.5 - 5.0 mmol/L CL 110 (H) 98 - 108 mmol/L CO2 TOTAL 20 (L) 23 - 31 mmol/L AGAP 11 2 - 16 BUN 82 (H) 7 - 23 mg/dL GLUCOSE 502 (HH) 70 - 110 mg/dL CREATININE 1.53 (H) 0.50 - 1.04 mg/dL TOTAL BILI 0.7 0.1 - 1.1 mg/dL CALCIUM 10.0 8.6 - 10.6 mg/dL T PROTEIN 8.6 (H) 6.3 - 8.2 g/dL ALBUMIN 4.5 3.5 - 5.0 g/dL ALK PHOS 114 34 - 122 U/L ALTv 19 5 - 35 U/L AST(SGOT) 28 13 - 40 U/L eGFR Calculation (Non-) 32.3 mL/min/1.73m2 eGFR Calculation () 39.2 mL/min/1.73m2 LIPASE, SERUM Collection Time: 07/03/20 3:36 AM Result Value Ref Range LIPASE 727 (H) 0 - 220 U/L CBC WITH DIFF Collection Time: 07/03/20 3:36 AM Result Value Ref Range WBC 11.75 (H) 4.30 - 11.10 10*3/L RBC 3.79 (L) 3.93 - 5.25 10*6/L HGB 12.1 11.6 - 15.0 g/dL HCT 36.4 35.7 - 45.2 % MCV 96.0 (H) 80.6 - 95.5 fL MCH 31.9 25.9 - 32.8 pg MCHC 33.2 31.6 - 35.1 g/dL RDW-SD 42.1 39.0 - 49.9 fL RDW-CV 11.9 (L) 12.0 - 15.5 % PLT 236 166 - 358 10*3/L MPV 11.5 9.5 - 12.9 fL NRBC/100 WBC 0.0 0.0 - 10.0 /100 WBCs NRBC x10^3 <0.01 10*3/L GRAN MAT (NEUT) % 91.0 % IMM GRAN % 0.70 % LYMPH % 3.8 % MONO % 4.3 % EOS % 0.0 % BASO % 0.2 % GRAN MAT x10^3(ANC) 10.69 (H) 1.88 - 7.09 10*3/uL IMM GRAN x10^3 0.08 (H) 0.00 - 0.06 10*3/uL LYMPH x10^3 0.45 (L) 1.32 - 3.29 10*3/uL MONO x10^3 0.51 0.33 - 0.92 10*3/uL EOS x10^3 <0.03 (L) 0.03 - 0.39 10*3/uL BASO x10^3 <0.03 0.01 - 0.07 10*3/uL N-TERMINAL PRO-BNP Collection Time: 07/03/20 3:36 AM Result Value Ref Range NT-proBNP 22,400 (H) <=450 pg/mL GLYCOSYLATED HEMOGLOBIN (A1C) Collection Time: 07/03/20 3:36 AM Result Value Ref Range HGB A1C 7.5 (H) 4.0 - 6.0 % THYROID STIMULATING HORMONE Collection Time: 07/03/20 3:36 AM Result Value Ref Range TSH 1.31 0.45 - 4.70 mIU/L FERRITIN SERUM Collection Time: 07/03/20 3:36 AM Result Value Ref Range FERRITIN 1,260.0 (H) 11.0 - 264.0 ng/mL COVID-19 (ID NOW RAPID TESTING) Collection Time: 07/03/20 4:28 AM Specimen: NASOPHARYNGEAL SWAB Result Value Ref Range SARS-CoV-2 Rapid ID NOW Positive (A) Not Detected POCT GLUCOSE (AUTOMATED) Collection Time: 07/03/20 5:58 AM Result Value Ref Range POCT GLU 244 (H) 70 - 110 mg/dL POCT GLUCOSE (AUTOMATED) Collection Time: 07/03/20 7:56 AM Result Value Ref Range POCT GLU 230 (H) 70 - 110 mg/dL TROPONIN I Collection Time: 07/03/20 10:21 AM Result Value Ref Range TROPONIN I 0.052 (H) <=0.034 ng/mL POCT GLUCOSE (AUTOMATED) Collection Time: 07/03/20 11:32 AM Result Value Ref Range POCT GLU 279 (H) 70 - 110 mg/dL POCT GLUCOSE (AUTOMATED) Collection Time: 07/03/20 4:20 PM Result Value Ref Range POCT GLU 167 (H) 70 - 110 mg/dL TROPONIN I Collection Time: 07/03/20 5:48 PM Result Value Ref Range TROPONIN I 0.049 (H) <=0.034 ng/mL POCT GLUCOSE (AUTOMATED) Collection Time: 07/04/20 4:23 AM Result Value Ref Range POCT GLU 128 (H) 70 - 110 mg/dL CBC WITH DIFF Collection Time: 07/04/20 4:26 AM Result Value Ref Range WBC 20.65 (H) 4.30 - 11.10 10*3/L RBC 3.46 (L) 3.93 - 5.25 10*6/L HGB 11.1 (L) 11.6 - 15.0 g/dL HCT 34.9 (L) 35.7 - 45.2 % MCV 100.9 (H) 80.6 - 95.5 fL MCH 32.1 25.9 - 32.8 pg MCHC 31.8 31.6 - 35.1 g/dL RDW-SD 46.7 39.0 - 49.9 fL RDW-CV 12.7 12.0 - 15.5 % PLT 188 166 - 358 10*3/L MPV 11.7 9.5 - 12.9 fL NRBC/100 WBC 0.0 0.0 - 10.0 /100 WBCs NRBC x10^3 <0.01 10*3/L GRAN MAT (NEUT) % 90.5 % IMM GRAN % 1.50 % LYMPH % 3.5 % MONO % 4.4 % EOS % 0.0 % BASO % 0.1 % GRAN MAT x10^3(ANC) 18.66 (H) 1.88 - 7.09 10*3/uL IMM GRAN x10^3 0.32 (H) 0.00 - 0.06 10*3/uL LYMPH x10^3 0.73 (L) 1.32 - 3.29 10*3/uL MONO x10^3 0.91 0.33 - 0.92 10*3/uL EOS x10^3 <0.03 (L) 0.03 - 0.39 10*3/uL BASO x10^3 0.03 0.01 - 0.07 10*3/uL LIPASE Collection Time: 07/04/20 4:27 AM Result Value Ref Range LIPASE 331 (H) 0 - 220 U/L C-REACTIVE PROTEIN Collection Time: 07/04/20 4:27 AM Result Value Ref Range CRP 6.8 (H) <0.8 mg/dL TROPONIN I Collection Time: 07/04/20 4:27 AM Result Value Ref Range TROPONIN I 0.057 (H) <=0.034 ng/mL COMP. METABOLIC PANEL ([id number]) Collection Time: 07/04/20 4:27 AM Result Value Ref Range NA 146 (H) 135 - 145 mmol/L K 4.5 3.5 - 5.0 mmol/L CL 122 (H) 98 - 108 mmol/L CO2 TOTAL 18 (L) 23 - 31 mmol/L AGAP 6 2 - 16 BUN 59 (H) 7 - 23 mg/dL GLUCOSE 124 (H) 70 - 110 mg/dL CREATININE 1.19 (H) 0.50 - 1.04 mg/dL TOTAL BILI 0.4 0.1 - 1.1 mg/dL CALCIUM 9.0 8.6 - 10.6 mg/dL T PROTEIN 7.1 6.3 - 8.2 g/dL ALBUMIN 3.5 3.5 - 5.0 g/dL ALK PHOS 84 34 - 122 U/L ALTv 14 5 - 35 U/L AST(SGOT) 40 13 - 40 U/L eGFR Calculation (Non-) 43.2 mL/min/1.73m2 eGFR Calculation () 52.4 mL/min/1.73m2 N-TERMINAL PRO-BNP Collection Time: 07/04/20 4:27 AM Result Value Ref Range NT-proBNP 15,700 (H) <=450 pg/mL D-DIMER Collection Time: 07/04/20 4:28 AM Result Value Ref Range D-DIMER 3.95 (H) <0.41 g/mL (FEU) PROCALCITONIN Collection Time: 07/04/20 4:28 AM Result Value Ref Range Procalcitonin 0.05 <0.07 ng/mL POCT GLUCOSE (AUTOMATED) Collection Time: 07/04/20 7:53 AM Result Value Ref Range POCT GLU 120 (H) 70 - 110 mg/dL BLOOD CULTURE SCREEN Collection Time: 07/04/20 10:07 AM Specimen: VENOUS; Blood Result Value Ref Range Blood Culture-Aerobic Culture In Progress No growth Blood Culture-Anaerobic Culture In Progress No growth BLOOD CULTURE SCREEN Collection Time: 07/04/20 10:18 AM Specimen: ARM, LEFT; Blood Result Value Ref Range Blood Culture-Aerobic Culture In Progress No growth Blood Culture-Anaerobic Culture In Progress No growth POCT GLUCOSE (AUTOMATED) Collection Time: 07/04/20 11:52 AM Result Value Ref Range POCT GLU 171 (H) 70 - 110 mg/dL Current Facility-Administered Medications Medication Dose Route Frequency Last Rate Last Dose metoprolol succinate XL (TOPROL XL) tablet 50 mg 50 mg Oral DAILY 50 mg at 07/04/20 0950 acetaminophen (TYLENOL) tablet 650 mg 650 mg Oral Q6HPRN albuterol (VENTOLIN) inhaler 2 Puff 2 Puff Inhalation Q4HPRN ascorbic acid (vitamin C) (VITAMIN C) tablet 500 mg 500 mg Oral BID 500 mg at 07/04/20 0950 aspirin chewable tablet 81 mg 81 mg Oral DAILY 81 mg at 07/04/20 0950 budesonide-formoteroL (SYMBICORT) 160-4.5 mcg/actuation inhaler 2 Puff 2 Puff Inhalation BID 2 Puff at 07/04/20 0740 dextromethorphan-guaifenesin (ROBITUSSIN DM) 10-100 mg/5 mL solution 5 mL 5 mL Oral Q6HPRN ergocalciferol (vitamin d2) (CALCIFEROL) capsule 50,000 Units 50,000 Units Oral QWEEKLY 50,000 Units at 07/03/20 0823 ferrous sulfate tablet 325 mg 325 mg Oral BID 325 mg at 07/04/20 0950 gabapentin (NEURONTIN) capsule 300 mg 300 mg Oral TID 300 mg at 07/04/20 1435 heparin (porcine) injection 5,000 Units 5,000 Units Subcutaneous Q8H 5,000 Units at 07/04/20 1435 hydralAZINE (APRESOLINE) injection 10 mg 10 mg Intravenous Q4HPRN 10 mg at 07/03/20 0703 insulin glargine (LANTUS U-100) injection 20 Units 20 Units Subcutaneous QHS 10 Units at 07/03/20 2059 ondansetron (ZOFRAN (PF)) injection 4 mg 4 mg Slow IV Push Q6HPRN pantoprazole (PROTONIX) EC tablet 40 mg 40 mg Oral DAILY 40 mg at 07/04/20 0950 Sliding Scale Insulin-Regular + Fsbg Testing Subcutaneous Q4H Stopped at 07/04/20 1600 zinc sulfate (ORAZINC) capsule 220 mg 220 mg Oral BID 220 mg at 07/04/20 0950 Greater than 30min patient care. Rashawn Gonzalez RN - 07/04/2020 12:37 PM CDTSpoke w/ patient's daughter who is interested in sending her mother for SNF placement. Awaiting PT eval. Rashawn Michael RN, BSN [facility] ADC Commercial Pest Control Technician O [phone] Rashawn Gonzalez RN - 07/04/2020 12:35 PM CDT Care Management Social Functional Assessment Patient Name: Keerthi Kiser Age: [age] year old Sex: female Previous admit date: N/A Current diagnosis and co-morbidities: COVID EDU Readmission Questions: Was patient discharged from any acute care hospital within the last 30 days: No Social Functional Assessment: Primary language spoken/preferred: [place] Mental Status: Alert & Oriented to Person,Place & Time Information given by: Child Name and phone number of person giving information: Zainab Oneal [phone], Thelma Paxton [phone] Patient's support system: Child Name and number of support system: Zainab Oneal [phone], Thelma Meghantyrone [phone] Primary Ecologist: Same as Support System MPOA: Same as support system Living Arrangement: Home Address of living arrangement : [facility] [address] [place] [address] Persons living in home: Same as support system Barriers to returning home: None Baseline functional status- ambulation: Independent Functional status-baseline personal care: Independent Baseline functional status- driving: Independent Baseline functional status- grocery shopping: Independent Functional status-baseline housekeeping: Independent Functional status-baseline meal prep: Independent Current functional status same as prior: No Current functional status- ambulation: Requires minimal to moderate assistance Current functional status- personal care: Requires minimal to moderate assistance Current functional status- driving: Dependent Current functional status- grocery shopping: Dependent Current functional status-house keeping: Dependent Current functional status- meal preparation: Dependent Do you have a PCP?: Yes Name of PCP: [facility] Care Agency: No Provider Services: No DME Company: No Equipment: Walker Hemodialysis: No Funding Resources: Medicare Replacement Medicare Replacement name and information: [employer] Prescription coverage plan: Medicare Part D Pharmacy where meds are filled: ([facility]) Anticipated services prior to disharge: Continue Medical Eval Expected mode of discharge transportation: Same as support system Additional info required for discharge planning: Pending medical evaluation Recommended discharge plan: New placement SFA Complete: Social Functional Assessment complete: Yes Alcohol Use Screening (AUDIT-C) How often do you have a drink containing alcohol?: Never SCORE: 0 Role of Care Management explained. Yes Any issues or concerns with obtaining/affording your medications at home: no. Are you or your support system able to corn picker medications at discharge: yes. Describe: Rashawn Michael RN, BSN [facility] [employer] Commercial Pest Control Technician O [phone] Leonardo Hammer MD - 07/04/2020 8:29 AM CDT [facility] Cardiology progress note Date of Service: 07/04/2020 Keerthi Kiser is an 85 years old female hospitalized for COVID. No cardiac events. PHYSICAL EXAM Vitals: 07/04/20 0000 07/04/20 0400 07/04/20 0500 07/04/20 0741 BP: (!) 142/46 Pulse: 85 87 97 Resp: 16 16 17 Temp: 36.8 C (98.2 F) 36.3 C (97.4 F) TempSrc: Oral Oral SpO2: 96% 95% 96% Weight: Exam is limited due to COVID Constitutional: no apparent distress ENT: normocephalic atraumatic GI: non-distended : not examined Medications: I have reviewed the patient's medications; see Medication Reconciliation. Labs: I have reviewed the patient's labs. ASSESSMENT AND PLAN Principal Problem: COVID-19 Active Problems: Troponin I above reference range Elevated brain natriuretic peptide (BNP) level Pacemaker Chronic diastolic congestive heart failure EDU (acute kidney injury) Essential hypertension Other hyperlipidemia Type 2 diabetes mellitus without complication, without long-term current use of insulin Nonrheumatic mitral valve stenosis Pulmonary hypertension COVID infection--per primary team Troponin elevation--Likely type 2 due to demand ischemia. ECHO showed normal LVEF and wall motion. BNP elevation--HFpEF seems to be compensated. Due to EDU, hold lasix for now. EDU--Improved. HTN--elevated. Will increase Toprol XL to 50 mg daily. S/p pacemaker--V-paced. Significant mitral stenosis--maybe why BNP is so elevated. Will increase Toprol XL to lower the heart rate. Leonardo Culp MD, FACC, [employer] Hydraulic Governor Assembler, Division of Cardiology [facility] Faina Nath PT - 07/03/2020 11:30 AM CDT 07/03/2020 11:30 AM Physical Therapy Note: PT consult received, patient's chart reviewed in anticipation of evaluation. However the patient troponin level still elevated. PT will hold until medically appropriate to participate. Faina Jimenez,PT [place] License: [id number] documented in this encounter H&P Notes Yuly Cain MD - 07/03/2020 5:30 AM CDT MEDICINE H&P Date of Service: 07/03/2020 CHIEF COMPLAINT: diarrhea/dehydration History of Present Illness 85 y/o female pmh of diastolic CHF (lasix 40 qd f/u d[facility]. [facility]), pericardial effusion (s/p window in 05/2018 at [facility]), htn (losartan 100), dyslipid, asthma (breo), dm2 (lantus 20 qhs), , neuropathy (gabapentin 300 tid)who presents due to dehydration/diarrhea. Patient is a poor historian therefore hx by patients daughter (sheri), states that patient was dx with covid 06/22 at an when was told had a uti, since then had some generalized weakness/cough so went back UC last Friday and was told hadpneumonia so was rx medrol dose pack and z-gail (today is the 5th day). daugther states since taking z-gail/steroid starting the next days she had decreased appetite, nausea and diarrhea 3-4 times a day,watery, no blood or mucus or pus, patient did not eat or drink much, mild abdominal pain. No chest pain, sob. No fever or chills. Cough dry. No pnd/orthpnea/leg swelling. PAST MEDICAL HISTORY As above past surgical history -pericardial effusion 2018 s/p window No family history on file. ALLERGIES Allergies Allergen Reactions Macrobid [Nitrofurantoin Monohyd/M-Cryst] Rash Penicillin Rash MEDICATIONS No current facility-administered medications on file prior to encounter. No current outpatient medications on file prior to encounter. SOCIAL HISTORY Social History Socioeconomic History Marital status: Spouse name: Not on file Number of children: Not on file Years of education: Not on file Highest education level: Not on file Occupational History Not on file Social Needs Financial resource strain: Not on file Food insecurity Worry: Not on file Inability: Not on file Transportation needs Medical: Not on file Non-medical: Not on file Tobacco Use Smoking status: Not on file Substance and Sexual Activity Alcohol use: Not on file Drug use: Not on file Sexual activity: Not on file Lifestyle Physical activity Days per week: Not on file Minutes per session: Not on file Stress: Not on file Relationships Social connections Talks on phone: Not on file Gets together: Not on file Attends congregation service: Not on file Active member of club or organization: Not on file Attends meetings of clubs or organizations: Not on file Relationship status: Not on file Intimate partner violence Fear of current or ex partner: Not on file Emotionally abused: Not on file Physically abused: Not on file Forced sexual activity: Not on file Other Topics Concern Not on file Social History Narrative Not on file REVIEW OF SYSTEMS 10 point ros was neg except mentioned above PHYSICAL EXAMINATION Vitals: 07/03/20 0327 BP: (!) 187/91 Pulse: 79 Resp: 18 Temp: 36.6 C (97.9 F) Weight: 57.2 kg (126 lb) General: alert and oriented x 3 (person, place and date/time); no apparent distress HEENT: normocephalic atraumatic Neck: supple, no lymphadenopathy, no bruits, no JVD, full range of motion Lungs: clear to auscultation bilaterally Cardio: regular rate and rhythm Abdomen: soft; Mild gen tender ; non-distended; normoactive bowel sounds : not examined Rectal: not examined Extremities: no clubbing, cyanosis, or edema Skin: no rashes Neuro: no focal deficits LABS - reviewed pertinent labs as below: CBC WBC (10*3/L) Date Value 07/03/2020 11.75 (H) RBC (10*6/L) Date Value 07/03/2020 3.79 (L) PLT (10*3/L) Date Value 07/03/2020 236 HGB (g/dL) Date Value 07/03/2020 12.1 HCT (%) Date Value 07/03/2020 36.4 BMP NA (mmol/L) Date Value 07/03/2020 141 K (mmol/L) Date Value 07/03/2020 5.2 (H) CALCIUM (mg/dL) Date Value 07/03/2020 10.0 CL (mmol/L) Date Value 07/03/2020 110 (H) BUN (mg/dL) Date Value 07/03/2020 82 (H) CREATININE (mg/dL) Date Value 07/03/2020 1.53 (H) GLUCOSE (mg/dL) Date Value 07/03/2020 502 (HH) CO2 TOTAL (mmol/L) Date Value 07/03/2020 20 (L) IMAGING - reviewed, pertinent results as below: cxr Lines/hardware: Left chest wall pacemaker with leads terminating in the right ventricle right atrium. Lungs: The lungs are clear. No focal consolidation, pleural effusion, or pneumothorax. Mediastinum: The cardiomediastinal silhouette is normal in size. Osseous structures: No acute bony abnormality. IMPRESSION No acute intrathoracic abnormality, specifically no radiographic findings to suggest COVID-19 pneumonia. CHART REVIEW: pertinent information as below: ASSESSMENT/PLAN Keerthi Kiser is a 85 year old female with PMH as listed above, admitted to the hospital with: Active Problems: Covid + - cxr was neg for pneumonia. And no respiratory distress or need for O2 Resume supportive care. Will hold steroid/z-gail (given diarrhea and no respiratory symptoms, and have completed 4 days) COVID 19 isolation protocol O2 per Protocol Keep SpO2 > 92 % Aggressive Incentive spirometry Albuterol inhaler Zinc, Vit C and Vit D Po Inflammatory markers Some leukocytosis like sec to steroids, check urine antigens Diarrhea - maybe be related to covid vs recent antibiotics Iv fluids -gentle (given elvated bnp) Stool studies, c diff dm2 w/ hyperglycemia - sec to recent steroid use Will hold steroids Given insulin R 10 units in ER Will resume lantus 20 units qhs and RISS q4 (until b/s improves) No AG to suggest dka hga1c Elevated lipase - no sig abdominal discomfort to suggest pancreatitis Will get CT a/p to eval pancreas For now IV fluid in case of pancreatitis is noted + troponin - likey sec to demand F/u trend, serial trop, tele, TTE Aspirin/statin Cardio consult Elevated NTproBNP - clinically no sign of volume overload, patient seem more dehydrated Will get TTE to check for any covid related cardiomyopathy Of note on gentle hydration for diarrhea/dehyration edu - [facility] to [facility], hold lasix/losartan 100 mg F/u bmp, avoid nephrotoxic agents Consult nephro - dr. Joy keita (has seen in past) hypperkalemia - mild like sec to edu Hold kcl 10 and losartan F/u trend Chronic diastolic CHF - clinically no sign of volume overload, patient seem more dehydrated Will get TTE to check for any covid related cardiomyopathy Hold lasix 40 mg and losartan 100. Resume toprol xl 25 mg htn - resume toprol xl 25 mg. Hold losartan 100 mg and lasix 40 mg Asthma - no breo will do symbicort dyslipid -crestor 10 mg Iron def anemia -ferrous sulfate Neuropathy -gabapentin 300 tid Prophylaxis: DVT- heparin Advanced Care Planning ( Z71.89): Discussed with patient and daugther I spent 16 minutes discussing the advance care plan Level of comfort: tbd surrgote decision maker: daughter sheri Code Status: Full Tobacco User Z 71.6 No Non Tobacco User Z78.9 No Measure 130 Current Medications Current Facility-Administered Medications: acetaminophen (TYLENOL) tablet 650 mg, 650 mg, Oral, Q6HPRN, Yuly Cain MD albuterol (VENTOLIN) inhaler 2 Puff, 2 Puff, Inhalation, Q4HPRN, Yuly Cain MD aspirin chewable tablet 81 mg, 81 mg, Oral, DAILY, Yuly Cain MD budesonide-formoteroL (SYMBICORT) 160-4.5 mcg/actuation inhaler 2 Puff, 2 Puff, Inhalation, BID, Yuly Cain MD ferrous sulfate tablet 325 mg, 325 mg, Oral, BID, Yuly Cain MD gabapentin (NEURONTIN) capsule 300 mg, 300 mg, Oral, TID, Yuly Cain MD heparin (porcine) injection 5,000 Units, 5,000 Units, Subcutaneous, Q8H, Yuly Cain MD insulin glargine (LANTUS U-100) injection 20 Units, 20 Units, Subcutaneous, QHS, Yuly Cain MD metoprolol succinate XL (TOPROL XL) tablet 25 mg, 25 mg, Oral, DAILY, Yuly Cain MD NaCl 0.9% (NS) IV infusion 1,000 mL, 1,000 mL, IV Infusion, CONTINUOUS, Yuly Cain MD ondansetron (ZOFRAN (PF)) injection 4 mg, 4 mg, Slow IV Push, Q6HPRN, Yuly Cain MD pantoprazole (PROTONIX) EC tablet 40 mg, 40 mg, Oral, DAILY, Yuly Cain MD rosuvastatin (CRESTOR) tablet 10 mg, 10 mg, Oral, QHS, Yuly Cain MD Sliding Scale Insulin-Regular + Fsbg Testing, , Subcutaneous, Q4H, Yuly Cain MD Measure 317 BP Readings from Last 1 Encounters: 07/03/20 (!) 175/84 [facility] was reviewed The above diagnosis and plan was discussed with the patient and was agreed upon Yuly Cain M.D. Internal Medicine Employee ID #: [id number] documented in this encounter Consult Notes Faina Jimenez, PT - 07/04/2020 4:26 PM CDTAssociated Order(s): CONSULT ADULT PHYSICAL THERAPY Patient agreeable to working with physical therapy. Patient met sidelying on L . PHYSICAL THERAPY EVALUATION Consult received, chart reviewed and evaluation complete this date. Patient is referred to PT for evaluation and treatment. Patient is a 85 year old female who presents to hospital for COVID EDU . Discharge Recommendations: Therapy Needs and Potential: Patient demonstrates good potential to improve and meet therapy goals with further physical therapy services. Challenges to Home Transition: increased risk of falls decreased safety awareness Equipment recommendations: rolling walker Current Functional Status and/or Treatment:Functional mobility training, Transfer training, Patient/Family/Caregiver education and Therapeutic exercise Bed Mobility: Supine to sit: Minimal assist Scooting to edge of bed: Minimal assist Sit to supine: Minimal assist. Transfers: NT due to patient stated that she just want to go sleep first. Ambulation: NT. Therapeutic exercise: patient/caregiver verbalizes understanding of instructions. After session, patient Semi reclined in bed. Call button provided. Patient nurse was notified on patient current situation. PLAN OF CARE: At least 2 times per week, once or twice a day (while in hospital) per patient's tolerance and medical needs. See below for complete details. Admit Date: 07/03/2020 Hospital Diagnosis:COVID EDU PT Diagnosis: Difficulty walking and Weakness Weight Bearing Precaution: NA General Precautions: PPE used:Gloves, Gown, Surgical mask and N-95 Mask, General, Fall Bracing/Cast present or required:N/A PMH: No past medical history on file. PSH: No past surgical history on file. Prior Living Situation: lives with their family and house DME: No device Prior level of Mobility: house hold ambulation Subjective: Patient denies pain. Patient/Family Goals: To get better Patient/Family verbalizes understanding of condition: Yes PAIN: denies pain COMMUNICATION Primary Language: [place] Able to Verbalize needs: Yes Vision:good; no issues reported Hearing:good; no issues reported ORIENTATION/COGNITION: Oriented to: person and place Awake: Yes Alert: Yes Dizzy: No Follows Commands: Yes 1-Step Yes Multi-Step Yes Inconsistent: No NEUROLOGICAL Light Touch: within functional limits bilateral LE Heel to guajardo: NT Tone: Normal BALANCE: Sitting: Static: Good Dynamic: Good Standing: Static: NT Dynamic: NT RANGE OF MOTION: within functional limits bilateral LE STRENGTH: 4-/5 (G-), bilateral LE ENDURANCE: NT SKIN INTEGRITY: intact PROBLEM LIST: Decline in bed mobility, Decline in gait, Decline in transfers, Decreased strength andSafety awareness deficits ASSESSMENT: Patient is a 85 year old female seen secondary to the above listed diagnosis. Patient would benefit from continued PT to address the above listed deficits to maximize independence and safety with functional mobility. Rehabilitation Potential: guarded Goals: The following goals are to maximize independence and safety with functional mobility to eventually return to prior living situation and prior functional status. Upon discharge, patient and/or family will demonstrate the followin. Supine to sit: CGA Scooting to edge of bed: CGA Sit to supine: CGA 2. Sit to stand: Minimal assist using Rolling Walker Stand to sit: Minimal assist using Rolling Walker 3. Minimal assist with ambulation, Feet: 50 using least assistive device. 4. Demonstrate or verbalize understanding of home exercise program in order to continue with their rehab on their own. Treatment Plan: Gait training, Therapeutic exercise, Transfer training, Bed mobility training and Safety education, patient/caregiver education PATIENT EDUCATION: Patient provided with preferred teaching of verbal information on role of PT, plan of care. Shows readiness to learn. Verbal instruction teaching provided. Individual is able to readand verbalizes understanding of teaching provided. Faina Jimenez,PT [place] License: [id number] Required Components in Determining Evaluation Level History: No personal factors or comorbidities: Yes (78980) 1-2 personal factors and/or comorbidities: Yes (29222) 3 or more personal factors and/ or comorbidities: No (01389) Examination of Body System(s) Addressing 1-2 elements: Yes (03905) Addressing a total of 3 or more elements: No (51283) Addressing a total of 4 or more elements: No (47894) Clinical Presentation Stable: Yes (41025) Evolving: No (88863) Unstable: No (14201) Clinical Decision Making (Complexity) Low: Yes (23378) Moderate: No (50922) High: No (92231) Nj Aguayo, DO - 07/03/2020 4:16 PM CDTAssociated Order(s): CONSULT NEPHROLOGY Nephrology Consult Admit Date: 07/03/2020 PCP: Bashir Kirk Referring Physician: Dr. Perez Reason for Referral: EDU/ CKD III Admitting Dx: COVID EDU CHIEF COMPLAINT: HISTORY OF PRESENT ILLNESS: Keerthi Kiser is a 85 year old female that presented to the ER with dyhydration in the setting of nausea and vomiting. 85 y/o female pmh of diastolic CHF (lasix 40 qd f/u dR. Ramos), pericardial effusion (s/p window in 05/2018 at [facility]), htn (losartan 100), dyslipid, asthma (breo), dm2 (lantus 20 qhs), , neuropathy (gabapentin 300 tid)who presents due to dehydration/diarrhea. Patient is a poor historian therefore hx by patients daughter (sheri), states that patient was dx with covid 06/22 at an when was told had a uti, since then had some generalized weakness/cough so went back last Friday and was told hadpneumonia so was rx medrol dose pack and z-gail (today is the day). daugther states since taking z-gail/steroid starting the next days she had decreased appetite, nausea and diarrhea 3-4 times a day,watery, no blood or mucus or pus, patient did not eat or drink much, mild abdominal pain. No chest pain, sob. No fever or chills. Cough dry. No pnd/orthpnea/leg swelling. ROS as stated above. All other ROS negative. Temp: [36.3 C (97.4 F)-36.9 C (98.4 F)] Heart Rate (monitor): [87-103] Pulse: [85-103] Resp: [16-23] BP: (140-148)/(46-57) MAP (mmHg): [72-83] PE: Gen: NAD HEENT: NCAT. MMM. Neck: Supple. No LAD. Lungs: CTA CVS: RRR Abd: Soft. NT. +BS Ext: No C/C. LE Edema none. Skin: No rash Psych: AAO Neuro: Normal speech ASSESSMENT/PLAN Keerthi Kiser is a 85 year old female with PMH as listed above, admitted to the hospital with: The primary encounter diagnosis was Chest pain, unspecified type. Diagnoses of Diarrhea, unspecifiedtype, COVID-19, and Edema, unspecified type were also pertinent to this visit. A/ EDU/ CKD III Hyperkalemia Acidosis HTN with CKD/ CHF. Diastolic CHF, chronic. Moderate Mitral Stenosis. Pulmonary HTN. DM II with CKD Suspected Liver Cirrhosis. Gastroenteritis COVID19. P/ Continue current POC and Medications other than changes listed below. Please see chart and orders for complete details. Change IVF to 1/2NS. COVID isolation. Maintain Oxygen saturation. Titrate insulin as needed. No NSAIDs. AM labs. Daily weight. Thank you kindly for the consultation. Vitals: 07/04/20 0945 07/04/20 1000 07/04/20 1200 07/04/20 1600 BP: (!) 140/56 Pulse: 103 103 86 Resp: 23 18 Temp: 36.9 C (98.4 F) 36.8 C (98.2 F) TempSrc: Oral Oral SpO2: (!) 89% 94% 96% Weight: LABS - reviewed in the chart: CBC BMP PT/INR WBC (10*3/L) Date Value 07/04/2020 20.65 (H) NA (mmol/L) Date Value 07/04/2020 146 (H) No results found for: PT RBC (10*6/L) Date Value 07/04/2020 3.46 (L) K (mmol/L) Date Value 07/04/2020 4.5 No results found for: PTINR PLT (10*3/L) Date Value 07/04/2020 188 CALCIUM (mg/dL) Date Value 07/04/2020 9.0 HGB (g/dL) Date Value 07/04/2020 11.1 (L) CL (mmol/L) Date Value 07/04/2020 122 (H) aPTT HCT (%) Date Value 07/04/2020 34.9 (L) BUN (mg/dL) Date Value 07/04/2020 59 (H) No results found for: APTTPAT CREATININE (mg/dL) Date Value 07/04/2020 1.19 (H) IMAGING - reviewed in the chart: Hospital Encounter on 07/03/20 XR CHEST 1 VW COVID Narrative PROCEDURE: CHEST, SINGLE VIEW CLINICAL INDICATION: 85 years Female presenting with sob COMPARISON: Chest radiographs None FINDINGS: Lines/hardware: Left chest wall pacemaker with leads terminating in the right ventricle right atrium. Lungs: Fine lower lung zone peripheral airspace opacities are indeterminate.. No focal consolidation, pleural effusion, or pneumothorax. The left costophrenic angle is blunted. Mediastinum: The cardiomediastinal silhouette is normal in size. Osseous structures: No acute bony abnormality. Impression Findings lower lung zone airspace opacities are indeterminate. No focal consolidation, pleural effusion or pneumothorax. Preliminary Report Dictated by Resident: Alisa Crowder I, Neto Hollingsworth MD., have reviewed this study and agree with the above report. CT ABDOMEN PELVIS WO CONTRAST Narrative Exam: CT ABDOMEN PELVIS WO CONTRAST Clinical History: Abd pain, acute, generalized Comparison: None Findings: Visualized lung bases show multifocal peripheral groundglass opacities. There is no evidence of pleural or pericardial effusion. Valvular calcifications are partially evaluated. The visualized breast tissue is symmetric. Limited evaluation of the solid organs in the absence of IV contrast. The nodular contour of the liver is concerning for cirrhosis. No focal lesions are seen in the liver. No evidence of intrahepatic biliary ductal dilatation. Hyperdense layering sludge/gallstones are seen in the gallbladder. The spleen, adrenals, pancreas, and the kidneys are unremarkable. No evidence of free fluid, air, or lymphadenopathy seen in the abdomen and pelvis. No evidence of dilated bowel loops. Diverticulosis with no evidence of diverticulitis. No evidence of appendicitis is seen. 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 Urinary bladder and the prostate are unremarkable. The abdominal wall is thin and there is atrophy of bilateral rectus abdominis muscle. A hernia is seen in the midline anterior abdominal wall, at the level of the umbilicus with herniation of a part of a small bowel loop best seen on 2:118 and 6:67). The vasculature shows atherosclerotic calcifications. Degenerative changes are seen in the spine with no suspicious lesions. Impression Impression: 1. Findings seen in lung bases suggest Covid 19 pneumonia. 2. Nodular contour of the liver is concerning for cirrhosis. Hyperdense layering gallstones versus sludge. Recommend right upper quadrant ultrasound, as clinically indicated. 3. Thinning of the anterior abdominal wall and a umbilical hernia containing a portion of a small bowel loop. 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 PAST MEDICAL HISTORY No past medical history on file. No past surgical history on file. ALLERGIES Allergies Allergen Reactions Macrobid [Nitrofurantoin Monohyd/M-Cryst] Rash Penicillin Rash MEDICATIONS reviewed in the chart. Current Facility-Administered Medications Medication Dose Route Frequency Last Rate Last Dose metoprolol succinate XL (TOPROL XL) tablet 50 mg 50 mg Oral DAILY 50 mg at 07/04/20 0950 acetaminophen (TYLENOL) tablet 650 mg 650 mg Oral Q6HPRN albuterol (VENTOLIN) inhaler 2 Puff 2 Puff Inhalation Q4HPRN ascorbic acid (vitamin C) (VITAMIN C) tablet 500 mg 500 mg Oral BID 500 mg at 07/04/20 0950 aspirin chewable tablet 81 mg 81 mg Oral DAILY 81 mg at 07/04/20 0950 budesonide-formoteroL (SYMBICORT) 160-4.5 mcg/actuation inhaler 2 Puff 2 Puff Inhalation BID 2 Puff at 07/04/20 0740 dextromethorphan-guaifenesin (ROBITUSSIN DM) 10-100 mg/5 mL solution 5 mL 5 mL Oral Q6HPRN ergocalciferol (vitamin d2) (CALCIFEROL) capsule 50,000 Units 50,000 Units Oral QWEEKLY 50,000 Units at 07/03/20 0823 ferrous sulfate tablet 325 mg 325 mg Oral BID 325 mg at 07/04/20 0950 gabapentin (NEURONTIN) capsule 300 mg 300 mg Oral TID 300 mg at 07/04/20 1435 heparin (porcine) injection 5,000 Units 5,000 Units Subcutaneous Q8H 5,000 Units at 07/04/20 1435 hydralAZINE (APRESOLINE) injection 10 mg 10 mg Intravenous Q4HPRN 10 mg at 07/03/20 0703 insulin glargine (LANTUS U-100) injection 20 Units 20 Units Subcutaneous QHS 10 Units at 07/03/20 205 ondansetron (ZOFRAN (PF)) injection 4 mg 4 mg Slow IV Push Q6HPRN pantoprazole (PROTONIX) EC tablet 40 mg 40 mg Oral DAILY 40 mg at 07/04/20 0950 Sliding Scale Insulin-Regular + Fsbg Testing Subcutaneous Q4H Stopped at 07/04/20 1600 zinc sulfate (ORAZINC) capsule 220 mg 220 mg Oral BID 220 mg at 07/04/20 0950 SOCIAL HISTORY Social History Socioeconomic History Marital status: Spouse name: Not on file Number of children: Not on file Years of education: Not on file Highest education level: Not on file Occupational History Not on file Social Needs Financial resource strain: Not on file Food insecurity Worry: Not on file Inability: Not on file Transportation needs Medical: Not on file Non-medical: Not on file Tobacco Use Smoking status: Never Smoker Smokeless tobacco: Never Used Substance and Sexual Activity Alcohol use: Not on file Drug use: Not on file Sexual activity: Not on file Lifestyle Physical activity Days per week: Not on file Minutes per session: Not on file Stress: Not on file Relationships Social connections Talks on phone: Not on file Gets together: Not on file Attends congregation service: Not on file Active member of club or organization: Not on file Attends meetings of clubs or organizations: Not on file Relationship status: Not on file Intimate partner violence Fear of current or ex partner: Not on file Emotionally abused: Not on file Physically abused: Not on file Forced sexual activity: Not on file Other Topics Concern Not on file Social History Narrative Not on file FAMILY History HTN Greater than 30min patient care. Marissa Granados - 07/03/2020 3:23 PM CDTAssociated Order(s): CONSULT PS PASTORAL CARESeveral phone ottoniel attempts were made to speak with patient but was unable to reach her; siene maker contacted daughter who stated that patient would appreciate a rosary and Lutheran Communion. Patient is in isolation and patient is stable according to nurse, so unable to provide outside personnel manager support at this time. However, siene maker provided a spiritual communion resource to patient's nurse who stated that she will read the spiritual communion resource to patient. Arts Administrator also provided a rosary for patient; also to be provided by patient's nurse to patient. Leonardo Hammer MD - 07/03/2020 9:37 AM CDTAssociated Order(s): CONSULT CARDIOLOGY [facility] Cardiology Consult PCP: Bashir Kirk Date of Service: 07/03/2020 CHIEF COMPLAINT/reason for consult: troponin elevation and BNP elevation HISTORY OF PRESENT ILLNESS This is an 85 year-old female with PMH pacemaker, HFpEF, HTN, HLD, DM, etc. She was admitted for diarrhea, weakness, cough, etc. Fond to have COVID infection. Troponin was mildly elevated. BNP was elevated as well but CXR was clear. Labs showed EDU. PAST MEDICAL HISTORY No past medical history on file. No past surgical history on file. No family history on file. ALLERGIES Allergies Allergen Reactions Macrobid [Nitrofurantoin Monohyd/M-Cryst] Rash Penicillin Rash MEDICATIONS No current facility-administered medications on file prior to encounter. No current outpatient medications on file prior to encounter. SOCIAL HISTORY Social History Socioeconomic History Marital status: Spouse name: Not on file Number of children: Not on file Years of education: Not on file Highest education level: Not on file Occupational History Not on file Social Needs Financial resource strain: Not on file Food insecurity Worry: Not on file Inability: Not on file Transportation needs Medical: Not on file Non-medical: Not on file Tobacco Use Smoking status: Not on file Substance and Sexual Activity Alcohol use: Not on file Drug use: Not on file Sexual activity: Not on file Lifestyle Physical activity Days per week: Not on file Minutes per session: Not on file Stress: Not on file Relationships Social connections Talks on phone: Not on file Gets together: Not on file Attends congregation service: Not on file Active member of club or organization: Not on file Attends meetings of clubs or organizations: Not on file Relationship status: Not on file Intimate partner violence Fear of current or ex partner: Not on file Emotionally abused: Not on file Physically abused: Not on file Forced sexual activity: Not on file Other Topics Concern Not on file Social History Narrative Not on file REVIEW OF SYSTEMS At least 10 systems reviewed, negative except as mentioned in HPI PHYSICAL EXAMINATION Vitals: 07/03/20 0613 07/03/20 0616 07/03/20 0707 07/03/20 0843 BP: (!) 175/84 Pulse: 90 103 Resp: 23 25 Temp: 36.7 C (98 F) 36.7 C (98 F) TempSrc: Oral Oral SpO2: 98% 100% Weight: 52.9 kg (116 lb 11.2 oz) Exam is limited due to COVID Constitutional: no apparent distress ENT: normocephalic atraumatic GI: non-distended : not examined LABS - reviewed pertinent labs as below: CBC BMP PT/INR WBC (10*3/L) Date Value 07/03/2020 11.75 (H) NA (mmol/L) Date Value 07/03/2020 141 No results found for: PT PLT (10*3/L) Date Value 07/03/2020 236 K (mmol/L) Date Value 07/03/2020 5.2 (H) No results found for: PTINR HGB (g/dL) Date Value 07/03/2020 12.1 BUN (mg/dL) Date Value 07/03/2020 82 (H) HCT (%) Date Value 07/03/2020 36.4 CREATININE (mg/dL) Date Value 07/03/2020 1.53 (H) LIPID PROFILE GLUCOSE (mg/dL) Date Value 07/03/2020 502 (HH) No results found for: CHOL TSH No results found for: LDL TSH (mIU/L) Date Value 07/03/2020 1.31 CARDIAC ENZYMES No results found for: HDL No results found for: CK No results found for: TRIG LFTs No results found for: CKMB AST(SGOT) (U/L) Date Value 07/03/2020 28 TROPONIN I (ng/mL) Date Value 07/03/2020 0.042 (H) ALTv (U/L) Date Value 07/03/2020 19 No results found for: BNP IMAGING - reviewed, pertinent results as below: CXR--clear EKG: V-paced rhythm ASSESSMENT/PLAN Principal Problem: COVID-19 Active Problems: Troponin I above reference range Elevated brain natriuretic peptide (BNP) level Pacemaker Chronic diastolic congestive heart failure EDU (acute kidney injury) Essential hypertension Other hyperlipidemia Type 2 diabetes mellitus without complication, without long-term current use of insulin COVID infection--per primary team Troponin elevation--Likely type 2 due to demand ischemia. ECHO to assess LVEF and wall motion. BNP elevation--HFpEF seems to be compensated. Due to EDU, hold lasix for now. EDU--continue IVF. HTN--elevated. Continue metoprolol and adjust as needed. S/p pacemaker--V-paced. Thank you for allowing us to participate in the care of your patient. Please feel free to contact usfor any questions or if we can be of further assistance. Leonardo Culp MD, [facility], [facility] PART[facility] DEVELOPMENTAL CENTERGaby Hydraulic Governor Assembler, Division of Cardiology [facility] documented in this encounter ED Notes Kroey Llamas, OMAR - 07/03/2020 3:24 AM CDTPatient arrived with family to ED for diarrhea and dehydration. Family reports she tested positive for COVID on 06/22/2020. Nahed Gauthier DO - 07/03/2020 3:17 AM CDT [facility] Emergency Department Note Patient Name: Keerthi Kiser Date of : 1935 85 year old female Treatment Room: OH7/OH7 Primary Care Physician: Bashir Kirk Patient Escorted by: Family [5] Mode of Arrival: Personal means [1] EMS Treatment Prior to ED Arrival: DATABASE PROGRAMMER ANALYST treatment: None Travel and Exposure Screening: Symptoms Does patient have any of these symptoms?: (not recorded) Exposure Screening Has patient had contact with someone with a communicable disease in the last month?: (not recorded) Diseases exposed to:: (not recorded) Is Patient ?: (not recorded) Exposure Date: (not recorded) Chief Complaint: Chief Complaint Patient presents with Dehydration Vomiting History of Present Illness: Patient presents for eval for diarrhea and dehydration for several days. Lives with her family and was found to be covid positive at OSH over a week ago as well as have a UTI. No n/v. No fevers at home. Poor po intake. Normally walks around at home but since Friday has had decreased energy and needing help to ambulate. Also c/o some sob. No chest pain. Has h/o CHF, CAD, htn, dm and lipids. Also has a pacemaker. Here for eval. Past Medical History/Immunizations: No past medical history on file. Tetanus received in last 5 years: Unknown Allergies: Allergies Allergen Reactions Macrobid [Nitrofurantoin Monohyd/M-Cryst] Rash Penicillin Rash Past Social History: Substance & Sexual Activity No substance use or sexual activity history on file. Past Surgical History: No past surgical history on file. Review of Systems: Review of Systems Constitutional: Negative for chills and fever. HENT: Negative for ear pain. Respiratory: Positive for cough. Negative for wheezing. Cardiovascular: Negative for chest pain. Gastrointestinal: Positive for diarrhea. Negative for nausea and vomiting. Genitourinary: Negative for dysuria. Musculoskeletal: Negative for arthralgias, neck pain and neck stiffness. Skin: Negative for wound. Neurological: Negative for dizziness. Psychiatric/Behavioral: Negative for agitation. Physical Exam: ED Triage Vitals [07/03/20 0327] Weight 57.2 kg (126 lb) Actual or estimated Height BP (!) 187/91 Pulse 79 Resp 18 Temp 36.6 C (97.9 F) Temp src SpO2 Measured on Physical Exam Vitals signs and nursing note reviewed. Constitutional: Appearance: Normal appearance. HENT: Head: Normocephalic and atraumatic. Mouth/Throat: Mouth: Mucous membranes are dry. Neck: Musculoskeletal: Normal range of motion. Cardiovascular: Rate and Rhythm: Normal rate and regular rhythm. Pulses: Normal pulses. Pulmonary: Effort: Pulmonary effort is normal. No respiratory distress. Breath sounds: No wheezing, rhonchi or rales. Abdominal: General: Bowel sounds are normal. There is no distension. Tenderness: There is no abdominal tenderness. There is no guarding. Musculoskeletal: Normal range of motion. Right lower leg: No edema. Left lower leg: No edema. Skin: General: Skin is warm and dry. Neurological: General: No focal deficit present. Mental Status: She is alert. Radiology: Hospital Encounter on 07/03/20 XR CHEST 1 VW COVID Narrative PROCEDURE: CHEST, SINGLE VIEW CLINICAL INDICATION: 85 years Female presenting with sob COMPARISON: Chest radiographs None FINDINGS: Lines/hardware: Left chest wall pacemaker with leads terminating in the right ventricle right atrium. Lungs: The lungs are clear. No focal consolidation, pleural effusion, or pneumothorax. Mediastinum: The cardiomediastinal silhouette is normal in size. Osseous structures: No acute bony abnormality. Impression No acute intrathoracic abnormality, specifically no radiographic findings to suggest COVID-19 pneumonia. Disclaimer: Generally, the findings on chest imaging in COVID-19 are not specific, and overlap with other infections, including influenza, H1N1, SARS and MERS. According to the Centers for Disease Control (CDC) and recent statement of the [employer], viral testing remains the only specific method of diagnosis. Confirmation with the viral test is required, even if radiologic findings are suggestive of COVID-[address] Preliminary Report Dictated by Resident: Alisa Crowder Lab Results (24h): Recent Results (from the past 24 hour(s)) TROPONIN I Collection Time: 07/03/20 3:36 AM Result Value Ref Range TROPONIN I 0.042 (H) <=0.034 ng/mL COMP. METABOLIC PANEL (69601) Collection Time: 07/03/20 3:36 AM Result Value Ref Range NA 141 135 - 145 mmol/L K 5.2 (H) 3.5 - 5.0 mmol/L CL 110 (H) 98 - 108 mmol/L CO2 TOTAL 20 (L) 23 - 31 mmol/L AGAP 11 2 - 16 BUN 82 (H) 7 - 23 mg/dL GLUCOSE 502 (HH) 70 - 110 mg/dL CREATININE 1.53 (H) 0.50 - 1.04 mg/dL TOTAL BILI 0.7 0.1 - 1.1 mg/dL CALCIUM 10.0 8.6 - 10.6 mg/dL T PROTEIN 8.6 (H) 6.3 - 8.2 g/dL ALBUMIN 4.5 3.5 - 5.0 g/dL ALK PHOS 114 34 - 122 U/L ALTv 19 5 - 35 U/L AST(SGOT) 28 13 - 40 U/L eGFR Calculation (Non-) 32.3 mL/min/1.73m2 eGFR Calculation () 39.2 mL/min/1.73m2 LIPASE, SERUM Collection Time: 07/03/20 3:36 AM Result Value Ref Range LIPASE 727 (H) 0 - 220 U/L CBC WITH DIFF Collection Time: 07/03/20 3:36 AM Result Value Ref Range WBC 11.75 (H) 4.30 - 11.10 10*3/L RBC 3.79 (L) 3.93 - 5.25 10*6/L HGB 12.1 11.6 - 15.0 g/dL HCT 36.4 35.7 - 45.2 % MCV 96.0 (H) 80.6 - 95.5 fL MCH 31.9 25.9 - 32.8 pg MCHC 33.2 31.6 - 35.1 g/dL RDW-SD 42.1 39.0 - 49.9 fL RDW-CV 11.9 (L) 12.0 - 15.5 % PLT 236 166 - 358 10*3/L MPV 11.5 9.5 - 12.9 fL NRBC/100 WBC 0.0 0.0 - 10.0 /100 WBCs NRBC x10^3 <0.01 10*3/L GRAN MAT (NEUT) % 91.0 % IMM GRAN % 0.70 % LYMPH % 3.8 % MONO % 4.3 % EOS % 0.0 % BASO % 0.2 % GRAN MAT x10^3(ANC) 10.69 (H) 1.88 - 7.09 10*3/uL IMM GRAN x10^3 0.08 (H) 0.00 - 0.06 10*3/uL LYMPH x10^3 0.45 (L) 1.32 - 3.29 10*3/uL MONO x10^3 0.51 0.33 - 0.92 10*3/uL EOS x10^3 <0.03 (L) 0.03 - 0.39 10*3/uL BASO x10^3 <0.03 0.01 - 0.07 10*3/uL N-TERMINAL PRO-BNP Collection Time: 07/03/20 3:36 AM Result Value Ref Range NT-proBNP 22,400 (H) <=450 pg/mL COVID-19 (ID NOW RAPID TESTING) Collection Time: 07/03/20 4:28 AM Specimen: NASOPHARYNGEAL SWAB Result Value Ref Range SARS-CoV-2 Rapid ID NOW Positive (A) Not Detected EKG: Paced rhythm, no stemi Orders and Treatments: Orders Placed This Encounter Procedures XR CHEST 1 VW TROPONIN I COMP. METABOLIC PANEL (28145) LIPASE, SERUM CBC WITH DIFF N-TERMINAL PRO-BNP O2 Per Protocol Orders Placed This Encounter Medications NaCl 0.9% (NS) bolus infusion 1,000 mL ondansetron (ZOFRAN (PF)) injection 4 mg ED COURSE patient presents for eval for diarrhea and dehydration for several days. Lives with her family andwas found to be covid positive at OSH over a week ago. No n/v. No fevers at home. Poor po intake.Normally walks around at home but since Friday has had decreased energy and needing help to ambulate. Has h/o dm, htn, lipids, OA, CAD, CHF and a pacemaker. VSS here in the EC. Lungs clear. Talking in full complete sentences. No pedal edema. EKG shows paced rhythm. Will screen for covid. Will check labs and CXR. Will give IV fluids. 0415 - labs show elevated troponin. Will give ASA. Labs also show hyperglycemia with glucose >500. Is receiving IV fluids and will give IV insulin. Has EDU on labs as well as elevated lipase. BNP is elevated but patient has no evidence of volume over load or CHF exacerbation on exam. COVID positive. Will admit for continued management. MDM: Coding Diagnosis/Impression: ICD-10-CM ICD-9-CM 1. Chest pain, unspecified type R07.9 786.50 2. EDU 3. Hyperglycemia 4. Elevated troponin Disposition/Condition: ED Disposition None Discharge Medications: Patient's Medications No medications on file Follow-up: Electronically signed by: Nahed Fiore DO 07/03/2020 3:45 AM documented in this encounter Miscellaneous Notes Nursing Note - Milena Bradford RN - 07/06/2020 1:56 PM CDTSpoke with daughter listed and informed her of discharge and educated on discharge orders. EPCIONTCMilena Garcia RN - 07/06/2020 1:51 PM CDT Problem: Discharge Planning Goal: Absence of venous thromboembolism Outcome: Adequate for discharge Goal: Adequate for discharge Outcome: Adequate for discharge Goal: Effective communication Outcome: Adequate for discharge Problem: Pain Goal: Control of pain at or below patient's documented comfort goal Outcome: Adequate for discharge Goal: Reduction in pain sensation Outcome: Adequate for discharge Problem: Falls, Risk of Goal: Absence of falls Outcome: Adequate for discharge Problem: Infection Risk Goal: Absence of infection Outcome: Adequate for discharge Problem: Glucose control Goal: Glucose level within specified parameters Outcome: Adequate for discharge Problem: Respiratory Function - Impaired Goal: Able to cough effectively Outcome: Adequate for discharge Goal: Adequate oxygenation Outcome: Adequate for discharge Goal: Adequate work of breathing Outcome: Adequate for discharge EPCIONTCZainab Holliday RN - 07/05/2020 7:15 PM CDT Problem: Discharge Planning Goal: Absence of venous thromboembolism Outcome: Progressing as expected Goal: Adequate for discharge Outcome: Progressing as expected Goal: Effective communication Outcome: Progressing as expected Problem: Pain Goal: Control of pain at or below patient's documented comfort goal Outcome: Progressing as expected Goal: Reduction in pain sensation Outcome: Progressing as expected Problem: Falls, Risk of Goal: Absence of falls Outcome: Progressing as expected Problem: Infection Risk Goal: Absence of infection Outcome: Progressing as expected Problem: Glucose control Goal: Glucose level within specified parameters Outcome: Progressing as expected Problem: Respiratory Function - Impaired Goal: Able to cough effectively Outcome: Progressing as expected Goal: Adequate oxygenation Outcome: Progressing as expected Goal: Adequate work of breathing Outcome: Progressing as expected Zainab Rodriguez RN - 07/03/2020 6:50 PM CDT Problem: Discharge Planning Goal: Absence of venous thromboembolism Outcome: Progressing as expected Goal: Adequate for discharge Outcome: Progressing as expected Goal: Effective communication Outcome: Progressing as expected Problem: Pain Goal: Control of pain at or below patient's documented comfort goal Outcome: Progressing as expected Goal: Reduction in pain sensation Outcome: Progressing as expected Problem: Falls, Risk of Goal: Absence of falls Outcome: Progressing as expected Problem: Infection Risk Goal: Absence of infection Outcome: Progressing as expected Problem: Glucose control Goal: Glucose level within specified parameters Outcome: Progressing as expected Problem: Respiratory Function - Impaired Goal: Able to cough effectively Outcome: Progressing as expected Goal: Adequate oxygenation Outcome: Progressing as expected Goal: Adequate work of breathing Outcome: Progressing as expected D Nurse Note - Brea Oneal RN - 07/03/2020 5:56 AM CDTCode word: 1934 D Nurse Hawa - Brea Oneal RN - 07/03/2020 5:45 AM CDTPatient admitted to 2106 for diagnosis of chest pain Patient agrees to admission, discussed plan of care with patient and family. Patient is awake, alert, oriented, resp reg unlabored, color appropriate for race, PIV intact No adverse reaction to medications administered while in ED Belongings with patient to unit Report to OMAR Saldana D Nurse Hawa - Brea Oneal RN - 07/03/2020 5:44 AM CDTNurse Report Report given to OMAR Saldana. Chief complaint, assessment findings and orders reviewed. Plan of care discussed with both nurses. BREA ONEAL RN D Nurse Note - Brea Oneal RN - 07/03/2020 5:40 AM CDTHospitalist at bedside D Nurse Hawa - Brea Oneal RN - 07/03/2020 3:58 AM CDTPatient's daughter Zainab Oneal: [phone] documented in this encounter Plan of Treatment Name Type Priority Associated Diagnoses Date/Ti me BLOOD CULTURE SCREEN LAB Routine 020 10:18 AM CDT BLOOD CULTURE SCREEN LAB Routine 10:07 AM CDT Name Type Priority Associated Diagnoses Order S chedule FECAL LEUKOCYTES LAB Routine ONCE for 1 Occurrences starting 2019 until 0 FECES CULTURE LAB Routine ONCE for 1 Occ urrences starting 2019 until 0 OVA AND PARASITE EXAM LAB Routine ONCE f or 1 Occurrences FECAL starting 2019 until 0 CLOSTRIDIUM DIFFICILE LAB Routine ONCE f or 1 Occurrences TOXIN starting 2019 until 0 FECAL PATHOGENS BY PCR LAB Routine ONCE for 1 Occurrences starting 2019 until 0 LEGIONELLA URINARY ANTIGEN LAB Routine O NCE for 1 Occurrences TST starting 2019 until 0 PNEUMOCOCCAL ANTIGEN LAB Routine ONCE fo r 1 Occurrences starting 2019 until 0 CREATININE, URINE RANDOM LAB Routine ONC E for 1 Occurrences starting 2019 until 0 PROTEIN CREAT RATIO URINE LAB Routine ON CE for 1 Occurrences RANDOM starting 2019 until 0 SODIUM, URINE RANDOM LAB Routine ONCE fo r 1 Occurrences starting 2019 until 0 URINALYSIS LAB Routine ONCE for 1 Occu rrences starting 2019 until 0 URINALYSIS LAB Routine ONCE for 1 Occu rrences starting 2019 until 0 URINE CULTURE LAB Routine ONCE for 1 Occ urrences starting 2019 until 0 Health Maintenance Due Date Last Done Comments EYE EXAM 1946 LDL-C 1945 URINE MICROALBUMIN 1946 Depression Screening 1948 FOOT EXAM 1954 DTaP,Tdap,and Td Vaccines (1 - Tdap) 1955 Zoster Recombinant Vaccine (SHINGRIX) 1986 (1 of 2) Medicare Wellness Visit 2001 Osteoporosis Screening 2001 PNEUMOCOCCAL VACCINES 65+ (1 of 1 - 2001 PPSV23) INFLUENZA VACCINE (#1) 2020 HgA1C 01/03/2021 07/03/2020 CREATININE (SERUM) 07/05/2021 07/05/2020, 07/04/2020, 07/03/2020 documented as of this encounter Procedures Procedure Name Priority Date/Time Associated Comments Diagnosis POCT GLUCOSE Routine 07/06/2020 11:28 Results for this (AUTOMATED) AM CDT procedure are i n the results section. POCT GLUCOSE Routine 07/06/2020 8:23 Results for this (AUTOMATED) AM CDT procedure are i n the results section. N-TERMINAL PRO-BNP Routine 07/06/2020 4:16 Resul ts for this AM CDT procedure are i n the results section. CBC WITH DIFF Routine 07/06/2020 4:16 Results fo r this AM CDT procedure are i n the results section. BASIC METABOLIC PANEL Routine 07/06/2020 4:16 Re sults for this (NA, K, CL, CO2, AM CDT procedure a re in GLUCOSE, BUN, the results CREATININE, CA) section. TROPONIN I Routine 07/06/2020 4:16 Results for this AM CDT procedure are i n the results section. POCT GLUCOSE Routine 07/05/2020 8:25 Results for this (AUTOMATED) PM CDT procedure are i n the results section. POCT GLUCOSE Routine 07/05/2020 4:05 Results for this (AUTOMATED) PM CDT procedure are i n the results section. POCT GLUCOSE Routine 07/05/2020 12:06 Results for this (AUTOMATED) PM CDT procedure are i n the results section. CBC WITH DIFF Routine 07/05/2020 9:32 Results fo r this AM CDT procedure are i n the results section. N-TERMINAL PRO-BNP Routine 07/05/2020 9:31 Resul ts for this AM CDT procedure are i n the results section. BASIC METABOLIC PANEL Routine 07/05/2020 9:31 Re sults for this (NA, K, CL, CO2, AM CDT procedure a re in GLUCOSE, BUN, the results CREATININE, CA) section. POCT GLUCOSE Routine 07/05/2020 7:59 Results for this (AUTOMATED) AM CDT procedure are i n the results section. POCT GLUCOSE Routine 07/04/2020 11:52 Results for this (AUTOMATED) AM CDT procedure are i n the results section. BLOOD CULTURE SCREEN Routine 07/04/2020 10:18 AM CDT BLOOD CULTURE SCREEN Routine 07/04/2020 10:07 AM CDT BILATERAL VENOUS Routine 07/04/2020 9:06 DUPLEX LOWER EXTREMITY AM CDT BY VASCULAR LAB POCT GLUCOSE Routine 07/04/2020 7:53 Results for this (AUTOMATED) AM CDT procedure are i n the results section. PROCALCITONIN Routine 07/04/2020 4:28 Results fo r this AM CDT procedure are i n the results section. D-DIMER Routine 07/04/2020 4:28 Results for this AM CDT procedure are i n the results section. LACTATE DEHYDROGENASE Routine 07/04/2020 4:28 Re sults for this AM CDT procedure are i n the results section. N-TERMINAL PRO-BNP Add-on 07/04/2020 4:27 Resul ts for this AM CDT procedure are i n the results section. COMP. METABOLIC PANEL Routine 07/04/2020 4:27 Re sults for this (21253) AM CDT procedure are i n the results section. TROPONIN I Routine 07/04/2020 4:27 Results for this AM CDT procedure are i n the results section. C-REACTIVE PROTEIN Routine 07/04/2020 4:27 Resul ts for this AM CDT procedure are i n the results section. LIPASE Routine 07/04/2020 4:27 Results for this AM CDT procedure are i n the results section. CBC WITH DIFF Routine 07/04/2020 4:26 Results fo r this AM CDT procedure are i n the results section. POCT GLUCOSE Routine 07/04/2020 4:23 Results for this (AUTOMATED) AM CDT procedure are i n the results section. TROPONIN I Routine 07/03/2020 5:48 Results for this PM CDT procedure are i n the results section. POCT GLUCOSE Routine 07/03/2020 4:20 Results for this (AUTOMATED) PM CDT procedure are i n the results section. ECHO ROUTINE W/DOPPLER Routine 07/03/2020 11:36 Chest pain, COLOR AM CDT unspecified type POCT GLUCOSE Routine 07/03/2020 11:32 Results for this (AUTOMATED) AM CDT procedure are i n the results section. TROPONIN I Routine 07/03/2020 10:21 Results for this AM CDT procedure are i n the results section. POCT GLUCOSE Routine 07/03/2020 7:56 Results for this (AUTOMATED) AM CDT procedure are i n the results section. CT ABDOMEN PELVIS WO TAL 07/03/2020 6:09 Diarrhea, Res ults for this CONTRAST AM CDT unspecified type procedure a re in the results section. POCT GLUCOSE Routine 07/03/2020 5:58 Results for this (AUTOMATED) AM CDT procedure are i n the results section. COVID-19 (ID NOW RAPID STAT 07/03/2020 4:28 Chest pain, R esults for this TESTING) AM CDT unspecified type procedure a re in the results section. XR CHEST 1 VW COVID STAT 07/03/2020 3:52 Chest pain, Resu lts for this AM CDT unspecified type procedure a re in the results section. N-TERMINAL PRO-BNP STAT 07/03/2020 3:36 Chest pain, Resul ts for this AM CDT unspecified type procedure a re in the results section. GLYCOSYLATED Add-on 07/03/2020 3:36 Results for this HEMOGLOBIN (A1C) AM CDT procedure a re in the results section. CBC WITH DIFF STAT 07/03/2020 3:36 Chest pain, Results fo r this AM CDT unspecified type procedure a re in the results section. COMP. METABOLIC PANEL STAT 07/03/2020 3:36 Chest pain, Re sults for this (03412) AM CDT unspecified type procedure a re in the results section. THYROID STIMULATING Add-on 07/03/2020 3:36 Resu lts for this HORMONE AM CDT procedure are i n the results section. TROPONIN I STAT 07/03/2020 3:36 Chest pain, Results for this AM CDT unspecified type procedure a re in the results section. FERRITIN SERUM Add-on 07/03/2020 3:36 Results f or this AM CDT procedure are i n the results section. LIPASE STAT 07/03/2020 3:36 Chest pain, Results for this AM CDT unspecified type procedure a re in the results section. EKG-12 LEAD STAT 07/03/2020 3:33 AM CDT EKG-12 LEAD Routine 07/03/2020 3:30 AM CDT NOTICE OF PRIVACY Routine 07/03/2020 3:22 PRACTICES AM CDT CONSENT/REFUSAL FOR Routine 07/03/2020 3:21 DIAGNOSIS AND AM CDT TREATMENT documented in this encounter Results POCT GLUCOSE (AUTOMATED) (07/06/2020 11:28 AM CDT) Pathologist Sig nature POCT GLU 166 (H) 70 - 110 mg/dL [facility] Specimen Blood Performing Organization Address [facility] [place] Phone Number [facility] CLIA: [id number] [place] [address] [address] POCT GLUCOSE (AUTOMATED) (07/06/2020 8:23 AM CDT) Pathologist Sig nature POCT GLU 148 (H) 70 - 110 mg/dL [facility] Specimen Blood Performing Organization Address [facility] [place] Phone Number [facility] CLIA: [id number] [place] [address] TROPONIN I (07/06/2020 4:16 AM CDT) [facility] [employer] TROPONIN I 0.036 (H) <=0.034 ng/mL [facility] Specimen Blood - VENOUS Narrative Performed At Equal or Less than 0.034 ng/ml---Normal [facility] Note: Cardiac troponin begins to rise 3-4 hours after the onset of ischemia. Repeat in 4-6 hours if the sample was drawn within 3-4 hours of the onset of the symptom and found normal. Between 0.035 and 0.120 ng/mL--- Borderline. Questionable myocardial injury or necros is Note: Serial measurement may be necessary to confirm or exclude the diagnosis of myocardial injury or necrosis; Clinical correlation (symptoms, EKGs, imaging studies, and others) required; Repeat in 4-6 hours if clinically indicated. Equal or Higher than 0.121 ng/mL---Abnormal. Myocardial Injury or Necrosis Likely Biotin has been reported to cause a negative bias, interpret results relative to patient's use of biotin. Performing Organization Address [facility] [place] Phone Number [facility] CLIA: [id number] [place] [address] N-TERMINAL PRO-BNP (07/06/2020 4:16 AM CDT) Pathologist [facility] [employer] NT-proBNP 13,400 (H) <=450 pg/mL [facility] Specimen Blood - VENOUS Narrative Performed At Biotin has been reported to cause a negative [facility] bias, interpret results relative to patient's use of biotin. Performing Organization Address [facility] [place] Phone Number [facility] CLIA: [id number] [place] [address] BASIC METABOLIC PANEL (NA, K, CL, CO2, GLUCOSE, BUN, CREATININE, CA) (07/06/2020 4:16 AM CDT) NA 146 (H) 135 - 145 [facility] mmol/L [facility] K 4.6 3.5 - 5.0 [facility] mmol/L [facility] CL 123 (H) 98 - 108 mmol/L [facility] CO2 TOTAL 16 (L) 23 - 31 mmol/L [facility] AGAP 7 2 - 16 [facility] BUN 44 (H) 7 - 23 mg/dL [facility] GLUCOSE 130 (H) 70 - 110 mg/dL [facility] CREATININE 1.16 (H) 0.50 - 1.04 [facility] mg/dL [facility] CALCIUM 9.0 8.6 - 10.6 [facility] mg/dL [facility] eGFR Calculation 44.5 mL/min/1.73m2 [facility] ([facility]ORATORY [place]) eGFR Calculation 53.9 mL/min/1.73m2 [facility] () [facility] Specimen Blood - VENOUS Narrative Performed At [facility] Glomerular Filtration Rate (GFR) [facility] and Staging of Kidney Disease* + + +- + | GFR (mL/min/1.73 m2) | With Kidney Damage | Without Kidney Damage + + +- + | >90 | Stage one | Normal + + +- + | 60-89 | Stage two | Decreased GFR + + +- + | 30-59 | Stage three | Stage three + + +- + | 15-29 | Stage four | Stage four + + +- + | <15 (or dialysis) | Stage five | Stage five + + +- + *Each stage assumes the associated GFR level has been in effect for at least three months. Stages 1 to 5, with or without kidney disease, indicate chronic kidney disease. Notes: Determination of stages one and two (with eGFR >59mL/min/1.73 m2) requires estimation of kidney damage for at least three months as defined by structural or functional abnormalities of the kidney, manifested by either: Pathological abnormalities or Markers of kidney damage (including abnormalities in the composition of the blood or urine or abnormalities in imaging tests). Performing Organization Address City/State/Zipcode Phone Number [facility] CLIA: [id number] [place] [address] CBC WITH DIFF (07/06/2020 4:16 AM CDT) Pathologist Sig nature WBC 15.62 (H) 4.30 - 11.10 [facility] 10*3/L [facility] RBC 3.31 (L) 3.93 - 5.25 [facility] 10*6/L [facility] HGB 10.6 (L) 11.6 - 15.0 [facility] g/dL [facility] HCT 32.5 (L) 35.7 - 45.2 % [facility] MCV 98.2 (H) 80.6 - 95.5 fL [facility] MCH 32.0 25.9 - 32.8 pg [facility] MCHC 32.6 31.6 - 35.1 [facility] g/dL [facility] RDW-SD 45.1 39.0 - 49.9 fL [facility] RDW-CV 12.6 12.0 - 15.5 % [facility] PLT 177 166 - 358 [facility] 10*3/L [facility] MPV 12.2 9.5 - 12.9 fL [facility] NRBC/100 WBC 0.0 0.0 - 10.0 /100 [facility] WBCs [facility] NRBC x10^3 <0.01 10*3/L [facility] GRAN MAT (NEUT) % 91.2 % [facility] IMM GRAN % 1.10 % [facility] LYMPH % 4.3 % [facility] MONO % 3.2 % [facility] EOS % 0.1 % [facility] BASO % 0.1 % [facility] GRAN MAT x10^3(ANC) 14.26 (H) 1.88 - 7.09 [facility] 10*3/uL [facility] IMM GRAN x10^3 0.17 (H) 0.00 - 0.06 [facility] 10*3/uL [facility] LYMPH x10^3 0.67 (L) 1.32 - 3.29 [facility] 10*3/uL HOSPITAL LAB[facility]ATORY MONO x10^3 0.50 0.33 - 0.92 [facility] 10*3/uL HOSPITAL LAB[facility]ORY EOS x10^3 <0.03 (L) 0.03 - 0.39 [facility] 10*3/uL [facility] BASO x10^3 <0.03 0.01 - 0.07 [facility] 10*3/uL [facility] Specimen Blood - VENOUS Performing Organization Address [facility] Phone Number [facility] CLIA: [id number] [place] [address] POCT GLUCOSE (AUTOMATED) (07/05/2020 8:25 PM CDT) Pathologist Sig nature POCT GLU 118 (H) 70 - 110 mg/dL [facility] Specimen Blood Performing Organization Address [facility] [place] Phone Number [facility] CLIA: [id number] [place] [address] POCT GLUCOSE (AUTOMATED) (07/05/2020 4:05 PM CDT) Pathologist Sig nature POCT GLU 133 (H) 70 - 110 mg/dL [facility] Specimen Blood Performing Organization Address [facility] [place] Phone Number [facility] CLIA: [id number] [place], [place] [address] LABORATORY [address] POCT GLUCOSE (AUTOMATED) (07/05/2020 12:06 PM CDT) Pathologist Sig nature POCT GLU 125 (H) 70 - 110 mg/dL [facility] Specimen Blood Performing Organization Address [facility] [place] Phone Number [facility] CLIA: [id number] [place] [id number] LABORATORY [address] CBC WITH DIFF (07/05/2020 9:32 AM CDT) Pathologist Sig nature WBC 16.55 (H) 4.30 - 11.10 [facility] 10*3/L HOSPITAL LABORATORY RBC 3.72 (L) 3.93 - 5.25 [facility] 10*6/L HOSPITAL LAB[facility]ATORY HGB 11.9 11.6 - 15.0 [facility] g/dL HOSPITAL LAB[facility]ATORY HCT 37.2 35.7 - 45.2 % [facility] MCV 100.0 (H) 80.6 - 95.5 fL [facility] MCH 32.0 25.9 - 32.8 pg [facility] MCHC 32.0 31.6 - 35.1 [facility] g/dL HOSPITAL LABORATORY RDW-SD 45.7 39.0 - 49.9 fL [facility] RDW-CV 12.6 12.0 - 15.5 % [facility] PLT 181 166 - 358 [facility] 10*3/L [facility] MPV 11.6 9.5 - 12.9 fL [facility] NRBC/100 WBC 0.0 0.0 - 10.0 /100 [facility] WBCs [facility] NRBC x10^3 <0.01 10*3/L [facility] GRAN MAT (NEUT) % 91.0 % [facility] IMM GRAN % 1.20 % [facility] LYMPH % 4.4 % [facility] MONO % 3.1 % [facility] EOS % 0.1 % [facility] BASO % 0.2 % [facility] GRAN MAT x10^3(ANC) 15.04 (H) 1.88 - 7.09 [facility] 10*3/uL HOSPITAL LABORATORY IMM GRAN x10^3 0.20 (H) 0.00 - 0.06 [facility] 10*3/uL HOSPITAL LAB[facility]ATORY LYMPH x10^3 0.73 (L) 1.32 - 3.29 [facility] 10*3/uL HOSPITAL LABORATORY MONO x10^3 0.52 0.33 - 0.92 [facility] 10*3/uL HOSPITAL LABORATORY EOS x10^3 <0.03 (L) 0.03 - 0.39 [facility] 10*3/uL HOSPITAL LAB[facility]ATORY BASO x10^3 0.04 0.01 - 0.07 [facility] 10*3/uL HOSPITAL LAB[facility]ORY Specimen Blood - ARM, RIGHT Performing Organization Address City/State/Zipcode Phone Number [facility] CLIA: [id number] [place] [address] [address] N-TERMINAL PRO-BNP (07/05/2020 9:31 AM CDT) Pathologist Sig nature NT-proBNP 18,000 (H) <=450 pg/mL [facility] Specimen Blood - ARM, RIGHT Narrative Performed At Biotin has been reported to cause a negative [facility] bias, interpret results relative to patient's use of biotin. Performing Organization Address City/State/Zipcode Phone Number [facility] CLIA: [id number] [place] [address] LAB[address]ATORY [address] [facility] BASIC METABOLIC PANEL (NA, K, CL, CO2, GLUCOSE, BUN, CREATININE, CA) (07/05/2020 9:31 AM CDT) NA 145 135 - 145 [facility] mmol/L [facility] K 4.6 3.5 - 5.0 [facility] mmol/L [facility] CL 119 (H) 98 - 108 mmol/L [facility] CO2 TOTAL 19 (L) 23 - 31 mmol/L [facility] AGAP 7 2 - 16 [facility] BUN 42 (H) 7 - 23 mg/dL [facility] GLUCOSE 135 (H) 70 - 110 mg/dL [facility] CREATININE 1.09 (H) 0.50 - 1.04 [facility] mg/dL [facility] CALCIUM 9.2 8.6 - 10.6 [facility] mg/dL [facility] eGFR Calculation 47.8 mL/min/1.73m2 [facility] ([facility] Romanian) eGFR Calculation 58.0 mL/min/1.73m2 [facility] () [facility] Specimen Blood - ARM, RIGHT Narrative Performed At Association of Glomerular Filtration Rate (GFR) [facility] and Staging of Kidney Disease* + + +- + | GFR (mL/min/1.73 m2) | With Kidney Damage | Without Kidney Damage + + +- + | >90 | Stage one | Normal + + +- + | 60-89 | Stage two | Decreased GFR + + +- + | 30-59 | Stage three | Stage three + + +- + | 15-29 | Stage four | Stage four + + +- + | <15 (or dialysis) | Stage five | Stage five + + +- + *Each stage assumes the associated GFR level has been in effect for at least three months. Stages 1 to 5, with or without kidney disease, indicate chronic kidney disease. Notes: Determination of stages one and two (with eGFR >59mL/min/1.73 m2) requires estimation of kidney damage for at least three months as defined by structural or functional abnormalities of the kidney, manifested by either: Pathological abnormalities or Markers of kidney damage (including abnormalities in the composition of the blood or urine or abnormalities in imaging tests). Performing Organization Address City/[facility] Phone Number [facility] CLIA: [id number] [place] [address] POCT GLUCOSE (AUTOMATED) (07/05/2020 7:59 AM CDT) Pathologist Sig nature POCT GLU 126 (H) 70 - 110 mg/dL [facility] Specimen Blood Performing Organization Address [facility] [place] Phone Number [facility] CLIA: [id number] [place] [address] POCT GLUCOSE (AUTOMATED) (07/04/2020 11:52 AM CDT) Pathologist Sig nature POCT GLU 171 (H) 70 - 110 mg/dL [facility] Specimen Blood Performing Organization Address [facility] [place] Phone Number [facility] CLIA: [id number] [place] [address] POCT GLUCOSE (AUTOMATED) (07/04/2020 7:53 AM CDT) Pathologist Sig nature POCT GLU 120 (H) 70 - 110 mg/dL [facility] Specimen Blood Performing Organization Address [facility] [place] Phone Number [facility] CLIA: [id number] [place] [address] D-DIMER (07/04/2020 4:28 AM CDT) Pathologist Sig nature D-DIMER 3.95 (H) <0.41 g/mL (FEU) [facility] Specimen Blood - LINE, VENOUS Narrative Performed At This test may be used in conjunction with a [facility] clinical pretest probability (PTP) assessment model to exclude venous thromboembolism (VTE) in patients suspected of deep venous thrombosis (DVT) and pulmonary embolism (PE) A D-Dimer value less than 0.50 g/ml (FEU) has a negative predicative value of 96 to 100% (95% CI)and 97 to 100% (95% CI) as an aid in the diagnosis of deep vein thrombosis (DVT) and pulmonary embolism when there is low or moderate pretest probability of PE or DVT. D-Dimer values are expressed in initial fibrinogen equivalent units (FEU)" The assay results should be used with other information, including the clinical context, in forming a diagnosis. Performing Organization Address City/State/Zipcode Phone Number [facility] CLIA: [id number] [place] [address] PROCALCITONIN (07/04/2020 4:28 AM CDT) Pathologist Sig nature Procalcitonin 0.05 <0.07 ng/mL [facility] Specimen Blood - LINE, VENOUS Narrative Performed At INTERPRETATION OF PROCALCITONIN RESULTS IN ADULTS >= 1 8 [facility] YEARS OF AGE Initiation and discontinuation of antibiotics on patie nts with suspected or confirmed Lower Respiratory Tract Infection in Adults >= 18 years of age. + + + +----- ------ + |Procalcitonin |Interpretation |Antibiotic |Considerations |ng/mL | |recommend ation | + + + +----- ------ + | <0.1 | Bacterial | Strongly | | | infection very | discouraged | Overruling: | | unlikely | | Clinically unstable + + + + H igh risk for adverse | <0.25 | Bacterial | Discouraged | outcome | | infection | | SEE IMPORTANT NOTE | | unlikely | | + + + +----- ------ + | >=0.25 | Bacterial | Encouraged | | | infection | | | | likely | | Consider treatment failure + + + + if l evels does not decrease | >0.5 | Bacterial | Strongly | appropriately | | infection very | encouraged | | | likely | | + + + +----- ------ + Discontinuation of antibiotics in high-acuity patients with suspected or confirmed sepsis in Adults >= 18 years of age. + + + +----- ------ + |Procalcitonin |Interpretation |Antibiotic |Considerations |ng/mL | |recommend ation | + + + +----- ------ + | <0.25 | Bacterial | Strongly | | | infection very | discouraged | Overruling: | | unlikely | | Clinically unstable + + + + H igh risk for adverse | <0.5 or drop | Bacterial | Discouraged | outcome | >80% from | infection | | SEE IMPORTANT NOTE | highest PCT | unlikely | | | level | | | + + + +----- ------ + | >=0.5 | Bacterial | Encouraged | | | infection | | | | likely | | Consider treatment failure + + + + if l evels does not decrease | >1.0 | Bacterial | Strongly | appropriately | | infection very | encouraged | | | likely | | + + + +----- ------ + Percentage of drop of Procalcitonin calculation for Discontinuation of antibiotics in high-acuity patients with suspected or confirmed sepsis in Adults >= 18 years of age. Procalcitonin highest{}-Procalcitonin current{} Delta Procalcitonin = x100% Procalcitonin current {} IMPORTANT NOTE: Procalcitonin may be elevated without bacterial infection by physiologic stress related to t rauma, larson, chronic dialysis, metastatic cancer, surgery in the past seven days, malaria, some fungal infections, and some forms of vasculitis. The interpretation algorithm may not apply to patients with immunosuppression (equivalent o f >10 mg of prednisone daily), HIV with CD4 cell count < 350 cells/mm3, active malignancy on systemic chemotherapy, solid organ transplant or [facility], or hospital acquired pneumonia. Additionally, some cli nical trials of procalcitonin have excluded patients with sh ock requiring vasopressor use, acute respiratory failure requiring mechanical ventilation, or those with known lung abscess/empyema. For further information please refer to: [email or web address] Performing Organization Address City/[facility] Phone Number [facility] CLIA: [id number] [place] [address] [place] [address] LACTATE DEHYDROGENASE (07/04/2020 4:28 AM CDT) Pathologist [facility] LDH 640 (H) 300 - 600 U/L [facility] Specimen Blood - LINE, VENOUS Performing Organization Address [facility] Phone Number [facility] CLIA: [id number] [place] [address] [place] [address] N-TERMINAL PRO-BNP (07/04/2020 4:27 AM CDT) Pathologist [facility] NT-proBNP 15,700 (H) <=450 pg/mL [facility] Specimen Blood - LINE, VENOUS Narrative Performed At [facility] has been reported to cause a negative [facility] bias, interpret results relative to patient's use of biotin. Performing Organization Address [facility] Phone Number [facility] CLIA: [id number] [place] [address] [place] [address] COMP. METABOLIC PANEL (43750) (07/04/2020 4:27 AM CDT) NA 146 (H) 135 - 145 [facility] mmol/L [facility] K 4.5 3.5 - 5.0 [facility] mmol/L [facility] CL 122 (H) 98 - 108 mmol/L [facility] CO2 TOTAL 18 (L) 23 - 31 mmol/L [facility] AGAP 6 2 - 16 [facility] BUN 59 (H) 7 - 23 mg/dL [facility] GLUCOSE 124 (H) 70 - 110 mg/dL [facility] CREATININE 1.19 (H) 0.50 - 1.04 [facility] mg/dL [facility] TOTAL BILI 0.4 0.1 - 1.1 mg/dL [facility] CALCIUM 9.0 8.6 - 10.6 [facility] mg/dL [facility] T PROTEIN 7.1 6.3 - 8.2 g/dL [facility] ALBUMIN 3.5 3.5 - 5.0 g/dL [facility] ALK PHOS 84 34 - 122 U/L [facility] ALTv 14 5 - 35 U/L [facility] AST(SGOT) 40 13 - 40 U/L [facility] eGFR Calculation 43.2 mL/min/1.73m2 [facility] ([facility] Romanian) eGFR Calculation 52.4 mL/min/1.73m2 [facility] () [facility] Specimen Blood - LINE, VENOUS Narrative Performed At Association of Glomerular Filtration Rate (GFR) [facility] and Staging of Kidney Disease* + + +- + | GFR (mL/min/1.73 m2) | With Kidney Damage | Without Kidney Damage + + +- + | >90 | Stage one | Normal + + +- + | 60-89 | Stage two | Decreased GFR + + +- + | 30-59 | Stage three | Stage three + + +- + | 15-29 | Stage four | Stage four + + +- + | <15 (or dialysis) | Stage five | Stage five + + +- + *Each stage assumes the associated GFR level has been in effect for at least three months. Stages 1 to 5, with or without kidney disease, indicate chronic kidney disease. Notes: Determination of stages one and two (with eGFR >59mL/min/1.73 m2) requires estimation of kidney damage for at least three months as defined by structural or functional abnormalities of the kidney, manifested by either: Pathological abnormalities or Markers of kidney damage (including abnormalities in the composition of the blood or urine or abnormalities in imaging tests). Performing Organization Address [facility] Phone Number [facility] CLIA: [id number] [place] [address] LIPASE (07/04/2020 4:27 AM CDT) Pathologist Sig nature LIPASE 331 (H) 0 - 220 U/L [facility] Specimen Blood - LINE, VENOUS Performing Organization Address [facility] [place] [facility] Phone Number [facility] CLIA: [id number] [place] [address] C-REACTIVE PROTEIN (07/04/2020 4:27 AM CDT) Pathologist Sig nature CRP 6.8 (H) <0.8 mg/dL [facility] SERVICES Specimen Blood - LINE, VENOUS Performing Organization Address [facility] Phone Number [facility] CLIA: [id number] [place] [address] [place] [address] TROPONIN I (07/04/2020 4:27 AM CDT) Pathologist Sig nature TROPONIN I 0.057 (H) <=0.034 ng/mL [facility] Specimen Blood - LINE, VENOUS Narrative Performed At Equal or Less than 0.034 ng/ml---Normal [facility] Note: Cardiac troponin begins to rise 3-4 hours after the onset of ischemia. Repeat in 4-6 hours if the sample was drawn within 3-4 hours of the onset of the symptom and found normal. Between 0.035 and 0.120 ng/mL--- Borderline. Questionable myocardial injury or necros is Note: Serial measurement may be necessary to confirm or exclude the diagnosis of myocardial injury or necrosis; Clinical correlation (symptoms, EKGs, imaging studies, and others) required; Repeat in 4-6 hours if clinically indicated. Equal or Higher than 0.121 ng/mL---Abnormal. Myocardial Injury or Necrosis Likely Biotin has been reported to cause a negative bias, interpret results relative to patient's use of biotin. Performing Organization Address [facility] Phone Number [facility] CLIA: [id number] [place], [place] [id number] LABORATORY [address] CBC WITH DIFF (07/04/2020 4:26 AM CDT) Pathologist [facility] nature WBC 20.65 (H) 4.30 - 11.10 [facility] 10*3/L [facility] RBC 3.46 (L) 3.93 - 5.25 [facility] 10*6/L [facility] HGB 11.1 (L) 11.6 - 15.0 [facility] g/dL [facility] HCT 34.9 (L) 35.7 - 45.2 % [facility] MCV 100.9 (H) 80.6 - 95.5 fL [facility] MCH 32.1 25.9 - 32.8 pg [facility] MCHC 31.8 31.6 - 35.1 [facility] g/dL [facility] RDW-SD 46.7 39.0 - 49.9 fL [facility] RDW-CV 12.7 12.0 - 15.5 % [facility] PLT 188 166 - 358 [facility] 10*3/L [facility] MPV 11.7 9.5 - 12.9 fL [facility] NRBC/100 WBC 0.0 0.0 - 10.0 /100 [facility] WBCs [facility] NRBC x10^3 <0.01 10*3/L [facility] GRAN MAT (NEUT) % 90.5 % [facility] IMM GRAN % 1.50 % [facility] LYMPH % 3.5 % [facility] MONO % 4.4 % [facility] EOS % 0.0 % [facility] BASO % 0.1 % [facility] GRAN MAT x10^3(ANC) 18.66 (H) 1.88 - 7.09 [facility] 10*3/uL [facility] IMM GRAN x10^3 0.32 (H) 0.00 - 0.06 [facility] 10*3/uL [facility] LYMPH x10^3 0.73 (L) 1.32 - 3.29 [facility] 10*3/uL HOSPITAL LABORATORY MONO x10^3 0.91 0.33 - 0.92 [facility] 10*3/uL HOSPITAL LABORATORY EOS x10^3 <0.03 (L) 0.03 - 0.39 [facility] 10*3/uL HOSPITAL LABORATORY BASO x10^3 0.03 0.01 - 0.07 [facility] 10*3/uL HOSPITAL LABORATORY Specimen Blood - LINE, VENOUS Performing Organization Address [facility] [place] Phone Number [facility] CLIA: [id number] [place] [address] POCT GLUCOSE (AUTOMATED) (07/04/2020 4:23 AM CDT) Pathologist Sig nature POCT GLU 128 (H) 70 - 110 mg/dL [facility] Specimen Blood Performing Organization Address [facility] [place] Phone Number [facility] CLIA: [id number] [place] [address] TROPONIN I (07/03/2020 5:48 PM CDT) Pathologist Sig nature TROPONIN I 0.049 (H) <=0.034 ng/mL [facility] Specimen Blood - ARM, RIGHT Narrative Performed At Equal or Less than 0.034 ng/ml---Normal [facility] Note: Cardiac troponin begins to rise 3-4 hours after the onset of ischemia. Repeat in 4-6 hours if the sample was drawn within 3-4 hours of the onset of the symptom and found normal. Between 0.035 and 0.120 ng/mL--- Borderline. Questionable myocardial injury or necros is Note: Serial measurement may be necessary to confirm or exclude the diagnosis of myocardial injury or necrosis; Clinical correlation (symptoms, EKGs, imaging studies, and others) required; Repeat in 4-6 hours if clinically indicated. Equal or Higher than 0.121 ng/mL---Abnormal. Myocardial Injury or Necrosis Likely Biotin has been reported to cause a negative bias, interpret results relative to patient's use of biotin. Performing Organization Address [facility] [place] Phone Number [facility] CLIA: [id number] [place] [address] POCT GLUCOSE (AUTOMATED) (07/03/2020 4:20 PM CDT) Pathologist Sig nature POCT GLU 167 (H) 70 - 110 mg/dL [facility] Specimen Blood Performing Organization Address [facility] Phone Number [facility] CLIA: [id number] [place] [address] POCT GLUCOSE (AUTOMATED) (07/03/2020 11:32 AM CDT) Pathologist Sig nature POCT GLU 279 (H) 70 - 110 mg/dL [facility] Specimen Blood Performing Organization Address [facility] [place] Phone Number [facility] CLIA: [id number] [place] [address] LAB[address] [facility] [address] TROPONIN I (07/03/2020 10:21 AM CDT) [facility] [place] [place] TROPONIN I 0.052 (H) <=0.034 ng/mL [facility] Specimen Blood - HAND, RIGHT Narrative Performed At Equal or Less than 0.034 ng/ml---Normal [facility] Note: Cardiac troponin begins to rise 3-4 hours after the onset of ischemia. Repeat in 4-6 hours if the sample was drawn within 3-4 hours of the onset of the symptom and found normal. Between 0.035 and 0.120 ng/mL--- Borderline. Questionable myocardial injury or necros is Note: Serial measurement may be necessary to confirm or exclude the diagnosis of myocardial injury or necrosis; Clinical correlation (symptoms, EKGs, imaging studies, and others) required; Repeat in 4-6 hours if clinically indicated. Equal or Higher than 0.121 ng/mL---Abnormal. Myocardial Injury or Necrosis Likely Biotin has been reported to cause a negative bias, interpret results relative to patient's use of biotin. Performing Organization Address [facility] [place] Phone Number [facility] CLIA: [id number] [place] [address] POCT GLUCOSE (AUTOMATED) (07/03/2020 7:56 AM CDT) Pathologist Sig nature POCT GLU 230 (H) 70 - 110 mg/dL [facility] Specimen Blood Performing Organization Address City/State/Zipcode Phone Number [facility] CLIA: [id number] [place] [address] ABDOMEN PELVIS WO CONTRAST (07/03/2020 6:09 AM CDT) Specimen Impressions Performed At Impression: PACS/VR/DOSE 1. Findings seen in lung bases suggest Covid 19 pneumonia. 2. Nodular contour of the liver is concerning for ci rrhosis. Hyperdense layering gallstones versus sludge. Recom mend right upper quadrant ultrasound, as clinically indicated. 3. Thinning of the anterior abdominal wall and a umbilical hernia containing a portion of a small bowel lo op. 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 Narrative Performed At Exam: CT ABDOMEN PELVIS WO CONTRAST PACS/VR/DOSE Clinical History: Abd pain, acute, gener alized Comparison: None Findings: Visualized lung bases show multifocal pe ripheral groundglass opacities. There is no evidence of pleural or peric ardial effusion. Valvular calcifications are partially evaluated. The visualized breast tissue is symmetric. Limited evaluation of the solid organs in the absence of IV contrast. The nodular contour of the liver is concerning for cirrhos is. No focal lesions are seen in the liver. No evidence of in trahepatic biliary ductal dilatation. Hyperdense layering sludge/g allstones are seen in the gallbladder. The spleen, adrenals, pancr eas, and the kidneys are unremarkable. No evidence of free fluid, air, or lymphadenopathy see n in the abdomen and pelvis. No evidence of dilated bowel loops. Diverticul osis with no evidence of diverticulitis. No evidence of appendicitis is seen . 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 Urinary bladder and the prostate are unremarkable. The abdominal wall is thin and there is atrophy of bilateral rectus abdominis muscle. A hernia is seen in the midline ante rior abdominal wall, at the level of the umbilicus with herni ation of a part of a small bowel loop best seen on 2:118 and 6:67). The v asculature shows atherosclerotic calcifications. Degenerative changes are seen in the spine with no suspicious lesions. Procedure Note [facility], Radiant Results Inft User - 2019 9:11 AM CDT Exam: CT ABDOMEN PELVIS WO CONTRAST Clinical History: Abd pain, acute, gener alized Comparison: None Findings: Visualized lung bases show multifocal pe ripheral groundglass opacities. There is no evidence of pleural or peric ardial effusion. Valvular calcifications are partially evaluated. The visualized breast tissue is symmetric. Limited evaluation of the solid organs i n the absence of IV contrast. The nodular contour of the liver is concerni ng for cirrhosis. No focal lesions are seen in the liver. No evidence of in trahepatic biliary ductal dilatation. Hyperdense layering sludge/g allstones are seen in the gallbladder. The spleen, adrenals, pancr eas, and the kidneys are unremarkable. No evidence of free fluid, air, or lymph adenopathy seen in the abdomen and pelvis. No evidence of dilated bowel loo ps. Diverticulosis with no evidence of diverticulitis. No evidence of append icitis is seen. 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 Urinary bladder and the prostate are unremarkable. The abdominal wall is thin and there is atrophy of bilateral rectus abdominis muscle. A hernia is seen in th e midline anterior abdominal wall, at the level of the umbilicus with herni ation of a part of a small bowel loop best seen on 2:118 and 6:67). The v asculature shows atherosclerotic calcifications. Degenerative changes are seen in the spine with no suspicious lesions. IMPRESSION Impression: 1. Findings seen in lung bases suggest Covid 19 pneumonia. 2. Nodular contour of the liver is conc erning for cirrhosis. Hyperdense layering gallstones versus sludge. Recom mend right upper quadrant ultrasound, as clinically indicated. 3. Thinning of the anterior abdominal w all and a umbilical hernia containing a portion of a small bowel lo op. Limited evaluation of the pelvis due to artifacts from left hip pr osthesis. Performing Organization Address City/State/Zipcode Phone Number PACS/VR/DOSE POCT GLUCOSE (AUTOMATED) (07/03/2020 5:58 AM CDT) Pathologist Sig nature POCT GLU 244 (H) 70 - 110 mg/dL [facility] Specimen Blood Performing Organization Address City/State/Zipcode Phone Number [facility] CLIA: [id number] [place] [address] COVID-19 (ID NOW RAPID TESTING) (07/03/2020 4:28 AM CDT) SARS-CoV-2 Rapid ID Positive (A) Not Detected [facility] Specimen Swab - NASOPHARYNGEAL SWAB Narrative Performed At ID NOW COVID-19 Assay is an isothermal nucleic [facility] acid amplification test intended for the qualitative detection of nucleic acid from SARS-CoV-2 viral RNA in nasopharyngeal ([employer]) specimens. It is used under Emergency Use Authorization (EUA) by FDA. The limit of detection (LOD) of the assay is 125 Genome Equivalents/mL. A positive result is indicative of the presence of SARS-CoV-2 RNA. Clinical correlation with patient history and other diagnostic information is necessary to determine patient infection status. A negative (Not Detected) result does not preclude SARS-CoV-2 infection. In patients with clinical symptoms and other tests that are consistent with SARS-CoV-2 infection, negative results should be treated as presumptive negative and a new specimen should be tested with alternative PCR molecular test. Invalid: Please collect a new specimen for repeat patient testing if clinically indicated. Performing Organization Address City/State/Zipcode Phone Number [facility] CLIA: [id number] [place] [address] XR CHEST 1 VW COVID (07/03/2020 3:52 AM CDT) Specimen Impressions Performed At PACS/VR/DOSE Findings lower lung zone airspace opacit ies are indeterminate. No focal consolidation, pleural effusion or pneumothorax. Preliminary Report Dictated by Resident: Neto Rodriguez MD., have reviewed this study and agree with the above report. Narrative Performed At PROCEDURE: CHEST, SINGLE VIEW PACS/VR/DOSE CLINICAL INDICATION: 85 years Female pre senting with sob COMPARISON: Chest radiographs None FINDINGS: Lines/hardware: Left chest wall pacemake r with leads terminating in the right ventricle right atrium. Lungs: Fine lower lung zone peripheral a irspace opacities are indeterminate.. No focal consolidation, pleural effusi on, or pneumothorax. The left costophrenic angle is blunted. Mediastinum: The cardiomediastinal silho uette is normal in size. Osseous structures: No acute bony abnorm ality. Procedure Note [facility], Radiant Results Inft User - 2019 7:40 AM CDT PROCEDURE: CHEST, SINGLE VIEW CLINICAL INDICATION: 85 years Female pre senting with sob COMPARISON: Chest radiographs None FINDINGS: Lines/hardware: Left chest wall pacemake r with leads terminating in the right ventricle right atrium. Lungs: Fine lower lung zone peripheral a irspace opacities are indeterminate.. No focal consolidation, pleural effusion, or pneumothorax. The left costophrenic angle is blunted. Mediastinum: The cardiomediastinal silho uette is normal in size. Osseous structures: No acute bony abnorm ality. IMPRESSION Findings lower lung zone airspace opacit ies are indeterminate. No focal consolidation, pleural effusion or pneumothorax. Preliminary Report Dictated by Resident: Neto Rodriguez MD., have r eviewed this study and agree with the above report. Performing Organization Address City/State/[facility] Phone Number PACS/VR/DOSE FERRITIN SERUM (07/03/2020 3:36 AM CDT) Pathologist Sig [employer] FERRITIN 1,260.0 (H) 11.0 - 264.0 ng/mL [facility] Specimen Blood - VENOUS Narrative Performed At Biotin has been reported to cause a negative [facility] bias, interpret results relative to patient's use of biotin. Performing Organization Address [facility] Phone Number [facility] CLIA: [id number] [place] [address] GLYCOSYLATED HEMOGLOBIN (A1C) (07/03/2020 3:36 AM CDT) Pathologist Sig nature HGB A1C 7.5 (H) 4.0 - 6.0 % [facility] Specimen Blood - VENOUS Narrative Performed At %A1C (NGSP) Interpretation (ADA) [facility] 4.8-5.6 Normal or (Non-Diabetic Ra nge) 5.7-6.4 Increased Risk (Pre-Diabet ic) >6.5 Diabetes Indicated Performing Organization Address [facility] Phone Number [facility] CLIA: [id number] [place] [address] THYROID STIMULATING HORMONE (07/03/2020 3:36 AM CDT) Pathologist Sig [employer] TSH 1.31Comment: Biotin 0.45 - 4.70 [facility] has been reported [facility] to cause a negative bias, interpret results relative to patient's use of biotin. Specimen Blood - VENOUS Performing Organization Address City/[facility] Cent[facility] Phone Number [facility] CLIA: [id number] [place] [address] N-TERMINAL PRO-BNP (07/03/2020 3:36 AM CDT) Pathologist [facility] NT-proBNP 22,400 (H) <=450 pg/mL [facility] Specimen Blood - VENOUS Narrative Performed At Biotin has been reported to cause a negative [facility] bias, interpret results relative to patient's use of biotin. Performing Organization Address [facility] Phone Number [facility] CLIA: [id number] [place] [address] CBC WITH DIFF (07/03/2020 3:36 AM CDT) [facility] [place] [place] WBC 11.75 (H) 4.30 - 11.10 [facility] 10*3/L [facility] RBC 3.79 (L) 3.93 - 5.25 [facility] 10*6/L [facility] HGB 12.1 11.6 - 15.0 [facility] g/dL [facility] HCT 36.4 35.7 - 45.2 % [facility] MCV 96.0 (H) 80.6 - 95.5 fL [facility] MCH 31.9 25.9 - 32.8 pg [facility] MCHC 33.2 31.6 - 35.1 [facility] g/dL [facility] RDW-SD 42.1 39.0 - 49.9 fL [facility] RDW-CV 11.9 (L) 12.0 - 15.5 % [facility] PLT 236 166 - 358 [facility] 10*3/L [facility] MPV 11.5 9.5 - 12.9 fL [facility] NRBC/100 WBC 0.0 0.0 - 10.0 /100 [facility] WBCs [facility] NRBC x10^3 <0.01 10*3/L [facility] GRAN MAT (NEUT) % 91.0 % [facility] IMM GRAN % 0.70 % [facility] LYMPH % 3.8 % [facility] MONO % 4.3 % [facility] EOS % 0.0 % [facility] BASO % 0.2 % [facility] GRAN MAT x10^3(ANC) 10.69 (H) 1.88 - 7.09 [facility] 10*3/uL HOSPITAL LABORATORY IMM GRAN x10^3 0.08 (H) 0.00 - 0.06 [facility] 10*3/uL HOSPITAL LABORATORY LYMPH x10^3 0.45 (L) 1.32 - 3.29 [facility] 10*3/uL HOSPITAL LABORATORY MONO x10^3 0.51 0.33 - 0.92 [facility] 10*3/uL [facility] EOS x10^3 <0.03 (L) 0.03 - 0.39 [facility] 10*3/uL HOSPITAL LABORATORY BASO x10^3 <0.03 0.01 - 0.07 [facility] 10*3/uL HOSPITAL LABORATORY Specimen Blood - VENOUS Performing Organization Address [facility]/Zipcode Phone Number [facility] CLIA: [id number] [place] [address] LIPASE, SERUM (07/03/2020 3:36 AM CDT) Pathologist Sig nature LIPASE 727 (H) 0 - 220 U/L [facility] Specimen Blood - VENOUS Performing Organization Address City/[facility]/Zipcode Phone Number [facility] CLIA: [id number] [place] [address] COMP. METABOLIC PANEL ([id number]) (07/03/2020 3:36 AM CDT) NA 141 135 - 145 [facility] mmol/L [facility] K 5.2 (H) 3.5 - 5.0 [facility] mmol/L [facility] CL 110 (H) 98 - 108 mmol/L [facility] CO2 TOTAL 20 (L) 23 - 31 mmol/L [facility] AGAP 11 2 - 16 [facility] BUN 82 (H) 7 - 23 mg/dL [facility] GLUCOSE 502 (HH) 70 - 110 mg/dL [facility] CREATININE 1.53 (H) 0.50 - 1.04 [facility] mg/dL [facility] TOTAL BILI 0.7 0.1 - 1.1 mg/dL [facility] CALCIUM 10.0 8.6 - 10.6 [facility] mg/dL [facility] T PROTEIN 8.6 (H) 6.3 - 8.2 g/dL [facility] ALBUMIN 4.5 3.5 - 5.0 g/dL [facility] ALK PHOS 114 34 - 122 U/L [facility] ALTv 19 5 - 35 U/L [facility] AST(SGOT) 28 13 - 40 U/L [facility] eGFR Calculation 32.3 mL/min/1.73m2 [facility] ([facility] [place]) eGFR Calculation 39.2 mL/min/1.73m2 [facility] ([facility]) [facility] Specimen Blood - VENOUS Narrative Performed At Association of Glomerular Filtration Rate (GFR) [facility] LAB[facility] and Staging of Kidney Disease* + + +- + | GFR (mL/min/1.73 m2) | With Kidney Damage | Without Kidney Damage + + +- + | >90 | Stage one | Normal + + +- + | 60-89 | Stage two | Decreased GFR + + +- + | 30-59 | Stage three | Stage three + + +- + | 15-29 | Stage four | Stage four + + +- + | <15 (or dialysis) | Stage five | Stage five + + +- + *Each stage assumes the associated GFR level has been in effect for at least three months. Stages 1 to 5, with or without kidney disease, indicate chronic kidney disease. Notes: Determination of stages one and two (with eGFR >59mL/min/1.73 m2) requires estimation of kidney damage for at least three months as defined by structural or functional abnormalities of the kidney, manifested by either: Pathological abnormalities or Markers of kidney damage (including abnormalities in the composition of the blood or urine or abnormalities in imaging tests). Performing Organization Address City/State/Zipcode Phone Number [facility] CLIA: [id number] [place] [address] TROPONIN I (07/03/2020 3:36 AM CDT) Pathologist Sig nature TROPONIN I 0.042 (H) <=0.034 ng/mL [facility] Specimen Blood - VENOUS Narrative Performed At Equal or Less than 0.034 ng/ml---Normal [facility] Note: Cardiac troponin begins to rise 3-4 hours after the onset of ischemia. Repeat in 4-6 hours if the sample was drawn within 3-4 hours of the onset of the symptom and found normal. Between 0.035 and 0.120 ng/mL--- Borderline. Questionable myocardial injury or necros is Note: Serial measurement may be necessary to confirm or exclude the diagnosis of myocardial injury or necrosis; Clinical correlation (symptoms, EKGs, imaging studies, and others) required; Repeat in 4-6 hours if clinically indicated. Equal or Higher than 0.121 ng/mL---Abnormal. Myocardial Injury or Necrosis Likely Biotin has been reported to cause a negative bias, interpret results relative to patient's use of biotin. Performing Organization Address City/State/Zipcode Phone Number [facility] CLIA: [id number] [place] [address] documented in this encounter Visit Diagnoses Diagnosis COVID-19 - Primary Chest pain, unspecified type Diarrhea, unspecified type Edema, unspecified type Nonrheumatic mitral valve stenosis Troponin I above reference range Other abnormal blood chemistry Elevated brain natriuretic peptide (BNP) level Other nonspecific findings on examinatio n of blood Pacemaker Cardiac pacemaker in situ Chronic diastolic congestive heart failu re Chronic diastolic heart failure EDU (acute kidney injury) Acute kidney failure, unspecified Essential hypertension Unspecified essential hypertension Other hyperlipidemia Type 2 diabetes mellitus without complic ation, without long-term current use of insulin Pulmonary hypertension Other chronic pulmonary heart diseases documented in this encounter Administered Medications Medication Order MAR Action Action Date Dose Rate Site albuterol (VENTOLIN) inhaler 2 Puff 2 Puff, Inhalation, Q4HPRN, Starting 07/03/20 at 055 3, Until Discontinued, Routine, Wheezing, Shortness of Breath, Is this order for a patient with suspected or confirmed COVID-19 infection? Yes ascorbic acid (vitamin C) (VITAMIN C) tablet Given 05/2020 9:24 AM CDT 500 mg 500 mg 500 mg, Oral, BID, First dose on Fri07/03/20 at 0800, Until Discontinued, Routine Given 07/05/2020 9:50 PM CDT 500 mg Given 07/05/2020 8:17 AM CDT 500 mg aspirin chewable tablet 81 mg Given 07/06/2020 9:23 AM CDT 81 mg 81 mg, Oral, DAILY, First dose on Fri07/03/20 at 0900, Until Discontinued, Routine Given 07/05/2020 8:17 AM CDT 81 mg Given 07/04/2020 9:50 AM CDT 81 mg budesonide-formoteroL (SYMBICORT) 160-4.5 Given 07/06/2020 7:26 AM CDT 2 Puffs mcg/actuation inhaler 2 Puff 2 Puff, Inhalation, BID, First dose on Fri07/03/20 at 0800, Until Discontinued, Routine Given 07/05/2020 7:49 PM CDT 2 Puffs Given 07/05/2020 8:08 AM CDT 2 Puffs dextromethorphan-guaifenesin (ROBITUSSIN DM) Given 0 4:21 AM CDT 5 mL 10-100 mg/5 mL solution 5 mL 5 mL, Oral, Q6HPRN, Starting Fri07/03/20 at 0634, Until Discontinued, Routine, Cough Given 07/04/2020 9:16 PM CDT 5 mL ergocalciferol (vitamin d2) Given 07/03/2020 8:23 AM CDT 50,000 Units (CALCIFEROL) capsule 50,000 Units 50,000 Units, Oral, QWEEKLY, First dose on Fri07/03/20 at 0900, Until Discontinued, Routine ferrous sulfate tablet 325 mg Given 07/06/2020 9:24 AM CDT 325 mg 325 mg, Oral, BID, First dose on Fri07/03/20 at 0800, Until Discontinued, Routine Given 07/05/2020 9:50 PM CDT 325 mg Given 07/05/2020 8:17 AM CDT 325 mg gabapentin (NEURONTIN) capsule 300 mg Given 07/05/2020 9:50 PM CDT 300 mg 300 mg, Oral, QHS, First dose (after last modification) on Fri07/05/20 at 2100, Until Discontinued, Routine heparin (porcine) injection Given 07/06/2020 6:14 AM CDT 5,000 Units Abdomen-SC 5,000 Units 5,000 Units, Subcutaneous, Q8H, First dose on Fri07/03/20 at 0600, Until Discontinued, Routine Given 07/05/2020 9:50 PM CDT 5,000 Units Abdo men-SC Given 07/05/2020 3:18 PM CDT 5,000 Units Abdo men-SC hydralAZINE (APRESOLINE) injection 10 mg Given 07/06/2020 4:21 AM CDT 10 mg 10 mg, Intravenous, Q4HPRN, Starting Fri07/03/20 at 0636, Until Discontinued, Routine, sbp > 160 or dbp > 100 Given 07/03/2020 7:03 AM CDT 10 mg insulin glargine (LANTUS Given 07/05/2020 9:02 PM CDT 10 Units Left Upper Arm-SC U-100) injection 20 Units 20 Units, Subcutaneous, QHS, First dose on Fri07/03/20 at 2100, Until Discontinued, Routine Given 07/04/2020 9:17 PM CDT 20 Units Abdo men-SC Given 07/03/2020 8:59 PM CDT 10 Units Abdo men-SC metoprolol succinate XL (TOPROL XL) tablet 50 Given 9:24 AM CDT 50 mg mg 50 mg, Oral, BID, First dose (after last modification) on Fri07/05/20 at 0815, Until Discontinued, Routine Given 07/05/2020 9:52 PM CDT 50 mg Given 07/05/2020 8:17 AM CDT 50 mg pantoprazole (PROTONIX) EC tablet 40 mg Given 07/06/2020 9:24 AM CDT 40 mg 40 mg, Oral, DAILY, First dose on Fri07/03/20 at 0900, Until Discontinued, Routine Given 07/05/2020 8:18 AM CDT 40 mg Given 07/04/2020 9:50 AM CDT 40 mg Sliding Scale Insulin-Regular + Fsbg Brenda ting Subcutaneous, AC+HS, First dose (after l ast modification) on Sushma 07/06/20 at 0730, Until Discontinued, Routine zinc sulfate (ORAZINC) capsule 220 mg Given 07/06/2020 9:23 AM CDT 220 mg 220 mg, Oral, BID, First dose on Fri07/03/20 at 0800, Until Discontinued, Routine Given 07/05/2020 9:50 PM CDT 220 mg Given 07/05/2020 8:17 AM CDT 220 mg Medication Order MAR Action Action Date Dose Rate Site aspirin chewable tablet 324 mg Given 07/03/2020 4:26 AM CDT 324 mg 324 mg, Oral, ONCE, 1 dose, Fri07/03/20 at 0530, Routine gabapentin (NEURONTIN) capsule 300 mg Given 07/04/2020 2:35 PM CDT 300 mg 300 mg, Oral, TID, First dose on Fri07/03/20 at 0800, Until Discontinued, Routine Given 07/04/2020 9:50 AM CDT 300 mg Given 07/03/2020 8:59 PM CDT 300 mg insulin regular human (HUMULIN R) Given 07/03/2020 4:26 AM CDT 10 Units injection 10 Units 10 Units, Slow IV Push, ONCE, 1 dose, Fri07/03/20 at 0515, Routine metoprolol succinate XL (TOPROL XL) tablet 25 Given 8:23 AM CDT 25 mg mg 25 mg, Oral, DAILY, First dose on Fri07/03/20 at 0900, Until Discontinued, Routine metoprolol succinate XL (TOPROL XL) tablet 50 Given 9:50 AM CDT 50 mg mg 50 mg, Oral, DAILY, First dose (after last modification) on Fri07/04/20 at 0900, Until Discontinued, Routine NaCl 0.45% (1/2NS) IV infusion New Bag 07/04/2020 12:21 AM CDT 1,000 mL 85 mL/hr 1,000 mL at 85 mL/hr, 1,000 mL, IV Infusion, ONCE, 1 dose, Fri07/03/20 at 2315, Routine NaCl 0.9% (NS) bolus infusion New Bag 07/03/2020 3:42 AM CDT 1,000 mL 999 mL/hr 1,000 mL at 999 mL/hr, 1,000 mL, IV Infusion, ONCE, 1 dose, Fri07/03/20 at 0345, TAL NaCl 0.9% (NS) IV infusion 1,000 New Bag 07/03/2020 7:07 AM C DT 1,000 mL 75 mL/hr mL at 75 mL/hr, IV Infusion, CONTINUOUS, Starting Fri07/03/20 at 0700, Until Fri07/03/20 at 2202, Routine ondansetron (ZOFRAN (PF)) injection 4 mg Given 07/03/2020 3:45 AM CDT 4 mg 4 mg, Slow IV Push, ONCE, 1 dose, Fri07/03/20 at 0445, TAL rosuvastatin (CRESTOR) tablet 10 mg Given 07/03/2020 8:59 PM CDT 10 mg 10 mg, Oral, QHS, First dose on Fri07/03/20 at 2100, Until Discontinued, Routine Sliding Scale Insulin-Regular + Given 07/03/2020 8:24 AM CDT 2 Units Abdomen-SC Fsbg Testing Subcutaneous, Q4H, First dose (after last modification) on Fri07/03/20 at 0800, Until Discontinued, Routine Sliding Scale Insulin-Regular + Given 07/04/2020 12:16 PM CDT 1 Units Abdomen-SC Fsbg Testing Subcutaneous, Q4H, First dose (after last modification) on Fri07/03/20 at 1200, Until Discontinued, Routine Given 07/03/2020 12:04 PM CDT 4 Units Abdo men-SC sulfur hexafluoride microsphr (LUMASON) Given 07/03/2020 12:20 P M CDT 5 mL injection 5 mL 5 mL, Intravenous, ONCE, 1 dose, Fri07/03/20 at 1230, Routine, cannon crewmember approving Restricted medication: LEONARDO CULP documented in this encounter Additional Health Concerns Infection Onset Date Last Indicated Resolved Time COVID-19 Rule Out 07/03/2020 07/03/2020 07/03/2020 4: 52 AM CDT COVID-19 Confirmed 07/03/2020 07/03/2020 documented as of this encounter Insurance Payer Benefit Plan / Subscriber ID Effective Dates Phone Addre ss Type Group HUMANA - HUMANA [id number] 2019- MANAGED MEDICARE t FFS MEDICARE documented as of this encounter Advance Directives Name Relationship Healthcare Agent Relationship Co mmunication Zainab Jayden Child 2 - Health Care Agent (Medical Power of Business Law Professor) (Mob ile) [email or web address] Quote Save. [facility] Thelma Walker Child [facility] [phone] Agent (Mobile) [email or web address]
--- OUTSIDE RECORDS SUMMARY | 2020-07-12 14:30 | XMS REPORT ---
[...] to D50.0 Active chronic blood loss Problem senior care current use of insulin [...]
--- OUTSIDE RECORDS SUMMARY | 2020-07-12 14:31 | XMS REPORT | Summary of Care ---
:1935 Author Organization [facility] - [facility] Address [address] [place] [address] Care Team Providers Name Role Phone Javad Kirk Primary Care Provider Lucie Hamilton DO Marine Services Technician Reason for Visit Reason Comments Transition Of Care Encounter Details Date Type Department Care Team Description 07/07/2020 Transition of Care Pending sale to [facility] Frida Anguiano Transition Of Care Network- [place] [facility] [phone] Allergies Active Allergy Reactions Severity Noted Date Comments Nitrofurantoin Monohyd/M-Cryst Rash 07/03/2020 Penicillin Rash 07/03/2020 documented as of this encounter (statuses as of 07/07/2020) Medications Medication Sig Dispensed Refills Start Date End Date Status insulin degludec inject 20 Units 0 Active (TRESIBA FLEXTOUCH under the skin at U-200) 200 unit/mL (3 bedtime. mL) InPn albuterol (VENTOLIN Inhale 2 Puffs 0 Active HFA) 90 mcg/actuation every 4 (four) inhaler hours as needed for Wheezing or Shortness of Breath. fluticasone/vilanterol Inhale 1 Puff 0 Active (BREO ELLIPTA INHALE) every morning. gabapentin 300 mg Take 300 mg by 0 Active capsule mouth at bedtime. rosuvastatin 10 mg Take 10 mg by 0 Active tablet mouth at bedtime. cetirizine 10 mg Take 10 mg by 0 Active tablet mouth at bedtime. vit B-comp Take 65 mg by 0 Activ e w-Fe,Ca,FA<1mg mouth daily. (IRON-VITAMINS ORAL) aspirin 81 mg chewable Take 81 mg by 0 Active tablet mouth daily with breakfast. KCL 20 mEq tablet Take 20 mEq by 0 Active mouth daily. pantoprazole sodium Take 40 mg by 0 Active (PANTOPRAZOLE ORAL) mouth with lunch. furosemide 20 mg Take 1 tablet by 30 tablet 0 07/06/2020 Active tabletIndications: mouth daily. COVID-19, Nonrheumatic mitral valve stenosis metoprolol succinate Take 1 tablet by 60 tablet 0 07/06/2020 Active XL 50 mg 24 hr mouth 2 (two) tabletIndications: times daily. COVID-19, Nonrheumatic mitral valve stenosis documented as of this encounter (statuses as of 07/07/2020) Active Problems Problem Noted Date Nonrheumatic mitral [...] as of this encounter (statuses as of 07/07/2020) Social History Tobacco Use Types Packs/Day Years Used Date Never Smoker Smokeless Tobacco: Never Used Sex Assigned at Date Recorded Not on file COVID-19 Exposure Response Date Recorded In the last month, have you been in contact with Yes 07/03/2020 3:15 AM CDT someone who was confirmed or suspected to have Coronavirus / COVID-19? documented as of this encounter Last Filed Vital Signs Not on filedocumented in this encounter Miscellaneous Notes Telephone Encounter - Frida Anguiano RN - 07/07/2020 11:40 AM CDT TRANSITIONAL CARE MANAGEMENT ASSESSMENT 07/07/2020 Keerthi Kiser [id number] Keerthi Kiser is a 85 year old /White female was admitted on 07/03/20 to [facility], [facility] ICU. She was discharged on 07/06/20 with discharge disposition of HR- Routine Discharge. Admitting Physician: Yuly Cain Discharge Diagnosis: no final MD discharge written at time of this encounter Linked Episodes Type: Episode: Status: Noted: Resolved: Last update: Updated by: TRANSITION OF CARE tcm Active 07/06/2020 07/07/2020 11:38 AM Frida Anguiano RN Comments: TCM Zkn-xkpa-dz-face outreach documentation: Discharge Assessment Chart Assessed: 07/07/20 TCM Outreach Completed: 07/07/20 Do you have a few minutes to speak with me about how you are doing at home?: Yes(doing well. states the home health is there now.) Discharge Instructions Do you understand your at-home instructions?: Yes(no questions) Medications Have you filled your prescriptions and do you have them in your home? : Yes Do you know how to take your medications?: Yes Supplies Did you receive applicable home medical supplies/equipment?: N/A Follow Up Appointment Has a follow up appointment been scheduled?: No May I assist with scheduling this appointment?: Patient has outside PCP Do you have any questions about your follow up appointments?: Yes(asked if i could send info to cardiology MD Michael Ramos. states she has an appt to follow-up with him.) Are you able to get to your appointment? Who will be taking you?: Yes(family) Home Health Assistance Has the home health nurse contacted you since you've been home?: Yes([facility] there now.) Future Appointments: documented in this encounter Plan of Treatment Health Maintenance Due Date Last Done Comments EYE EXAM 1946 LDL-C 1945 URINE MICROALBUMIN 1946 Depression Screening 1948 FOOT EXAM 1954 DTaP,Tdap,and Td Vaccines (1 - 1955 Tdap) Zoster Recombinant Vaccine 1986 (SHINGRIX) (1 of 2) Medicare Wellness Visit 2001 Osteoporosis Screening 2001 PNEUMOCOCCAL VACCINES 65+ (1 of 1 2001 - PPSV23) INFLUENZA VACCINE (#1) 2020 HgA1C 01/03/2021 07/03/2020 CREATININE (SERUM) 07/06/2021 07/06/2020, 07/05/2020, 07/04/2020, Additional history exists documented as of this encounter Results Not on filedocumented in this encounter Additional Health Concerns Infection Onset Date Last Indicated Resolved Time COVID-19 Confirmed 07/03/2020 07/03/2020 documented as of this encounter Insurance Payer Benefit Plan / Subscriber ID Effective Dates Phone Addre ss Type Group HUMANA - HUMANA [id number] 2019-Presen Medi care Adv MANAGED MEDICARE t FFS MEDICARE documented as of this encounter Advance Directives Name Relationship Healthcare Agent Relationship Co mmunication Zainab Jayden Child 2 - Health Care Agent (Medical Power of Mill Tender Warm Up) (Mob ile) [email or web address] Thelma Denise Child First [facility] [phone] Agent (Mobile) [email or web address]
--- OUTSIDE RECORDS SUMMARY | 2020-07-12 14:31 | XMS REPORT ---
[...] to D50.0 Active chronic blood loss Problem [facility] current use of 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 Problem [...]
--- OUTSIDE RECORDS SUMMARY | 2020-07-12 14:31 | XMS REPORT | Summary of Care ---
:1935 Author Organization [facility] - [facility] Address [address] [place] [address] Care Team Providers Name Role Phone Javad Kirk Primary Care Provider Lucie Hamilton DO Directory Compiler Reason for Visit Reason Comments Transition Of Care Encounter Details Date Type Department Care Team Description 07/07/2020 Transition of Care [facility] Frida Anguiano Transition Of Care Network- [place] [facility] [phone] Allergies Active Allergy Reactions Severity Noted Date [...] Encounter - Frida Anguiano RN - 07/07/2020 11:41 AM CDTHospital discharge efaxed to Michael Ramos MD at patient request. elephone Encounter - Frida Anguiano RN - 07/07/2020 11:40 AM CDT TRANSITIONAL CARE MANAGEMENT ASSESSMENT 07/07/2020 Keerthi Kiser [id number] Keerthi Kiser is a 85 year old /White female was admitted on 07/03/[address] [facility] ICU. She was discharged on 07/06/20 with discharge disposition of HR- Routine Discharge. Admitting Physician: Yuly Cain Discharge Diagnosis: no final MD discharge written at time of this encounter Linked Episodes Type: Episode: Status: Noted: Resolved: Last update: Updated by: TRANSITION OF CARE tcm Active 07/06/2020 07/07/2020 11:38 AM Frida Anguiano RN Comments: TCM Qxs-kszp-he-face outreach documentation: Discharge Assessment Chart Assessed: 07/07/20 [...] nurse contacted you since you've been home?: Yes([facility] there now.) Future Appointments: documented in [...] Addre ss Type Group HUMANA - HUMANA [id number] 2019-Presen [facility] care Adv MANAGED MEDICARE t FFS MEDICARE documented as of this encounter Advance Directives Name Relationship Healthcare Agent Relationship Co mmunication Zainab Jayden Child 2 - Health Care Agent (Medical Power of Supervisor Evaporator) (Mob ile) [email or web address] Thelma Denise Child First Alternate Health Care Agent (Mobile) [email or web address]
--- NOTE | 2020-07-12 15:01 | RAD REPORT ---
EXAM DESCRIPTION: Dominique Single View07/12/2020 2:40 pm CLINICAL HISTORY: Chest pain COMPARISON: May 2020 FINDINGS: Mild bilateral pulmonary opacities. The heart is borderline enlarged Pacemaker leads are in place. IMPRESSION: Mild bilateral pulmonary opacities probably pulmonary edema
[2020-07-12 15:16] LABS: Absolute Lymphocytes (CBC) 1.4 K/uL (0.7-4.9); Basophils % 0.6 % (0-1.3); Hematocrit 35.6 % (36.0-45.0); Lymphocytes % 7.2 % (15.3-44.8); MPV 10.9 fL (7.6-11.3)
[2020-07-12 15:52] LABS: Albumin 2.8 g/dL (3.4-5.0); Bilirubin Direct 0.1 mg/dL (0-0.2); Bilirubin Total 0.4 mg/dL (0.2-1.0); Potassium 5.3 mmol/L (3.5-5.1); Protein, Total 7.9 g/dL (6.4-8.2)
[2020-07-12] MEDS ORDERED: FUROSEMIDE 20 MG/ 2ML VIAL ONE (15:57)
[2020-07-12 17:08] LABS: Urine Blood TRACE (NEG); Urine Glucose NEGATIVE (NEG); Urine Protein NEGATIVE (NEG)
--- NOTE | 2020-07-12 17:16 | RAD REPORT ---
EXAM DESCRIPTION: CT - Abdomen Pelvis Wo Contrast - 07/12/2020 4:59 pm CLINICAL HISTORY: Abdominal pain COMPARISON: None TECHNIQUE: Computed axial tomography of the abdomen and pelvis was obtained. IV and oral contrast we re not requested. All CT scans are performed using dose optimization technique as appropriate and may include automated exposure control or mA/KV adjustment according to patient size. FINDINGS: The evaluation of solid organs, vessels and bowel is limited secondary to the lack of con trast administration. Mild patchy ground-glass opacities within the lower lobes. Mild left lower lobe atelectasis. The liver, spleen, pancreas, adrenals and kidneys appear grossly normal. The appendix is normal. Diverticula stem from the colon without evidence diverticulitis. 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 A Galeana catheter is present within bladder. Milk of calcium gallbladder Atherosclerosis IMPRESSION: Mild patchy ground-glass opacities within the lower lobes can be seen with Covid pneumon ia Milk of calcium gallbladder
--- NOTE | 2020-07-12 17:41 | ER ---
Nurse's Notes [facility] Name: Keerthi Kiser Age: 85 yrs Sex: Female : 1935 Arrival Date: 07/12/2020 Time: 13:31 Bed 20 Private MD: Diagnosis: Pneumonia, unspecified organism Presentation: 07/12 13:31 Chief complaint: EMS states: FAMILY INSISTED PT BE TRANSPORTED FOR BEING "MORE ALTERED" bp SINCE LAST HOSPITALIZATION. Coronavirus screen: RECENT COVID + 06/20. Ebola Screen: No symptoms or risks identified at this time. Initial Sepsis Screen: Does the patient meet any 2 criteria? No. Patient's initial sepsis screen is negative. Does the patient have a suspected source of infection? No. Patient's initial sepsis screen is negative. Risk Assessment: Do you want to hurt yourself or someone else? Patient reports no desire to harm self or others. Onset of symptoms is unknown. 13:31 Method Of Arrival: EMS: [facility] bp 13:31 Acuity: RAMA 3 bp Triage Assessment: 13:34 General: Appears in no apparent distress. comfortable, Behavior is cooperative, bp restless, PT DENIES ACUTE S/S. Pain: Denies pain. EENT: No deficits noted. Neuro: Level of Consciousness is awake, obeys commands, confused, Oriented to person, place. Cardiovascular: No deficits noted. Respiratory: No deficits noted. GI: No signs and/or symptoms were reported involving the gastrointestinal system. : No signs and/or symptoms were reported regarding the genitourinary system. Derm: No deficits noted. Musculoskeletal: No deficits noted. Historical: - Allergies: 13:34 PENICILLINS; bp - Home Meds: 13:34 aspirin 81 mg Oral TbEC 1 tab once daily [Active]; Breo Ellipta 100-25 mcg/dose bp inhalation dsdv 1 puff once daily [Active]; cetirizine 10 mg Oral tab 1 tab once daily [Active]; Equate multivitamin/multimineral [Active]; ferrous sulfate 325 mg (65 mg iron) Oral TbEC daily [Active]; furosemide 40 mg Oral tab 1 tab once daily [Active]; gabapentin 300 mg Oral cap 1 cap at bedtime [Active]; losartan 100 mg Oral tab 1 tab once daily [Active]; metoprolol tartrate 25 mg Oral tab 1 tab 2 times per day [Active]; pantoprazole 40 mg Oral TbEC 1 tab once daily [Active]; Tresiba FlexTouch U-200 200 unit/mL (3 mL) subcutaneous inpn [Active]; Ventolin Rotahaler/Rotacaps Inhl [Active]; - PMHx: 13:34 Asthma; CHF; COPD; Diabetes - IDDM; Hypertension; Pacemaker; bp - Immunization history:: Adult Immunizations up to date. - Social history:: Smoking status: Patient denies any tobacco usage or history of. Screenin:38 Abuse screen: Denies threats or abuse. Denies injuries from another. Nutritional bp screening: No deficits noted. Tuberculosis screening: No symptoms or risk factors identified. Fall Risk None identified. Assessment: 13:38 General: SEE TRIAGE NOTE. bp 15:59 Reassessment: ALL CURRENT ORDERS IN PROCESS, DANIELLE IN PLACE AND DRAINING TO GRAVITY. bp 19:12 General: Appears in no apparent distress. comfortable, Behavior is calm, cooperative. mg2 Pain: Denies pain. Neuro: Level of Consciousness is awake, alert, obeys commands, Oriented to person, place, time, situation. Cardiovascular: Capillary refill < 3 seconds Patient's skin is warm and dry. Respiratory: Airway is patent Respiratory effort is even, unlabored, Respiratory pattern is regular, symmetrical. GI: No signs and/or symptoms were reported involving the gastrointestinal system. : No signs and/or symptoms were reported regarding the genitourinary system. Vital Signs: 13:31 BP 108 / 74; Pulse 78; Resp 20; Temp 97.8; Pulse Ox 95% ; bp 14:57 BP 96 / 44; Pulse 78; Resp 22; Pulse Ox 96% ; Weight 58.97 kg; bp 15:59 BP 104 / 53; Pulse 80; Resp 21; Pulse Ox 96% ; bp 17:27 BP 81 / 35; Pulse 85; Resp 20; Pulse Ox 97% ; bp 18:30 BP 126 / 84; Pulse 76; Resp 19; Pulse Ox 96% ; bp 19:12 BP 95 / 35; Pulse 68; Resp 18; Pulse Ox 99% on R/A; mg2 19:58 BP 111 / 36; Pulse 65; Resp 18; Temp 98; Pulse Ox 99% on R/A; mg2 20:53 BP 106 / 58; Pulse 68; Resp 18; Temp 98; Pulse Ox 100% on R/A; mg2 ED Course: 13:31 Patient arrived in ED. bp 13:33 Triage completed. bp 13:34 Arm band placed on. bp 13:36 Apollo Price MD is Attending Physician. kdr 13:38 Patient has correct armband on for positive identification. Bed in low position. Call bp light in reach. Side rails up X2. cafeteria monitor on. Pulse ox on. NIBP on. 13:43 Raj Gonzalez, OMAR is Primary Nurse. bp 14:40 CXR XRAY In Process Unspecified. EDMS 15:03 Inserted saline lock: 20 gauge in left antecubital area, using aseptic technique. Blood dh4 collected. 15:54 Danielle cath inserted, using sterile technique, 16 Fr., returned cloudy urine. Patient iw tolerated well. 16:59 CT Abd/Pelvis - Without Contrast In Process Unspecified. EDMS 17:40 Shanelle Villarreal MD is Hospitalizing Provider. kdr 19:13 Door closed. Warm blanket given. mg2 19:58 No provider procedures requiring assistance completed. Patient admitted, IV remains in mg2 place. Administered Medications: 15:30 Drug: Lasix 20 mg Route: IVP; Site: left forearm; bp 16:01 Follow up: Response: No adverse reaction bp 17:30 Drug: LevaQUIN 500 mg Volume: 100 ml; Route: IVPB; Infused Over: 60 mins; Site: left bp forearm; 18:48 Follow up: IV Status: Completed infusion; IV Intake: 100ml bp 17:45 Drug: NS 0.9% (30 ml/kg) 30 ml/kg Route: IV; Rate: bolus; Site: left forearm; bp 18:30 Drug: vancoMYCIN 1 grams Route: IVPB; Infused Over: 2 hrs; Site: left forearm; bp Intake: 18:48 IV: 100ml; Total: 100ml. bp Outcome: 17:41 Decision to Hospitalize by Provider. kdr 20:53 Admitted to ICU accompanied by nurse, via stretcher, room 1, on monitor, with chart, mg2 Report called to OMAR Alfaro 20:53 Condition: stable 20:53 Instructed on the need for admit, Demonstrated understanding of instructions. 21:56 Patient left the ED. mg2 Signatures: Dispatcher [employer] EDMS Apollo Price MD MD kdr Kell Fiore RN RN iw Raj Gonzalez RN RN bp Minesh Eric, OMAR RN [facility] Corrections: (The following items were deleted from the chart) 17:38 14:57 BP 96 / 44; Pulse 78bpm; Resp 22bpm; Pulse Ox 96%; bp bp
--- NOTE | 2020-07-12 17:41 | EDPHYS ---
Physician Documentation [facility] Name: Keerthi Kiser Age: 85 yrs Sex: Female : 1935 Arrival Date: 07/12/2020 Time: 13:31 Bed 20 Private MD: ED Physician Apollo Price HPI: 07/12 16:59 This 85 yrs old Female presents to ER via EMS with complaints of AMS. kdr 16:59 The patient presents with confusion, decreased responsiveness, The patient has dementia kdr and the family reported flet that her level of alertness was diminished today and so they sent her to the ED. Onset: The symptoms/episode began/occurred this morning, at an unknown time. Possible causes: CVA or TIA, head injury, low blood sugar, seizure, sepsis. Associated signs and symptoms: The patient has no apparent associated signs or symptoms. Patient's baseline: Neuro: alert but confused, Motor: no deficits, Ambulation: walks with assist only, Speech: the patient can speak but doesn't make sense. It is unknown whether or not the patient has had similar symptoms in the past. It is unknown whether or not the patient has recently seen a physician. Historical: - Allergies: 13:34 PENICILLINS; bp - Home Meds: 13:34 aspirin 81 mg Oral TbEC 1 tab once daily [Active]; Breo Ellipta 100-25 mcg/dose bp inhalation dsdv 1 puff once daily [Active]; cetirizine 10 mg Oral tab 1 tab once daily [Active]; Equate multivitamin/multimineral [Active]; ferrous sulfate 325 mg (65 mg iron) Oral TbEC daily [Active]; furosemide 40 mg Oral tab 1 tab once daily [Active]; gabapentin 300 mg Oral cap 1 cap at bedtime [Active]; losartan 100 mg Oral tab 1 tab once daily [Active]; metoprolol tartrate 25 mg Oral tab 1 tab 2 times per day [Active]; pantoprazole 40 mg Oral TbEC 1 tab once daily [Active]; Tresiba FlexTouch U-200 200 unit/mL (3 mL) subcutaneous inpn [Active]; Ventolin Rotahaler/Rotacaps Inhl [Active]; - PMHx: 13:34 Asthma; CHF; COPD; Diabetes - IDDM; Hypertension; Pacemaker; bp - Immunization history:: Adult Immunizations up to date. - Social history:: Smoking status: Patient denies any tobacco usage or history of. ROS: 16:59 Constitutional: Unobtainable secondary to underlying dementia kdr Exam: 16:59 Constitutional: This is a well developed, well nourished patient who is awake, alert, kdr and in no acute distress. Head/Face: Normocephalic, atraumatic. Eyes: Pupils equal round and reactive to light, extra-ocular motions intact. Lids and lashes normal. Conjunctiva and sclera are non-icteric and not injected. Cornea within normal limits. Periorbital areas with no swelling, redness, or edema. Neck: Trachea midline, no thyromegaly or masses palpated, and no cervical lymphadenopathy. Supple, full range of motion without nuchal rigidity, or vertebral point tenderness. No Meningismus. Chest/axilla: Normal chest wall appearance and motion. Nontender with no deformity. No lesions are appreciated. Cardiovascular: Regular rate and rhythm with a normal S1 and S2. No gallops, murmurs, or rubs. Normal PMI, no JVD. No pulse deficits. Respiratory: Lungs have equal breath sounds bilaterally, clear to auscultation and percussion. No rales, rhonchi or wheezes noted. No increased work of breathing, no retractions or nasal flaring. Abdomen/GI: Soft, non-tender, with normal bowel sounds. No distension or tympany. No guarding or rebound. No evidence of tenderness throughout. Back: No spinal tenderness. No costovertebral tenderness. Full range of motion. Skin: Warm, dry with normal turgor. Normal color with no rashes, no lesions, and no evidence of cellulitis. MS/ Extremity: Pulses equal, no cyanosis. Neurovascular intact. Full, normal range of motion. Psych: Awake, alert, with orientation to person, place and time. Behavior, mood, and affect are within normal limits. 16:59 Neuro: Orientation: unable to test, Mentation: able to follow commands, slow to respond, confused, somnolent, responsive to pain. Vital Signs: 13:31 BP 108 / 74; Pulse 78; Resp 20; Temp 97.8; Pulse Ox 95% ; bp 14:57 BP 96 / 44; Pulse 78; Resp 22; Pulse Ox 96% ; Weight 58.97 kg; bp 15:59 BP 104 / 53; Pulse 80; Resp 21; Pulse Ox 96% ; bp 17:27 BP 81 / 35; Pulse 85; Resp 20; Pulse Ox 97% ; bp 18:30 BP 126 / 84; Pulse 76; Resp 19; Pulse Ox 96% ; bp 19:12 BP 95 / 35; Pulse 68; Resp 18; Pulse Ox 99% on R/A; mg2 19:58 BP 111 / 36; Pulse 65; Resp 18; Temp 98; Pulse Ox 99% on R/A; mg2 20:53 BP 106 / 58; Pulse 68; Resp 18; Temp 98; Pulse Ox 100% on R/A; mg2 MDM: 17:41 Patient medically screened. kdr 17:41 Data reviewed: vital signs, nurses notes, lab test result(s), EKG, radiologic studies. kdr Counseling: I had a detailed discussion with the patient and/or guardian regarding: the historical points, exam findings, and any diagnostic results supporting the discharge/admit diagnosis, lab results, radiology results, the need for further work-up and treatment in the hospital. 07/12 14:10 Order name: Basic Metabolic Panel; Complete Time: 16:37 kdr 07/12 14:10 Order name: CBC with Diff kdr 07/12 14:10 Order name: Hepatic Function; Complete Time: 16:37 kdr 07/12 14:10 Order name: Lipase; Complete Time: 16:37 kdr 07/12 14:10 Order name: Urine Culture kdr 07/12 14:10 Order name: Blood Culture Adult (2) kdr 07/12 15:55 Order name: Urine Dipstick--Ancillary (enter results); Complete Time: 17:28 iw 07/12 16:41 Order name: Amylase, Serum kdr 07/12 16:41 Order name: Ckmb kdr 07/12 16:41 Order name: CPK kdr 08 16:41 Order name: Lactate kdr 07/12 16:41 Order name: Procalcitonin kdr 07/12 16:41 Order name: Protime (+inr) kdr 07/12 16:41 Order name: Ptt, Activated kdr 08 16:41 Order name: Troponin (emerg Dept Use Only) kdr 07/12 16:41 Order name: Urine Microscopic Only kdr 07/12 17:39 Order name: COVID-19 kdr 07/12 18:04 Order name: CBC with Automated Diff EDMS 07/12 18:04 Order name: CBC with Automated Diff EDMS 07/12 18:04 Order name: CKMB Creatine Kinase MB EDMS 07/12 18:04 Order name: CKMB Creatine Kinase MB EDMS 07/12 18:04 Order name: Comprehensive Metabolic Panel EDMS 07/12 18:04 Order name: Comprehensive Metabolic Panel EDMS 07/12 18:04 Order name: Creatine Phosphokinase EDMS 07/12 18:04 Order name: Creatine Phosphokinase EDMS 07/12 18:04 Order name: Lipid Profile EDMS 07/12 18:04 Order name: Lipid Profile EDMS 07/12 18:04 Order name: Troponin I EDMS 07/12 18:04 Order name: Troponin I EDMS 07/12 18:36 Order name: CBC Smear Scan EDMS 07/12 14:10 Order name: IV Saline Lock; Complete Time: 15:01 kdr 08 14:10 Order name: Labs collected and sent; Complete Time: 15:01 kdr 07/12 14:10 Order name: Urine Dipstick-Ancillary (obtain specimen); Complete Time: 15:54 kdr 07/12 14:10 Order name: CXR XRAY; Complete Time: 15:12 kdr 07/12 15:12 Order name: Galeana; Complete Time: 15:54 kdr 07/12 16:39 Order name: CT Abd/Pelvis - Without Contrast; Complete Time: 17:28 kdr 07/12 16:41 Order name: Accucheck; Complete Time: 17:07 kdr 07/12 16:41 Order name: Cardiac monitoring; Complete Time: 17:07 kdr 07/12 16:41 Order name: EKG - Nurse/Tech; Complete Time: 18:47 kdr 07/12 16:41 Order name: IV Saline Lock - Large Bore; Complete Time: 16:43 kdr 07/12 16:41 Order name: O2 Per Protocol; Complete Time: 16:42 kdr 07/12 16:41 Order name: O2 Sat Monitoring; Complete Time: 16:43 kdr 07/12 18:04 Order name: CONS Pharmacy Consult EDMS 07/12 18:04 Order name: CONS Physician Consult EDMS 07/12 18:04 Order name: Renal EDMS 07/12 18:04 Order name: Renal Ultrasound-Complete EDMS Administered Medications: 15:30 Drug: Lasix 20 mg Route: IVP; Site: left forearm; bp 16:01 Follow up: Response: No adverse reaction bp 17:30 Drug: LevaQUIN 500 mg Volume: 100 ml; Route: IVPB; Infused Over: 60 mins; Site: left bp forearm; 18:48 Follow up: IV Status: Completed infusion; IV Intake: 100ml bp 17:45 Drug: NS 0.9% (30 ml/kg) 30 ml/kg Route: IV; Rate: bolus; Site: left forearm; bp 18:30 Drug: vancoMYCIN 1 grams Route: IVPB; Infused Over: 2 hrs; Site: left forearm; bp Disposition: 07/12/20 17:41 Hospitalization ordered by Shanelle Villarreal for Inpatient Admission. Preliminary diagnosis is Pneumonia, unspecified organism. - Bed requested for Intensive Care Unit. - Status is Inpatient Admission. mg2 - Condition is Serious. - Problem is new. - Symptoms have improved. Signatures: Dispatcher [employer] EDMS Apollo Price MD MD [facility] Nadya Willis RN RN tl1 Raj Gonzalez RN RN Minesh Eric, OMAR RN mg2 Corrections: (The following items were deleted from the chart) 19:57 17:41 Hospitalization Ordered by Shanelle Villarreal MD for Inpatient Admission. Preliminary tl1 diagnosis is Pneumonia, unspecified organism. Bed requested for Telemetry/MedSurg (Inpatient). Status is Inpatient Admission. Condition is Serious. Problem is new. Symptoms have improved. kdr 21:56 19:57 07/12/2020 17:41 Hospitalization Ordered by Shanelle Villarreal MD for Inpatient mg2 Admission. Preliminary diagnosis is Pneumonia, unspecified organism. Bed requested for Intensive Care Unit. Status is Inpatient Admission. Condition is Serious. Problem is new. Symptoms have improved. tl1
[2020-07-12] MEDS ORDERED: Levofloxacin500mg IV 500 MG/100 ML BAG IV ONE (17:44)
[2020-07-12 17:46] LABS: Protime INR 1.19
[2020-07-12] MEDS ORDERED: ONDANSETRON 4 MG/2 ML VIAL IV PRN (17:57)
[2020-07-12] MEDS ORDERED: VANCOMYCIN/NS 1 gm 1 GM/250 ML BAG IVPB ONE (18:00)
[2020-07-12] MEDS ORDERED: D5W 1,000 ML IV SCH (18:00)
[2020-07-12] MEDS ORDERED: NA CHLORIDE 0.9% 2,000 ML ONE (18:09)
[2020-07-12 18:30] LABS: Urine Amorphous Sediment 1+ /HPF (NONE SEEN); Urine Bacteria <20 /HPF (<20); Urine Culture Reflex Order NOT NEEDED; Urine RBC <5 /HPF (NONE SEEN)
[2020-07-12 18:32] LABS: Troponin (Emerg Dept Use Only) 0.09 ng/mL (0.0-0.045)
[2020-07-12 18:36] LABS: Blood Morphology Comment NOT SEEN (NOT SEEN); Platelet Estimate ADEQ; White Blood Cell Scan OK
[2020-07-13 05:23] LABS: Basophils % 0.4 % (0-1.3); Hematocrit 32.2 % (36.0-45.0); Lymphocytes % 6.6 % (15.3-44.8); MPV 11.1 fL (7.6-11.3); RBC Red Blood Cell Count 3.26 M/uL (3.86-4.86)
[2020-07-13 05:50] LABS: Albumin 2.4 g/dL (3.4-5.0); Bilirubin Total 0.4 mg/dL (0.2-1.0); CKMB Creatine Kinase MB 3.3 ng/mL (0.3-3.6); Potassium 4.6 mmol/L (3.5-5.1); Troponin I 0.06 ng/mL (0.0-0.045)
[2020-07-13] MEDS ORDERED: D5W 250 ML IV SCH (07:18)
--- NOTE | 2020-07-13 10:15 | RAD REPORT ---
EXAM DESCRIPTION: US - Renal Ultrasound-Complete - 07/13/2020 10:01 am CLINICAL HISTORY: Acute renal insufficiency COMPARISON: 2007 FINDINGS: The right kidney measures 8 cm with an increased echotexture. The left kidney measures 9 cm with an increased echotexture. Hydronephrosis is not seen. Poor evaluation of bladder secondary to a Galeana catheter present Milk of calcium gallbladder/cholelithiasis IMPRESSION: Increased renal echotexture consistent with parenchymal disease
[2020-07-13] MEDS ORDERED: D5W 1,000 ML IV SCH (17:32)
--- NOTE | 2020-07-13 17:35 | P.CNS ---
Date of Consult: 07/13/20 Reason for Consult: EDU Requesting Physician: Shanelle Villarreal History of Present Illness: 85 yo HF seen and examined in the ICU. Limited HPI/ ROS due to AMS. 16:59 This 85 yrs old Female presents to ER via EMS with complaints of AMS. kdr 16:59 The patient presents with confusion, decreased responsiveness, The patient has dementia kdr and the family reported flet that her level of alertness was diminished today and so they sent her to the ED. Onset: The symptoms/episode began/occurred this morning, at an unknown time. Possible causes: CVA or TIA, head injury, low blood sugar, seizure, sepsis. Associated signs and symptoms: The patient has no apparent associated signs or symptoms. Patient's baseline: Neuro: alert but confused, Motor: no deficits, Ambulation: walks with assist only, Speech: the patient can speak but doesn't make sense. It is unknown whether or not the patient has had similar symptoms in the past. It is unknown whether or not the patient has recently seen a physician. Allergies Penicillins Allergy (Verified 11/30/17 21:22) Itching Home medications list reviewed: Yes Home Medications: Furosemide [Lasix*] 20 mg PO DAILY 03/20/18 Gabapentin [Gralise] 300 mg PO BEDTIME 03/20/18 Albuterol Sulfate [Ventolin Hfa] 2 puff IH Q4H PRN 07/13/20 Aspirin 1 tab PO DAILY 07/13/20 Cetirizine HCl [Zyrtec] 1 tab PO BEDTIME 07/13/20 Fluticasone/Vilanterol [Breo Ellipta 100-25 Mcg INH] 1 puff IH DAILY 07/13/20 Insulin Degludec [Tresiba Flextouch U-200] 20 units SQ BEDTIME 07/13/20 Iron,Carb/Vit C/Vit B12/Folic [Iron 100 Plus Tablet] 1 tab PO DAILY 07/13/20 Metoprolol Succinate 1 tab PO BID 07/13/20 Pantoprazole [Protonix Tab*] 1 tab PO DAILY 07/13/20 Potassium Chloride [Klor-Con 10] 20 meq PO DAILY 07/13/20 Rosuvastatin [Crestor*] 1 tab PO BEDTIME 07/13/20 - Past Medical/Surgical History Diabetic: Yes -: Asthma -: IDDM -: HTN -: Hyperlipidemia -: Diabetic nephropathy -: COPD -: hysterectomy -: L hip replacement - Family History Mother Medical History: Heart disease, Hypertension, Diabetes Father Medical History: Other (see notes) Notes: asthma Brother Medical History: Diabetes - Social History Alcohol use: No CD- Drugs: No Caffeine use: Yes Place of Residence: Home Review of Systems is unable to be obtained Physical Examination Temp Pulse Resp BP Pulse Ox 97.1 F 65 11 L 127/56 L 98 07/13/20 16:00 07/13/20 17:00 07/13/20 17:00 07/13/20 17:00 07/13/20 17:00 General: In no apparent distress, Cooperative HEENT: Atraumatic Neck: Supple Respiratory: Clear to auscultation bilaterally Cardiovascular: No edema, Regular rate/rhythm Gastrointestinal: Soft and benign, Non-distended Musculoskeletal: No clubbing, No contractures Integumentary: No rashes, No cyanosis Neurological: Abnormal tone Laboratory Data (last 24 hrs) 07/12/20 17:25: PT 14.0 H, INR 1.19, APTT 29.7 07/12/20 17:25: Amylase 346 H* 07/12/20 14:45: WBC 19.3 H, Hgb 11.3 L, Hct 35.6 L, Plt Count 174 Imagings Data: EXAM DESCRIPTION: US - Renal Ultrasound-Complete - 07/13/2020 10:01 am CLINICAL HISTORY: Acute renal insufficiency COMPARISON: 2007 FINDINGS: The right kidney measures 8 cm with an increased echotexture. The left kidney measures 9 cm with an increased echotexture. Hydronephrosis is not seen. Poor evaluation of bladder secondary to a Galeana catheter present Milk of calcium gallbladder/cholelithiasis IMPRESSION: Increased renal echotexture consistent with parenchymal disease EXAM DESCRIPTION: CT - Abdomen Pelvis Wo Contrast - 07/12/2020 4:59 pm CLINICAL HISTORY: Abdominal pain COMPARISON: None TECHNIQUE: Computed axial tomography of the abdomen and pelvis was obtained. IV and oral contrast were not requested. All CT scans are performed using dose optimization technique as appropriate and may include automated exposure control or mA/KV adjustment according to patient size. FINDINGS: The evaluation of solid organs, vessels and bowel is limited secondary to the lack of contrast administration. Mild patchy ground-glass opacities within the lower lobes. Mild left lower lobe atelectasis. The liver, spleen, pancreas, adrenals and kidneys appear grossly normal. The appendix is normal. Diverticula stem from the colon without evidence diverticulitis. 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 A Galeana catheter is present within bladder. Milk of calcium gallbladder Atherosclerosis IMPRESSION: Mild patchy ground-glass opacities within the lower lobes can be seen with Covid pneumonia Milk of calcium gallbladder Conclusions/Impression: A/ EDU in the setting of hypovolemia/ ATN Hypernatremia/ Dehydration Hyperkalemia Acidosis Hypocalcemia DM II with CKD Moderate malnutrition Anemia in chronic illness Pancreatitis Toxic metabolic encephalopathy P/ Continue current POC and Medications. Increase D5W. Consider IV bicarb. Start Vitamin D. Encourage nutrition. No NSAIDs. AM labs. Daily weight. Thank you kindly for the consultation. Critical Care: Yes
[2020-07-13] MEDS: VITAMIN D 5,000 UNIT CAP PO SCH (18:11)
[2020-07-13] MEDS: JUVEN PACKET PO SCH (19:44)
--- NOTE | 2020-07-13 20:31 | P.HP ---
Certification for Inpatient Patient admitted to: Inpatient With expected LOS: >2 Midnights Patient will require the following post-hospital care: None Practitioner: I am a practitioner with admitting privileges, knowledge of patient current condition, hospital course, and medical plan of care. Services: Services provided to patient in accordance with Admission requirements found in Title 42 Section 412.3 of the Code of Federal Regulations Patient History Date of Service: 07/12/20 Reason for admission: EDU History of Present Illness: This is an 85-year-old female who came into the hospital with altered mental status. Patient's baseline is that he is awake, alert, and oriented to person place and time. She normally is able to do most of her own activities of daily living. She does live with her family members who help her with day-to-day activities. She has been to the hospital over the last few weeks. At that time, she was in the ER for fever, cough, and weakness. Since being home she has not been eating and drinking well. In the last week she has felt a lot worse. She has also been nauseated. Since the patient was not looking well and looking very altered they decided to bring her into the emergency room once again. In the emergency room patient was found have significant uremia. Patient was also hypernatremic and acidotic. Patient's COVID-19 testing was also positive. Patient does have ground-glass opacities on her x-ray. At this time, she will be admitted to the hospital for further evaluation. Allergies Penicillins Allergy (Verified 11/30/17 21:22) Itching Home Medications: Furosemide [Lasix*] 20 mg PO DAILY 03/20/18 Gabapentin [Gralise] 300 mg PO BEDTIME 03/20/18 Albuterol Sulfate [Ventolin Hfa] 2 puff IH Q4H PRN 07/13/20 Aspirin 1 tab PO DAILY 07/13/20 Cetirizine HCl [Zyrtec] 1 tab PO BEDTIME 07/13/20 Fluticasone/Vilanterol [Breo Ellipta 100-25 Mcg INH] 1 puff IH DAILY 07/13/20 Insulin Degludec [Tresiba Flextouch U-200] 20 units SQ BEDTIME 07/13/20 Iron,Carb/Vit C/Vit B12/Folic [Iron 100 Plus Tablet] 1 tab PO DAILY 07/13/20 Metoprolol Succinate 1 tab PO BID 07/13/20 Pantoprazole [Protonix Tab*] 1 tab PO DAILY 07/13/20 Potassium Chloride [Klor-Con 10] 20 meq PO DAILY 07/13/20 Rosuvastatin [Crestor*] 1 tab PO BEDTIME 07/13/20 - Past Medical/Surgical History Has patient received pneumonia vaccine in the past: Yes Diabetic: Yes -: Asthma -: IDDM -: HTN -: Hyperlipidemia -: Diabetic nephropathy -: COPD -: hysterectomy -: L hip replacement - Family History Mother Medical History: Heart disease, Hypertension, Diabetes Father Medical History: Other (see notes) Notes: asthma Brother Medical History: Diabetes - Social History Alcohol use: No CD- Drugs: No Caffeine use: Yes Place of Residence: Home Review of Systems 10-point ROS is otherwise unremarkable Physical Examination - Vital Signs Temperature: 97.1 F Blood Pressure: 99/38 Pulse: 65 Respirations: 16 Pulse Ox (%): 95 - Physical Exam General: Alert, In no apparent distress, Oriented x1, Other (Lethargic and confused) HEENT: Atraumatic, PERRLA, Mucous membr. moist/pink, EOMI, Sclerae nonicteric Neck: Supple, 2+ carotid pulse no bruit, No LAD, Without JVD or thyroid abnormality Respiratory: Diminished, Rhonchi/gurgles Cardiovascular: Regular rate/rhythm, Normal S1 S2, Systolic murmur Gastrointestinal: Normal bowel sounds, Soft and benign, Non-distended, No tenderness Musculoskeletal: No clubbing, Swelling Integumentary: No rashes Neurological: Sensation intact, Cranial nerves 3-12 intact, Abnormal gait, Abnormal speech, Abnormal strength Lymphatics: No axilla or inguinal lymphadenopathy - Studies Microbiology Data (last 24 hrs): 07/12/20 17:50 Nasopharnyx Coronavirus COVID-19 PCR - Final Assessment & Plan - Problems (Diagnosis) (1) Acute renal injury Onset Date: 12/03/17 Current Visit: No Status: Acute (2) COPD exacerbation Onset Date: 12/03/17 Current Visit: No Status: Acute (3) Diabetes mellitus Onset Date: 12/03/17 Current Visit: No Status: Acute Qualifiers: Diabetes mellitus type: type 2 Diabetes mellitus chcf insulin use: with operating room assistant use Diabetes mellitus complication status: with unspecified complications (4) Hip fracture, left Onset Date: 03/06/16 Current Visit: No Status: Acute (5) Hypertension Onset Date: 12/03/17 Current Visit: No Status: Acute Qualifiers: Hypertension type: essential hypertension Qualified Code(s): I10 - Essential (primary) hypertension (6) CHF (congestive heart failure) Current Visit: No Status: Chronic (7) COPD (chronic obstructive pulmonary disease) Current Visit: No Status: Chronic Qualifiers: COPD type: COPD with acute exacerbation Qualified Code(s): J44.1 - Chronic obstructive pulmonary disease with (acute) exacerbation - Plan Plan: 1. Aggressive IV hydration 2. Nephrology consultation 3. Monitor sodium levels 4. Renal ultrasound 5. Monitor oxygenation closely 6. Low-dose IV steroids 7. IV Zithromax 8. May need to get an echocardiogram as well 9. Monitor COVID-19 markers 10. GI and DVT prophylax Discharge Plan: Home Plan to discharge in: Greater than 2 days - Advance Directives Does patient have a Living Will: Yes Does patient have a Durable POA for Healthcare: Yes - Code Status/Comfort Care Code Status Assessed: Yes Code Status: Full Code Critical Care: Yes Time Spent Managing PTS Care (In Minutes): 45
[2020-07-13 20:45] LABS: Potassium 4.8 mmol/L (3.5-5.1)
[2020-07-13] MEDS: D5W 1,000 ML with NA BICARB 8.4% 50 MEQ IV SCH ×2 (22:01)
[2020-07-13] MEDS ORDERED: SODIUM BICARB 50 MEQ/50ML VIAL ONE (22:11)
[2020-07-14] MEDS: D5W 1,000 ML with NA BICARB 8.4% 50 MEQ IV SCH ×2 (06:34)
[2020-07-14] MEDS ORDERED: SODIUM BICARB 50 MEQ/50ML VIAL ONE (06:42)
[2020-07-14] MEDS ORDERED: D5W 1,000 ML IV ONE (06:43)
[2020-07-14] MEDS: JUVEN PACKET PO SCH ×2 (09:00→20:13)
[2020-07-14 09:04] LABS: Urine Appearance CLOUDY; Urine Bilirubin NEGATIVE (NEG); Urine Blood 1+ (NEG); Urine Color YELLOW; Urine Glucose NEGATIVE (NEG); Urine Protein TRACE (NEG); Urine Urobilinogen 0.2 mg/dL (0.2-1.0)
[2020-07-14 09:04] LABS: Absolute Lymphocytes (CBC) 0.8 K/uL (0.7-4.9); Basophils % 0.4 % (0-1.3); Hematocrit 28.1 % (36.0-45.0); Lymphocytes % 8.1 % (15.3-44.8); MPV 10.6 fL (7.6-11.3); RBC Red Blood Cell Count 2.95 M/uL (3.86-4.86)
--- NOTE | 2020-07-14 09:18 | P.PN ---
Subjective Date of Service: 07/13/20 Subjective: No new changes, No C/O voiced, Other (Patient still lethargic. Repeat labs this evening shows she was more acidotic. Continue monitoring labs closely) Review of Systems 10-point ROS is otherwise unremarkable Physical Examination - Vital Signs Temperature: 97.1 F Blood Pressure: 99/38 Pulse: 65 Respirations: 16 Pulse Ox (%): 95 - Physical Exam General: Alert, In no apparent distress, Oriented x2, Other (Patient still confused slightly) HEENT: Atraumatic, Normocephalic Neck: Supple, 2+ carotid pulse no bruit, JVD not distended, No Thyromegaly Respiratory: Diminished, Rhonchi/gurgles Cardiovascular: Regular rate/rhythm, Normal S1 S2, No murmurs Gastrointestinal: Normal bowel sounds, Soft and benign, Non-distended, No tenderness Musculoskeletal: No clubbing, Swelling Neurological: Abnormal gait, Abnormal speech, Abnormal strength, Abnormal sensation, Abnormal cranial nerve function - Studies Microbiology Data (last 24 hrs): 07/12/20 15:48 Catheterized Urine [place] Count - Final 07/12/20 15:48 Catheterized Urine - Final No growth. 07/12/20 17:50 Nasopharnyx Coronavirus COVID-19 PCR - Final Assessment & Plan - Problems (Diagnosis) (1) COVID-19 virus infection Current Visit: Yes Status: Acute (2) Acute renal injury Onset Date: 12/03/17 Current Visit: No Status: Acute (3) COPD exacerbation Onset Date: 12/03/17 Current Visit: No Status: Chronic (4) Diabetes mellitus Onset Date: 12/03/17 Current Visit: No Status: Chronic Qualifiers: Diabetes mellitus type: type 2 Diabetes mellitus intermediate card tender insulin use: with detention use Diabetes mellitus complication status: with unspecified complications (5) Hip fracture, left Onset Date: 03/06/16 Current Visit: No Status: Chronic (6) Hypertension Onset Date: 12/03/17 Current Visit: No Status: Chronic Qualifiers: Hypertension type: essential hypertension Qualified Code(s): I10 - Essential (primary) hypertension (7) CHF (congestive heart failure) Current Visit: No Status: Chronic - Plan Plan: Continue with current plan of care as mentioned below 1. Aggressive IV hydration-will add bicarb to the fluids 2. Nephrology consultation appreciated 3. Monitor sodium levels 4. Renal ultrasound 5. Monitor oxygenation closely 6. Low-dose IV steroids once renal function starts improving 7. IV Zithromax 8. May need to get an echocardiogram as well 9. Monitor COVID-19 markers 10. GI and DVT prophylax Discharge Plan: Home - Advance Directives Does patient have a Living Will: Yes Does patient have a Durable POA for Healthcare: Yes - Code Status/Comfort Care Code Status: Full Code Critical Care: No Time Spent Managing PTS Care (In Minutes): 30
--- NOTE | 2020-07-14 09:21 | P.PN ---
Subjective Date of Service: 07/14/20 Patient still very lethargic. She is will wake up and she is wanting some food but nothing too cold. Her renal function is starting to improve. Continue with current plan of care at this time. Review of Systems 10-point ROS is otherwise unremarkable Physical Examination - Vital Signs Temperature: 97.1 F Blood Pressure: 99/38 Pulse: 65 Respirations: 16 Pulse Ox (%): 95 - Physical Exam General: Alert, In no apparent distress, Oriented x3 Respiratory: Clear to auscultation bilaterally, Normal air movement Cardiovascular: Regular rate/rhythm, Normal S1 S2, No murmurs Gastrointestinal: Normal bowel sounds, Soft and benign, Non-distended, No tenderness Musculoskeletal: No clubbing, No swelling, No tenderness Neurological: Sensation intact, Cranial nerves 3-12 intact - Studies Microbiology Data (last 24 hrs): 07/12/20 15:48 Catheterized Urine [place] Count - Final 07/12/20 15:48 Catheterized Urine - Final No growth. 07/12/20 17:50 Nasopharnyx Coronavirus COVID-19 PCR - Final Medications List Reviewed: Yes Assessment & Plan - Problems (Diagnosis) (1) COVID-19 virus infection Current Visit: Yes Status: Acute (2) Acute renal injury Onset Date: 12/03/17 Current Visit: No Status: Acute (3) COPD exacerbation Onset Date: 12/03/17 Current Visit: No Status: Chronic (4) Diabetes mellitus Onset Date: 12/03/17 Current Visit: No Status: Chronic Qualifiers: Diabetes mellitus type: type 2 Diabetes mellitus termite treater insulin use: with termite treater use Diabetes mellitus complication status: with unspecified complications (5) Hip fracture, left Onset Date: 03/06/16 Current Visit: No Status: Chronic (6) Hypertension Onset Date: 12/03/17 Current Visit: No Status: Chronic Qualifiers: Hypertension type: essential hypertension Qualified Code(s): I10 - Essential (primary) hypertension (7) CHF (congestive heart failure) Current Visit: No Status: Chronic - Plan Plan: Continue with current plan of care as mentioned below 1. Continue with D5 water. Patient urine output is minimal had 500 cc a day. Appreciate Nephrology recommendation. 2. Sodium level is close to being corrected. May change IV fluids in a.m. 3. Monitor sodium levels 4. Renal ultrasound was chronic medical disease 5. Monitor oxygenation closely; BNP elevated 6. No pulmonary symptoms from COVID-19; hold off on steroids 7. No need for antibiotics at this time 8. Will schedule echo for Friday 9. Will check COVID-19 marker 10. GI and DVT prophylax Discharge Plan: Home Plan to discharge in: Greater than 2 days - Advance Directives Does patient have a Living Will: Yes Does patient have a Durable POA for Healthcare: Yes - Code Status/Comfort Care Code Status: Full Code Critical Care: No Time Spent Managing PTS Care (In Minutes): 30
[2020-07-14 09:27] LABS: Albumin 2.1 g/dL (3.4-5.0); Bilirubin Total 0.3 mg/dL (0.2-1.0); Magnesium 2.6 mg/dL (1.8-2.4); Phosphorus 5.3 mg/dL (2.5-4.9); Potassium 3.8 mmol/L (3.5-5.1); Protein, Total 6.3 g/dL (6.4-8.2)
[2020-07-14] MEDS: VITAMIN D 5,000 UNIT CAP PO SCH (09:34)
[2020-07-14 09:54] LABS: Blood Morphology Comment NOT SEEN (NOT SEEN); Platelet Estimate DECR; White Blood Cell Scan OK
[2020-07-14 10:22] LABS: Urine Bacteria <20 /HPF (<20); Urine Culture Reflex Order REFLEXED; Urine RBC NONE SEEN /HPF (NONE SEEN)
[2020-07-14 10:23] LABS: Urine Yeast PRESENT (NONE SEEN); Urine Yeast with Hyphae PRESENT
[2020-07-14] MEDS ORDERED: D5W 1,000 ML IV SCH (13:00)
[2020-07-14] MEDS ORDERED: D5W 1,000 ML with NA BICARB 8.4% 50 MEQ IV SCH ×2 (17:00)
[2020-07-14] MEDS ORDERED: D50W 25 GM/50 ML SYRINGE/VIAL IV PRN (19:07)
[2020-07-14] MEDS ORDERED: GLUCAGON 1 MG/VIAL IM PRN (19:07)
--- NOTE | 2020-07-14 19:21 | P.PN ---
Date of Service: 07/14/20 Vital Signs Temp Pulse Resp BP Pulse Ox 97.0 F 66 11 L 107/41 L 98 07/14/20 16:00 07/14/20 16:00 07/14/20 16:00 07/14/20 16:00 07/14/20 16:00 Medications Cholecalciferol (Vitamin D 5,000 Iu Cap) 5,000 unit PO DAILY DENIS Stop: 08/12/20 18:01 Last Admin: 07/14/20 09:34 Dose: 5,000 unit Documented by: Dextrose (Dextrose 50% Syringe/Vial) 12.5 gm IV PRN PRN; Protocol PRN Reason: HYPOGLYCEMIA Stop: 08/13/20 19:08 Glucagon (Glucagen) 1 mg IM 1X PRN; Protocol PRN Reason: HYPOGLYCEMIA Stop: 08/13/20 19:08 Dextrose/Water (Dextrose In Water (1-Liter)) 1,000 mls @ 125 mls/hr IV .Q8H DENIS Stop: 08/13/20 19:07 Dextrose/Water (Dextrose In Water (1-Liter)) 250 mls @ 999 mls/hr IV .Q16M DENIS Stop: 07/14/20 20:15 Insulin Glargine (Lantus) 10 units SQ BEDTIME DENIS Stop: 08/13/20 21:01 L-Arginine/L-Glutamine/HMB ([place]) 1 pkt PO BID DENIS Stop: 08/12/20 21:01 Last Admin: 07/14/20 09:00 Dose: 1 pkt Documented by: Ondansetron HCl (Zofran) 4 mg IV Q8H PRN PRN Reason: NAUSEA / VOMITING Stop: 08/11/20 17:58 Sodium Chloride (Normal Saline Flush) 10 ml IV BID DENIS Stop: 08/11/20 21:01 Last Admin: 07/14/20 09:00 Dose: 10 ml Documented by: Microbiology Results 07/12/20 15:48 Catheterized Urine [place] Count - Final 07/12/20 15:48 Catheterized Urine - Final No growth. 07/12/20 17:50 Nasopharnyx Coronavirus COVID-19 PCR - Final 07/12/20 15:00 Blood - Blood Aerobic Blood Culture - Preliminary No growth in 24 hours. 07/12/20 15:00 Blood - Blood Anaerobic Blood Culture - Preliminary No growth in 24 hours. 07/12/20 14:45 Blood - Blood Aerobic Blood Culture - Preliminary No growth in 24 hours. 07/12/20 14:45 Blood - Blood Anaerobic Blood Culture - Preliminary No growth in 24 hours. Assessment/ Plan: Nephrology CPS stable without CP or SOB. No acute events overnight. Fair urine output. Limited IH/ ROS due to AMS. Vitals, medications, blood work and imaging reviewed in the chart. General: In no apparent distress, Cooperative HEENT: Atraumatic Neck: Supple Respiratory: Clear to auscultation bilaterally Cardiovascular: No edema, Regular rate/rhythm Gastrointestinal: Soft and benign, Non-distended Musculoskeletal: No clubbing, No contractures Integumentary: No rashes, No cyanosis Neurological: Abnormal tone Laboratory Data (last 24 hrs) 07/12/20 17:25: PT 14.0 H, INR 1.19, APTT 29.7 07/12/20 17:25: Amylase 346 H* 07/12/20 14:45: WBC 19.3 H, Hgb 11.3 L, Hct 35.6 L, Plt Count 174 Imagings Data: EXAM DESCRIPTION: US - Renal Ultrasound-Complete - 07/13/2020 10:01 am CLINICAL HISTORY: Acute renal insufficiency COMPARISON: 2007 FINDINGS: The right kidney measures 8 cm with an increased echotexture. The left kidney measures 9 cm with an increased echotexture. Hydronephrosis is not seen. Poor evaluation of bladder secondary to a [place] catheter present Milk of calcium gallbladder/cholelithiasis IMPRESSION: Increased renal echotexture consistent with parenchymal disease EXAM DESCRIPTION: CT - Abdomen Pelvis Wo Contrast - 07/12/2020 4:59 pm CLINICAL HISTORY: Abdominal pain COMPARISON: None TECHNIQUE: Computed axial tomography of the abdomen and pelvis was obtained. IV and oral contrast were not requested. All CT scans are performed using dose optimization technique as appropriate and may include automated exposure control or mA/KV adjustment according to patient size. FINDINGS: The evaluation of solid organs, vessels and bowel is limited secondary to the lack of contrast administration. Mild patchy ground-glass opacities within the lower lobes. Mild left lower lobe atelectasis. The liver, spleen, pancreas, adrenals and kidneys appear grossly normal. The appendix is normal. Diverticula stem from the colon without evidence diverticulitis. 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 A [place] catheter is present within bladder. Milk of calcium gallbladder Atherosclerosis IMPRESSION: Mild patchy ground-glass opacities within the lower lobes can be seen with Covid pneumonia Milk of calcium gallbladder Conclusions/Impression: A/ EDU in the setting of hypovolemia/ ATN Hypernatremia/ Dehydration Hyperkalemia Acidosis Hypocalcemia DM II with CKD Moderate malnutrition Anemia in chronic illness Pancreatitis Toxic metabolic encephalopathy P/ Continue current POC and Medications. Increase D5W. Discontinue IV bicarb. Continue Vitamin D. Start Lantus qhs. Encourage nutrition. No NSAIDs. AM labs. Daily weight. Check hepatitis panel.
[2020-07-14] MEDS: D5W 1,000 ML IV SCH (19:49)
[2020-07-14] MEDS ORDERED: D5W 250 ML IV SCH (20:00)
[2020-07-14] MEDS: INSULIN GLARGINE 100 UNITS/ML SQ SCH (21:16)
[2020-07-14] MEDS: INSULIN -REGULAR HUMAN 50 UNIT/0.5 ML ML SQ SCH (21:25)
[2020-07-14] MEDS ORDERED: INSULIN -REGULAR HUMAN 50 UNIT/0.5 ML ML ONE (21:30)
[2020-07-15] MEDS: D5W 1,000 ML IV SCH (04:59)
[2020-07-15 05:12] LABS: Basophils % 0.7 % (0-1.3); Hematocrit 26.3 % (36.0-45.0); MPV 11.5 fL (7.6-11.3); RBC Red Blood Cell Count 2.76 M/uL (3.86-4.86)
[2020-07-15 05:34] LABS: Albumin 1.9 g/dL (3.4-5.0); Bilirubin Total 0.2 mg/dL (0.2-1.0); Phosphorus 3.6 mg/dL (2.5-4.9); Potassium 3.3 mmol/L (3.5-5.1); Uric Acid 13.4 mg/dL (2.6-6.0)
[2020-07-15] MEDS: NA CHLORIDE 0.9% 1,000 ML IV SCH ×2 (07:00→15:36)
[2020-07-15] MEDS ORDERED: ALBUMIN HUMAN 25% 100 ML IV ONE (09:00)
[2020-07-15] MEDS: JUVEN PACKET PO SCH ×2 (09:00→20:48)
[2020-07-15] MEDS: INSULIN -REGULAR HUMAN 50 UNIT/0.5 ML ML SQ SCH ×4 (09:17→20:49)
[2020-07-15] MEDS: VITAMIN D 5,000 UNIT CAP PO SCH (09:19)
[2020-07-15] MEDS ORDERED: CALCIUM GLUC 10% INJ 4.65 MEQ in NA CHLORIDE 0.9% 100 ML IV ONE (10:00)
[2020-07-15] MEDS ORDERED: KCL 20 MEQ/100 mL IVPB 20 MEQ/100 ML BAG IV SCH (10:00)
[2020-07-15] MEDS: POTASSIUM CL SA 10 MEQ TAB PO SCH ×2 (10:22→20:48)
--- NOTE | 2020-07-15 11:04 | PN ---
Date of Progress Note: 07/15/2020 Subjective: Patient was seen and examined this morning. She denies any active complaints. She has remained hemodynamically stable and oxygen saturations have also remained stable. Objective: Vital Signs: Temperature of 97.6, pulse rate of 70, respiratory rate of 20, and blood pr essure of 93/41. She is satting 97% on nasal cannula oxygen. General: She appears in no acute distress. HEENT: Atraumatic head. No JVD was noted. Lungs: Auscultation of lungs revealed diminished breath sounds at bilateral bases. Abdomen: Soft and nontender. Heart: Auscultation of the heart revealed regular rate and rhythm. Extremities: No evidence of edema. Laboratory Data: At this time are showing sodium of 132, potassium of 3.2, chloride of 99, BUN of 11 5 and creatinine of 4.68, glucose was elevated to 417 yesterday and calcium was running low at 6.5, u tiffanie acid was elevated at 13.4, albumin was 1.9, and lipase was 657. CBC showing a WBC count of 11.2, hemoglobin of 9, hematocrit 26.3, and platelet count of 77. Current Medications: Include normal saline at 100 cc an hour and insulin. She is not on any antibio tics at this time. Impression: 1.Acute renal failure secondary to acute tubular necrosis with slowly improving renal function. 2.Electrolyte abnormalities including hyponatremia, hypokalemia, and hypocalcemia. We will go ahead and continue IV fluids for the hyponatremia, replace the potassium with p.o. potassium chloride b.i. d. for 2 doses, and we will also give her a dose of calcium gluconate to improve her hypocalcemia. 3.COVID-19 virus infection. The patient does not have any respiratory issues at this time. She is not getting any antibiotics. We will continue to monitor. 4.Chronic obstructive pulmonary disease, currently stable. 5.Left hip fracture. Continue conservative management. 6.Congestive heart failure, seems compensated at this time. We will follow up closely. Plan: Overall, the patient is doing better. Renal function is slowly, slowly improving. We will co ntinue IV fluid hydration since there are no volume issues at this time. Continue electrolyte replac ement protocol and we will follow up closely on the labs. Avoid hypotension and nephrotoxins, and we will follow up. VV/MODL Voice ID: [id number] Report ID: [id number]
[2020-07-15 14:10] LABS: Albumin 2.7 g/dL (3.4-5.0); Bilirubin Total 0.7 mg/dL (0.2-1.0); Potassium 3.5 mmol/L (3.5-5.1); Protein, Total 6.1 g/dL (6.4-8.2)
[2020-07-15] MEDS: INSULIN GLARGINE 100 UNITS/ML SQ SCH (21:00)
[2020-07-16] MEDS: NA CHLORIDE 0.9% 1,000 ML IV SCH ×2 (00:54→13:00)
[2020-07-16 06:31] LABS: Absolute Lymphocytes (CBC) 0.8 K/uL (0.7-4.9); Basophils % 0.2 % (0-1.3); Hematocrit 23.4 % (36.0-45.0); Lymphocytes % 8.5 % (15.3-44.8); MPV 11.4 fL (7.6-11.3); RBC Red Blood Cell Count 2.48 M/uL (3.86-4.86)
[2020-07-16 06:54] LABS: Albumin 2.3 g/dL (3.4-5.0); Bilirubin Total 0.7 mg/dL (0.2-1.0); Magnesium 1.9 mg/dL (1.8-2.4); Phosphorus 3.2 mg/dL (2.5-4.9); Potassium 4.3 mmol/L (3.5-5.1); Protein, Total 5.8 g/dL (6.4-8.2)
[2020-07-16] MEDS: INSULIN -REGULAR HUMAN 50 UNIT/0.5 ML ML SQ SCH ×4 (07:30→21:00)
[2020-07-16] MEDS: JUVEN PACKET PO SCH ×2 (09:00→21:35)
[2020-07-16] MEDS: POTASSIUM CL SA 10 MEQ TAB PO SCH ×2 (09:00→21:39)
[2020-07-16] MEDS: VITAMIN D 5,000 UNIT CAP PO SCH (09:13)
[2020-07-16] MEDS: FUROSEMIDE 20 MG/ 2ML VIAL IV ONE ×2 (09:24→10:00)
[2020-07-16] MEDS: ALBUMIN HUMAN 25% 50 ML IV ONE ×2 (09:25→10:00)
[2020-07-16] MEDS: NACHLORIDE 0.45% 1,000 ML IV SCH (15:00)
[2020-07-16 15:35] LABS: Absolute Lymphocytes (CBC) 0.5 K/uL (0.7-4.9); Basophils % 0.4 % (0-1.3); Hematocrit 24.1 % (36.0-45.0); Lymphocytes % 6.2 % (15.3-44.8); RBC Red Blood Cell Count 2.54 M/uL (3.86-4.86)
[2020-07-16 16:20] LABS: Potassium 4.5 mmol/L (3.5-5.1)
[2020-07-16 16:30] LABS: Blood Morphology Comment NOT SEEN (NOT SEEN); Platelet Estimate DECR; White Blood Cell Scan OK
--- NOTE | 2020-07-16 17:31 | P.PN ---
Subjective Date of Service: 07/15/20 Patient still very lethargic. She is will wake up and she is wanting some food but nothing too cold. Her renal function is starting to improve. Continue monitoring renal output closely. Monitor volume status closely. May need to get physical therapy and speech therapy involved. Will get CT of the brain as well. Review of Systems 10-point ROS is otherwise unremarkable Physical Examination - Vital Signs Temperature: 97.1 F Blood Pressure: 99/38 Pulse: 65 Respirations: 16 Pulse Ox (%): 95 - Physical Exam General: Alert, In no apparent distress, Oriented x3 Cardiovascular: Regular rate/rhythm, Normal S1 S2, No murmurs Gastrointestinal: Normal bowel sounds, Soft and benign, Non-distended, No tenderness Musculoskeletal: No clubbing, No swelling, No tenderness Neurological: Sensation intact, Cranial nerves 3-12 intact, Abnormal gait, Abnormal strength - Studies Medications List Reviewed: Yes Assessment & Plan - Problems (Diagnosis) (1) Uremic encephalopathy syndrome Current Visit: Yes Status: Acute (2) Acute renal injury Onset Date: 12/03/17 Current Visit: No Status: Acute (3) COVID-19 virus infection Current Visit: Yes Status: Acute (4) COPD exacerbation Onset Date: 12/03/17 Current Visit: No Status: Chronic (5) Diabetes mellitus Onset Date: 12/03/17 Current Visit: No Status: Chronic Qualifiers: Diabetes mellitus type: type 2 Diabetes mellitus senior living insulin use: with termite treater use Diabetes mellitus complication status: with unspecified complications (6) Hip fracture, left Onset Date: 03/06/16 Current Visit: No Status: Chronic (7) Hypertension Onset Date: 12/03/17 Current Visit: No Status: Chronic Qualifiers: Hypertension type: essential hypertension Qualified Code(s): I10 - Essential (primary) hypertension (8) CHF (congestive heart failure) Current Visit: No Status: Chronic - Plan Plan: Continue with current plan of care as mentioned below 1. Change NS. Slightly hypernatremic; will correct this morning 2. Slight over-correction and change of IV fluids and recheck sodium level in 6 hr 3. Advanced diet as tolerated; aspiration precautions 4. Renal ultrasound w/ chronic medical disease 5. Monitor oxygenation closely; BNP elevated; echocardiogram pending 6. No pulmonary symptoms from COVID-19; hold off on steroids 7. GI and DVT prophylax Discharge Plan: Home Plan to discharge in: Greater than 2 days - Advance Directives Does patient have a Living Will: Yes Does patient have a Durable POA for Healthcare: Yes - Code Status/Comfort Care Code Status: Full Code Critical Care: No Time Spent Managing PTS Care (In Minutes): 30
--- NOTE | 2020-07-16 17:34 | P.PN ---
Subjective Date of Service: 07/16/20 Patient is still lethargic. Will get CT scan of the brain. Check ammonia level per nurse recommendation. Patient still significantly uremic and this is correcting gradually. Get echocardiogram, CT scan, PT, speech therapy tomorrow. Patient overall has improved and hopefully she continues to improve her renal function which will improve her mentation. Physical Examination - Vital Signs Temperature: 97.1 F Blood Pressure: 99/38 Pulse: 65 Respirations: 16 Pulse Ox (%): 95 - Physical Exam General: Alert, In no apparent distress, Oriented x1, Cooperative, Other (She follows some commands. She is still pretty lethargic. Not doing as much as I was hoping by this time.) Respiratory: Clear to auscultation bilaterally, Normal air movement Cardiovascular: Regular rate/rhythm, Normal S1 S2, No murmurs Gastrointestinal: Normal bowel sounds, Soft and benign, Non-distended Musculoskeletal: No clubbing, No swelling - Studies Medications List Reviewed: Yes Assessment & Plan - Problems (Diagnosis) (1) Uremic encephalopathy syndrome Current Visit: Yes Status: Acute (2) Acute renal injury Onset Date: 12/03/17 Current Visit: No Status: Acute (3) COVID-19 virus infection Current Visit: Yes Status: Acute (4) COPD exacerbation Onset Date: 12/03/17 Current Visit: No Status: Chronic (5) Diabetes mellitus Onset Date: 12/03/17 Current Visit: No Status: Chronic Qualifiers: Diabetes mellitus type: type 2 Diabetes mellitus prison insulin use: with vermin exterminator use Diabetes mellitus complication status: with unspecified complications (6) Hip fracture, left Onset Date: 03/06/16 Current Visit: No Status: Chronic (7) Hypertension Onset Date: 12/03/17 Current Visit: No Status: Chronic Qualifiers: Hypertension type: essential hypertension Qualified Code(s): I10 - E ssential (primary) hypertension (8) CHF (congestive heart failure) Current Visit: No Status: Chronic - Plan Plan: Continue with current plan of care as mentioned below 1. Sodium corrected. Appreciate Nephrology recommendation. Imaging and echo pending. 2. Get physical therapy and speech therapy in a.m. 3. Advanced diet as tolerated; aspiration precautions 4. Renal ultrasound w/ chronic medical disease 5. BNP elevated so will get echocardiogram. Diurese gently if necessary. 6. No pulmonary symptoms from COVID-19; hold off on steroids 7. Still fairly uremic which is most likely cause of altered mental status. Probably will need rehab at discharge 8. GI and DVT prophylax - Advance Directives Does patient have a Living Will: Yes Does patient have a Durable POA for Healthcare: Yes - Code Status/Comfort Care Code Status: Full Code Critical Care: No Time Spent Managing PTS Care (In Minutes): 30
--- NOTE | 2020-07-16 18:50 | PN ---
Date of Progress Note: 07/16/2020 Subjective: The patient was seen. Examination done from Dr. Villarreal's note. Discussed with the RN at bedside. The patient is doing okay. No overnight events were noted. She seems to be more alert and awake today. She seems to be conversing better. Objective: Vital Signs: Have been reviewed and are stable. General: She appears in no acute distress. Lungs: Clear and she is not on any oxygen. Extremities: Showed no evidence of edema. Physical exam limited. Laboratory Data: At this time showing sodium of 141, potassium of 4.3, chloride of 114, bicarb of 18 , BUN of 101, and creatinine of 4.1 which is improving. Calcium of 6.6. ProBNP was elevated and CBC showing stable hemoglobin, hematocrit, and platelet count. Current Medications: Have been reviewed in detail. Impression: 1.COVID-19 pneumonia, currently improving. 2.Severe acute renal failure, slowly improving. Remains on IV fluids, which I will continue for rig ht now. Since her blood pressure is doing okay, we will go ahead and switch her to half-normal salin e and monitor her potassium. 3.Hypocalcemia. 4.Altered mental status secondary to metabolic encephalopathy. 5.Malnutrition. Plan: Overall the patient is doing okay. At this time, we will go ahead and change her IV fluids to half-normal saline and monitor her renal function closely. Her altered mental status secondary to be toxic metabolic encephalopathy. W e will follow up closely. VV/MODL Voice ID: [id number] Report ID: [id number]
[2020-07-16] MEDS: INSULIN GLARGINE 100 UNITS/ML SQ SCH (21:36)
[2020-07-17] MEDS: NACHLORIDE 0.45% 1,000 ML IV SCH ×2 (06:05→21:57)
[2020-07-17 06:37] LABS: Absolute Lymphocytes (CBC) 0.7 K/uL (0.7-4.9); Basophils % 0.5 % (0-1.3); Lymphocytes % 7.6 % (15.3-44.8); MPV 11.3 fL (7.6-11.3); RBC Red Blood Cell Count 2.51 M/uL (3.86-4.86)
[2020-07-17 07:12] LABS: Magnesium 2.1 mg/dL (1.8-2.4); Phosphorus 3.6 mg/dL (2.5-4.9); Potassium 4.8 mmol/L (3.5-5.1)
[2020-07-17] MEDS: INSULIN -REGULAR HUMAN 50 UNIT/0.5 ML ML SQ SCH ×4 (07:30→21:00)
--- NOTE | 2020-07-17 07:31 | RAD REPORT ---
EXAM DESCRIPTION: CT - Head Brain Wo Cont - 07/16/2020 9:13 pm CLINICAL HISTORY: Alteration of awareness/confusion COMPARISON: 2015 TECHNIQUE: Computed axial tomography of the head was obtained. IV contrast was not requested. All CT scans are performed using dose optimization technique as appropriate and may include automated exposure control or mA/KV adjustment according to patient size. FINDINGS: An intracranial bleed is not seen . The ventricles are normal in caliber. No extra-axial fluid collection is noted. Mild to moderate low-density areas within periventricular, deep and subcortical white matter likely r epresent ischemic changes secondary to small vessel disease. Fluid within the sinuses/ mastoids is not seen. IMPRESSION: No acute intracranial abnormality is seen. If patient's symptoms persist MRI of the bra in would be recommended.
[2020-07-17 07:55] LABS: Platelet Estimate DECR; White Blood Cell Scan OK
[2020-07-17 07:56] LABS: Blood Morphology Comment NOT SEEN (NOT SEEN)
--- NOTE | 2020-07-17 08:35 | ECHO ---
HEIGHT: 4 ft 10 in WEIGHT: 133 lb 0 oz DATE OF STUDY: 07/14/[address]: Shanelle Villarreal MD 2-DIMENSIONAL: YES M.MODE: YES DOPPLER: YES COLOR FLOW: YES TDS: NO PORTABLE: NO DEFINITY: NO BUBBLE STUDY: NO DIAGNOSIS: LEFT VENTRICULAR FUNCTION CARDIAC HISTORY: CATHERIZATION: NO SURGERY: NO PROSTHETIC VALVE: NO PACEMAKER: YES MEASUREMENTS (cm) DIASTOLIC (NORMALS) SYSTOLIC (NORMALS) IVSd 1.4 (0.6-1.2) LA Diam (1.9-4.0) LVEF 69% LVIDd 3.4 (3.5-5.7) LVIDs 2.1 (2.0-3.5) %FS 38% LVPWd 1.3 (0.6-1.2) Ao Diam 2.5 (2.0-3.7) 2 DIMENSIONAL ASSESSMENT: RIGHT ATRIUM: NORMAL LEFT ATRIUM: NORMAL RIGHT VENTRICLE: NORMAL LEFT VENTRICLE: LEFT VENTRICULAR HYPERTROPHY TRICUSPID VALVE: NORMAL MITRAL VALVE: STENOSIS PULMONIC VALVE: NORMAL AORTIC VALVE: SCLEROSIS PERICARDIAL EFFUSION: NONE AORTIC ROOT: NORMAL LEFT VENTRICULAR WALL MOTION: NORMAL. DOPPLER/COLOR FLOW: MILD TRICUSPID REGURGITATION - NORMAL RIGHT VENTRICULAR SYSTOLIC PRESSURE. MODERATE MITRAL STENOSIS - AREA 1.4 CENTIMETERS SQUARED. COMMENTS: LEFT VENTRICULAR HYPERTROPHY. NORMAL EJECTION FRACTION. MODERATE MITRAL STENOSIS - AREA 1.4 CENTIMETERS SQUARED. AORTIC SCLEROSIS - NO STENOSIS. MILD TRICUSPID REGURGITATION - NORMAL RIGHT VENTRICULAR SYSTOLIC PRESSURE. TECHNOLOGIST: IVY WALKER
[2020-07-17] MEDS: JUVEN PACKET PO SCH ×2 (09:00→21:00)
--- NOTE | 2020-07-17 09:12 | P.PN ---
Subjective Date of Service: 07/17/20 Chief Complaint: EDU Subjective: Other (Feeling better Denies any chest pain or shortness of breath no fever no chills Saturating well in room air States that difficulty in ambulation) Review of Systems 10-point ROS is otherwise unremarkable Physical Examination - Vital Signs Temperature: 96.8 F Blood Pressure: 143/50 Pulse: 94 Respirations: 19 Pulse Ox (%): 97 - Physical Exam General: Alert, In no apparent distress HEENT: Atraumatic, Normocephalic Neck: Supple, 2+ carotid pulse no bruit Respiratory: Diminished, Crackles/rales Cardiovascular: Regular rate/rhythm, Normal S1 S2 Capillary refill: <2 Seconds Gastrointestinal: Soft and benign, W/out hepatosplenomegaly Musculoskeletal: No clubbing, No swelling Integumentary: No rashes Neurological: Normal speech, Normal strength at 5/5 x4 extr Lymphatics: No axilla or inguinal lymphadenopathy - Studies Laboratory Last Values WBC 19.3 K/uL (4.3-10.9) H 07/12/20 14:45 RBC 3.60 M/uL (3.86-4.86) L 07/12/20 14:45 Hgb 11.3 g/dL (12.0-15.0) L 07/12/20 14:45 Hct 35.6 % (36.0-45.0) L 07/12/20 14:45 MCV 98.8 fL (80-100) D 07/12/20 14:45 MCH 31.5 pg (27.0-35.0) 07/12/20 14:45 MCHC 31.9 g/dL (32.0-36.0) L 07/12/20 14:45 RDW 14.1 % (12.1-15.2) 07/12/20 14:45 Plt Count 174 K/uL (152-406) 07/12/20 14:45 MPV 10.9 fL (7.6-11.3) 07/12/20 14:45 Neutrophils % 88.3 % (41.7-73.7) H 07/12/20 14:45 Lymphocytes % 7.2 % (15.3-44.8) L 07/12/20 14:45 Monocytes % 3.3 % (3.3-12.3) 07/12/20 14:45 Eosinophils % 0.6 % (0-4.4) 07/12/20 14:45 Basophils % 0.6 % (0-1.3) 07/12/20 14:45 Absolute Neutrophils 17.1 K/uL (1.8-8.0) H 07/12/20 14:45 Absolute Lymphocytes 1.4 K/uL (0.7-4.9) 07/12/20 14:45 Absolute Monocytes 0.6 K/uL (0.1-1.3) 07/12/20 14:45 Absolute Eosinophils 0.1 K/uL (0-0.5) 07/12/20 14:45 Absolute Basophils 0.1 K/uL (0-0.5) 07/12/20 14:45 Morphology Comment Not seen (NOT SEEN) 07/12/20 14:45 PT 14.0 SECONDS (9.5-12.5) H 07/12/20 17:25 INR 1.19 07/12/20 17:25 APTT 29.7 SECONDS (24.3-36.9) 07/12/20 17:25 Sodium 159 mmol/L (136-145) H 07/12/20 14:45 Potassium 5.3 mmol/L (3.5-5.1) H 07/12/20 14:45 Chloride 127 mmol/L (98-107) H* 07/12/20 14:45 Carbon Dioxide 19 mmol/L (21-32) L 07/12/20 14:45 BUN 134 mg/dL (7-18) H 07/12/20 14:45 Creatinine 5.56 mg/dL (0.55-1.3) H* 07/12/20 14:45 Estimated GFR 7 mL/min (=/>90) L 07/12/20 14:45 Glucose 100 mg/dL (74-106) 07/12/20 14:45 Lactic Acid 1.3 mmol/L (0.4-2.0) 07/12/20 17:25 Calcium 8.6 mg/dL (8.5-10.1) 07/12/20 14:45 Total Bilirubin 0.4 mg/dL (0.2-1.0) 07/12/20 14:45 Direct Bilirubin 0.1 mg/dL (0-0.2) 07/12/20 14:45 AST 31 U/L (15-37) 07/12/20 14:45 ALT 18 U/L (12-78) 07/12/20 14:45 Alkaline Phosphatase 106 U/L (45-117) 07/12/20 14:45 Creatine Kinase 113 U/L (26-192) 07/12/20 17:25 CK-MB (CK-2) 2.0 ng/mL (0.3-3.6) 07/12/20 17:25 Rapid Troponin I 0.09 ng/mL (0.0-0.045) H 07/12/20 17:25 Serum Total Protein 7.9 g/dL (6.4-8.2) 07/12/20 14:45 Albumin 2.8 g/dL (3.4-5.0) L 07/12/20 14:45 Globulin 5.1 g/dL (2.3-3.5) H 07/12/20 14:45 Albumin/Globulin Ratio 0.5 (1.1-1.8) L 07/12/20 14:45 Amylase 346 U/L (25-115) H* 07/12/20 17:25 Lipase 957 U/L (73-393) H 07/12/20 14:45 Procalcitonin 0.21 ng/mL (<0.50) 07/12/20 17:25 Urine pH 5.0 (5.0-7.0) 07/12/20 15:55 Ur Specific [place] 1.020 (1.005-1.030) 07/12/20 15:55 Glucose (UA)(Auto) Negative (NEG) 07/12/20 15:55 Urine Ketones Negative (NEG) 07/12/20 15:55 Urine Blood Trace (NEG) H 07/12/20 15:55 Urine Nitrite Negative (NEG) 07/12/20 15:55 Ur Leukocyte Esterase Negative (NEG) 07/12/20 15:55 Urine RBC <5 /HPF (NONE SEEN) 07/12/20 17:50 Urine WBC <5 /HPF (<5) 07/12/20 17:50 Ur Squamous Epith Cells <5 /HPF (NONE SEEN) 07/12/20 17:50 Amorphous Sediment 1+ /HPF (NONE SEEN) 07/12/20 17:50 Urine Bacteria <20 /HPF (<20) 07/12/20 17:50 Hyaline Casts Few /LPF (NONE SEEN) 07/12/20 17:50 Urine Culture Reflexed Not needed 07/12/20 17:50 Urine Total Protein Negative (NEG) 07/12/20 15:55 Medications List Reviewed: Yes Assessment & Plan - Problems (Diagnosis) (1) COVID-19 virus infection Current Visit: Yes Status: Acute (2) Uremic encephalopathy syndrome Current Visit: Yes Status: Acute (3) Acute renal injury Onset Date: 12/03/17 Current Visit: No Status: Acute (4) COPD (chronic obstructive pulmonary disease) Current Visit: No Status: Chronic Qualifiers: COPD type: COPD with acute exacerbation Qualified Code(s): J44.1 - Chronic obstructive pulmonary disease with (acute) exacerbation (5) Diabetes mellitus Onset Date: 12/03/17 Current Visit: No Status: Chronic Qualifiers: Diabetes mellitus type: type 2 Diabetes mellitus shelter insulin use: with exterminator termite use Diabetes mellitus complication status: with unspecified complications (6) Hypertension Onset Date: 12/03/17 Current Visit: No Status: Chronic Qualifiers: Hypertension type: essential hypertension Qualified Code(s): I10 - Essential (primary) hypertension Physician Review Additional Text: Acute encephalopathy possibly uremic Renal parameters improving CT showing no acute changes Monitor neurovital signs COVID 19 Not hypoxic saturating well in room air Will transfer out of ICU Monitor closely for any deterioration and oxygen need No pulmonary symptoms from COVID-19; hold off on steroids Acute kidney injury Renal Parameters monitored Appreciate help from nephrology improvement in creatinine Renal ultrasound w/ chronic medical disease Hypernatremia Better Monitor closely Monitor electrolytes and replace accordingly Debility Will get a PTOT evaluation Advice ambulation Asthma/COPD Diabetes Hypertension Hyperlipidemia Will continue home medications and titrate as needed monitor closely under telemetry GI and DVT prophylaxis Time Spent Managing Pts Care (In Minutes): 45
[2020-07-17] MEDS: VITAMIN D 5,000 UNIT CAP PO SCH (09:43)
--- NOTE | 2020-07-17 10:20 | P.PN ---
Date of Service: 07/17/20 Vital Signs Temp Pulse Resp BP Pulse Ox 96.8 F 94 H 19 143/50 H 97 07/17/20 09:38 07/17/20 09:38 07/17/20 09:38 07/17/20 09:38 07/17/20 09:38 Medications Cholecalciferol (Vitamin D 5,000 Iu Cap) 5,000 unit PO DAILY [facility] Stop: 08/12/20 18:01 Last Admin: 07/17/20 09:43 Dose: 5,000 unit Documented by: Dextrose (Dextrose 50% Syringe/Vial) 12.5 gm IV PRN PRN; Protocol PRN Reason: HYPOGLYCEMIA Stop: 08/13/20 19:08 Glucagon (Glucagen) 1 mg IM 1X PRN; Protocol PRN Reason: HYPOGLYCEMIA Stop: 08/13/20 19:08 Sodium Chloride (Sodium Chloride 0.45%) 1,000 mls @ 75 mls/hr IV .[id number] [facility] Stop: 08/15/20 15:01 Last Admin: 07/17/20 06:05 Dose: 1,000 mls Documented by: Insulin Glargine (Lantus) 10 units SQ BEDTIME [facility] Stop: 08/13/20 21:01 Last Admin: 07/16/20 21:36 Dose: 10 units Documented by: Insulin Human Regular (Novolin -R) 0 unit SQ ACHS [facility]; Protocol Stop: 08/14/20 07:31 Last Admin: 07/17/20 07:30 Dose: Not Given Documented by: L-Arginine/L-Glutamine/HMB (Topher) 1 pkt PO BID [facility] Stop: 08/12/20 21:01 Last Admin: 07/17/20 09:00 Dose: 1 pkt Documented by: Ondansetron HCl (Zofran) 4 mg IV Q8H PRN PRN Reason: NAUSEA / VOMITING Stop: 08/11/20 17:58 Sodium Bicarbonate (Sodium Bicarb 325 Mg) 650 mg PO TIDWM [facility] Stop: 08/16/20 12:01 Sodium Chloride (Normal Saline Flush) 10 ml IV BID [facility] Stop: 08/11/20 21:01 Last Admin: 07/17/20 09:43 Dose: 10 ml Documented by: Microbiology Results 07/12/20 15:48 Catheterized Urine [place] Count - Final 07/12/20 15:48 Catheterized Urine - Final No growth. 07/12/20 17:50 Nasopharnyx Coronavirus COVID-19 PCR - Final 07/12/20 15:00 Blood - Blood Aerobic Blood Culture - Preliminary No growth in 24 hours. 07/12/20 15:00 Blood - Blood Anaerobic Blood Culture - Preliminary No growth in 24 hours. 07/12/20 14:45 Blood - Blood Aerobic Blood Culture - Preliminary No growth in 24 hours. 07/12/20 14:45 Blood - Blood Anaerobic Blood Culture - Preliminary No growth in 24 hours. Assessment/ Plan: Nephrology CPS stable without CP or SOB. +Fatigue and weakness No acute events overnight. Fair urine output. Vitals, medications, blood work and imaging reviewed in the chart. General: In no apparent distress, Cooperative HEENT: Atraumatic Neck: Supple Respiratory: Clear to auscultation bilaterally Cardiovascular: No edema, Regular rate/rhythm Gastrointestinal: Soft and benign, Non-distended Musculoskeletal: No clubbing, No contractures Integumentary: No rashes, No cyanosis Neurological: Abnormal tone Laboratory Data (last 24 hrs) 07/12/20 17:25: PT 14.0 H, INR 1.19, APTT 29.7 07/12/20 17:25: Amylase 346 H* 07/12/20 14:45: WBC 19.3 H, Hgb 11.3 L, Hct 35.6 L, Plt Count 174 Imagings Data: EXAM DESCRIPTION: US - Renal Ultrasound-Complete - 07/13/2020 10:01 am CLINICAL HISTORY: Acute renal insufficiency COMPARISON: 2007 FINDINGS: The right kidney measures 8 cm with an increased echotexture. The left kidney measures 9 cm with an increased echotexture. Hydronephrosis is not seen. Poor evaluation of bladder secondary to a Galeana catheter present Milk of calcium gallbladder/cholelithiasis IMPRESSION: Increased renal echotexture consistent with parenchymal disease EXAM DESCRIPTION: CT - Abdomen Pelvis Wo Contrast - 07/12/2020 4:59 pm CLINICAL HISTORY: Abdominal pain COMPARISON: None TECHNIQUE: Computed axial tomography of the abdomen and pelvis was obtained. IV and oral contrast were not requested. All CT scans are performed using dose optimization technique as appropriate and may include automated exposure control or mA/KV adjustment according to patient size. FINDINGS: The evaluation of solid organs, vessels and bowel is limited secondary to the lack of contrast administration. Mild patchy ground-glass opacities within the lower lobes. Mild left lower lobe atelectasis. The liver, spleen, pancreas, adrenals and kidneys appear grossly normal. The appendix is normal. Diverticula stem from the colon without evidence diverticulitis. 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 A Galeana catheter is present within bladder. Milk of calcium gallbladder Atherosclerosis IMPRESSION: Mild patchy ground-glass opacities within the lower lobes can be seen with Covid pneumonia Milk of calcium gallbladder Conclusions/Impression: A/ EDU in the setting of hypovolemia/ ATN Hypernatremia/ Dehydration Hyperkalemia Acidosis Hypocalcemia Diastolic CHF, chronic. Moderate mitral stenosis DM II with CKD Moderate malnutrition Anemia in chronic illness Pancreatitis Toxic metabolic encephalopathy P/ Continue current POC and Medications. Continue IVF. Start oral bicarb. Give Retacrit. Encourage nutrition. No NSAIDs. AM labs. Daily weight. Hepatitis panel pending. May need to consider dialysis if no improvement.
[2020-07-17] MEDS: SODIUM BICARB 325 MG TAB PO SCH ×2 (12:15→16:48)
[2020-07-17] MEDS ORDERED: EPOETIN ALFA-EPBX 10,000 UNIT/ML VIAL SQ ONE (20:14)
[2020-07-17] MEDS: INSULIN GLARGINE 100 UNITS/ML SQ SCH (21:00)
[2020-07-17] MEDS: METOPROLOL XL 50 MG TAB PO SCH (21:45)
[2020-07-18 03:42] LABS: Absolute Lymphocytes (CBC) 0.6 K/uL (0.7-4.9); Basophils % 0.4 % (0-1.3); Hematocrit 23.6 % (36.0-45.0); Lymphocytes % 5.3 % (15.3-44.8); MPV 10.5 fL (7.6-11.3); RBC Red Blood Cell Count 2.47 M/uL (3.86-4.86)
[2020-07-18 03:57] LABS: Albumin 2.4 g/dL (3.4-5.0); Bilirubin Total 0.5 mg/dL (0.2-1.0); Magnesium 1.9 mg/dL (1.8-2.4); Phosphorus 3.7 mg/dL (2.5-4.9); Potassium 4.7 mmol/L (3.5-5.1); Protein, Total 6.1 g/dL (6.4-8.2); Uric Acid 9.7 mg/dL (2.6-6.0)
[2020-07-18 06:58] LABS: Urine Appearance TURBID; Urine Bilirubin NEGATIVE (NEG); Urine Blood 1+ (NEG); Urine Color YELLOW; Urine Glucose NEGATIVE (NEG); Urine Protein 1+ (NEG); Urine Urobilinogen 0.2 mg/dL (0.2-1.0)
[2020-07-18] MEDS: INSULIN -REGULAR HUMAN 50 UNIT/0.5 ML ML SQ SCH ×4 (07:30→20:39)
[2020-07-18] MEDS: SODIUM BICARB 325 MG TAB PO SCH ×3 (07:56→17:06)
[2020-07-18] MEDS: VITAMIN D 5,000 UNIT CAP PO SCH (07:56)
[2020-07-18] MEDS: JUVEN PACKET PO SCH ×2 (07:57→20:01)
[2020-07-18] MEDS: NACHLORIDE 0.45% 1,000 ML IV SCH ×2 (07:57→20:00)
[2020-07-18] MEDS: ENSURE ENLIVE 237 ML CAN PO SCH ×2 (08:08→20:01)
[2020-07-18] MEDS: HYDROCODONE/APAP 7.5/325 MG TAB PO PRN ×3 (08:23→21:34)
[2020-07-18 09:08] LABS: Urine Bacteria 20-50 /HPF (<20); Urine Culture Reflex Order REFLEXED; Urine Mucus 2+ /HPF (NONE SEEN); Urine Urothelial Cells <5 /HPF (NONE SEEN); Urine Yeast MANY (NONE SEEN); Urine Yeast with Hyphae PRESENT
--- NOTE | 2020-07-18 09:25 | P.PN ---
Subjective Date of Service: 07/18/20 Chief Complaint: EDU Subjective: No new changes, Other (Complaints of generalized weakness Pain in the lower extremities) Review of Systems 10-point ROS is otherwise unremarkable Physical Examination - Vital Signs Temperature: 95.8 F Blood Pressure: 168/70 Pulse: 90 Respirations: 18 Pulse Ox (%): 97 - Physical Exam General: Alert, Mild distress HEENT: Atraumatic, Normocephalic Neck: Supple Respiratory: Clear to auscultation bilaterally Cardiovascular: Regular rate/rhythm, Normal S1 S2 Capillary refill: <2 Seconds Gastrointestinal: Soft and benign, W/out hepatosplenomegaly Musculoskeletal: No clubbing, No swelling Integumentary: No rashes Neurological: Normal speech, Normal strength at 5/5 x4 extr Lymphatics: No axilla or inguinal lymphadenopathy - Studies Microbiology Data (last 24 hrs): 07/12/20 15:00 Blood - Blood Aerobic Blood Culture - Final No growth in 5 days. 07/12/20 15:00 Blood - Blood Anaerobic Blood Culture - Final No growth in 5 days. 07/12/20 14:45 Blood - Blood Aerobic Blood Culture - Final No growth in 5 days. 07/12/20 14:45 Blood - Blood Anaerobic Blood Culture - Final No growth in 5 days. Medications List Reviewed: Yes Assessment & Plan - Problems (Diagnosis) (1) COVID-19 virus infection Current Visit: Yes Status: Acute (2) Uremic encephalopathy syndrome Current Visit: Yes Status: Acute (3) Acute renal injury Onset Date: 12/03/17 Current Visit: No Status: Acute (4) COPD (chronic obstructive pulmonary disease) Current Visit: No Status: Chronic Qualifiers: COPD type: COPD with acute exacerbation Qualified Code(s): J44.1 - Chronic obstructive pulmonary disease with (acute) exacerbation (5) Diabetes mellitus Onset Date: 12/03/17 Current Visit: No Status: Chronic Qualifiers: Diabetes mellitus type: type 2 Diabetes mellitus termite control representative insulin use: with [place] [facility] use Diabetes mellitus complication status: with unspecified complications (6) Hypertension Onset Date: 12/03/17 Current Visit: No Status: Chronic Qualifiers: Hypertension type: essential hypertension Qualified Code(s): I10 - Essential (primary) hypertension Physician Review Additional Text: Acute encephalopathy possibly uremic Mental status improved well Renal parameters improving CT showing no acute changes Monitor neurovital signs COVID 19 Not hypoxic , saturating well in room air Monitor closely for any deterioration and oxygen need No pulmonary symptoms from COVID-19; hold off on steroids Acute kidney injury Renal Parameters monitored Appreciate help from nephrology Slight improvement in creatinine Renal ultrasound w/ chronic medical disease Hypernatremia Resolved Monitor closely Monitor electrolytes and replace accordingly UTI Will get a urine culture Start on empirically on antibiotics Patient is allergic to penicillin Start on levofloxacin renal dose Debility Will get a PTOT evaluation Advice ambulation Asthma/COPD Diabetes Hypertension Hyperlipidemia Will continue home medications and titrate as needed monitor closely under telemetry GI and DVT prophylaxis Disposition : Monitor renal parameters closely Awaiting further recommendations from nephrology PT Eval May need placement to SNF if PT recommends Time Spent Managing Pts Care (In Minutes): 42
[2020-07-18] MEDS: Levofloxacin 250mg IV 250 MG/50 ML BAG IV SCH (10:26)
[2020-07-18 13:08] LABS: CKMB Creatine Kinase MB 3.3 ng/mL (0.3-3.6)
[2020-07-18] MEDS: METOPROLOL XL 50 MG TAB PO SCH (20:00)
[2020-07-18] MEDS: INSULIN GLARGINE 100 UNITS/ML SQ SCH (20:39)
--- NOTE | 2020-07-18 21:38 | P.PN ---
Date of Service: 07/18/20 Vital Signs Temp Pulse Resp BP Pulse Ox 95.8 F L 97 H 16 152/66 H 100 07/18/20 20:00 07/18/20 20:00 07/18/20 20:00 07/18/20 20:00 07/18/20 20:00 Medications Hydrocodone Bitart/Acetaminophen ([place] 7.5/325 Mg) 1 tab PO Q4H PRN PRN Reason: Pain scale 8-10 (Severe) Stop: 08/17/20 08:01 Last Admin: 07/18/20 21:34 Dose: 1 tab Documented by: Cholecalciferol (Vitamin D 5,000 Iu Cap) 5,000 unit PO DAILY [facility] Stop: 08/12/20 18:01 Last Admin: 07/18/20 07:56 Dose: 5,000 unit Documented by: Dextrose (Dextrose 50% Syringe/Vial) 12.5 gm IV PRN PRN; Protocol PRN Reason: HYPOGLYCEMIA Stop: 08/13/20 19:08 Glucagon (Glucagen) 1 mg IM 1X PRN; Protocol PRN Reason: HYPOGLYCEMIA Stop: 08/13/20 19:08 Sodium Chloride (Sodium Chloride 0.45%) 1,000 mls @ 75 mls/hr IV .[id number] [facility] Stop: 08/15/20 15:01 Last Admin: 07/18/20 20:00 Dose: 1,000 mls Documented by: Levofloxacin/Dextrose (Levaquin 250mg/50 Ml Ivpb) 250 mg in 50 mls @ 50 mls/hr IV Q24H [facility]; Protocol Stop: 08/17/20 10:01 Last Admin: 07/18/20 10:26 Dose: 50 mls Documented by: Insulin Glargine (Lantus) 10 units SQ BEDTIME [facility] Stop: 08/13/20 21:01 Last Admin: 07/18/20 20:39 Dose: Not Given Documented by: Insulin Human Regular (Novolin -R) 0 unit SQ ACHS [facility]; Protocol Stop: 08/14/20 07:31 Last Admin: 07/18/20 20:39 Dose: Not Given Documented by: L-Arginine/L-Glutamine/HMB (Topher) 1 pkt PO BID [facility] Stop: 08/12/20 21:01 Last Admin: 07/18/20 20:01 Dose: 1 pkt Documented by: Metoprolol Succinate (Toprol Xl) 50 mg PO BID [facility] Stop: 08/17/20 21:18 Last Admin: 07/18/20 20:00 Dose: 50 mg Documented by: Nutritional Formula (Ensure Enlive) 237 ml PO BID [facility] Stop: 08/17/20 09:01 Last Admin: 07/18/20 20:01 Dose: 237 ml Documented by: Ondansetron HCl (Zofran) 4 mg IV Q8H PRN PRN Reason: NAUSEA / VOMITING Stop: 08/11/20 17:58 Sodium Bicarbonate (Sodium Bicarb 325 Mg) 650 mg PO TIDWM [facility] Stop: 08/16/20 12:01 Last Admin: 07/18/20 17:06 Dose: 650 mg Documented by: Sodium Chloride (Normal Saline Flush) 10 ml IV BID [facility] Stop: 08/11/20 21:01 Last Admin: 07/18/20 20:39 Dose: Not Given Documented by: Microbiology Results 07/12/20 15:00 Blood - Blood Aerobic Blood Culture - Final No growth in 5 days. 07/12/20 15:00 Blood - Blood Anaerobic Blood Culture - Final No growth in 5 days. 07/12/20 14:45 Blood - Blood Aerobic Blood Culture - Final No growth in 5 days. 07/12/20 14:45 Blood - Blood Anaerobic Blood Culture - Final No growth in 5 days. 07/12/20 15:48 Catheterized Urine [place] Count - Final 07/12/20 15:48 Catheterized Urine - Final No growth. 07/12/20 17:50 Nasopharnyx Coronavirus COVID-19 PCR - Final Assessment/ Plan: Nephrology CPS stable without CP or SOB. +Fatigue and weakness No acute events overnight. Fair urine output. Vitals, medications, blood work and imaging reviewed in the chart. General: In no apparent distress, Cooperative HEENT: Atraumatic Neck: Supple Respiratory: Clear to auscultation bilaterally Cardiovascular: No edema, Regular rate/rhythm Gastrointestinal: Soft and benign, Non-distended Musculoskeletal: No clubbing, No contractures Integumentary: No rashes, No cyanosis Neurological: Abnormal tone Laboratory Data (last 24 hrs) 07/12/20 17:25: PT 14.0 H, INR 1.19, APTT 29.7 07/12/20 17:25: Amylase 346 H* 07/12/20 14:45: WBC 19.3 H, Hgb 11.3 L, Hct 35.6 L, Plt Count 174 Imagings Data: EXAM DESCRIPTION: US - Renal Ultrasound-Complete - 07/13/2020 10:01 am CLINICAL HISTORY: Acute renal insufficiency COMPARISON: 2007 FINDINGS: The right kidney measures 8 cm with an increased echotexture. The left kidney measures 9 cm with an increased echotexture. Hydronephrosis is not seen. Poor evaluation of bladder secondary to a [place]ale[place] catheter present Milk of calcium gallbladder/cholelithiasis IMPRESSION: Increased renal echotexture consistent with parenchymal disease EXAM DESCRIPTION: CT - Abdomen Pelvis Wo Contrast - 07/12/2020 4:59 pm CLINICAL HISTORY: Abdominal pain COMPARISON: None TECHNIQUE: Computed axial tomography of the abdomen and pelvis was obtained. IV and oral contrast were not requested. All CT scans are performed using dose optimization technique as appropriate and may include automated exposure control or mA/KV adjustment according to patient size. FINDINGS: The evaluation of solid organs, vessels and bowel is limited secondary to the lack of contrast administration. Mild patchy ground-glass opacities within the lower lobes. Mild left lower lobe atelectasis. The liver, spleen, pancreas, adrenals and kidneys appear grossly normal. The appendix is normal. Diverticula stem from the colon without evidence diverticulitis. 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 A [place]ale[place] catheter is present within bladder. Milk of calcium gallbladder Atherosclerosis IMPRESSION: Mild patchy ground-glass opacities within the lower lobes can be seen with Covid pneumonia Milk of calcium gallbladder Conclusions/Impression: A/ EDU in the setting of hypovolemia/ ATN Hypernatremia/ Dehydration Hyperkalemia Acidosis Hypocalcemia Diastolic CHF, chronic. Moderate mitral stenosis DM II with CKD Moderate malnutrition Anemia in chronic illness Pancreatitis Toxic metabolic encephalopathy P/ Continue current POC and Medications. Continue IVF. Give Retacrit prn. Encourage nutrition. No NSAIDs. AM labs. Daily weight. Hepatitis panel pending. May need to consider dialysis if no improvement.
[2020-07-19 04:55] LABS: HBsAG Nonreactive (Nonreactive)
[2020-07-19] MEDS: NACHLORIDE 0.45% 1,000 ML IV SCH ×2 (05:49→09:40)
[2020-07-19] MEDS: INSULIN -REGULAR HUMAN 50 UNIT/0.5 ML ML SQ SCH ×4 (07:30→21:17)
[2020-07-19] MEDS: VITAMIN D 5,000 UNIT CAP PO SCH (07:59)
[2020-07-19] MEDS: SODIUM BICARB 325 MG TAB PO SCH ×3 (07:59→16:07)
[2020-07-19] MEDS: HYDROCODONE/APAP 7.5/325 MG TAB PO PRN (07:59)
[2020-07-19] MEDS ORDERED: PANTOPRAZOLE 40MG TABLET PO SCH (08:00)
[2020-07-19] MEDS: ENSURE ENLIVE 237 ML CAN PO SCH ×2 (08:06→21:16)
[2020-07-19] MEDS: METOPROLOL XL 50 MG TAB PO SCH ×2 (08:06→21:19)
[2020-07-19] MEDS: JUVEN PACKET PO SCH ×2 (08:07→21:16)
[2020-07-19] MEDS: Levofloxacin 250mg IV 250 MG/50 ML BAG IV SCH (08:15)
[2020-07-19 08:32] LABS: Absolute Lymphocytes (CBC) 0.6 K/uL (0.7-4.9); Basophils % 0.3 % (0-1.3); Hematocrit 24.5 % (36.0-45.0); Lymphocytes % 5.9 % (15.3-44.8); MPV 10.5 fL (7.6-11.3); RBC Red Blood Cell Count 2.53 M/uL (3.86-4.86)
[2020-07-19 08:49] LABS: Albumin 2.4 g/dL (3.4-5.0); Bilirubin Total 0.4 mg/dL (0.2-1.0); Potassium 5.3 mmol/L (3.5-5.1); Protein, Total 6.5 g/dL (6.4-8.2)
[2020-07-19] MEDS ORDERED: MAGNES/ALUMIN/SIMET 30ML UCUP PO PRN (09:01)
--- NOTE | 2020-07-19 09:07 | P.PN ---
Subjective Date of Service: 07/19/20 Chief Complaint: EDU Subjective: Other (With complaints of chest pain and epigastric discomfort Difficulty in ambulation Generalized weakness) Review of Systems 10-point ROS is otherwise unremarkable Physical Examination - Vital Signs Temperature: 95.2 F Blood Pressure: 172/69 Pulse: 86 Respirations: 20 Pulse Ox (%): 95 - Physical Exam General: Alert, Mild distress HEENT: Atraumatic, Normocephalic Neck: Supple Respiratory: Clear to auscultation bilaterally, Normal air movement Cardiovascular: Regular rate/rhythm, Normal S1 S2 Capillary refill: <2 Seconds Gastrointestinal: Soft and benign, W/out hepatosplenomegaly Musculoskeletal: No clubbing, No swelling Integumentary: No rashes Neurological: Normal speech, Other (Alert awake, nonfocal) Lymphatics: No axilla or inguinal lymphadenopathy - Studies Medications List Reviewed: Yes Assessment & Plan - Problems (Diagnosis) (1) COVID-19 virus infection Current Visit: Yes Status: Acute (2) Uremic encephalopathy syndrome Current Visit: Yes Status: Acute (3) Acute renal injury Onset Date: 12/03/17 Current Visit: No Status: Acute (4) COPD (chronic obstructive pulmonary disease) Current Visit: No Status: Chronic Qualifiers: COPD type: COPD with acute exacerbation Qualified Code(s): J44.1 - Chronic obstructive pulmonary disease with (acute) exacerbation (5) Diabetes mellitus Onset Date: 12/03/17 Current Visit: No Status: Chronic Qualifiers: Diabetes mellitus type: type 2 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 Diabetes mellitus complication status: with unspecified complications (6) Hypertension Onset Date: 12/03/17 Current Visit: No Status: Chronic Qualifiers: Hypertension type: essential hypertension Qualified Code(s): I10 - Essential (primary) hypertension Physician Review Additional Text: Acute encephalopathy possibly uremic Mental status improved well Renal parameters improving CT showing no acute changes Monitor neurovital signs COVID 19 Not hypoxic , saturating well in room air Monitor closely for any deterioration and oxygen need Will start on dexamethasone Acute kidney injury Renal Parameters monitored Appreciate help from nephrology Renal ultrasound w/ chronic medical disease Hyperkalemia For a start on Kayexalate Monitor closely under telemetry Chest pain Will get a CT of the chest Appreciate help from cardiology Trops negative so far Monitor closely under telemetry Hypernatremia Resolved Monitor closely Monitor electrolytes and replace accordingly UTI Will get a urine culture Start on empirically on antibiotics Patient is allergic to penicillin Start on levofloxacin renal dose Debility Will get a PTOT evaluation Advice ambulation GERD Will start on Protonix Maalox p.r.n. Asthma/COPD Diabetes Hypertension Hyperlipidemia Will continue home medications and titrate as needed monitor closely under telemetry GI and DVT prophylaxis Disposition : Awaiting further recommendations from nephrology PT Eval May need placement to SNF if PT recommends Time Spent Managing Pts Care (In Minutes): 42
[2020-07-19] MEDS ORDERED: SOD POLYSTYREN SUL 15 GM/60 ML UCUP PO ONE (09:16)
[2020-07-19] MEDS: dexAMETHasone 10 MG/ML VIAL IV SCH (10:01)
--- NOTE | 2020-07-19 11:06 | RAD REPORT ---
EXAM DESCRIPTION: CT - Thorax Wo Con - 07/19/2020 10:32 am CLINICAL HISTORY: PNA COVID COMPARISON: Chest For Pe Angio dated 06/22/2020; Chest Single View dated 07/12/2020 TECHNIQUE: Axial 5 mm thick images of the chest were obtained without IV contrast. All CT scans are performed using dose optimization technique as appropriate and may include automated exposure control or mA/KV adjustment according to patient size. FINDINGS: Moderate bilateral pleural effusions have developed. Patchy bilateral airspace opacificati on is present. Small focal consolidation present posterior right upper lobe. Additional consolidation with air bronchogram formation seen in the right upper lobe abutting the minor fissure. Pattern is n ot substantially different from the portable chest film. Findings would be consistent with the clinic al diagnosis of COVID pneumonia. Airspace opacification is scattered in the left upper and left lower lobes. There is bilateral partial lower lobe atelectasis. No pneumothorax. No abnormal mediastinal or hilar masses or lymphadenopathy seen. No gross aortic or pulmonary artery finding suspected. Assessment is limited in the absence of IV contrast. No pericardial effusion. No chest wall mass or abnormal axillary lymphadenopathy. IMPRESSION: Moderate bilateral pleural effusions and bilateral alveolar opacification new from the [facility] CT chest. The lung parenchymal opacification is not substantially different from July 12 portab le chest. Chest findings are consistent with the clinical diagnosis of bilateral COVID-19 pneumonia.
[2020-07-19] MEDS: PANTOPRAZOLE 40MG TABLET PO SCH (16:07)
[2020-07-19] MEDS: INSULIN GLARGINE 100 UNITS/ML SQ SCH (21:00)
[2020-07-19] MEDS ORDERED: EPOETIN ALFA-EPBX 10,000 UNIT/ML VIAL SQ ONE (21:55)
--- NOTE | 2020-07-19 21:58 | P.PN ---
Date of Service: 07/19/20 Vital Signs Temp Pulse Resp BP Pulse Ox 96.4 F L 98 H 18 150/92 H 96 07/19/20 16:00 07/19/20 21:19 07/19/20 16:00 07/19/20 21:19 07/19/20 16:00 Medications Hydrocodone Bitart/Acetaminophen ([place] 7.5/325 Mg) 1 tab PO Q4H PRN PRN Reason: Pain scale 8-10 (Severe) Stop: 08/17/20 08:01 Last Admin: 07/19/20 07:59 Dose: 1 tab Documented by: Al Hydrox/Mg Hydrox/Simethicone (Maalox) 30 ml PO Q6H PRN PRN Reason: INDIGESTION Stop: 08/18/20 09:02 Cholecalciferol (Vitamin D 5,000 Iu Cap) 5,000 unit PO DAILY DENIS Stop: 08/12/20 18:01 Last Admin: 07/19/20 07:59 Dose: 5,000 unit Documented by: Dexamethasone (Decadron) 6 mg IV DAILY DENIS Stop: 08/18/20 09:19 Last Admin: 07/19/20 10:01 Dose: 6 mg Documented by: Dextrose (Dextrose 50% Syringe/Vial) 12.5 gm IV PRN PRN; Protocol PRN Reason: HYPOGLYCEMIA Stop: 08/13/20 19:08 Glucagon (Glucagen) 1 mg IM 1X PRN; Protocol PRN Reason: HYPOGLYCEMIA Stop: 08/13/20 19:08 Levofloxacin/Dextrose (Levaquin 250mg/50 Ml Ivpb) 250 mg in 50 mls @ 50 mls/hr IV Q24H DENIS; Protocol Stop: 08/17/20 10:01 Last Admin: 07/19/20 08:15 Dose: 50 mls Documented by: Insulin Glargine (Lantus) 10 units SQ BEDTIME DENIS Stop: 08/13/20 21:01 Last Admin: 07/19/20 21:00 Dose: Not Given Documented by: Insulin Human Regular (Novolin -R) 0 unit SQ ACHS DENIS; Protocol Stop: 08/14/20 07:31 Last Admin: 07/19/20 21:17 Dose: 6 unit Documented by: L-Arginine/L-Glutamine/HMB (Topher) 1 pkt PO BID [facility] Stop: 08/12/20 21:01 Last Admin: 07/19/20 21:16 Dose: 1 pkt Documented by: Metoprolol Succinate (Toprol Xl) 50 mg PO BID [facility] Stop: 08/17/20 21:18 Last Admin: 07/19/20 21:19 Dose: 50 mg Documented by: Nutritional Formula (Ensure Enlive) 237 ml PO BID [facility] Stop: 08/17/20 09:01 Last Admin: 07/19/20 21:16 Dose: 237 ml Documented by: Ondansetron HCl (Zofran) 4 mg IV Q8H PRN PRN Reason: NAUSEA / VOMITING Stop: 08/11/20 17:58 Last Admin: 07/19/20 01:07 Dose: 4 mg Documented by: Pantoprazole Sodium (Protonix Tab) 40 mg PO BIDAC [facility]; Protocol Stop: 08/18/20 16:31 Last Admin: 07/19/20 16:07 Dose: 40 mg Documented by: Sodium Bicarbonate (Sodium Bicarb 325 Mg) 650 mg PO TIDWM [facility] Stop: 08/16/20 12:01 Last Admin: 07/19/20 16:07 Dose: 650 mg Documented by: Sodium Chloride (Normal Saline Flush) 10 ml IV BID [facility] Stop: 08/11/20 21:01 Last Admin: 07/19/20 21:00 Dose: Not Given Documented by: Microbiology Results 07/12/20 15:00 Blood - Blood Aerobic Blood Culture - Final No growth in 5 days. 07/12/20 15:00 Blood - Blood Anaerobic Blood Culture - Final No growth in 5 days. 07/12/20 14:45 Blood - Blood Aerobic Blood Culture - Final No growth in 5 days. 07/12/20 14:45 Blood - Blood Anaerobic Blood Culture - Final No growth in 5 days. 07/12/20 15:48 Catheterized Urine [place] Count - Final 07/12/20 15:48 Catheterized Urine - Final No growth. 07/12/20 17:50 Nasopharnyx Coronavirus COVID-19 PCR - Final Assessment/ Plan: Nephrology CPS stable without CP or SOB. +Fatigue and weakness. Anorexia. No acute events overnight. Fair urine output. Vitals, medications, blood work and imaging reviewed in the chart. General: In no apparent distress, Cooperative HEENT: Atraumatic Neck: Supple Respiratory: Clear to auscultation bilaterally Cardiovascular: No edema, Regular rate/rhythm Gastrointestinal: Soft and benign, Non-distended Musculoskeletal: No clubbing, No contractures Integumentary: No rashes, No cyanosis Neurological: Abnormal tone Laboratory Data (last 24 hrs) 07/12/20 17:25: PT 14.0 H, INR 1.19, APTT 29.7 07/12/20 17:25: Amylase 346 H* 07/12/20 14:45: WBC 19.3 H, Hgb 11.3 L, Hct 35.6 L, Plt Count 174 Imagings Data: EXAM DESCRIPTION: US - Renal Ultrasound-Complete - 07/13/2020 10:01 am CLINICAL HISTORY: Acute renal insufficiency COMPARISON: 2007 FINDINGS: The right kidney measures 8 cm with an increased echotexture. The left kidney measures 9 cm with an increased echotexture. Hydronephrosis is not seen. Poor evaluation of bladder secondary to a Galeana catheter present Milk of calcium gallbladder/cholelithiasis IMPRESSION: Increased renal echotexture consistent with parenchymal disease EXAM DESCRIPTION: CT - Abdomen Pelvis Wo Contrast - 07/12/2020 4:59 pm CLINICAL HISTORY: Abdominal pain COMPARISON: None TECHNIQUE: Computed axial tomography of the abdomen and pelvis was obtained. IV and oral contrast were not requested. All CT scans are performed using dose optimization technique as appropriate and may include automated exposure control or mA/KV adjustment according to patient size. FINDINGS: The evaluation of solid organs, vessels and bowel is limited secondary to the lack of contrast administration. Mild patchy ground-glass opacities within the lower lobes. Mild left lower lobe atelectasis. The liver, spleen, pancreas, adrenals and kidneys appear grossly normal. The appendix is normal. Diverticula stem from the colon without evidence diverticulitis. 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 A Galeana catheter is present within bladder. Milk of calcium gallbladder Atherosclerosis IMPRESSION: Mild patchy ground-glass opacities within the lower lobes can be seen with Covid pneumonia Milk of calcium gallbladder Conclusions/Impression: A/ EDU in the setting of hypovolemia/ ATN Hypernatremia/ Dehydration Hyperkalemia Acidosis Hypocalcemia Diastolic CHF, chronic. Moderate mitral stenosis DM II with CKD Moderate malnutrition Anemia in chronic illness Pancreatitis Toxic metabolic encephalopathy P/ Continue current POC and Medications. Continue IVF. Give Retacrit today. Give Kayexalate for hyperkalemia. Encourage nutrition. No NSAIDs. AM labs. Daily weight. Hepatitis panel pending. May need to consider dialysis if no improvement.
[2020-07-20] MEDS: NACHLORIDE 0.45% 1,000 ML IV SCH ×3 (00:19→13:56)
[2020-07-20] MEDS ORDERED: EPOETIN ALFA-EPBX 10,000 UNIT/ML VIAL SQ ONE (08:00)
[2020-07-20] MEDS: SODIUM BICARB 325 MG TAB PO SCH ×3 (08:21→16:09)
[2020-07-20] MEDS: METOPROLOL XL 50 MG TAB PO SCH ×2 (08:22→19:35)
[2020-07-20] MEDS: PANTOPRAZOLE 40MG TABLET PO SCH ×2 (08:22→16:09)
[2020-07-20] MEDS: VITAMIN D 5,000 UNIT CAP PO SCH (08:22)
[2020-07-20] MEDS: dexAMETHasone 10 MG/ML VIAL IV SCH (08:25)
[2020-07-20] MEDS: INSULIN -REGULAR HUMAN 50 UNIT/0.5 ML ML SQ SCH ×4 (08:28→21:57)
[2020-07-20] MEDS: ENSURE ENLIVE 237 ML CAN PO SCH (08:28)
[2020-07-20] MEDS: NEPRO SHAKE 237 ML CAN PO SCH ×2 (08:29→13:56)
[2020-07-20] MEDS: JUVEN PACKET PO SCH ×2 (08:29→19:36)
--- NOTE | 2020-07-20 08:45 | EKG ---
Test Date: 2020-07-18 Test Time: 09:38:06 Rn Transfer: CHERYL MEASUREMENT RESULTS: Intervals: Rate: 90 MD: 184 QRSD: 134 QT: 430 QTc: 526 [place]: P: 64 MD: 184 QRS: -51 T: 121 INTERPRETIVE STATEMENTS: Electronic ventricular pacemaker Compared to ECG 06/22/2020 08:55:10 No significant changes Electronically Signed On 07-20-20 08:39:02 CDT by Chalo Brown
--- NOTE | 2020-07-20 09:02 | RAD REPORT ---
EXAM DESCRIPTION: NM - Vent Perfusion VQ Scan - 07/20/2020 6:33 am CLINICAL HISTORY: chest pain Chest pain, shortness of breath COMPARISON: Thorax Wo Con dated 07/19/2020 TECHNIQUE: 17.9mCi Xe-133 gas inhaled and 7.6mCi Tc-MAA IV. Planar ventilation scan was performed in posterior projection after Xe-133 gas inhalation (wash-in, e quilibrium, and wash-out phases) followed by perfusion scan with Tc-MAA IV in multiple projections. Examination is correlated with recent chest radiograph. FINDINGS: Heterogenous ventilation is noted with moderate air trapping. Several small peripherally located mismatched subsegmental perfusion defects are seen bilaterally. IMPRESSION: High probability of pulmonary embolism Moderate COPD.
[2020-07-20 09:11] LABS: Absolute Lymphocytes (CBC) 0.3 K/uL (0.7-4.9); Basophils % 0.4 % (0-1.3); Lymphocytes % 6.8 % (15.3-44.8); MPV 10.8 fL (7.6-11.3); RBC Red Blood Cell Count 2.39 M/uL (3.86-4.86)
[2020-07-20 09:25] LABS: Potassium 5.5 mmol/L (3.5-5.1)
[2020-07-20] MEDS: Levofloxacin 250mg IV 250 MG/50 ML BAG IV SCH (09:36)
--- NOTE | 2020-07-20 09:48 | PN ---
Date of Progress Note: 07/19/2020 Subjective: Ms. Kiser is an 85-year-old woman who was admitted to Dr. Borrero on 07/12/2020. I saw her yesterday on 07/18/2020 for moderate mitral stenosis. She had acute renal failure. She is COVID positive. Altered mental status. Nephrology is following. I am not so sure if dialysis is planned or conservative measures at this point. This morning, she is fairly asymptomatic. Remains confused . Alert and oriented x1. No complaint of chest pain. Objective: Vital Signs: Stable. She is in sinus rhythm. Laboratory Data: Her last creatinine is pending. Assessment And Plan: Ms. Kiser has many issues including moderate mitral stenosis, moderate pulmon billy hypertension and LVH with normal ejection fraction. Has normal coronaries in 2015. No need to r epeat any invasive cardiac workup. I do not think the mitral stenosis has anything to do with kidney failure at this point. She has many other problems including COPD, pancreatitis, hypertension, diab etes, dyslipidemia, neuropathy, gastroesophageal reflux disease, and diastolic congestive heart failu re as well as a pacemaker. All of these are stable at this point. I will continue her medical regim en. I will leave her final decision to Dr. Borrero and Nephrology. I would be available for questions if the need arises. PIEDAD/RADHA Voice ID: [id number] Report ID: [id number]
[2020-07-20] MEDS ORDERED: APIXABAN 5 MG TABLET PO SCH (09:58)
--- NOTE | 2020-07-20 10:37 | P.PN ---
Subjective Date of Service: 07/20/20 Chief Complaint: EDU Subjective: No new changes, Other (Chest pain resolved No fever no chills) Review of Systems 10-point ROS is otherwise unremarkable Physical Examination - Vital Signs Temperature: 95.8 F Blood Pressure: 133/69 Pulse: 93 Respirations: 18 Pulse Ox (%): 97 - Physical Exam General: Alert, In no apparent distress HEENT: Atraumatic, Normocephalic Neck: Supple Respiratory: Diminished, Crackles/rales Cardiovascular: Regular rate/rhythm, Normal S1 S2 Capillary refill: <2 Seconds Gastrointestinal: Soft and benign, W/out hepatosplenomegaly Musculoskeletal: No clubbing, Swelling, Other (swelling in the left upper extremity) Integumentary: No rashes Neurological: Normal speech Lymphatics: No axilla or inguinal lymphadenopathy - Studies Medications List Reviewed: Yes Assessment & Plan - Problems (Diagnosis) (1) COVID-19 virus infection Current Visit: Yes Status: Acute (2) Uremic encephalopathy syndrome Current Visit: Yes Status: Acute (3) Acute renal injury Onset Date: 12/03/17 Current Visit: No Status: Acute (4) COPD (chronic obstructive pulmonary disease) Current Visit: No Status: Chronic Qualifiers: COPD type: COPD with acute exacerbation Qualified Code(s): J44.1 - Chronic obstructive pulmonary disease with (acute) exacerbation (5) Diabetes mellitus Onset Date: 12/03/17 Current Visit: No Status: Chronic Qualifiers: Diabetes mellitus type: type 2 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 Diabetes mellitus complication status: with unspecified complications (6) Hypertension Onset Date: 12/03/17 Current Visit: No Status: Chronic Qualifiers: Hypertension type: essential hypertension Qualified Code(s): I10 - Essential (primary) hypertension Physician Review Additional Text: Acute encephalopathy possibly uremic Mental status improved well Renal parameters improving CT showing no acute changes Monitor neurovital signs Pulmonary embolism VQ-scan was done which showed high probability of PE Will start on Eliquis Will get a pulmonology consult Monitor closely Anemia No overt bleeding not Will get FOBT Monitor H&H Transfuse p.r.n. COVID 19 Not hypoxic , saturating well in room air Monitor closely for any deterioration and oxygen need Will start on dexamethasone Acute kidney injury Renal Parameters monitored Appreciate help from nephrology Renal ultrasound w/ chronic medical disease Hyperkalemia For a start on Kayexalate Monitor closely under telemetry Chest pain Appreciate help from cardiology Trops negative so far Monitor closely under telemetry Hypernatremia Resolved Monitor closely Monitor electrolytes and replace accordingly UTI Will get a urine culture Start on empirically on antibiotics Patient is allergic to penicillin Start on levofloxacin renal dose Debility Will get a PTOT evaluation Advice ambulation GERD Will start on Protonix Maalox p.r.n. Pulmonary embolism Asthma/COPD Diabetes Hypertension Hyperlipidemia Will continue home medications and titrate as needed monitor closely under telemetry GI and DVT prophylaxis Disposition : PT Eval May need placement to SNF if PT recommends Time Spent Managing Pts Care (In Minutes): 43
[2020-07-20] MEDS: HYDROCODONE/APAP 7.5/325 MG TAB PO PRN ×2 (11:53→19:35)
[2020-07-20] MEDS ORDERED: SOD POLYSTYREN SUL 15 GM/60 ML UCUP PO ONE (14:32)
[2020-07-20] MEDS ORDERED: FLUCONAZOLE 100 MG TAB PO SCH (17:00)
[2020-07-20] MEDS ORDERED: D5W 1,000 ML with NA BICARB 8.4% 100 MEQ IV SCH ×4 (18:00→23:00)
[2020-07-20] MEDS ORDERED: HEPARIN 5000 UNIT/ML 1 ML VIAL IV PRN (18:29)
[2020-07-20] MEDS ORDERED: HEPARIN/D5W 25,000 UNIT/500 ML BAG IV PRN (19:00)
[2020-07-20] MEDS ORDERED: HEPARIN 5000 UNIT/ML 1 ML VIAL IV SCH (19:00)
[2020-07-20] MEDS: ENSURE HIGH PROTEIN 237 ML CAN PO SCH (19:36)
[2020-07-20] MEDS: INSULIN GLARGINE 100 UNITS/ML SQ SCH (21:57)
[2020-07-20] MEDS ORDERED: FUROSEMIDE 40 MG/4 ML VIAL IV ONE (22:30)
--- NOTE | 2020-07-20 22:40 | P.PN ---
Date of Service: 07/20/20 Vital Signs Temp Pulse Resp BP Pulse Ox 97.1 F 99 H 20 160/87 H 97 07/20/20 20:00 07/20/20 20:00 07/20/20 20:35 07/20/20 20:00 07/20/20 20:35 Medications Hydrocodone Bitart/Acetaminophen ([place] 7.5/325 Mg) 1 tab PO Q4H PRN PRN Reason: Pain scale 8-10 (Severe) Stop: 08/17/20 08:01 Last Admin: 07/20/20 19:35 Dose: 1 tab Documented by: Al Hydrox/Mg Hydrox/Simethicone (Maalox) 30 ml PO Q6H PRN PRN Reason: INDIGESTION Stop: 08/18/20 09:02 Cholecalciferol (Vitamin D 5,000 Iu Cap) 5,000 unit PO DAILY DENIS Stop: 08/12/20 18:01 Last Admin: 07/20/20 08:22 Dose: 5,000 unit Documented by: Dexamethasone (Decadron) 6 mg IV DAILY [facility] Stop: 08/18/20 09:19 Last Admin: 07/20/20 08:25 Dose: 6 mg Documented by: Dextrose (Dextrose 50% Syringe/Vial) 12.5 gm IV PRN PRN; Protocol PRN Reason: HYPOGLYCEMIA Stop: 08/13/20 19:08 Fluconazole (Diflucan Tab) 100 mg PO 1700 DENIS Stop: 08/19/20 17:01 Last Admin: 07/20/20 16:11 Dose: 100 mg Documented by: Furosemide (Lasix) 40 mg IV 1X ONE Stop: 07/20/20 22:31 Glucagon (Glucagen) 1 mg IM 1X PRN; Protocol PRN Reason: HYPOGLYCEMIA Stop: 08/13/20 19:08 Heparin Sodium (Porcine) (Heparin 5,000 Units/Ml) 5,000 unit IV PRN PRN PRN Reason: PER HEPARIN PROTOCOL Stop: 08/19/20 18:30 Levofloxacin/Dextrose (Levaquin 250mg/50 Ml Ivpb) 250 mg in 50 mls @ 50 mls/hr IV Q24H DENIS; Protocol Stop: 08/17/20 10:01 Last Admin: 07/20/20 09:36 Dose: 50 mls Documented by: Heparin Sodium/Dextrose (Heparin Drip 25,000 Units/5oo Ml Premix) 25,000 unit in 500 mls @ 22 mls/hr IV .TITRATE PRN PRN Reason: PER PTT RESULTS Stop: 08/19/20 19:01 Last Admin: 07/20/20 21:17 Dose: 500 mls Documented by: Sodium Bicarbonate 100 meq/ (Dextrose/Water) 1,100 mls @ 50 mls/hr IV .Q22H [facility] Stop: 08/19/20 23:01 Insulin Glargine (Lantus) 12 units SQ BEDTIME DENIS Stop: 08/20/20 21:01 Insulin Human Regular (Novolin -R) 0 unit SQ ACHS [facility]; Protocol Stop: 08/14/20 07:31 Last Admin: 07/20/20 21:57 Dose: 4 unit Documented by: L-Arginine/L-Glutamine/HMB (Topher) 1 pkt PO BID [facility] Stop: 08/12/20 21:01 Last Admin: 07/20/20 19:36 Dose: 1 pkt Documented by: Metoprolol Succinate (Toprol Xl) 50 mg PO BID [facility] Stop: 08/17/20 21:18 Last Admin: 07/20/20 19:35 Dose: 50 mg Documented by: Nutritional Formula (Ensure High Protein) 237 ml PO BID [facility] Stop: 08/19/20 21:01 Last Admin: 07/20/20 19:36 Dose: 237 ml Documented by: Ondansetron HCl (Zofran) 4 mg IV Q8H PRN PRN Reason: NAUSEA / VOMITING Stop: 08/11/20 17:58 Last Admin: 07/19/20 01:07 Dose: 4 mg Documented by: Pantoprazole Sodium (Protonix Tab) 40 mg PO BIDAC [facility]; Protocol Stop: 08/18/20 16:31 Last Admin: 07/20/20 16:09 Dose: 40 mg Documented by: Sodium Bicarbonate (Sodium Bicarb 325 Mg) 650 mg PO TIDWM [facility] Stop: 08/16/20 12:01 Last Admin: 07/20/20 16:09 Dose: 650 mg Documented by: Sodium Chloride (Normal Saline Flush) 10 ml IV BID [facility] Stop: 08/11/20 21:01 Last Admin: 07/20/20 19:35 Dose: 10 ml Documented by: Microbiology Results 07/12/20 15:00 Blood - Blood Aerobic Blood Culture - Final No growth in 5 days. 07/12/20 15:00 Blood - Blood Anaerobic Blood Culture - Final No growth in 5 days. 07/12/20 14:45 Blood - Blood Aerobic Blood Culture - Final No growth in 5 days. 07/12/20 14:45 Blood - Blood Anaerobic Blood Culture - Final No growth in 5 days. 07/12/20 15:48 Catheterized Urine [place] Count - Final 07/12/20 15:48 Catheterized Urine - Final No growth. 07/12/20 17:50 Nasopharnyx Coronavirus COVID-19 PCR - Final Assessment/ Plan: Nephrology CPS stable without CP or SOB. +Fatigue and weakness. Anorexia. No acute events overnight. Fair urine output. Vitals, medications, blood work and imaging reviewed in the chart. General: In no apparent distress, Cooperative HEENT: Atraumatic Neck: Supple Respiratory: Clear to auscultation bilaterally Cardiovascular: Edema, Regular rate/rhythm Gastrointestinal: Soft and benign, Non-distended Musculoskeletal: No clubbing, No contractures Integumentary: No rashes, No cyanosis Neurological: Abnormal tone Laboratory Data (last 24 hrs) 07/12/20 17:25: PT 14.0 H, INR 1.19, APTT 29.7 07/12/20 17:25: Amylase 346 H* 07/12/20 14:45: WBC 19.3 H, Hgb 11.3 L, Hct 35.6 L, Plt Count 174 Imagings Data: EXAM DESCRIPTION: US - Renal Ultrasound-Complete - 07/13/2020 10:01 am CLINICAL HISTORY: Acute renal insufficiency COMPARISON: 2007 FINDINGS: The right kidney measures 8 cm with an increased echotexture. The left kidney measures 9 cm with an increased echotexture. Hydronephrosis is not seen. Poor evaluation of bladder secondary to a Galeana catheter present Milk of calcium gallbladder/cholelithiasis IMPRESSION: Increased renal echotexture consistent with parenchymal disease EXAM DESCRIPTION: CT - Abdomen Pelvis Wo Contrast - 07/12/2020 4:59 pm CLINICAL HISTORY: Abdominal pain COMPARISON: None TECHNIQUE: Computed axial tomography of the abdomen and pelvis was obtained. IV and oral contrast were not requested. All CT scans are performed using dose optimization technique as appropriate and may include automated exposure control or mA/KV adjustment according to patient size. FINDINGS: The evaluation of solid organs, vessels and bowel is limited secondary to the lack of contrast administration. Mild patchy ground-glass opacities within the lower lobes. Mild left lower lobe atelectasis. The liver, spleen, pancreas, adrenals and kidneys appear grossly normal. The appendix is normal. Diverticula stem from the colon without evidence d iverticulitis. 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 A Galeana catheter is present within bladder. Milk of calcium gallbladder Atherosclerosis IMPRESSION: Mild patchy ground-glass opacities within the lower lobes can be seen with Covid pneumonia Milk of calcium gallbladder Conclusions/Impression: A/ EDU in the setting of hypovolemia/ ATN Hypernatremia/ Dehydration Hyperkalemia Acidosis Hypocalcemia Diastolic CHF, A/C. Moderate mitral stenosis Possible PE? DM II with CKD Moderate malnutrition Anemia in chronic illness Pancreatitis Toxic metabolic encephalopathy P/ Continue current POC and Medications. Change IVF to bicarb. Give a dose of Lasix. Give Retacrit prn. Give Kayexalate for hyperkalemia. Encourage nutrition. No NSAIDs. AM labs. Daily weight. Hepatitis panel pending. May need to consider dialysis if no improvement.
[2020-07-21] MEDS: HYDROCODONE/APAP 7.5/325 MG TAB PO PRN (04:35)
[2020-07-21 05:01] VITALS: BMI 28.0
[2020-07-21 05:05] LABS: Albumin 2.6 g/dL (3.4-5.0); Bilirubin Total 0.3 mg/dL (0.2-1.0); Magnesium 2.1 mg/dL (1.8-2.4); Phosphorus 6.2 mg/dL (2.5-4.9); Potassium 4.2 mmol/L (3.5-5.1); Protein, Total 6.4 g/dL (6.4-8.2); Uric Acid 8.6 mg/dL (2.6-6.0)
[2020-07-21 05:11] LABS: Absolute Lymphocytes (CBC) 0.5 K/uL (0.7-4.9); Basophils % 0.5 % (0-1.3); Lymphocytes % 7.4 % (15.3-44.8); MPV 10.5 fL (7.6-11.3); RBC Red Blood Cell Count 2.48 M/uL (3.86-4.86)
[2020-07-21 05:19] LABS: Urine Appearance TURBID; Urine Bilirubin NEGATIVE (NEG); Urine Blood 2+ (NEG); Urine Color YELLOW; Urine Glucose NEGATIVE (NEG); Urine Protein NEGATIVE (NEG); Urine Specific Gravity <=1.005 (1.005-1.030); Urine Urobilinogen 0.2 mg/dL (0.2-1.0)
[2020-07-21 05:35] LABS: Arterial Blood Carboxyhemoglob 1.4 % (0-1.5); Blood Gas Oxyhemoglobin 94.5 % (94-97); Blood O2 Saturation 96.7 % (92-98.5)
[2020-07-21 05:47] LABS: Blood Morphology Comment NOT SEEN (NOT SEEN); Platelet Estimate ADEQ; White Blood Cell Scan OK
[2020-07-21 06:06] LABS: Urine Bacteria <20 /HPF (<20); Urine Culture Reflex Order REFLEXED; Urine Mucus 2+ /HPF (NONE SEEN); Urine Yeast MANY (NONE SEEN)
[2020-07-21 06:07] LABS: Urine Yeast with Hyphae PRESENT
[2020-07-21] MEDS: INSULIN -REGULAR HUMAN 50 UNIT/0.5 ML ML SQ SCH ×2 (07:30→11:30)
[2020-07-21 07:35] VITALS: O2SAT 97
[2020-07-21] MEDS: VITAMIN D 5,000 UNIT CAP PO SCH (08:48)
[2020-07-21] MEDS: SODIUM BICARB 325 MG TAB PO SCH ×2 (08:48→12:00)
[2020-07-21] MEDS: METOPROLOL XL 50 MG TAB PO SCH (08:48)
[2020-07-21] MEDS: PANTOPRAZOLE 40MG TABLET PO SCH (08:49)
[2020-07-21] MEDS: dexAMETHasone 10 MG/ML VIAL IV SCH (08:49)
[2020-07-21] MEDS: ENSURE HIGH PROTEIN 237 ML CAN PO SCH (08:50)
[2020-07-21] MEDS: JUVEN PACKET PO SCH (08:50)
[2020-07-21] MEDS: Levofloxacin 250mg IV 250 MG/50 ML BAG IV SCH (09:58)
[2020-07-21 11:32] VITALS: BP 130/80; TEMP 96.9
--- NOTE | 2020-07-21 11:55 | P.DS ---
Admission Date: 07/12/20 Discharge Date: 07/21/20 Disposition: TRANSFER TO ALF Discharge Condition: GOOD Reason for Admission: EDU - Problems (1) COVID-19 virus infection Status: Acute (2) Uremic encephalopathy syndrome Status: Acute (3) Acute renal injury Onset Date: 12/03/17 Status: Acute (4) COPD (chronic obstructive pulmonary disease) Status: Chronic Qualifiers: COPD type: COPD with acute exacerbation Qualified Code(s): J44.1 - Chronic obstructive pulmonary disease with (acute) exacerbation (5) Diabetes mellitus Onset Date: 12/03/17 Status: Chronic Qualifiers: Diabetes mellitus type: type 2 Diabetes mellitus rodent exterminator insulin use: with rodent exterminator use Diabetes mellitus complication status: with unspecified complications (6) Hypertension Onset Date: 12/03/17 Status: Chronic Qualifiers: Hypertension type: essential hypertension Qualified Code(s): I10 - Essential (primary) hypertension Brief History of Present Illness: 85-year-old female who came into the hospital with altered mental status. Patient's baseline is that he is awake, alert, and oriented to person place and time. She normally is able to do most of her own activities of daily living. She does live with her family members who help her with day-to-day activities. She has been to the hospital over the last few weeks. At that time, she was in the ER for fever, cough, and weakness. Since being home she has not been eating and drinking well. In the last week she has felt a lot worse. She has also been nauseated. Since the patient was not looking well and looking very altered they decided to bring her into the emergency room once again. In the emergency room patient was found have significant uremia. Patient was also hypernatremic and acidotic. Patient's COVID-19 testing was also positive. Patient does have ground-glass opacities on her x-ray. At this time, she will be admitted to the hospital for further evaluation. Hospital Course: Acute encephalopathy possibly uremic Pulmonary embolism Anemia COVID 19 Acute kidney injury Hyperkalemia Hypernatremia UTI Asthma/COPD Diabetes Hypertension Hyperlipidemia Patient was admitted and was monitor closely under telemetry. Patient came with altered mental status possibly due to uremia. CT showed no acute changes. Monitored neuro vital signs. Mental functions improved with improvement of the renal parameters. Patient was started on steroids and she was positive for COVID 19. Initially was started on oxygen supplementation but she was not hypoxic and was monitored with continuous pulse ox. She was complaining of chest pain and was trended cardiac enzymes. Was started on antibiotics for possible pneumonia/UTI. Pulmonology was consulted along with nephrology. V/Q scan was done which showed high probability of PE. She was initially started on heparin drip and that is started on Eliquis at the time of discharge. Patient also found to have anemia with hemoglobin is slightly improving at the time of Discharge. Hyperkalemia was treated with Kayexalate and renal parameters were monitored and was improving at the time of discharge,\appreciate help from nephrology. Electrolytes monitored and replaced accordingly Patient underwent physical therapy and is being discharged to [facility] for further rehabilitation Vital Signs/Physical Exam: Temp Pulse Resp BP Pulse Ox 96.9 F 86 20 130/80 94 07/21/20 11:30 07/21/20 11:30 07/21/20 11:30 07/21/20 11:30 07/21/20 11:30 General: Alert HEENT: Atraumatic, Normocephalic Neck: Supple Respiratory: Clear to auscultation bilaterally Cardiovascular: Regular rate/rhythm, Normal S1 S2 Capillary refill: <2 Seconds Gastrointestinal: Soft and benign, W/out hepatosplenomegaly Musculoskeletal: No clubbing Integumentary: No rashes Neurological: Other (Alert ) Lymphatics: No axilla or inguinal lymphadenopathy Laboratory Data at Discharge: WBC 6.3 K/uL (4.3-10.9) D 07/21/20 04:22 Hgb 8.0 g/dL (12.0-15.0) L 07/21/20 04:22 Hct 24.0 % (36.0-45.0) L 07/21/20 04:22 Plt Count 148 K/uL (152-406) L D 07/21/20 04:22 PT 14.0 SECONDS (9.5-12.5) H 07/12/20 17:25 INR 1.19 07/12/20 17:25 APTT 161.1 SECONDS (24.3-36.9) H* 07/21/20 09:11 Sodium 139 mmol/L (136-145) 07/21/20 04:22 Potassium 4.2 mmol/L (3.5-5.1) 07/21/20 04:22 BUN 78 mg/dL (7-18) H 07/21/20 04:22 Creatinine 3.35 mg/dL (0.55-1.3) H 07/21/20 04:22 Glucose 164 mg/dL (74-106) H 07/21/20 04:22 Uric Acid 8.6 mg/dL (2.6-6.0) H 07/21/20 04:22 Phosphorus 6.2 mg/dL (2.5-4.9) H 07/21/20 04:22 Magnesium 2.1 mg/dL (1.8-2.4) 07/21/20 04:22 Total Bilirubin 0.3 mg/dL (0.2-1.0) 07/21/20 04:22 AST 17 U/L (15-37) 07/21/20 04:22 ALT 12 U/L (12-78) 07/21/20 04:22 Alkaline Phosphatase 93 U/L (45-117) 07/21/20 04:22 Troponin I 0.03 ng/mL (0.0-0.045) 07/18/20 17:42 Triglycerides 270 mg/dL (<150) H 07/13/20 05:05 Cholesterol 133 mg/dL (<200) 07/13/20 05:05 HDL Cholesterol 39 mg/dL (40-60) L 07/13/20 05:05 Cholesterol/HDL Ratio 3.41 07/13/20 05:05 Amylase 346 U/L (25-115) H* 07/12/20 17:25 Lipase 357 U/L (73-393) 07/16/20 06:00 Home Medications: Furosemide [Lasix*] 20 mg PO DAILY 03/20/18 Gabapentin [Gralise] 300 mg PO BEDTIME 03/20/18 Albuterol Sulfate [Ventolin Hfa] 2 puff IH Q4H PRN 07/13/20 Aspirin 1 tab PO DAILY 07/13/20 Cetirizine HCl [Zyrtec] 1 tab PO BEDTIME 07/13/20 Fluticasone/Vilanterol [Breo Ellipta 100-25 Mcg INH] 1 puff IH DAILY 07/13/20 Insulin Degludec [Tresiba Flextouch U-200] 20 units SQ BEDTIME 07/13/20 Iron,Carb/Vit C/Vit B12/Folic [Iron 100 Plus Tablet] 1 tab PO DAILY 07/13/20 Pantoprazole [Protonix Tab*] 1 tab PO DAILY 07/13/20 Potassium Chloride [Klor-Con 10] 20 meq PO DAILY 07/13/20 Rosuvastatin [Crestor*] 1 tab PO BEDTIME 07/13/20 Apixaban [Eliquis] 5 mg PO BID #60 tablet 07/21/20 Cholecalciferol (Vitamin D3) [Vitamin D 5,000 IU Cap*] 5,000 unit PO DAILY #30 cap 07/21/20 Ensure High Protein 237 ml PO BID #20 can 07/21/20 Fluconazole [Diflucan] 100 mg PO DAILY #5 tablet 07/21/20 Insulin -Regular Human [Novolin -R*] See Protocol SQ ACHS #10 ml 07/21/20 Levofloxacin [Levaquin] 250 mg PO DAILY #7 tablet 07/21/20 Metoprolol Succinate 1 tab PO BID #60 07/21/20 Na Bicarb Tab [Sodium Bicarb 325 MG Tab*] 650 mg PO TIDWM #90 tab 07/21/20 predniSONE [Prednisone*] 20 mg PO BID #20 tab 07/21/20 New Medications: Fluconazole [Diflucan] 100 mg PO DAILY #5 tablet Apixaban [Eliquis] 5 mg PO BID #60 tablet Ensure High Protein 237 ml PO BID #20 can Levofloxacin [Levaquin] 250 mg PO DAILY #7 tablet Metoprolol Succinate 1 tab PO BID #60 Insulin -Regular Human [Novolin -R*] See Protocol SQ ACHS #10 ml predniSONE [Prednisone*] 20 mg PO BID #20 tab Na Bicarb Tab [Sodium Bicarb 325 MG Tab*] 650 mg PO TIDWM #90 tab Cholecalciferol (Vitamin D3) [Vitamin D 5,000 IU Cap*] 5,000 unit PO DAILY #30 cap Followup: Nj Hamilton DO [ACTIVE - CAN ADMIT] - Time spent managing pt's care (in minutes): 43
[2020-07-21] MEDS ORDERED: INSULIN GLARGINE 100 UNITS/ML SQ SCH (21:00)
--- NOTE | 2020-07-23 09:18 | CON ---
Date of Consultation: 07/18/2020 Reason For Consultation: Acute renal failure, acute kidney injury and chest pain as well as mitral s tenosis. History Of Present Illness: Ms. Kiser is an 85-year-old woman admitted by Dr. Borrero on 07/12/2020 with COVID positive and acute renal failure. She had extensive past medical history including a pace maker placement, pancreatitis, hypertension, COPD, palpitation, diabetes, dyslipidemia, neuropathy, g astroesophageal reflux disease, and diastolic congestive heart failure. Heart catheterization in 201 6 on Ms. Kiser was normal. Echocardiogram showed mitral stenosis, moderate 1.4 cm LVH, moderate pu lmonary hypertension, normal ejection fraction. She came in with COVID positive, acute renal failure . She had a negative troponin. Creatinine is 3.73. The patient described as obtunded. It was very hard to get a history from her. Chest pain was . She was pointing to the mid- epigastric region and left lateral chest wall. No nausea or vomiting reported. No palpitation or sy ncope reported. Past Medical History: As stated above. Allergies: NONE. Review of Systems: Negative. Social History: Negative. Family History: Noncontributory. Medications: At home include Protonix, ventolin inhalers, aspirin, Lasix, metoprolol, Neurontin, and Crestor. Physical Examination: General: She was alert and oriented to name. Vital Signs: Stable. She was afebrile. She was in sinus rhythm. HEENT: Negative. Neck: Supple. No bruit. Chest: Clear to auscultation and percussion. Cardiac: Revealed a regular rhythm and rate with a 2/6 early diastolic murmur at the apex that did n ot radiate. There are no gallops or rubs. Abdomen: Benign. Extremities: 1+ edema. Diagnostic Data: As stated earlier. Impression And Plan: 1.Acute renal failure. pending. Nephrology is following. 2.COVID positive. metoprolol and steroid. 3.Chronic diastolic congestive heart failure. 4.Moderate pulmonary hypertension. 5.Moderate mitral stenosis. No need for any intervention. At this point, there is not a ny symptoms. 6.Margi also had hypertension, diabetes, dyslipidemia, all of which were controlled at this point. 7.She has chronic obstructive pulmonary disease, gastroesophageal reflux disease, history of pancrea titis, stable. I agree with her present regimen. We will continue medical therapy as is. PIEDAD/RADHA Voice ID: [id number] Report ID: [id number]
== END 2020-07-21 13:20 | DRG 177 ==
LOC: ER 13:26 → ERHOLD 17:57 → 3RD-ICU 21:51 → 4TH 07-17 10:39
PROVIDERS: ADMIT Hospitalist; ATTEND Family Medicine
DX: U07.1 COVID-19 (principal); J12.89 Other viral pneumonia; K85.90 Acute pancreatitis without necrosis or infection, unspecified; G92 Toxic encephalopathy; I26.99 Other pulmonary embolism without acute cor pulmonale; I50.31 Acute diastolic (congestive) heart failure; E87.0 Hyperosmolality and hypernatremia; E87.2 Acidosis; J44.1 Chronic obstructive pulmonary disease with (acute) exacerbation; I13.0 Hypertensive heart and chronic kidney disease with heart failure and stage 1 through stage 4 chronic kidney disease, or unspecified chronic kidney disease; N39.0 Urinary tract infection, site not specified; N17.9 Acute kidney failure, unspecified; E44.1 Mild protein-calorie malnutrition; Z88.0 Allergy status to penicillin; Z79.4 Long term (current) use of insulin; Z79.82 Long term (current) use of aspirin; Z79.899 Other long term (current) drug therapy; Z90.710 Acquired absence of both cervix and uterus; Z96.642 Presence of left artificial hip joint; F02.80 Dementia in other diseases classified elsewhere, unspecified severity, without behavioral disturbance, psychotic disturbance, mood disturbance, and anxiety; E86.0 Dehydration; E83.51 Hypocalcemia; E11.22 Type 2 diabetes mellitus with diabetic chronic kidney disease; N18.9 Chronic kidney disease, unspecified; Z68.26 Body mass index [BMI] 26.0-26.9, adult; D63.8 Anemia in other chronic diseases classified elsewhere; Z95.0 Presence of cardiac pacemaker; E86.1 Hypovolemia; S72.002D Fracture of unspecified part of neck of left femur, subsequent encounter for closed fracture with routine healing; I05.0 Rheumatic mitral stenosis; R53.81 Other malaise; E78.5 Hyperlipidemia, unspecified; K21.9 Gastro-esophageal reflux disease without esophagitis; E87.5 Hyperkalemia; R07.9 Chest pain, unspecified; E11.40 Type 2 diabetes mellitus with diabetic neuropathy, unspecified; I27.20 Pulmonary hypertension, unspecified; L89.152 Pressure ulcer of sacral region, stage 2
CPT/HCPCS: 36415; 51702; 70450; 71045; 71250; 74176; 76770; 78582; 80048; 80053; 80061; 80076; 81001; 81003; 81015; 82140; 82150; 82550; 82553; 82570; 82805; 82947; 83605; 83690; 83735; 83880; 83930; 83935; 84100; 84145; 84300; 84484; 84550; 85025; 85610; 85730; 86140; 86317; 86704; 86850; 86900; 86901; 87040; 87086; 87088; 87340; 92610; 93005; 93306; 96365; 96375; 97162; 99285; A9540; A9558; J0610; J1100; J1644; J1815; J1940; J2405; J3370; J7030; P9047; Q5106; U0002

== ENCOUNTER 2020-07-27 18:36 | Inpatient (IN) | payer OTHER ==
--- OUTSIDE RECORDS SUMMARY | 2020-07-27 18:57 | XMS REPORT | Clinical Summary ---
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
--- OUTSIDE RECORDS SUMMARY | 2020-07-27 18:57 | XMS REPORT | Clinical Summary ---
:1935 [facility] Address [address] [place] [address] Care Team Providers Name Role Phone Unavailable [...] Not on file Implants Implanted Type Area Nuclear Operator Device Shelf Model / Identifier Expiration Serial / Date Lot Ld Pacing Ingevity Active 52cm [id number] - [id number] Pacemaker Lead N/A: [employer] 08/15/2019 7741 / Implanted: Qty: 1 on 02/02/2018 by Shanelle Garcia MD Heart SCI:CARDIAC [id number] / RHYTHM MNGT Ld Pacing Ingevity Active 45 1622 - [id number] Pacemaker Lead N/A: [employer] 11/04/2019 7740 / Implanted: Qty: 1 on 02/02/2018 by Shanelle Garcia MD Heart SCI:CARDIAC [id number] / RHYTHM MNGT [address] Pacemaker Pacemakers N/A: [employer]ON 10/2019 L111 / Implanted: Qty: 1 on 02/02/2018 by Shanelle Garcia MD Chest SCIENTIFIC [id number] / Results Not on fileafter 07/27/2019 Insurance Payer Benefit Plan / Group Subscriber ID Type Phone A ddress HUMANA - MEDICARE MGD HUMANA MEDICARE ADV xxxxxxxxx Maps Contracted CARE (Home) [place] [address] Advance Directives For more information, please contact:[address] [phone] Code Status Date Activated Date Inactivated Comments Full Code 01/30/2018 8:36 PM 02/04/2018 2:37 PM This code status was determined by: Patient
--- OUTSIDE RECORDS SUMMARY | 2020-07-27 18:58 | XMS REPORT | Continuity of Care Document ---
:1935 Author Organization [facility] t Address [address] [place] [address] Care Team Providers Name Role Phone Tono DORANTES Kim Primary Care Physician Silvio RN Attending Clinician HERLINDA BOO Attending Clinician Unavailable HERLINDA BOO Admitting Clinician Unavailable Problems Condition Condition Condition Status Onset Resolution Last Treating Co mments Source Name Details Category Date Date Treatment Clinician Date Pleural Pleural Disease Active [place] effusion effusion 6-01 Method i 00:00: st 00 Pericardia Pericardia Disease Active [place] effusion l effusion 5 Me thodi 00:00: st 00 Essential Essential Disease Active Elisabeth ston hypertensi hypertensi 5-25 Me thodi on on 00:00: st 00 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 5-25 Method i mellitus mellitus 00:00: st 00 Moderate Moderate Disease Active [place] asthma asthma 5- Methodi 00:00: st 00 Arthritis Arthritis Disease [...] [place] nonobese nonobese l Outpati ent Clinics 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 Problem Active [facility] [...] s - seasonal seasonal Memori [facility] Mixed Mixed Problem Active [facility] [...] Eve kes - on on Memoria l [facility] Pulmonary Pulmonary Problem Active [facility] [...] s - follow-up follow-up Lazarus [place] l [facility] Pericardia Pericardia Problem Active C [...] unspecifie d d Primary Primary Problem Active [facility] St osteoarthr osteoarthr Eve kes - itis [...] Info Not [facility] t Reaction Available [facility] Amoxicil Adverse Active Info Not [facility] t shanda Reaction Available [facility] - [facility] Family History Family Member Diagnosis Comments Start Date Stop Date Source Natural brother Diabetes [facility] Natural father Cancer [facility] Natural mother Diabetes [facility] Natural sister Diabetes [facility] Social History Social Habit Start Date Stop Date Quantity Comments Source Sex Assigned At [facility] Alcohol intake 2018-05-05 2018-05-05 [facility]00 non-drinker of alcohol (finding) Smoking Status Start Date Stop Date Source Never smoker [facility] Medications Ordered Filled Start Stop Current Ordering Indication Dosage Frequency Signature Comments Components Source Medication Medication Date Date Medication? Clinician (SIG) Name Name Easy Touch Easy Touch Yes Bashir [address] [facility] Pen [place] 03-31 Kirk for [facility] - 00:00: Tresiba Memoria 00 l [facility] ent Clinics Flonase Flonase 2017-12 Yes Bashir [address] [facility] 1-19 Kirk each [facility] - 00:00: nostril Memoria 00 l [facility] ent Clinics Cetirizine Cetirizine 2017-12 Yes Bashir [address] HCl HCl 1-19 Kirk [facility] - 00:00: Memoria 00 [facility] ent Clinics Lidocaine Lidocaine Yes Bashir [address] [facility] 7-10 Kirk skin [facility] - 00:00: remove Memoria 00 after 12 l hours [facility] Alcohol Alcohol Yes Bashir as [facility] Prep Pads Prep Pads 06-08 Kirk directed [facility] - 00:00: Memoria 00 l [facility] ent Clinics gabapentin 20180 Yes 600mg QD [...] [facility] gabapentin 20180 Yes 300mg [id number] Take [address] (NEURONTIN) 3-02 [id number] mg by L ukes - 300 MG [...] Potassium Kirk Luke s - Memoria l [facility] ent Clinics FreeStyle FreeStyle Yes Bashir as [facility] Yinka 14 Yinka 14 Kirk directed Eve kes - Day Thermal Day Thermal Mem oria l [facility] ent [facility] Ventolin Ventolin Yes Bashir [address] [facility] HFA HFA Kirk needed Greg ford [facility] ent [facility] Ferrous Ferrous Yes Bashir [address] Sulfate Sulfate Kirk [facility] - Memoria l [facility] ent Clinics Aspirin 81 Aspirin 81 Yes Bashir [address] [facility] Kirk [facility] - [facility] l [facility] Clinics Breo Breo Yes Bashir INHALE [address] [facility] Ellipta Ellipta Kirk PUFF EVERY Eve kes - DAY Memoria l [facility] ent Clinics Xanax Xanax Yes Bashir [address] [facility] [facility] Kirk [facility] - [facility] l [facility]ics Gabapentin Gabapentin Yes Bashir TAKE [address] [facility] Kirk CAPSULE Lukes - THREE Memoria TIMES l DAILY [facility] Furosemide Furosemide Yes Bashir [address] [facility] Kirk [facility] - [facility] l [facility] Clinics Klor-Con Klor-Con Yes Bashir [address] M20 M20 Kirk with food Lukes - Memoria l [facility] ent Clinics Pantoprazol Pantoprazol Yes Bashir [address] e Sodium e Sodium Kirk [facility] - Memoria l [facility] ent Clinics Accu-Chek Accu-Chek Yes Bashir as [facility] Yaa Plus Yaa Plus Kirk directed [facility]ukes - Memoria l [facility] Clinics NitroQuick NitroQuick Yes Bashir not C HI St Kirk defined [facility] - Memoria l [facility] ent Clinics Lancets Lancets Yes Bashir one [facility] Super Thin Super Thin Kirk Eve kes - Memoria l [facility] ent Clinics Rosuvastati Rosuvastati Yes Bashir [address] n Calcium n Calcium Kirk Luke s - Memoria l [facility] ent Clinics FreeStyle FreeStyle Yes Bashir USE C HI St Yinka 14 Yinka 14 Kirk DIRECTED Eve kes - Day Sensor Day Sensor EVERY 14 Memoria DAYS l [facility] ent Clinics Multi For Multi For Yes Bashir as [facility] Her 50+ Her 50+ Kirk directed Luke s - Memoria l [facility] ent Clinics Metoprolol Metoprolol Yes Bashir [address] Succinate Succinate Kirk Luke s - ER ER Memoria l [facility] ent Clinics Tresiba Tresiba Yes Bashir [address] FlexTouch FlexTouch Kirk in pm [place]anna es - Memoria l [facility] ent Clinics Immunizations Ordered Filled Immunization Date Status Comments Sourc e Immunization Name Name FluAD FluAD 2019-08-[address] [facility] - 00:[facility]:00 [facility] FluAD FluAD 2018-08-[address] [facility] [facility] - 00[facility]00 [facility] Outpatient [facility] Procedures This patient has no known procedures. Plan of Care Planned Activity Planned Date Details Comments Source Future Scheduled 2020-08-31 INFLUENZA VACCINE [place] [employer] 00:00:00 [code = INFLUENZA VACCINE] Future Scheduled 2001 65+ PNEUMOCOCCAL [place] [employer] Test 00:00:00 VACCINE (1 of 2 - PCV13) [code = 65+ PNEUMOCOCCAL VACCINE (1 of 2 - PCV13)] Future Scheduled 1986 SHINGLES VACCINES (#1) [place] [employer] Test 00:00:00 [code = SHINGLES VACCINES (#1)] Future Scheduled 1946 DIABETIC FOOT EXAM [place] [employer] Test 00:00:00 [code = DIABETIC FOOT EXAM] Future Scheduled 1945 URINE MICROALBUMIN [place] [employer] Test 00:00:00 [code = URINE MICROALBUMIN] Future Scheduled 1936 DIABETIC RETINAL EYE Elisabeth ston [employer] Test 00:00:00 EXAM [code = DIABETIC RETINAL EYE EXAM] Encounters Start End Encounter Admission Attending Care Care Encounter Source Date/Time Date/Time Type Type Clinicians Facility Department ID 2020-07-12 2020-07-12 Outpatient Cinthia Jiang [id number] [address] 16:52:00 16:52:00 t [employer] [facility] 2020-07-07 2020-07-07 Outpatient Cinthia Vicentet [id number] [address] 16:55:00 16:55:00 t [employer] [facility] 2020-07-07 2020-07-07 Transition Chauncey Anguiano [id number] 00:00:00 00:00:00 of Care Frida Mckenna [id number] Humberto [id number] 2020-07-06 2020-07-06 Outpatient Cinthia Jiang [id number] 08:46:00 08:46:00 t [employer] [facility] 2020-06-29 2020-06-29 Outpatient Cinthia Jiang [id number] 10:46:00 10:46:00 t [place] [employer] YEVVO [facility] Medicine Outpati ent Clinics 2020-06-28 2020-06-28 [facility] [id number] 09:15:00 09:15:00 t [place] [employer] YEVVO [facility] l Medicine Outpati ent Clinics 2020-06-23 2020-06-23 [facility] [id number] 11:15:00 11:15:00 t [place] [employer] YEVVO [facility] Medicine Outpati ent Clinics 2020-06-22 2020-06-22 [facility] [id number] 11:12:00 11:12:00 t [place] [employer] [facility] Medicine Outpati ent Clinics 2020-03-31 2020-03-31 [facility] [id number] 10:30:00 10:30:00 t [employer] s YEVVO [facility] Medicine Outpati ent Clinics 2020-03-29 2020-03-29 [facility] [id number] 10:30:00 10:30:00 t Bone [facility] and [facility] - and Joint [facility] ent Clinics 2020-03-16 2020-03-16 [facility] [id number] 10:00:00 10:00:00 t [employer] s YEVVO [facility] Medicine Outpati ent Clinics 2020-02-25 2020-02-25 [facility] [id number] 15:47:00 15:47:00 t [place] [employer] YEVVO [facility] Medicine Outpati ent Clinics 2020-02-21 2020-02-21 [facility] [id number] 15:00:00 15:00:00 t [facility] [employer]ripp[employer] [facility] Medicine Outpati ent Clinics 2020-02-21 2020-02-21 [facility] [id number] 13:45:00 13:45:00 t [employer] s YEVVO [facility] Medicine Outpati ent Clinics 2020-02-21 2020-02-21 [facility] [id number] 11:15:00 11:15:00 t [place] [employer] s - Drive [facility] Medicine Outpati ent Clinics 2020-02-15 2020-02-15 [facility] [id number] 13:29:00 13:29:00 t [place] [employer] s - Drive [facility] l Medicine Outpati ent Clinics 2020-01-11 2020-01-11 [facility] [id number] 09:00:00 09:00:00 t Bone [facility] and [facility] - and Joint Joint [facility] ent Clinics 2019-12-21 2019-12-21 [facility] [id number] 12:09:00 12:09:00 t [place] [employer] s - [employer] [facility] Medicine Outpati ent Clinics 2019-12-16 2019-12-16 [facility] [id number] 15:00:00 15:00:00 t [place] [employer] s - [employer] [facility] Medicine Outpati ent Clinics 2019-08-31 2019-08-31 [facility] [id number] 08:00:00 08:00:00 t [place] [employer] - [employer] [facility] Medicine Outpati ent Clinics 2019-07-23 2019-07-23 [facility] [id number] 12:30:00 12:30:00 t [place] [employer] - [employer] [facility] Medicine Outpati ent Clinics 2019-05-31 2019-05-31 [facility] [id number] 08:00:00 08:00:00 t [place] [employer] s - [employer] [facility] l Medicine Outpati ent Clinics 2019-02-18 2019-02-18 [facility] [id number] 08:02:00 08:02:00 t [place] [employer] s YEVVO [facility] l Medicine Outpati ent Clinics 2019-02-02 2019-02-02 [facility] [id number] 16:06:00 16:06:[address] Luke [address] - Drive [facility] Medicine Medicine Outpati ent Clinics 2019-01-08 2019-01-08 [facility] [id number] 11:50:00 11:50:[address] Luke s - Drive [facility] l Medicine Outpati ent Clinics 2018-12-29 2018-12-29 [facility] [id number] 09:15:00 09:15:[address] Luke [address] - Drive [facility] Medicine Outpati ent Clinics 2018-11-27 2018-11-27 [facility] [id number] 10:44:00 10:44:[address] Luke [address] - Drive [facility] Medicine Outpati ent Clinics 2018-11-12 2018-11-12 [facility] [id number] 08:30:00 08:30:00 t [place] [employer] Luke s - Drive [facility] Medicine Outpati ent Clinics 2018-10-19 2018-10-19 [facility] [id number] 08:45:00 08:45:00 t [place] [employer] Luke s - Drive [facility] Medicine l Medicine Outpati ent Clinics 2018-09-01 2018-09-01 [facility] [id number] [facility] 16:33:00 16:33:00 t [place] [employer] Luke s - Drive [facility] Medicine Outpati ent Clinics 2018-08-11 2018-08-11 [facility] [id number] 09:15:00 09:15:[address] Luke [address] - Drive [facility] Medicine Outpati ent Clinics 2018-07-07 2018-07-07 [facility] [id number] 10:03:00 10:03:[address] Luke [address] - Drive [facility] Medicine Outpati ent Clinics 2018-06-30 2018-06-30 [facility] [id number] 10:44:00 10:44:00 t [place] [employer] Luke s - Drive [facility] Medicine Medicine Outpati ent Clinics 2018-06-19 2018-06-19 [facility] [id number] 15:24:00 15:24:[address] Luke [address] - Drive [facility] Medicine l Medicine Outpati ent Clinics 2018-06-11 2018-06-11 [facility] [id number] 09:51:00 09:51:[address] - Drive [facility] Medicine l Medicine Outpati ent Clinics 2018-06-11 2018-06-11 [facility] [id number] 09:47:00 09:47:[address] - Drive [facility] Medicine l Medicine Outpati ent Clinics 2018-06-09 2018-06-09 [facility] [id number] 14:12:00 14:12:[address] Luke s - Drive [facility] l Medicine Outpati ent Clinics 2018-06-08 2018-06-08 [facility] [id number] 12:50:00 12:50:[address] Luke [address] - Drive [facility] Medicine Outpati ent Clinics 2018-05-25 2018-05-25 [facility] [id number] 09:48:00 09:48:[address] - Drive [facility] Medicine l Medicine Outpati ent Clinics 2018 2018 [facility] [id number] 09:30:00 09:30:00 t [place] [employer] Luke s - Drive [facility] Medicine l Medicine Outpati ent Clinics 2018-04-02 2018-04-02 [facility] [id number] 11:30:00 11:30:[address] - Drive [facility] Medicine l Medicine Outpati ent Clinics 2018-03-23 2018-03-23 [facility] [id number] 11:04:00 11:04:[address] - Drive [facility] Medicine l Medicine Outpati ent Clinics 2018-03-09 2018-03-09 [facility] [id number] 14:13:00 14:13:[address] - Drive [facility] Medicine l Medicine Outpati ent Clinics 2018-02-17 2018-02-17 [facility] [id number] 11:30:00 11:30:00 [facility] Results Test Description Test Time Test Comments Results Result Comments Source POCT-GLUCOSE METER 2018-02-04 13:06:00 Test Item Value Reference Range Interpretation Comme nts POC-GLUCOSE METER (BEAKER) (test 187 mg/dL 70-110 H [facility] [address] [facility] 7703 0 POCT-GLUCOSE [id number] 08:56:00 Test Item Value Reference Range Interpretation Comments POC-GLUCOSE METER 243 mg/dL 70-110 H [facility] 6720 (BEAKER) (test code = DARIO R [facility] 1538) [id number] BASIC METABOLIC [id number] 04:21:00 Test Item Value Reference Range Interpretation [...] m DATA TO CALCULA TE ESTIMATED GFR. [id number] 04:19:00 Test Item Value Reference Range Interpretation Comments MAGNESIUM (BEAKER) (test code = 2.4 mg/dL 1.6-2.6 627) CBC W/PLT COUNT & AUTO [id number] 04:15:00 Test Item Value Reference Range Interpretation [...] PERCENT (BEAKER) (test code = 2801) POCT-GLUCOSE [id number] 17:40:00 Test Item Value Reference Range Interpretation Comments POC-GLUCOSE METER 281 mg/dL 70-110 H TESTED AT [facility] 67[address] [facility] (test code = DARIO Guerra [facility] 1538) [address] POCT-GLUCOSE [id number] 12:44:00 Test Item Value Reference Range Interpretation Comments POC-GLUCOSE METER 273 mg/dL 70-110 H TESTED AT [facility] 67[address] ([facility]) (test code = DARIO Guerra [facility] 1538) [address] RAD, CHEST, 1 VIEW, NON [id number] 08:46:00Reason for exam:->s/p dual chamber PPM eval [...] Verified Date/Time: 02/03/2018 08:46:43 Reading Location: [facility] [id number] Consult Reading Room POCT-GLUCOSE [id number] 08:36:00 Test Item Value Reference Range Interpretation Comments POC-GLUCOSE METER 242 mg/dL 70-110 H TESTED AT [place] [id number] (BEAKER) (test code = DARIO Guerra [facility] 1538) [address] BASIC METABOLIC [id number] 05:37:00 Test Item Value Reference Range Interpretation [...] m DATA TO CALCULA TE ESTIMATED GFR. [id number] 05:35:00 Test Item Value Reference Range Interpretation Comments MAGNESIUM (BEAKER) (test code = 2.4 mg/dL 1.6-2.6 627) CBC W/PLT COUNT & AUTO [id number] 05:08:00 Test Item Value Reference Range Interpretation [...] PERCENT (BEAKER) (test code = 2801) POCT-GLUCOSE [id number] 16:20:00 Test Item Value Reference Range Interpretation Comments POC-GLUCOSE METER 195 mg/dL 70-110 H TESTED AT [facility] 6720 (BEAKER) (test code = JOHNNYJO-ANN Guerra [facility] 1538) [address] BASIC METABOLIC [id number] 04:16:00 Test Item Value Reference Range Interpretation [...] m DATA TO CALCULA TE ESTIMATED GFR. [id number] 04:08:00 Test Item Value Reference Range Interpretation Comments MAGNESIUM (BEAKER) (test code = 2.2 mg/dL 1.6-2.6 627) CBC W/PLT COUNT & AUTO [id number] 03:52:00 Test Item Value Reference Range Interpretation [...] (BEAKER) (test code = 2801) BASIC METABOLIC [id number] 06:15:00 Test Item Value Reference Range Interpretation [...] m DATA TO CALCULA TE ESTIMATED GFR. [id number] 05:44:00 Test Item Value Reference Range Interpretation Comments MAGNESIUM (BEAKER) (test code = 2.4 mg/dL 1.6-2.6 627) CBC W/PLT COUNT & AUTO [id number] 04:51:00 Test Item Value Reference Range Interpretation [...] 0-1 PERCENT (BEAKER) (test code = 2801) [id number] 21:49:00 Test Item Value Reference Range Interpretation Comments POTASSIUM (BEAKER) (test code = 5.2 meq/L 3.5-5.1 H 379) Check Serum Potassium level 2 hours after oral potassium replacement completed or 30 min after intravenous potassium replacement.[id number] 21:49:00 Test Item Value Reference Range Interpretation [...] 1584) SOURCE(BEAKER) (test code = Urine, [place] 4359) CREATINE KINASE (CK), TOTAL AND [id number] 10:07:00 Test Item Value Reference Range Interpretation Comments CREATINE KINASE TOTAL (BEAKER) 35 U/L 29-200 (test code = 380) CREATINE KINASE-MB (BEAKER) (test 1.7 ng/mL 0.0-6.6 code = 750) CREATINE KINASE-MB INDEX (BEAKER) 4.9 % (test code = 395) CK-MB Reference Range:<6.7 Normal6.7-10.0 Borderline>10.0 AbnormalTROPONIN [id number] 10:07:00 Test Item Value Reference Range Interpretation [...] acute neurological disease, and persistent tachyarrhythmia.BASIC METABOLIC [id number] 05:51:00 Test Item Value Reference Range Interpretation [...] m DATA TO CALCULA TE ESTIMATED GFR. [id number] 05:50:00 Test Item Value Reference Range Interpretation Comments MAGNESIUM (BEAKER) (test code = 2.4 mg/dL 1.6-2.6 627) CBC W/PLT COUNT & AUTO [id number] 05:04:00 Test Item Value Reference Range Interpretation [...] = 2801) CREATINE KINASE (CK), TOTAL AND [id number] 03:23:00 Test Item Value Reference Range Interpretation Comments CREATINE KINASE TOTAL (BEAKER) 27 U/L 29-200 L (test code = 380) CREATINE KINASE-MB (BEAKER) (test 1.3 ng/mL 0.0-6.6 code = 750) CREATINE KINASE-MB INDEX (BEAKER) 4.8 % (test code = 395) CK-MB Reference Range:<6.7 Normal6.7-10.0 Borderline>10.0 AbnormalTROPONIN [id number] 03:23:00 Test Item Value Reference Range Interpretation [...] and persistent tachyarrhythmia.RAD, CHEST, 1 VIEW, NON [id number] 22:06:00Reason for exam:->SOBShould this be performed at the bedside?->Yes FINAL REPORT INDICATION: SOB COMPARISON: None. TECHNIQUE: Chest radiograph, single view, portable technique. FINDINGS / IMPRESSION: There is mild hyperexpansion which may represent chronic obstructive pulmonary disease. There is mild enlargement of the heart shadow and pulmonaryvenous congestion. No consolidation, pneumothorax, or large pleural effusion. Osseous structures unremarkable. Signed: Minh Galindo MDReport Verified Date/Time: 01/30/2018 22:06:47 Reading Location: [address] Consult Reading Room TINE KINASE (CK), TOTAL AND [id number] 21:32:00 Test Item Value Reference Range Interpretation Comments CREATINE KINASE TOTAL (BEAKER) 29 U/L 29-200 (test code = 380) CREATINE KINASE-MB (BEAKER) (test 1.1 ng/mL 0.0-6.6 code = 750) CREATINE KINASE-MB INDEX (BEAKER) 3.8 % (test code = 395) CK-MB Reference Range:<6.7 Normal6.7-10.0 Borderline>10.0 AbnormalTROPONIN [id number] 21:32:00 Test Item Value Reference Range Interpretation [...] (BEAKER) (test code = 700) BASIC METABOLIC [id number] 21:27:00 Test Item Value Reference Range Interpretation [...] m DATA TO CALCULA TE ESTIMATED GFR. [id number] 21:26:00 Test Item Value Reference Range Interpretation Comments PHOSPHORUS (BEAKER) (test code = 4.0 mg/dL 2.3-4.7 604) [id number] 21:26:00 Test Item Value Reference Range Interpretation Comments MAGNESIUM (BEAKER) (test code = 2.4 mg/dL 1.6-2.6 627) HEPATIC FUNCTION [id number] 21:26:00 Test Item Value Reference Range Interpretation [...] (test code = 18 U/L 6-55 347) [id number] 21:22:00 Test Item Value Reference Range Interpretation Comments PARTIAL THROMBOPLASTIN TIME 34.5 seconds 22.5-36.0 (BEAKER) (test code = 760) PROTHROMBIN [id number] 21:16:00 Test Item Value Reference Range Interpretation [...] % 0-1 PERCENT (BEAKER) (test code = 6924)
--- OUTSIDE RECORDS SUMMARY | 2020-07-27 18:59 | XMS REPORT ---
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 [...] twice a day Multi For Her ND 55630835274 - Orally Active as di rected 50+ Accu-Chek Yaa ND 55475323755 - In Vitro twice Act calin as directed Plus daily Losartan ND 18486181185 100 MG Orally Active 1 tab let Potassium Once a day Easy Touch Pen ND 53536104588 32G X 5 MM March 31, Active 1 needle [place] subcutaneously 2019 for Tresi ba once a day Furosemide NDC 20620440132 40 MG Active TAKE 1 TABLET ONE TIME DAILY (MAY INCREASE TO TWICE DAILY FOR 3 TO 7 DAYS IF INCREASED SWELLING) Breo Ellipta ND 21090763769 100-25 MCG/INH Active 1 puff Inhalation Once a day Cetirizine HCl NDC 90331117520 10 MG Orally Oct 19, Active 1 tablet Once a day 2017 Breo Ellipta NDC 41693638313 100-25 MCG/INH Active INHALE 1 PUFF EVERY DAY Klor-Con M20 ND 41098111981 20 MEQ Orally Active 1 tablet Once a day with food NitroQuick NDC 0 0.4 MG Active not defined Sublingual Xanax [facility] 12529569667 0.5 MG Orally Active 1 tabl et Twice a day Tresiba ND 08762874101 200 UNIT/ML Active 20 units in FlexTouch Subcutaneous pm once a day Gabapentin ND 63603818249 300 MG Inactive TAKE 1 CAPSULE THREE TIMES DAILY Furosemide ND 69642182352 40 MG Orally Active 1 ta blet Once a day and may increase to twice daily x approiximatly 3-7 days if increased swelling FreeStyle Yinka [facility] 90565891657 - daily Active as directed 14 Day [place] Ventolin HFA [facility] 69773598983 90 MCG/ACT Active 2 pu ffs as Inhalation every needed 6 hrs Aspirin 81 ND 47564631276 81 MG Orally Active 1 ta blet Once a day Metoprolol ND 45902727210 25 MG Orally Active 1 ta blet Succinate ER Once a day Flonase [facility] 60333259532 50 MCG/DOSE Oct 19, Active 2 spray in Nasally Once a 2018 each day nostril Rosuvastatin [facility] 26087928568 10 MG Orally Active 1 tablet Calcium Once a day Alcohol Prep ND 0 May Active as directed Pads 2017 Pantoprazole [facility] 40809640717 40 MG Orally Active 1 tablet Sodium Once a day Lidocaine [facility] 36582827262 5 % Externally May Active 1 p atch to Once a day 10, skin remove 2017 after 12 hours FreeStyle Yinka [facility] 36306488330 - Active USE 14 Day Sensor DIRECTED EVERY 14 DAYS Ferrous Sulfate [facility] 12009086315 325 (65 Fe) MG Activ e 1 tablet Orally three times a day Results No Known Results Summary Purpose eClinicalWorks Submission
--- OUTSIDE RECORDS SUMMARY | 2020-07-27 18:59 | XMS REPORT ---
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
--- OUTSIDE RECORDS SUMMARY | 2020-07-27 18:59 | XMS REPORT ---
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
--- OUTSIDE RECORDS SUMMARY | 2020-07-27 18:59 | XMS REPORT ---
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
--- OUTSIDE RECORDS SUMMARY | 2020-07-27 19:00 | XMS REPORT ---
[...] to D50.0 Active chronic blood loss Problem skilled nursing current use of 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 Problem [...]
--- OUTSIDE RECORDS SUMMARY | 2020-07-27 19:01 | XMS REPORT ---
[...] to D50.0 Active chronic blood loss Problem detention current use of 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 Problem [...]
--- OUTSIDE RECORDS SUMMARY | 2020-07-27 19:01 | XMS REPORT ---
[...] to D50.0 Active chronic blood loss Problem [facility] current use of 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 Problem [...]
--- NOTE | 2020-07-27 21:37 | P.HP ---
Certification for Inpatient With expected LOS: >2 Midnights Patient will require the following post-hospital care: None Practitioner: I am a practitioner with admitting privileges, knowledge of patient current condition, hospital course, and medical plan of care. Services: Services provided to patient in accordance with Admission requirements found in Title 42 Section 412.3 of the Code of Federal Regulations <[email or web address] jansen - Last Filed: 07/27/20 21:32> Patient History Date of Service: 07/27/20 Reason for admission: End-stage renal disease History of Present Illness: A 85-year-old female with a past medical history of chronic kidney disease stage 4 that is now end-stage renal disease, type 2 diabetes mellitus, hypertension, COPD, and asthma that is a direct admit from the senior living for due to end-stage renal disease. Patient's creatinine levels continued to increase. She is at the point where she will need dialysis. Patient is scheduled for port placement tomorrow and possible initiation of dialysis. She was in an isolation room at the senior living and needs to be screened for Covid. Home medications list reviewed: No - Past Medical/Surgical History Diabetic: Yes -: Asthma -: IDDM -: HTN -: Hyperlipidemia -: Diabetic nephropathy -: COPD -: hysterectomy -: L hip replacement Psychosocial/ Personal History: Lives at senior living - Family History Mother -: Heart disease, Hypertension, Diabetes Father -: Other (see notes) Notes: asthma Brother -: Diabetes - Social History Smoking Status: Never smoker Alcohol use: No CD- Drugs: No Caffeine use: Yes Place of Residence: Home <Isidro Ayon - Last Filed: 07/27/20 21:32> Date of Service: 07/28/20 <Shanelle Villarreal - Last Filed: 07/28/20 22:38> Allergies Penicillins Allergy (Verified 11/30/17 21:22) Itching Home Medications: Furosemide [Lasix*] 20 mg PO DAILY 03/20/18 Gabapentin [Gralise] 300 mg PO BEDTIME 03/20/18 Albuterol Sulfate [Ventolin Hfa] 2 puff IH Q4H PRN 07/13/20 Aspirin 1 tab PO DAILY 07/13/20 Cetirizine HCl [Zyrtec] 1 tab PO BEDTIME 07/13/20 Fluticasone/Vilanterol [Breo Ellipta 100-25 Mcg INH] 1 puff IH DAILY 07/13/20 Insulin Degludec [Tresiba Flextouch U-200] 20 units SQ BEDTIME 07/13/20 Iron,Carb/Vit C/Vit B12/Folic [Iron 100 Plus Tablet] 1 tab PO DAILY 07/13/20 Pantoprazole [Protonix Tab*] 1 tab PO DAILY 07/13/20 Potassium Chloride [Klor-Con 10] 20 meq PO DAILY 07/13/20 Rosuvastatin [Crestor*] 1 tab PO BEDTIME 07/13/20 Apixaban [Eliquis] 5 mg PO BID #60 tablet 07/21/20 Cholecalciferol (Vitamin D3) [Vitamin D 5,000 IU Cap*] 5,000 unit PO DAILY #30 cap 07/21/20 Ensure High Protein 237 ml PO BID #20 can 07/21/20 Fluconazole [Diflucan] 100 mg PO DAILY #5 tablet 07/21/20 Insulin -Regular Human [Novolin -R*] See Protocol SQ ACHS #10 ml 07/21/20 Levofloxacin [Levaquin] 250 mg PO DAILY #7 tablet 07/21/20 Metoprolol Succinate 1 tab PO BID #60 07/21/20 Ascorbic Acid [C-1000] 500 mg PO DAILY 07/28/20 Na Bicarb Tab [Sodium Bicarb 325 MG Tab*] 325 mg PO TIDWM 07/28/20 predniSONE [Prednisone*] 10 mg PO BID 07/28/20 Review of Systems General: As per HPI Eyes: Unremarkable ENT: Unremarkable Respiratory: Other (On oxygen at senior living ), Unremarkable Cardiovascular: Unremarkable Gastrointestinal: Unremarkable Genitourinary: Unremarkable Musculoskeletal: Unremarkable Integumentary: Unremarkable Neurological: Unremarkable Lymphatics: Unremarkable <Isidro Ayon - Last Filed: 07/27/20 21:32> Physical Examination - Vital Signs Temperature: 97 F Blood Pressure: 137/65 Pulse: 83 Respirations: 19 Pulse Ox (%): 100 - Physical Exam General: Alert, In no apparent distress, Oriented x2, Obese HEENT: Atraumatic, Normocephalic, PERRLA, Mucous membr. moist/pink Neck: Supple, Other (Trachea midline) Respiratory: Normal air movement, Other (On oxygen) Cardiovascular: Normal pulses, Regular rate/rhythm, Normal S1 S2, Edema (+2 edema) Capillary refill: <2 Seconds Gastrointestinal: Normal bowel sounds, Soft and benign, Non-distended Musculoskeletal: No clubbing, No swelling, No contractures, No erythema, No tenderness Integumentary: No rashes, No erythema, Skin breakdown (Left groin approximately half a cm by 3 cm), Pressure ulcer (Coccyx, stage I) Neurological: Normal speech, Normal strength at 5/5 x4 extr, Normal tone <Isidro Ayon - Last Filed: 07/27/20 21:32> - Studies Laboratory Data (last 24 hrs) 07/28/20 05:12: Sodium 152 H, Potassium 4.7, BUN 109 H, Creatinine 4.32 H, Glucose 163 H, Magnesium 2.5 H 07/28/20 05:12: PT 28.2 H, INR 2.43, APTT 35.2 07/28/20 05:12: WBC 10.3, Hgb 8.9 L, Hct 27.0 L, Plt Count 183 Microbiology Data (last 24 hrs): 07/28/20 04:00 Wound - Right Groin Gram Stain - Final <Shanelle Villarreal - Last Filed: 07/28/20 22:38> Assessment and Plan - Plan Impression: Chronic kidney disease stage 4 now end-stage renal disease requiring dialysis: Type 2 diabetes mellitus: Essential hypertension: History of COPD complicated by asthma: Plan: Chronic kidney disease stage 4 now end-stage renal disease requiring dialysis: Patient is a direct admit from the senior living from Nephrology. Patient is scheduled for port placement tomorrow and initiation of dialysis. Nephrology on board- Dr Hamilton. Type 2 diabetes mellitus: Diabetic diet. Keep NPO after midnight. Can have ice chips. Will resume home medications once verified. Continue Accu-Cheks a.c. HS and sliding scale insulin. Essential hypertension: Will resume all medications once verified. Will order hydralazine p.r.n. if necessary. History of COPD complicated by asthma: Patient has a history of COPD and asthma. Currently on oxygen at 2-3 L nasal cannula. Unknown what her baseline is. Will continue O2 support as necessary. Patient is not in distress. Discharge Plan: Long Term Plan to discharge in: Greater than 2 days - Advance Directives Does patient have a Living Will: Yes Does patient have a Durable POA for Healthcare: Yes Time Spent Managing Pts Care (In Minutes): 55 <Isidro Ayon - Last Filed: 07/27/20 21:32> Date of Service: 07/28/20 Subjective: Patient admitted for initiation of hemodialysis. Patient was sent into the emergency room by computer scientist. Patient admitted overnight. Will plan for hemodialysis access catheter on Friday. Patient on Eliquis and will need to be held for a few days. Physical exam: Vitals: Reviewed Cardiovascular exam: Regular rate and rhythm with systolic ejection murmur Lungs: Clear bilaterally Extremities: No clubbing no cyanosis and no edema Assessment: -Acute on chronic kidney disease -COVID-19 Pneumonia Plan: 1. Hemodialysis access catheter on Friday 2. Nephrology consultation appreciated 3. Hold Eliquis 4. Monitor oxygenation 5. GI and DVT prophylaxis <Shanelle Villarreal - Last Filed: 07/28/20 22:38>
[2020-07-27] MEDS: INSULIN -REGULAR HUMAN 50 UNIT/0.5 ML ML SQ SCH (22:13)
[2020-07-27 22:20] LABS: Urine Appearance CLOUDY; Urine Bilirubin NEGATIVE (NEG); Urine Blood 3+ (NEG); Urine Color YELLOW; Urine Glucose NEGATIVE (NEG); Urine Protein TRACE (NEG); Urine Urobilinogen 0.2 mg/dL (0.2-1.0)
[2020-07-27 22:21] LABS: Urine Microscopic Reflex ORDER UMIC
[2020-07-27] MEDS ORDERED: INSULIN -REGULAR HUMAN 50 UNIT/0.5 ML ML ONE ×2 (22:23→22:45)
[2020-07-27 22:28] LABS: Urine Bacteria <20 /HPF (<20); Urine Culture Reflex Order REFLEXED; Urine Mucus 2+ /HPF (NONE SEEN)
[2020-07-27 22:29] LABS: Urine Yeast PRESENT (NONE SEEN); Urine Yeast with Hyphae PRESENT
[2020-07-28] MEDS: HEPARIN 5000 UNIT/ML 1 ML VIAL SQ SCH ×3 (01:20→16:47)
[2020-07-28 05:41] LABS: Protime INR 2.43
[2020-07-28 05:48] LABS: Magnesium 2.5 mg/dL (1.8-2.4); Potassium 4.7 mmol/L (3.5-5.1)
[2020-07-28 05:50] LABS: Absolute Lymphocytes (CBC) 0.3 K/uL (0.7-4.9); Basophils % 0.1 % (0-1.3); Lymphocytes % 2.5 % (15.3-44.8); RBC Red Blood Cell Count 2.74 M/uL (3.86-4.86)
[2020-07-28] MEDS: INSULIN -REGULAR HUMAN 50 UNIT/0.5 ML ML SQ SCH ×5 (07:16→20:35)
[2020-07-28] MEDS: CALCITROL 0.25 MCG CAP PO SCH ×2 (07:16→09:14)
[2020-07-28] MEDS: MULTIVITAMINS,THERAPEUT 1 TAB PO SCH ×2 (07:16→09:15)
[2020-07-28] MEDS: DOCUSATE NA 100 MG CAP PO SCH ×3 (07:16→20:35)
[2020-07-28] MEDS: SEVELAMER CARBONATE 800 MG TABLET PO SCH ×4 (07:16→16:47)
[2020-07-28] MEDS: VITAMIN D 5,000 UNIT CAP PO SCH ×2 (07:17→09:15)
[2020-07-28 07:46] LABS: C-Reactive Protein 7.72 mg/L (<3.00); Ferritin 701.6 ng/mL (8-388)
[2020-07-28 07:48] LABS: Blood Morphology Comment NOT SEEN (NOT SEEN); Platelet Estimate ADEQ; White Blood Cell Scan OK
[2020-07-28] MEDS ORDERED: EPOETIN ALFA-EPBX 10,000 UNIT/ML VIAL SQ SCH (09:00)
--- NOTE | 2020-07-28 09:40 | CON ---
Reason For Consult: Hemodialysis catheter placement. History Of Present Illness: This is the case of an 85-year-old patient with multiple medical problem s including kidney disease, diabetes, hypertension, COPD, asthma, who comes to the hospital with hist ory of renal disease and possible hemodialysis. Past Surgical History: As above. Family History: Includes heart disease, hypertension. Social History: She does not smoke. She does not drink alcohol. Review of Systems: Unable to be obtained. Medications: Reviewed including Lasix, Eliquis, and Ventolin. Physical Examination: General: Patient is awake, alert. No distress. Laboratory Data: Blood work shows WBC count 10.3, hemoglobin of 8.9. INR of 2.43 with a PT of 28.2, potassium is 4.7, BUN is 109. Assessment: This is an 85-year-old patient, who needed hemodialysis, has been in contact today with the Renal Service. We were going to try to put the catheter this morning. We noticed the INR to be elevated. The primary doctor will work in the next hours or days trying to correct the INR due to th e risks of bleeding, risks including infection, bleeding, damage to adjacent structures, HI, even edilia th in her case. Specifically, high INR may be a risk for bleeding too. They believe they may contro l her medically at this moment while they correct the anticoagulation. When they feel to need the hemodialysis catheter again, they are g oing to call me. MAREK/RADHA Voice ID: [id number] Report ID: [id number]
--- NOTE | 2020-07-28 16:28 | P.CNS ---
Date of Consult: 07/28/20 Reason for Consult: EDU Requesting Physician: Isidro Ayon Chief Complaint: End-stage renal disease History of Present Illness: 85 yo HF HTN, Hx COVID presented to the hospital with 1-2 weeks of moderate, progressive uremia in the setting of EDU with associated malnutrition. Poor oral intake. Weakness and malaise. Anorexia. A 85-year-old female with a past medical history of chronic kidney disease stage 4 that is now end-stage renal disease, type 2 diabetes mellitus, hypertension, COPD, and asthma that is a direct admit from the skilled nursing for due to end-stage renal disease. Patient's creatinine levels continued to increase. She is at the point where she will need dialysis. Patient is scheduled for port placement tomorrow and possible initiation of dialysis. She was in an isolation room at the skilled nursing and needs to be screened for Covid. Allergies Penicillins Allergy (Verified 11/30/17 21:22) Itching Home medications list reviewed: Yes Home Medications: Furosemide [Lasix*] 20 mg PO DAILY 03/20/18 Gabapentin [Gralise] 300 mg PO BEDTIME 03/20/18 Albuterol Sulfate [Ventolin Hfa] 2 puff IH Q4H PRN 07/13/20 Aspirin 1 tab PO DAILY 07/13/20 Cetirizine HCl [Zyrtec] 1 tab PO BEDTIME 07/13/20 Fluticasone/Vilanterol [Breo Ellipta 100-25 Mcg INH] 1 puff IH DAILY 07/13/20 Insulin Degludec [Tresiba Flextouch U-200] 20 units SQ BEDTIME 07/13/20 Iron,Carb/Vit C/Vit B12/Folic [Iron 100 Plus Tablet] 1 tab PO DAILY 07/13/20 Pantoprazole [Protonix Tab*] 1 tab PO DAILY 07/13/20 Potassium Chloride [Klor-Con 10] 20 meq PO DAILY 07/13/20 Rosuvastatin [Crestor*] 1 tab PO BEDTIME 07/13/20 Apixaban [Eliquis] 5 mg PO BID #60 tablet 07/21/20 Cholecalciferol (Vitamin D3) [Vitamin D 5,000 IU Cap*] 5,000 unit PO DAILY #30 cap 07/21/20 Ensure High Protein 237 ml PO BID #20 can 07/21/20 Fluconazole [Diflucan] 100 mg PO DAILY #5 tablet 07/21/20 Insulin -Regular Human [Novolin -R*] See Protocol SQ ACHS #10 ml 07/21/20 Levofloxacin [Levaquin] 250 mg PO DAILY #7 tablet 07/21/20 Metoprolol Succinate 1 tab PO BID #60 07/21/20 Ascorbic Acid [C-1000] 500 mg PO DAILY 07/28/20 Na Bicarb Tab [Sodium Bicarb 325 MG Tab*] 325 mg PO TIDWM 07/28/20 predniSONE [Prednisone*] 10 mg PO BID 07/28/20 - Past Medical/Surgical History Diabetic: Yes -: Asthma -: IDDM -: HTN -: Hyperlipidemia -: Diabetic nephropathy -: COPD -: hysterectomy -: L hip replacement Psychosocial/ Personal History: Lives at skilled nursing - Family History Mother History Unknown: Yes Medical History: Heart disease, Hypertension, Diabetes Father History Unknown: Yes Medical History: Other (see notes) Notes: asthma Brother History Unknown: Yes Medical History: Diabetes - Social History Alcohol use: No CD- Drugs: No Caffeine use: Yes Place of Residence: Home Review of Systems 10-point ROS is otherwise unremarkable General: Weakness, Malaise Respiratory: SOB with Excertion Cardiovascular: Edema Neurological: Weakness Physical Examination Temp Pulse Resp BP Pulse Ox 97.1 F 89 16 127/59 L 96 07/28/20 12:00 07/28/20 16:00 07/28/20 16:00 07/28/20 16:00 07/28/20 16:00 General: In no apparent distress, Cooperative HEENT: Atraumatic Neck: Supple Respiratory: Clear to auscultation bilaterally, Diminished Cardiovascular: Regular rate/rhythm, Edema Gastrointestinal: Soft and benign, Non-distended Musculoskeletal: No clubbing, No contractures Integumentary: No rashes, No cyanosis Neurological: Normal speech Laboratory Data (last 24 hrs) 07/28/20 05:12: Sodium 152 H, Potassium 4.7, BUN 109 H, Creatinine 4.32 H, Gluco se 163 H, Magnesium 2.5 H 07/28/20 05:12: PT 28.2 H, INR 2.43, APTT 35.2 07/28/20 05:12: WBC 10.3, Hgb 8.9 L, Hct 27.0 L, Plt Count 183 Imagings Data: EXAM DESCRIPTION: CT - Thorax Wo Con - 07/19/2020 10:32 am CLINICAL HISTORY: PNA COVID COMPARISON: Chest For Pe Angio dated 06/22/2020; Chest Single View dated 07/12/2020 TECHNIQUE: Axial 5 mm thick images of the chest were obtained without IV contrast. All CT scans are performed using dose optimization technique as appropriate and may include automated exposure control or mA/KV adjustment according to patient size. FINDINGS: Moderate bilateral pleural effusions have developed. Patchy bilateral airspace opacification is present. Small focal consolidation present posterior right upper lobe. Additional consolidation with air bronchogram formation seen in the right upper lobe abutting the minor fissure. Pattern is not substantially different from the portable chest film. Findings would be consistent with the clinical diagnosis of COVID pneumonia. Airspace opacification is scattered in the left upper and left lower lobes. There is bilateral partial lower lobe at electasis. No pneumothorax. No abnormal mediastinal or hilar masses or lymphadenopathy seen. No gross aortic or pulmonary artery finding suspected. Assessment is limited in the absence of IV contrast. No pericardial effusion. No chest wall mass or abnormal axillary lymphadenopathy. IMPRESSION: Moderate bilateral pleural effusions and bilateral alveolar opacification new from the May CT chest. The lung parenchymal opacification is not substantially different from July 12 portable chest. Chest findings are consistent with the clinical diagnosis of bilateral COVID-19 pneumonia EXAM DESCRIPTION: US - Renal Ultrasound-Complete - 07/13/2020 10:01 am CLINICAL HISTORY: Acute renal insufficiency COMPARISON: 2007 FINDINGS: The right kidney measures 8 cm with an increased echotexture. The left kidney measures 9 cm with an increased echotexture. Hydronephrosis is not seen. Poor evaluation of bladder secondary to a [place] catheter present Milk of calcium gallbladder/cholelithiasis IMPRESSION: Increased renal echotexture consistent with parenchymal disease Conclusions/Impression: A/ EDU suspicious for ESRD. Uremia. Hypernatremia Hypocalcemia HTN with CKD DM II with CKD Anemia in chronic illness Hx COVID19 PNA. Suspected PE on Eliquis Acute cystitis P/ Continue current POC and Medications. Arrange for CVC placement once coagulation status improved. Will initiate dialysis once CVC placed. Start D5W. Start Vitamin D. Start Promod. Follow up culture. No NSAIDs. AM labs. Daily weight. Hepatitis panel pending. Thank you kindly for the consultation.
[2020-07-28] MEDS: D5W 1,000 ML IV SCH (16:46)
[2020-07-28] MEDS ORDERED: EPOETIN ALFA-EPBX 10,000 UNIT/ML VIAL SQ ONE (17:00)
[2020-07-28] MEDS ORDERED: VITAMIN K (ADULT) 10 MG/ML SQ SCH (17:00)
--- NOTE | 2020-07-28 18:26 | P.PN ---
Subjective Date of Service: 07/28/20 Subjective: No new changes, No C/O voiced Patient has been on Eliquis which will need to be held for a few days prior to hemodialysis access catheter. Monitor coagulation profile. Otherwise, patient is clinically doing well with no new complaints. Review of Systems 10-point ROS is otherwise unremarkable Physical Examination - Vital Signs Temperature: 97.0 F Blood Pressure: 127/59 Pulse: 89 Respirations: 16 Pulse Ox (%): 96 - Physical Exam General: Alert, In no apparent distress, Oriented x3 Respiratory: Clear to auscultation bilaterally, Normal air movement Cardiovascular: Regular rate/rhythm, Normal S1 S2, Systolic murmur Gastrointestinal: Normal bowel sounds, Soft and benign, Non-distended, No tenderness Musculoskeletal: No clubbing, No swelling, No tenderness Integumentary: Other ( Bruising) Neurological: Normal speech, Normal tone, Normal affect Lymphatics: No axilla or inguinal lymphadenopathy - Studies Laboratory Data (last 24 hrs) 07/28/20 05:12: Sodium 152 H, Potassium 4.7, BUN 109 H, Creatinine 4.32 H, Glucose 163 H, Magnesium 2.5 H 07/28/20 05:12: PT 28.2 H, INR 2.43, APTT 35.2 07/28/20 05:12: WBC 10.3, Hgb 8.9 L, Hct 27.0 L, Plt Count 183 Microbiology Data (last 24 hrs): 07/28/20 04:00 Wound - Right Groin Gram Stain - Final Medications List Reviewed: Yes Assessment & Plan - Problems (Diagnosis) (1) Acute worsening of stage 4 chronic kidney disease Current Visit: Yes Status: Acute (2) COVID-19 virus infection Current Visit: No Status: Acute (3) CHF (congestive heart failure) Current Visit: No Status: Chronic (4) COPD (chronic obstructive pulmonary disease) Current Visit: No Status: Chronic Qualifiers: COPD type: COPD with acute exacerbation Qualified Code(s): J44.1 - Chronic obstructive pulmonary disease with (acute) exacerbation (5) Diabetes mellitus Onset Date: 12/03/17 Current Visit: No Status: Chronic Qualifiers: Diabetes mellitus type: type 2 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 Hemodialysis access catheter on Friday for General surgery 2. Monitor coagulation profile 3. Monitor renal function closely 4. Nephrology consultation 5. Monitor respiratory status closely 6. GI and DVT prophylaxis Discharge Plan: Home Plan to discharge in: Greater than 2 days - Advance Directives Does patient have a Living Will: No Does patient have a Durable POA for Healthcare: Yes - Code Status/Comfort Care Code Status Assessed: Yes Code Status: Full Code Critical Care: No Time Spent Managing PTS Care (In Minutes): 30
[2020-07-28] MEDS: JUVEN PACKET PO SCH (20:35)
[2020-07-29] MEDS: D5W 1,000 ML IV SCH ×2 (02:16→16:08)
[2020-07-29 05:33] LABS: Absolute Lymphocytes (CBC) 0.5 K/uL (0.7-4.9); Basophils % 0.1 % (0-1.3); Hematocrit 25.6 % (36.0-45.0); Lymphocytes % 4.6 % (15.3-44.8); MPV 9.4 fL (7.6-11.3); RBC Red Blood Cell Count 2.56 M/uL (3.86-4.86)
[2020-07-29 05:47] LABS: C-Reactive Protein 8.19 mg/L (<3.00); Ferritin 711.2 ng/mL (8-388); Magnesium 2.2 mg/dL (1.8-2.4); Uric Acid 14.7 mg/dL (2.6-6.0)
[2020-07-29 06:06] LABS: Protime INR 1.68
[2020-07-29] MEDS: INSULIN -REGULAR HUMAN 50 UNIT/0.5 ML ML SQ SCH ×4 (07:49→20:40)
[2020-07-29] MEDS: SEVELAMER CARBONATE 800 MG TABLET PO SCH ×3 (08:41→16:18)
[2020-07-29] MEDS: CALCITROL 0.25 MCG CAP PO SCH (08:41)
[2020-07-29] MEDS: HEPARIN 5000 UNIT/ML 1 ML VIAL SQ SCH ×2 (08:41→20:42)
[2020-07-29] MEDS: VITAMIN D 5,000 UNIT CAP PO SCH (08:41)
[2020-07-29] MEDS: DOCUSATE NA 100 MG CAP PO SCH ×2 (08:41→20:42)
[2020-07-29] MEDS: JUVEN PACKET PO SCH ×2 (08:42→20:40)
[2020-07-29] MEDS: PROMOD 30 ML DOSE PO SCH ×2 (08:42→20:43)
[2020-07-29] MEDS ORDERED: VITAMIN K (ADULT) 10 MG/ML SQ SCH (09:00)
[2020-07-29] MEDS: MULTIVITAMINS,THERAPEUT 1 TAB PO SCH (09:26)
--- NOTE | 2020-07-29 14:12 | P.PN ---
Subjective Date of Service: 07/29/20 Chief Complaint: End-stage renal disease Subjective: Doing well Physical Examination - Vital Signs Temperature: 96.9 F Blood Pressure: 97/73 Pulse: 92 Respirations: 14 Pulse Ox (%): 98 - Physical Exam General: Alert HEENT: Atraumatic Neck: Supple Respiratory: Other (Patient breathing appropriately on room air.) Cardiovascular: Regular rate/rhythm Neurological: Normal speech, Normal strength at 5/5 x4 extr, Normal tone, Normal affect - Studies Laboratory Data (last 24 hrs) 07/29/20 05:00: PT 19.6 H, INR 1.68, APTT 33.8 07/29/20 05:00: WBC 10.2, Hgb 8.5 L, Hct 25.6 L, Plt Count 141 L D 07/29/20 05:00: Sodium 145, Potassium 4.0, BUN 103 H, Creatinine 4.05 H, Glucose 298 H, Uric Acid 14.7 H D, Phosphorus 6.0 H, Magnesium 2.2 Microbiology Data (last 24 hrs): 07/28/20 04:00 Wound - Right Groin Gram Stain - Final Medications List Reviewed: Yes Assessment & Plan Discharge Plan: Home Plan to discharge in: Greater than 2 days Physician Review Additional Text: Impression: Acute on chronic renal failure stage 5 worsening CKD COVID 19 infection UTI-yeast infection Chronic diastolic CHF COPD Diabetes mellitus type 2 insulin-dependent Hypertension Anemia of chronic disease Anti coagulation therapy for prior pulmonary embolism Hyperlipidemia Plan: Acute on chronic renal failure stage 5 worsening CKD: Renal function remains abnormal. Continue monitor closely. Continue IV fluids. Patient off anti anti coagulation therapy in preparation for hemodialysis catheter placement on Friday. Will discuss further with surgery and nephrology. Continue to monitor closely. Continue with Nephrology recommendations. Will evaluate physical therapy. COVID 19 infection: This appears stable. Room-air saturations within normal range. UTI-yeast infection: Will start Diflucan. Chronic diastolic CHF: Diuretics on hold. Maintain oxygen above 93%. COPD: Continue medication. Maintain oxygen above 93%. Will provide incentive spirometer. Diabetes mellitus type 2 insulin-dependent: Continue Accu-Cheks. Sliding scale in place. Hypertension: Continue medication. Will monitor and adjust appropriately. Anemia of chronic disease: Continue monitor closely Anti coagulation therapy for prior pulmonary embolism: Patient off Eliquis at this time. Continue heparin. Patient to have dialysis catheter placed on Friday. Hyperlipidemia: Continue medication Time Spent Managing Pts Care (In Minutes): 55
--- NOTE | 2020-07-29 18:30 | PN ---
Date of Progress Note: 07/29/2020 Subjective: Patient remains in ICU for monitoring. Overnight events reported. The patient continue s on D5 water. The patient is currently being changed per nursing staff, and was in no acute distres s up until this time. Objective: Vital Signs: Blood pressure 97/73, pulse 92, afebrile. Input and output 2490 in and 950 out. Intake oral 1080 and intake was 1418 IV. General: No acute distress. Heart: Regular rate and rhythm. No murmurs, rubs, gallops. Lungs: Grossly clear. Abdomen: Soft. Extremities: With 1+ edema. Laboratory Data: Sodium 145, potassium 4, chloride 108, CO2 28, BUN 103, creatinine 4.05, glucose 28 9, uric acid 14, calcium 7.4, phosphorus 6, ferritin 711, CRP 8.19. CBC, hemoglobin 8.5, hematocrit 25.6. UA has shown UTI and microbiology data had shown a yeast infection. Current medications were reviewed on D5 water 100 mL/h. Also receiving fluconazole. Remainder of me dications noted. Impression: 1.Acute kidney injury on chronic kidney disease, progressing to end-stage renal disease. 2.Electrolyte abnormalities. 3.Dehydration with hypernatremia. 4.Hypertension. Chronic kidney disease. 5.Diabetes mellitus. Chronic kidney disease. 6.History of COVID-19 pneumonia. Plan: Patient will continue on IV fluids. We will continue insulin coverage. Avoid NSAIDs, avoid c ontrast. Continue D5 water for another 24 hours. Dialysis plan for Friday. /RADHA Voice ID: [id number] Report ID: [id number]
[2020-07-29] MEDS: ENSURE HIGH PROTEIN 237 ML CAN PO SCH (20:40)
[2020-07-29] MEDS: ROSUVASTATIN 10 MG TAB PO SCH (20:41)
[2020-07-29] MEDS: METOPROLOL XL 50 MG TAB PO SCH (20:41)
[2020-07-30] MEDS: D5W 1,000 ML IV SCH ×2 (02:13→07:45)
[2020-07-30 05:32] LABS: Absolute Lymphocytes (CBC) 0.5 K/uL (0.7-4.9); Basophils % 0.2 % (0-1.3); Hematocrit 27.3 % (36.0-45.0); Lymphocytes % 4.1 % (15.3-44.8); MPV 9.2 fL (7.6-11.3); RBC Red Blood Cell Count 2.75 M/uL (3.86-4.86)
[2020-07-30 05:36] LABS: Protime INR 1.28
[2020-07-30 05:54] LABS: Albumin 2.5 g/dL (3.4-5.0); Bilirubin Total 0.8 mg/dL (0.2-1.0); Potassium 3.2 mmol/L (3.5-5.1); Protein, Total 5.6 g/dL (6.4-8.2)
[2020-07-30] MEDS: HEPARIN 5000 UNIT/ML 1 ML VIAL SQ SCH (07:44)
[2020-07-30] MEDS: METOPROLOL XL 50 MG TAB PO SCH ×3 (07:44→21:00)
[2020-07-30] MEDS: CALCITROL 0.25 MCG CAP PO SCH (07:44)
[2020-07-30] MEDS: VITAMIN D 5,000 UNIT CAP PO SCH (07:44)
[2020-07-30] MEDS: FLUCONAZOLE 100 MG TAB PO SCH (07:44)
[2020-07-30] MEDS: SEVELAMER CARBONATE 800 MG TABLET PO SCH ×3 (07:45→17:00)
[2020-07-30] MEDS: JUVEN PACKET PO SCH ×3 (07:45→21:00)
[2020-07-30] MEDS: DOCUSATE NA 100 MG CAP PO SCH ×2 (07:45→20:49)
[2020-07-30] MEDS: PROMOD 30 ML DOSE PO SCH ×3 (07:45→21:00)
[2020-07-30] MEDS: ENSURE HIGH PROTEIN 237 ML CAN PO SCH ×3 (07:46→21:00)
[2020-07-30] MEDS: MULTIVITAMINS,THERAPEUT 1 TAB PO SCH (07:46)
[2020-07-30] MEDS: INSULIN -REGULAR HUMAN 50 UNIT/0.5 ML ML SQ SCH ×4 (08:31→20:49)
[2020-07-30] MEDS ORDERED: POTASSIUM 25 MEQ EFFERV TAB PO ONE (09:00)
[2020-07-30] MEDS: PANTOPRAZOLE 40MG TABLET PO SCH (09:00)
--- NOTE | 2020-07-30 09:14 | P.PN ---
Subjective Date of Service: 07/30/20 Chief Complaint: End-stage renal disease Subjective: Improving, Doing well Physical Examination - Vital Signs Temperature: 97.3 F Blood Pressure: 151/46 Pulse: 88 Respirations: 19 Pulse Ox (%): 93 - Physical Exam General: Alert, Cooperative HEENT: Atraumatic Neck: Supple Respiratory: Other (Patient on room air. No evidence of shortness of breath) Cardiovascular: Normal pulses Neurological: Normal speech, Normal strength at 5/5 x4 extr, Normal tone, Normal affect - Studies Laboratory Data (last 24 hrs) 07/30/20 05:06: Sodium 138, Potassium 3.2 L, BUN 98 H, Creatinine 3.48 H, Glucose 266 H, Uric Acid 12.0 H, Total Bilirubin 0.8, AST 26, ALT 15, Alkaline Phosphatase 115 07/30/20 05:06: PT 15.0 H, INR 1.28 07/30/20 05:06: WBC 12.1 H D, Hgb 8.9 L, Hct 27.3 L, Plt Count 124 L Microbiology Data (last 24 hrs): 07/28/20 04:00 Wound - Right Groin Gram Stain - Final Medications List Reviewed: Yes Assessment & Plan Discharge Plan: Home Plan to discharge in: 48 Hours Physician Review Additional Text: Impression: Acute on chronic renal failure stage 5 worsening CKD COVID 19 infection UTI-yeast infection Chronic diastolic CHF COPD Diabetes mellitus type 2 insulin-dependent Hypertension Anemia of chronic disease Anti coagulation therapy for prior pulmonary embolism Hyperlipidemia Plan: Acute on chronic renal failure stage 5 worsening CKD: Renal function slightly improved. Continue IV fluids. Patient off anticoagulation therapy in preparation for hemodialysis catheter placement on Friday. Will discuss with nephrology about plan of care. Patient will likely require long-term dialysis if renal function continues to decline. Physical therapy ordered. Will discuss with family again today. Discharge plan of care depending on whether patient will require long-term dialysis. COVID 19 infection: This appears stable. Room-air saturations within normal range. UTI-yeast infection: Patient started on Diflucan. Chronic diastolic CHF: Diuretics continued to be held. Maintain oxygen above 93%. COPD: Continue medication. Maintain oxygen above 93%. Continue with incentive spirometer. Diabetes mellitus type 2 insulin-dependent: Continue Accu-Cheks. Sliding scale in place. Hypertension: Continue medication. Will monitor and adjust appropriately. Anemia of chronic disease: Continue monitor closely Anti coagulation therapy for prior pulmonary embolism: Patient off Eliquis at this time. Continue heparin. Patient to have dialysis catheter placed on Friday if renal function continues to decline. Hyperlipidemia: Continue medication Time Spent Managing Pts Care (In Minutes): 55
[2020-07-30] MEDS: NACHLORIDE 0.45% 1,000 ML IV SCH (13:00)
--- NOTE | 2020-07-30 15:37 | PN ---
Date of Progress Note: 07/30/2020 Subjective: Patient seen at bedside. No overnight events reported. The patient overall feels well, just has some anxiety. Objective: Physical exam report taken from Nursing. Vital Signs: Blood pressure is 151/46, pulse 88, afebrile. General: No acute distress. Heart: Regular. Lungs: Scattered crepitations heard in the lung. No other acute findings. Laboratory Data: Hemoglobin 8.9, hematocrit 27.3. Chemistry: Potassium 3.2, CO2 of 28, BUN 98, cre atinine 3.8, calcium 7.1. Current Medications: Reviewed. Impression: 1.Acute kidney injury on chronic kidney disease, which has progressed to end-stage renal disease. 2.Electrolyte abnormalities. 3.Dehydration. 4.Hypertension. 5.Diabetes mellitus. 6.Coronavirus disease 2019 pneumonia. Plan: Patient will continue on IV fluids; however, given her hyperglycemia, I will change that to godoy lf NS at 75 mL/h to we gave her some maintenance as p.o. intake is still poor. Avoid NSAIDs, avoid c ontrast. Catheter placement this week. Renal dose all medications. SE/MODL Voice ID: [id number] Report ID: [id number]
--- NOTE | 2020-07-30 18:25 | RAD REPORT ---
EXAM DESCRIPTION: Dominique Single View07/30/2020 6:07 pm CLINICAL HISTORY: Shortness breath COMPARISON: July 19 FINDINGS: Mild worsening in bilateral pulmonary opacities Heart is normal size. Pacemaker leads in place Small pleural effusions IMPRESSION: Mild worsening in bilateral pulmonary opacities which may represent pneumonia
--- NOTE | 2020-07-30 18:27 | RAD REPORT ---
EXAM DESCRIPTION: CT - Head Brain Wo Cont - 07/30/2020 6:16 pm CLINICAL HISTORY: Alteration of awareness/confusion COMPARISON: July 16, 2020 TECHNIQUE: Computed axial tomography of the head was obtained. IV contrast was not requested. All CT scans are performed using dose optimization technique as appropriate and may include automated exposure control or mA/KV adjustment according to patient size. FINDINGS: An intracranial bleed is not seen . The ventricles are normal in caliber. No extra-axial fluid collection is noted. Mild low-density areas within periventricular, deep and subcortical white matter likely represent isc hemic changes secondary to small vessel disease. Fluid within the sinuses/ mastoids is not seen. IMPRESSION: No acute intracranial abnormality is seen. If patient's symptoms persist MRI of the bra in would be recommended.
[2020-07-30 18:59] LABS: Arterial Blood Carboxyhemoglob 2.5 % (0-1.5); Blood Gas Oxyhemoglobin 85.9 % (94-97); Blood O2 Saturation 89.1 % (92-98.5)
[2020-07-30] MEDS ORDERED: Levofloxacin 250mg IV 250 MG/50 ML BAG IV SCH (19:34)
[2020-07-30] MEDS: ROSUVASTATIN 10 MG TAB PO SCH ×2 (20:51→21:00)
[2020-07-30] MEDS: METHYLPREDNISOLONE 40 MG INJ IV SCH (20:53)
[2020-07-30] MEDS ORDERED: HEPARIN/D5W 25,000 UNIT/500 ML BAG IV SCH (21:00)
[2020-07-30] MEDS ORDERED: Levofloxacin 250mg IV 250 MG/50 ML BAG IV ONE (21:00)
--- NOTE | 2020-07-31 00:58 | PN ---
Date of Progress Note: 07/30/2020 Subjective: The patient is seen at the bedside. No significant overnight events noted. The patient remains in ICU for COVID-19 management. Review of Systems: Limited because the patient is having moments of delirium. Objective: Vital Signs: Reviewed. General: Elderly, frail, in no acute distress. Heart: Regular rate and rhythm. No murmurs, rubs, or gallops. Lungs: Scattered crepitations. Abdomen: Soft. Extremities: No significant edema. Laboratory Data: Reviewed. Medications: Reviewed. Impression: 1.Acute on chronic renal failure. 2.COVID-19 pneumonia. 3.Acute hypoxemic respiratory failure. 4.Electrolyte imbalance. Plan: Ms. Kiser does have an improvement in her renal parameters at this time. However, given her recurrence of acute kidney injury, now she may establish as end-stage renal disease. We will contin ue to monitor urine output and labs. Continue D5 water for dehydration. Avoid NSAIDs. Avoid contra st. We will continue to follow. SE/MODL Voice ID: [id number] Report ID: [id number]
[2020-07-31] MEDS: NACHLORIDE 0.45% 1,000 ML IV SCH ×2 (02:20→15:40)
[2020-07-31] MEDS: METHYLPREDNISOLONE 40 MG INJ IV SCH ×3 (04:11→20:20)
[2020-07-31 05:25] LABS: Absolute Lymphocytes (CBC) 0.2 K/uL (0.7-4.9); Basophils % 0.1 % (0-1.3); Hematocrit 27.6 % (36.0-45.0); Lymphocytes % 1.9 % (15.3-44.8); MPV 10.3 fL (7.6-11.3)
[2020-07-31 05:26] VITALS: BMI 25.6
[2020-07-31 06:30] LABS: Albumin 2.4 g/dL (3.4-5.0); Bilirubin Total 0.8 mg/dL (0.2-1.0); Ferritin 839.7 ng/mL (8-388); Protein, Total 5.6 g/dL (6.4-8.2)
[2020-07-31] MEDS: JUVEN PACKET PO SCH ×2 (07:37→20:23)
[2020-07-31] MEDS: MULTIVITAMINS,THERAPEUT 1 TAB PO SCH (07:37)
[2020-07-31] MEDS: ENSURE HIGH PROTEIN 237 ML CAN PO SCH ×2 (07:37→20:22)
[2020-07-31] MEDS: DOCUSATE NA 100 MG CAP PO SCH ×2 (07:37→20:21)
[2020-07-31] MEDS: SEVELAMER CARBONATE 800 MG TABLET PO SCH ×3 (07:37→17:00)
[2020-07-31] MEDS: FLUCONAZOLE 100 MG TAB PO SCH (07:37)
[2020-07-31] MEDS: VITAMIN D 5,000 UNIT CAP PO SCH (07:38)
[2020-07-31] MEDS: CALCITROL 0.25 MCG CAP PO SCH (07:38)
[2020-07-31] MEDS: PROMOD 30 ML DOSE PO SCH ×2 (07:38→20:23)
[2020-07-31] MEDS: PANTOPRAZOLE 40MG TABLET PO SCH (07:38)
[2020-07-31] MEDS: INSULIN -REGULAR HUMAN 50 UNIT/0.5 ML ML SQ SCH ×4 (08:03→20:20)
[2020-07-31] MEDS: METOPROLOL XL 50 MG TAB PO SCH ×2 (08:03→20:22)
[2020-07-31] MEDS ORDERED: propofoL 200 MG/20 ML VIAL IV ONE (09:20)
[2020-07-31] MEDS ORDERED: Phenylephrine HCl 10 MG/ML 1 ML VIAL ONE (09:20)
[2020-07-31] MEDS ORDERED: LIDOCAINE 2% MPF 5 ML VIAL ONE (09:20)
[2020-07-31] MEDS ORDERED: NS 0.9% VIAL 30 ML ONE (09:20)
[2020-07-31] MEDS ORDERED: FENTANYL CITR 100 MCG/2 ML ONE (09:20)
[2020-07-31] MEDS ORDERED: LIDOCAINE 1% MPF 30 ML VIAL ONE (10:18)
[2020-07-31] MEDS ORDERED: HEPARIN 5000 UNIT/ML 1 ML VIAL ONE (10:18)
[2020-07-31] MEDS ORDERED: NA CHLORIDE 0.9% 1,000 ML IV PRN (10:19)
[2020-07-31] MEDS ORDERED: NA CHLORIDE 0.9% 100 ML IV ONE (10:19)
[2020-07-31] MEDS ORDERED: MANNITOL 25% 12.5 GM/50 ML VIAL IV PRN (10:19)
[2020-07-31] MEDS ORDERED: NS 0.9% VIAL 10 ML ONE (10:33)
--- NOTE | 2020-07-31 11:31 | P.BOP ---
Preoperative diagnosis: ESRD Postoperative diagnosis: same Primary procedure: 1. Placement of hemosplit tunneled HD catheter Secondary procedure: 2. Interpretation of fluoroscopy Other procedure(s): 3. right neck ultrasound Floor Nurse: Zuleika Gay (Marc) Estimated blood loss: <10cc Specimen: none Findings: as above Anesthesia: General Complications: None Drain(s): Other (hemosplit tunneled) Transferred to: Recovery Room Condition: Good
[2020-07-31] MEDS ORDERED: HYDROMORPHONE HCL 1 MG/ML INJ ONE (11:40)
[2020-07-31] MEDS ORDERED: ONDANSETRON 4 MG/2 ML VIAL ONE (11:40)
--- NOTE | 2020-07-31 12:14 | RAD REPORT ---
EXAM DESCRIPTION: [place] Single View07/31/2020 12:08 pm CLINICAL HISTORY: Device placement/central venous catheter placement IMPRESSION: Central venous catheter with its tip in the superior vena cava No pneumothorax
--- NOTE | 2020-07-31 13:01 | P.CNS ---
Date of Consult: 07/31/20 Reason for Consult: Positive for kinney virus Chief Complaint: End-stage renal disease History of Present Illness: Patient is 85 years of age with a past medical history of asthma nose with the kinney virus infection admitted with worsening shortness of breath fever and cough was hypoxic renal failure Patient was recently diagnosed pulmonary embolism high probability V/Q scan renal function has worsened significantly she is currently doing well very alert responsive cooperative, answering appropriately has lower extremity edema Allergies Penicillins Allergy (Verified 11/30/17 21:22) Itching Home Medications: Furosemide [Lasix*] 20 mg PO DAILY 03/20/18 Gabapentin [Gralise] 300 mg PO BEDTIME 03/20/18 Albuterol Sulfate [Ventolin Hfa] 2 puff IH Q4H PRN 07/13/20 Aspirin 1 tab PO DAILY 07/13/20 Cetirizine HCl [Zyrtec] 1 tab PO BEDTIME 07/13/20 Fluticasone/Vilanterol [Breo Ellipta 100-25 Mcg INH] 1 puff IH DAILY 07/13/20 Insulin Degludec [Tresiba Flextouch U-200] 20 units SQ BEDTIME 07/13/20 Iron,Carb/Vit C/Vit B12/Folic [Iron 100 Plus Tablet] 1 tab PO DAILY 07/13/20 Pantoprazole [Protonix Tab*] 1 tab PO DAILY 07/13/20 Potassium Chloride [Klor-Con 10] 20 meq PO DAILY 07/13/20 Rosuvastatin [Crestor*] 1 tab PO BEDTIME 07/13/20 Apixaban [Eliquis] 5 mg PO BID #60 tablet 07/21/20 Cholecalciferol (Vitamin D3) [Vitamin D 5,000 IU Cap*] 5,000 unit PO DAILY #30 cap 07/21/20 Ensure High Protein 237 ml PO BID #20 can 07/21/20 Fluconazole [Diflucan] 100 mg PO DAILY #5 tablet 07/21/20 Insulin -Regular Human [Novolin -R*] See Protocol SQ ACHS #10 ml 07/21/20 Levofloxacin [Levaquin] 250 mg PO DAILY #7 tablet 07/21/20 Metoprolol Succinate 1 tab PO BID #60 07/21/20 Ascorbic Acid [C-1000] 500 mg PO DAILY 07/28/20 Na Bicarb Tab [Sodium Bicarb 325 MG Tab*] 325 mg PO TIDWM 07/28/20 predniSONE [Prednisone*] 10 mg PO BID 07/28/20 - Past Medical/Surgical History Diabetic: Yes -: Asthma -: IDDM -: HTN -: Hyperlipidemia -: Diabetic nephropathy -: COPD -: hysterectomy -: L hip replacement Psychosocial/ Personal History: Lives at retirement - Family History Mother History Unknown: Yes Medical History: Heart disease, Hypertension, Diabetes Father History Unknown: Yes Medical History: Other (see notes) Notes: asthma Brother History Unknown: Yes Medical History: Diabetes - Social History Alcohol use: No CD- Drugs: No Caffeine use: Yes Place of Residence: Home Review of Systems General: Weakness Respiratory: Shortness of Breath Cardiovascular: Edema Physical Examination Temp Pulse Resp BP Pulse Ox 96.9 F 84 16 137/64 99 07/31/20 12:14 07/31/20 12:14 07/31/20 12:14 07/31/20 12:14 07/31/20 08:02 Laboratory Data (last 24 hrs) 07/31/20 09:58: APTT 31.9 07/31/20 05:08: WBC 11.6 H, Hgb 8.9 L, Hct 27.6 L, Plt Count 109 L 07/31/20 05:08: Sodium 134 L, Potassium 4.0, BUN 86 H, Creatinine 3.08 H, Glucose 219 H, Total Bilirubin 0.8, AST 23, ALT 16, Alkaline Phosphatase 113 07/31/20 02:25: APTT 222.4 H* 07/30/20 20:50: APTT 32.5 07/30/20 15:10: Potassium 3.5 - Problems (1) COVID-19 virus infection Current Visit: No Status: Acute Plan: Patient is 85 years of age admitted with hypoxemia I suspect that she has kinney virus pneumonia probably a recent pulmonary embolism was also from kinney virus in addition she also has renal insufficiency patient was hypoxic hypercarbic CRP elevated is on high-flow nasal cannula I recommend treatment with steroids she has bilateral infiltrates on the chest x-ray CRP and was normal on admission but then increased significantly patient is on Breo at home
--- NOTE | 2020-07-31 13:50 | P.PN ---
Subjective Date of Service: 07/31/20 Chief Complaint: End-stage renal disease Subjective: Improving Physical Examination - Vital Signs Temperature: 96.9 F Blood Pressure: 137/64 Pulse: 84 Respirations: 16 Pulse Ox (%): 99 - Physical Exam General: Alert, Cooperative HEENT: Atraumatic Neck: Supple Respiratory: Clear to auscultation bilaterally Cardiovascular: Normal pulses, Regular rate/rhythm Integumentary: No erythema, No warmth, No cyanosis Neurological: Normal speech, Normal strength at 5/5 x4 extr, Normal tone, Normal affect - Studies Laboratory Data (last 24 hrs) 07/31/20 09:58: APTT 31.9 07/31/20 05:08: WBC 11.6 H, Hgb 8.9 L, Hct 27.6 L, Plt Count 109 L 07/31/20 05:08: Sodium 134 L, Potassium 4.0, BUN 86 H, Creatinine 3.08 H, Glucose 219 H, Total Bilirubin 0.8, AST 23, ALT 16, Alkaline Phosphatase 113 07/31/20 02:25: APTT 222.4 H* 07/30/20 20:50: APTT 32.5 07/30/20 15:10: Potassium 3.5 Microbiology Data (last 24 hrs): 07/28/20 04:00 Wound - Right Groin Gram Stain - Final 07/30/20 18:30 Blood - Blood Anaerobic Blood Culture - Final 07/30/20 18:30 Blood - Blood Anaerobic Blood Culture - Final 07/27/20 21:55 Clean Catch Urine [place] Count - Final >100,000 CFU/ML. 07/27/20 21:55 Clean Catch Urine - Final Medications List Reviewed: Yes Assessment & Plan Discharge Plan: Snf Plan to discharge in: 72 Hours Physician Review Additional Text: Impression: Acute on chronic renal failure stage 5 worsening CKD now with end-stage renal disease COVID 19 infection UTI-yeast infection Chronic diastolic CHF COPD Diabetes mellitus type 2 insulin-dependent Hypertension Anemia of chronic disease Anti coagulation therapy for prior pulmonary embolism Hyperlipidemia Plan: Acute on chronic renal failure stage 5 worsening CKD now with end-stage renal disease: Patient will get hemodialysis catheter placed today. Spoke with nephrology yesterday. Nephrology mentions that the patient will likely require outpatient dialysis. Will help arrange as an outpatient. Will monitor her progress with dialysis. Will need to arrange with outreach and education social worker. At discharge the patient will likely go to skilled facility. COVID 19 infection: CMP was elevated. Now on IV Solu-Medrol. Pulmonology recommends to discontinue antibiotic. UTI-yeast infection: Continue with Diflucan. Chronic diastolic CHF: Diuretics continued to be held. Maintain oxygen above 93%. COPD: Continue medication. Maintain oxygen above 93%. Continue with incentive spirometer. Diabetes mellitus type 2 insulin-dependent: Continue Accu-Cheks. Sliding scale in place. Hypertension: Continue medication. Will monitor and adjust appropriately. Anemia of chronic disease: Continue monitor closely Anti coagulation therapy for prior pulmonary embolism: Restart Eliquis. DC Heparin. Hyperlipidemia: Continue medication Time Spent Managing Pts Care (In Minutes): 55
--- NOTE | 2020-07-31 14:16 | RAD REPORT ---
EXAM DESCRIPTION: RAD - Fluoroscopy <1 Hour - 07/31/2020 2:08 pm FINDINGS: There were 8 images obtained during a fluoroscopic assisted placement of a vascular access catheter. No suspicious or unexpected finding. Fluoro time was 0.4 minutes. Cumulative dose was 6.34 mGy.
--- NOTE | 2020-07-31 19:53 | P.PN ---
Date of Service: 07/31/20 Vital Signs Temp Pulse Resp BP Pulse Ox 96.9 F 86 13 141/48 H 96 07/31/20 13:50 07/31/20 19:00 07/31/20 19:00 07/31/20 19:00 07/31/20 19:00 Medications Apixaban (Eliquis) 5 mg PO BID [facility] Stop: 08/30/20 21:01 Calcitriol (Rocaltrol) 0.5 mcg PO DAILY [facility] Stop: 08/27/20 09:01 Last Admin: 07/31/20 07:38 Dose: Not Given Documented by: Cholecalciferol (Vitamin D 5,000 Iu Cap) 5,000 unit PO DAILY [facility] Stop: 08/27/20 09:01 Last Admin: 07/31/20 07:38 Dose: Not Given Documented by: Docusate Sodium (Colace Cap) 100 mg PO BID [facility] Stop: 08/27/20 09:01 Last Admin: 07/31/20 07:37 Dose: Not Given Documented by: Fluconazole (Diflucan Tab) 100 mg PO DAILY [facility]; Protocol Stop: 08/29/20 09:01 Last Admin: 07/31/20 07:37 Dose: Not Given Documented by: Heparin Sodium (Porcine) (Heparin 1,000 Units/Ml) 6,000 unit IV EVERY HD PRN PRN Reason: AFTER EACH DIALYSIS Stop: 08/30/20 10:20 Last Admin: 07/31/20 11:15 Dose: 6,000 unit Documented by: Albumin Human (Albumin 25%) 50 mls @ 100 mls/hr IV EVERY HD [facility] Stop: 08/30/20 11:01 Insulin Human Regular (Novolin -R) 0 unit SQ ACHS [facility]; Protocol Stop: 08/26/20 21:01 Last Admin: 07/31/20 17:12 Dose: 5 unit Documented by: L-Arginine/L-Glutamine/HMB (Topher) 1 pkt PO BID [facility] Stop: 08/27/20 21:01 Last Admin: 07/31/20 07:37 Dose: Not Given Documented by: Mannitol (Mannitol 12.5 Gm/50 Ml Vial) 12.5 gm IV EVERY HD PRN PRN Reason: Titrate to SBP (MUST DEFINE) Stop: 08/30/20 10:20 Methylprednisolone Sodium Succinate (Solu-Medrol) 40 mg IV Q8H [facility] Stop: 08/29/20 21:01 Last Admin: 07/31/20 14:32 Dose: 40 mg Documented by: Metoprolol Succinate (Toprol Xl) 50 mg PO BID [facility] Stop: 08/28/20 21:01 Last Admin: 07/31/20 08:03 Dose: 50 mg Documented by: Nutritional Formula (Promod Liquid Protein) 30 ml PO BID [facility] Stop: 08/28/20 09:01 Last Admin: 07/31/20 07:38 Dose: Not Given Documented by: Nutritional Formula (Ensure High Protein) 237 ml PO BID [facility] Stop: 08/28/20 21:01 Last Admin: 07/31/20 07:37 Dose: Not Given Documented by: Pantoprazole Sodium (Protonix Tab) 40 mg PO DAILY [facility]; Protocol Stop: 08/29/20 09:01 Last Admin: 07/31/20 07:38 Dose: Not Given Documented by: Rosuvastatin Calcium (Crestor) 10 mg PO BEDTIME [facility] Stop: 08/28/20 21:01 Last Admin: 07/30/20 21:00 Dose: Not Given Documented by: Sevelamer Carbonate (Renvela) 800 mg PO TIDWM [facility] Stop: 08/27/20 08:01 Last Admin: 07/31/20 17:00 Dose: Not Given Documented by: Sodium Chloride (Normal Saline Flush) 10 ml IV BID [facility] Stop: 08/26/20 21:01 Last Admin: 07/31/20 07:38 Dose: Not Given Documented by: Vitamin B Complex/Vit C/Folic Acid (Nephro-Ely) 1 tab PO DAILY [facility] Stop: 08/27/20 09:01 Last Admin: 07/31/20 07:37 Dose: Not Given Documented by: Lab Results (last 24 hrs) 07/31/20 17:06: POC Glucose 210 H 07/31/20 13:48: POC Glucose 179 H 07/31/20 09:58: APTT 31.9 07/31/20 07:58: POC Glucose 255 H 07/31/20 05:08: C-Reactive Protein 87.20 H 07/31/20 05:08: WBC 11.6 H, RBC 2.80 L, Hgb 8.9 L, Hct 27.6 L, MCV 98.4, MCH 31.7, MCHC 32.2, RDW 16.2 H, Plt Count 109 L, MPV 10.3 D, Neutrophils % 97.1 H, Lymphocytes % 1.9 L, Monocytes % 0.9 L, Eosinophils % 0.0, Basophils % 0.1, Absolute Neutrophils 11.3 H, Absolute Lymphocytes 0.2 L, Absolute Monocytes 0.1, Absolute Eosinophils 0.0, Absolute Basophils 0.0 07/31/20 05:08: Sodium 134 L, Potassium 4.0, Chloride 97 L, Carbon Dioxide 26, BUN 86 H, Creatinine 3.08 H, Estimated GFR 14 L, Glucose 219 H, Calcium 7.0 L, Iron 46.0 L, TIBC 196 L, Transferrin 140 L, Transferrin % Sat 23.5, Ferritin 839.7 H, Total Bilirubin 0.8, AST 23, ALT 16, Alkaline Phosphatase 113, Serum Total Protein 5.6 L, Albumin 2.4 L, Globulin 3.2, Albumin/Globulin Ratio 0.8 L 07/31/20 02:25: APTT 222.4 H* 07/30/20 20:50: APTT 32.5 07/30/20 20:03: POC Glucose 110 07/30/20 18:30: C-Reactive Protein 71.00 H Microbiology Results 07/30/20 18:30 Blood - Blood Aerobic Blood Culture - Preliminary No growth in 24 hours. 07/30/20 18:30 Blood - Blood Anaerobic Blood Culture - Final 07/30/20 18:30 Blood - Blood Aerobic Blood Culture - Preliminary No growth in 24 hours. 07/30/20 18:30 Blood - Blood Anaerobic Blood Culture - Final 07/28/20 04:00 Wound - Right Groin Gram Stain - Final 07/28/20 04:00 Wound - Right Groin Culture & Sensitivity - Preliminary 07/27/20 21:55 Clean Catch Urine [place] Count - Final >100,000 CFU/ML. 07/27/20 21:55 Clean Catch Urine - Final Assessment/ Plan: Nephrology CPS stable without CP or SOB. Worsening edema. CVC placed this morning. No acute events overnight. Vitals, medications, blood work and imaging reviewed in the chart. General: In no apparent distress, Cooperative HEENT: Atraumatic Neck: Supple Respiratory: Clear to auscultation bilaterally, Diminished Cardiovascular: Regular rate/rhythm, Edema Gastrointestinal: Soft and benign, Non-distended Musculoskeletal: No clubbing, No contractures Integumentary: No rashes, No cyanosis Neurological: Normal speech Laboratory Data (last 24 hrs) 07/28/20 05:12: Sodium 152 H, Potassium 4.7, BUN 109 H, Creatinine 4.32 H, Glucose 163 H, Magnesium 2.5 H 07/28/20 05:12: PT 28.2 H, INR 2.43, APTT 35.2 07/28/20 05:12: WBC 10.3, Hgb 8.9 L, Hct 27.0 L, Plt Count 183 Imagings Data: EXAM DESCRIPTION: CT - Thorax Wo Con - 07/19/2020 10:32 am CLINICAL HISTORY: PNA COVID COMPARISON: Chest For Pe Angio dated 06/22/2020; Chest Single View dated 07/12/2020 TECHNIQUE: Axial 5 mm thick images of the chest were obtained without IV contrast. All CT scans are performed using dose optimization technique as appropriate and may include automated exposure control or mA/KV adjustment according to patient size. FINDINGS: Moderate bilateral pleural effusions have developed. Patchy bilateral airspace opacification is present. Small focal consolidation present posterior right upper lobe. Additional consolidation with air bronchogram formation seen in the right upper lobe abutting the minor fissure. Pattern is not substantially different from the portable chest film. Findings would be consistent with the clinical diagnosis of COVID pneumonia. Airspace opacification is scattered in the left upper and left lower lobes. There is bilateral partial lower lobe atelectasis. No pneumothorax. No abnormal mediastinal or hilar masses or lymphadenopathy seen. No gross aortic or pulmonary artery finding suspected. Assessment is limited in the absence of IV contrast. No pericardial effusion. No chest wall mass or abnormal axillary lymphadenopathy. IMPRESSION: Moderate bilateral pleural effusions and bilateral alveolar opacification new from the May CT chest. The lung parenchymal opacification is not substantially different from July 12 portable chest. Chest findings are consistent with the clinical diagnosis of bilateral COVID-19 pneumonia EXAM DESCRIPTION: US - Renal Ultrasound-Complete - 07/13/2020 10:01 am CLINICAL HISTORY: Acute renal insufficiency COMPARISON: 2007 FINDINGS: The right kidney measures 8 cm with an increased echotexture. The left kidney measures 9 cm with an increased echotexture. Hydronephrosis is not seen. Poor evaluation of bladder secondary to a [place] catheter present Milk of calcium gallbladder/cholelithiasis IMPRESSION: Increased renal echotexture consistent with parenchymal disease Conclusions/Impression: A/ EDU suspicious for ESRD. Uremia. Hypernatremia Hypocalcemia HTN with CKD DM II with CKD Anemia in chronic illness Hx COVID19 PNA. Suspected PE on Eliquis Acute cystitis P/ Continue current POC and Medications. HD CVC placed today. Initiate HD today. Next HD tomorrow. Follow up culture. No NSAIDs. AM labs. Daily weight. Hepatitis panel negative. Placement pending at the [facility] [place]. Case reviewed with Dr. Barnard.
[2020-07-31] MEDS: ROSUVASTATIN 10 MG TAB PO SCH (20:21)
[2020-07-31] MEDS: APIXABAN 5 MG TABLET PO SCH (20:21)
--- NOTE | 2020-07-31 21:34 | OP ---
Date of Procedure: 07/31/2020 Surgeon: Todd Carpenter MD Preoperative Diagnosis: End-stage renal disease. Postoperative Diagnosis: End-stage renal disease. Procedures: 1.Placement of a tunneled HemoSplit hemodialysis catheter. 2.Interpretation of fluoroscopy. 3.Right neck ultrasound. Anesthesia: General plus local. Indications: This is a case of 85-year-old patient with history of multiple medical problems includi ng heart disease and renal disease, in need of the hemodialysis, so the catheter was requested. The patient is also COVID positive. The benefits, alternatives, and risks of placement fully explained w hich include, but not limited to infection, bleeding, damage to adjacent structures, anesthesia compl ication, hemothorax, pneumothorax, cardiac arrhythmias, DVTs, endocarditis, VT, and even . She also understands this may not relieve her symptoms. She might need more than one surgical interventi on. She understood. Consent was signed. Description Of Procedure: The patient was brought to the operating room and placed in supine positio n. All the precautions for recovery were taken by the OR personnel. The anesthesia was done without complication. The right neck and chest were prepped and draped in a sterile fashion. Time-out was called. The ultrasound was done to guide an 18-gauge needle in the right internal jugular vein at th e first attempt. After that, a guidewire was passed through, got into superior vena cava using fluor oscopy. Needle was removed. A small incision was made in the right upper chest and the catheter elmer neled underneath to meet the incision in the right neck. Dilators were placed under fluoroscopy unti l we have an introducer kit. Guidewire was removed. Catheter was placed in. Introducer was peeled off under fluoroscopy. Excellent backflow and inflow. The line was secured in place with heparin an d secured to the skin with 3-0 nylon. Sponge count and instrument counts were correct. All this was done in Trendelenburg position. Fluoroscopy was used once again for help on placement. At that mom ent, I proceeded then to cover the area with sterile dressings. The patient will be sent back to the ICU in stable condition. HM/MODL Voice ID: [id number] Report ID: [id number]
[2020-08-01] MEDS: ALBUMIN HUMAN 25% 50 ML IV SCH (01:15)
[2020-08-01] MEDS: METHYLPREDNISOLONE 40 MG INJ IV SCH (04:10)
[2020-08-01 05:43] LABS: Albumin 2.7 g/dL (3.4-5.0); Bilirubin Total 0.8 mg/dL (0.2-1.0); C-Reactive Protein 52.6 mg/L (<3.00); Ferritin 695.9 ng/mL (8-388); Potassium 3.8 mmol/L (3.5-5.1); Protein, Total 5.8 g/dL (6.4-8.2)
[2020-08-01 05:45] LABS: Absolute Lymphocytes (CBC) 0.2 K/uL (0.7-4.9); Basophils % 0.1 % (0-1.3); Hematocrit 24.8 % (36.0-45.0); Lymphocytes % 1.5 % (15.3-44.8); MPV 10.8 fL (7.6-11.3); RBC Red Blood Cell Count 2.52 M/uL (3.86-4.86)
[2020-08-01 06:50] LABS: Blood Morphology Comment NOT SEEN (NOT SEEN); Platelet Estimate ADEQ
[2020-08-01] MEDS: INSULIN -REGULAR HUMAN 50 UNIT/0.5 ML ML SQ SCH ×4 (08:29→20:31)
[2020-08-01] MEDS: FLUCONAZOLE 100 MG TAB PO SCH (08:29)
[2020-08-01] MEDS: CALCITROL 0.25 MCG CAP PO SCH (08:29)
[2020-08-01] MEDS: SEVELAMER CARBONATE 800 MG TABLET PO SCH ×3 (08:29→16:38)
[2020-08-01] MEDS: PANTOPRAZOLE 40MG TABLET PO SCH (08:29)
[2020-08-01] MEDS: VITAMIN D 5,000 UNIT CAP PO SCH (08:29)
[2020-08-01] MEDS: METOPROLOL XL 50 MG TAB PO SCH ×2 (08:29→20:17)
[2020-08-01] MEDS: APIXABAN 5 MG TABLET PO SCH ×2 (08:29→20:29)
[2020-08-01] MEDS: DOCUSATE NA 100 MG CAP PO SCH ×2 (08:29→20:29)
[2020-08-01] MEDS: MULTIVITAMINS,THERAPEUT 1 TAB PO SCH (08:40)
[2020-08-01] MEDS: ENSURE HIGH PROTEIN 237 ML CAN PO SCH ×2 (08:40→08:43)
[2020-08-01] MEDS: PROMOD 30 ML DOSE PO SCH ×2 (08:41→20:17)
[2020-08-01] MEDS: JUVEN PACKET PO SCH ×2 (08:41→20:17)
[2020-08-01] MEDS ORDERED: NEPRO SHAKE 237 ML CAN PO SCH (09:00)
--- NOTE | 2020-08-01 09:10 | P.PN ---
Subjective Date of Service: 08/01/20 Chief Complaint: End-stage renal disease Subjective: Improving, Doing well Physical Examination - Vital Signs Temperature: 97.6 F Blood Pressure: 137/65 Pulse: 90 Respirations: 14 Pulse Ox (%): 96 - Physical Exam General: Alert, In no apparent distress, Oriented x3, Cooperative HEENT: Atraumatic Neck: Supple Respiratory: Other (Patient on room air. Breathing appropriately.) Cardiovascular: Normal pulses, Regular rate/rhythm Neurological: Normal speech, Normal strength at 5/5 x4 extr, Normal tone, Normal affect - Studies Laboratory Data (last 24 hrs) 08/01/20 05:10: Magnesium 2.1 08/01/20 05:10: Sodium 138, Potassium 3.8, BUN 40 H D, Creatinine 1.73 H D, Gl ucose 131 H, Total Bilirubin 0.8, AST 19, ALT 11 L, Alkaline Phosphatase 104 08/01/20 05:10: WBC 12.1 H, Hgb 8.2 L, Hct 24.8 L, Plt Count 107 L 07/31/20 09:58: APTT 31.9 Microbiology Data (last 24 hrs): 07/28/20 04:00 Wound - Right Groin Gram Stain - Final 07/30/20 18:30 Blood - Blood Anaerobic Blood Culture - Final 07/30/20 18:30 Blood - Blood Anaerobic Blood Culture - Final Medications List Reviewed: Yes Assessment & Plan Discharge Plan: Other (residential facility) Plan to discharge in: 48 Hours Physician Review Additional Text: Impression: Acute on chronic renal failure stage 5 worsening CKD now with end-stage renal disease on hemodialysis COVID 19 infection UTI-yeast infection Chronic diastolic CHF COPD Diabetes mellitus type 2 insulin-dependent Hypertension Anemia of chronic disease 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 Patient also received dialysis. Renal function improved. Spoke with nephrology yesterday. Hopefully renal function will continue to improve and no need for outpatient dialysis. But if no significant improvement outpatient dialysis will likely need to be arranged. Continue monitor closely. CRP improved. Will change IV steroids to oral. Continue other medications. Case discussed with pulmonology yesterday as well. Will discuss with manager social about plan of care. Possible discharge to skilled placement in the next 2 days pending renal function. COVID 19 infection: CRP improved. Will transition from IV Solu-Medrol to oral prednisone. Continue maintain sats above 93%. Patient on room air. UTI-yeast infection: Continue with Diflucan. Chronic diastolic CHF: Diuretics continued to be held. Maintain oxygen above 93%. COPD: Continue medication. Maintain oxygen above 93%. Continue with incentive spirometer. Diabetes mellitus type 2 insulin-dependent: Continue Accu-Cheks. Sliding scale in place. Hypertension: Continue medication. Will monitor and adjust appropriately. Anemia of chronic disease: Continue monitor closely Anti coagulation therapy for prior pulmonary embolism: Eliquis restarted. Hyperlipidemia: Continue medication Time Spent Managing Pts Care (In Minutes): 55
--- NOTE | 2020-08-01 11:40 | P.PN ---
Subjective Date of Service: 08/01/20 Chief Complaint: Clement virus pneumonia Subjective: Improving (Patient is improving doing well she is on nasal cannula oxygen no complaints renal function is improving status post dialysis) Review of Systems General: Weakness Respiratory: Shortness of Breath Physical Examination - Vital Signs Temperature: 97.6 F Blood Pressure: 137/65 Pulse: 90 Respirations: 14 Pulse Ox (%): 96 - Physical Exam General: Alert, Oriented x3 Respiratory: Clear to auscultation bilaterally Cardiovascular: Edema - Studies Laboratory Data (last 24 hrs) 08/01/20 05:10: Magnesium 2.1 08/01/20 05:10: Sodium 138, Potassium 3.8, BUN 40 H D, Creatinine 1.73 H D, Glucose 131 H, Total Bilirubin 0.8, AST 19, ALT 11 L, Alkaline Phosphatase 104 08/01/20 05:10: WBC 12.1 H, Hgb 8.2 L, Hct 24.8 L, Plt Count 107 L Microbiology Data (last 24 hrs): 07/28/20 04:00 Wound - Right Groin Gram Stain - Final 07/28/20 04:00 Wound - Right Groin Culture & Sensitivity - Final Pseudomonas Aeruginosa 07/30/20 18:30 Blood - Blood Anaerobic Blood Culture - Final 07/30/20 18:30 Blood - Blood Anaerobic Blood Culture - Final Medications List Reviewed: Yes Assessment & Plan - Problems (Diagnosis) (1) COVID-19 virus infection Current Visit: No Status: Acute Plan: Patient has clement virus pneumonia is clinically improving patient's CRP is declining continue with prednisone vital signs stable stable for discharge on a prednisone 10 mg twice a day for at least 2 weeks
[2020-08-01] MEDS: levoFLOXacin 250 MG TAB PO SCH (13:43)
[2020-08-01] MEDS: TRAMADOL HCL 50 MG TAB PO PRN (16:39)
[2020-08-01 19:40] LABS: HBsAG Nonreactive (Nonreactive)
[2020-08-01] MEDS: NEPRO SHAKE 237 ML CAN PO SCH (20:17)
[2020-08-01] MEDS: predniSONE 20 MG TAB PO SCH (20:29)
[2020-08-01] MEDS: ROSUVASTATIN 10 MG TAB PO SCH (20:29)
[2020-08-01] MEDS ORDERED: Levofloxacin 250mg IV 250 MG/50 ML BAG IV SCH ×2 (21:00)
--- NOTE | 2020-08-01 21:12 | P.PN ---
Date of Service: 08/01/20 Vital Signs Temp Pulse Resp BP Pulse Ox 97.1 F 94 H 17 130/74 98 08/01/20 20:00 08/01/20 20:00 08/01/20 20:00 08/01/20 20:00 08/01/20 20:00 Medications Apixaban (Eliquis) 5 mg PO BID [facility] Stop: 08/30/20 21:01 Last Admin: 08/01/20 20:29 Dose: 5 mg Documented by: Calcitriol (Rocaltrol) 0.5 mcg PO DAILY [facility] Stop: 08/27/20 09:01 Last Admin: 08/01/20 08:29 Dose: 0.5 mcg Documented by: Cholecalciferol (Vitamin D 5,000 Iu Cap) 5,000 unit PO DAILY [facility] Stop: 08/27/20 09:01 Last Admin: 08/01/20 08:29 Dose: 5,000 unit Documented by: Docusate Sodium (Colace Cap) 100 mg PO BID [facility] Stop: 08/27/20 09:01 Last Admin: 08/01/20 20:29 Dose: 100 mg Documented by: Enteral Nutritional Formula (Nepro Shake) 237 ml PO BID [facility] Stop: 08/31/20 21:01 Last Admin: 08/01/20 20:17 Dose: 237 ml Documented by: Fluconazole (Diflucan Tab) 100 mg PO DAILY [facility]; Protocol Stop: 08/29/20 09:01 Last Admin: 08/01/20 08:29 Dose: 100 mg Documented by: Heparin Sodium (Porcine) (Heparin 1,000 Units/Ml) 6,000 unit IV EVERY HD PRN PRN Reason: AFTER EACH DIALYSIS Stop: 08/30/20 10:20 Last Admin: 08/01/20 02:40 Dose: 6,000 unit Documented by: Albumin Human (Albumin 25%) 50 mls @ 100 mls/hr IV EVERY HD [facility] Stop: 08/30/20 11:01 Last Admin: 08/01/20 01:15 Dose: 50 mls Documented by: Insulin Human Regular (Novolin -R) 0 unit SQ ACHS [facility]; Protocol Stop: 08/26/20 21:01 Last Admin: 08/01/20 20:31 Dose: 3 unit Documented by: L-Arginine/L-Glutamine/HMB (Topher) 1 pkt PO BID [facility] Stop: 08/27/20 21:01 Last Admin: 08/01/20 20:17 Dose: 1 pkt Documented by: Levofloxacin (Levaquin) 250 mg PO Q48H [facility]; Protocol Stop: 08/31/20 14:01 Last Admin: 08/01/20 13:43 Dose: 250 mg Documented by: Mannitol (Mannitol 12.5 Gm/50 Ml Vial) 12.5 gm IV EVERY HD PRN PRN Reason: Titrate to SBP (MUST DEFINE) Stop: 08/30/20 10:20 Metoprolol Succinate (Toprol Xl) 50 mg PO BID [facility] Stop: 08/28/20 21:01 Last Admin: 08/01/20 20:17 Dose: Not Given Documented by: Nutritional Formula (Promod Liquid Protein) 30 ml PO BID [facility] Stop: 08/28/20 09:01 Last Admin: 08/01/20 20:17 Dose: 30 ml Documented by: Pantoprazole Sodium (Protonix Tab) 40 mg PO DAILY [facility]; Protocol Stop: 08/29/20 09:01 Last Admin: 08/01/20 08:29 Dose: 40 mg Documented by: Prednisone (Deltasone) 20 mg PO BID [facility] Stop: 08/31/20 21:01 Last Admin: 08/01/20 20:29 Dose: 20 mg Documented by: Rosuvastatin Calcium (Crestor) 10 mg PO BEDTIME [facility] Stop: 08/28/20 21:01 Last Admin: 08/01/20 20:29 Dose: 10 mg Documented by: Sevelamer Carbonate (Renvela) 800 mg PO TIDWM [facility] Stop: 08/27/20 08:01 Last Admin: 08/01/20 16:38 Dose: 800 mg Documented by: Sodium Chloride (Normal Saline Flush) 10 ml IV BID [facility] Stop: 08/26/20 21:01 Last Admin: 08/01/20 20:30 Dose: 10 ml Documented by: Tramadol HCl (Ultram) 50 mg PO TID PRN PRN Reason: PAIN Stop: 08/31/20 15:45 Last Admin: 08/01/20 16:39 Dose: 50 mg Documented by: Vitamin B Complex/Vit C/Folic Acid (Nephro-Ely) 1 tab PO DAILY [facility] Stop: 08/27/20 09:01 Last Admin: 09/01/20 08:40 Dose: 1 tab Documented by: Lab Results (last 24 hrs) 08/01/20 19:55: POC Glucose 165 H 08/01/20 16:18: POC Glucose 187 H 08/01/20 16:05: Troponin I 0.09 H 08/01/20 11:28: POC Glucose 157 H 08/01/20 07:30: POC Glucose 151 H 08/01/20 05:10: Magnesium 2.1 08/01/20 05:10: Sodium 138, Potassium 3.8, Chloride 105, Carbon Dioxide 25, BUN 40 H D, Creatinine 1.73 H D, Estimated GFR 28 L, Glucose 131 H, Calcium 8.4 L D, Ferritin 695.9 H, Total Bilirubin 0.8, AST 19, ALT 11 L, Alkaline Phosphatase 104, C-Reactive Protein 52.60 H, Serum Total Protein 5.8 L, Albumin 2.7 L, Globulin 3.1, Albumin/Globulin Ratio 0.9 L 08/01/20 05:10: WBC 12.1 H, RBC 2.52 L, Hgb 8.2 L, Hct 24.8 L, MCV 98.4, MCH 32.5, MCHC 33.0, RDW 16.6 H, Plt Count 107 L, MPV 10.8, Neutrophils % 96.3 H, Lymphocytes % 1.5 L, Monocytes % 2.1 L, Eosinophils % 0.0, Basophils % 0.1, Absolute Neutrophils 11.7 H, Segmented Neutrophils 95 H, Absolute Lymphocytes 0.2 L, Lymphocytes 4 L, Monocytes 1, Absolute Monocytes 0.3, Absolute Eosinophils 0.0, Absolute Basophils 0.0, Morphology Comment Not seen 07/28/20 05:12: Hepatitis A IgM Ab Nonreactive, Hep Bs Antigen Nonreactive, Hep B Core IgM Ab Nonreactive, Hepatitis C Antibody Nonreactive, Hep C Ab Signal/Cutoff 0.10 Microbiology Results 07/28/20 04:00 Wound - Right Groin Gram Stain - Final 07/28/20 04:00 Wound - Right Groin Culture & Sensitivity - Final Pseudomonas Aeruginosa 07/30/20 18:30 Blood - Blood Aerobic Blood Culture - Preliminary No growth in 24 hours. 07/30/20 18:30 Blood - Blood Anaerobic Blood Culture - Final 07/30/20 18:30 Blood - Blood Aerobic Blood Culture - Preliminary No growth in 24 hours. 07/30/20 18:30 Blood - Blood Anaerobic Blood Culture - Final 07/27/20 21:55 Clean Catch Urine Holden Count - Final >100,000 CFU/ML. 07/27/20 21:55 Clean Catch Urine - Final Assessment/ Plan: Nephrology CPS stable without CP or SOB. Persistent edema. CVC placed this morning. No acute events overnight. Vitals, medications, blood work and imaging reviewed in the chart. General: In no apparent distress, Cooperative HEENT: Atraumatic Neck: Supple Respiratory: Clear to auscultation bilaterally, Diminished Cardiovascular: Regular rate/rhythm, Edema Gastrointestinal: Soft and benign, Non-distended Musculoskeletal: No clubbing, No contractures Integumentary: No rashes, No cyanosis Neurological: Normal speech Laboratory Data (last 24 hrs) 07/28/20 05:12: Sodium 152 H, Potassium 4.7, BUN 109 H, Creatinine 4.32 H, Glucose 163 H, Magnesium 2.5 H 07/28/20 05:12: PT 28.2 H, INR 2.43, APTT 35.2 07/28/20 05:12: WBC 10.3, Hgb 8.9 L, Hct 27.0 L, Plt Count 183 Imagings Data: EXAM DESCRIPTION: CT - Thorax Wo Con - 07/19/2020 10:32 am CLINICAL HISTORY: PNA COVID COMPARISON: Chest For Pe Angio dated 06/22/2020; Chest Single View dated 07/12/2020 TECHNIQUE: Axial 5 mm thick images of the chest were obtained without IV contrast. All CT scans are performed using dose optimization technique as appropriate and may include automated exposure control or mA/KV adjustment according to patient size. FINDINGS: Moderate bilateral pleural effusions have developed. Patchy bilateral airspace opacification is present. Small focal consolidation present posterior right upper lobe. Additional consolidation with air bronchogram formation seen in the right upper lobe abutting the minor fissure. Pattern is not substantially different from the portable chest film. Findings would be consistent with the clinical diagnosis of COVID pneumonia. Airspace opacification is scattered in the left upper and left lower lobes. There is bilateral partial lower lobe atelectasis. No pneumothorax. No abnormal mediastinal or hilar masses or lymphadenopathy seen. No gross aortic or pulmonary artery finding suspected. Assessment is limited in the absence of IV contrast. No pericardial effusion. No chest wall mass or abnormal axillary lymphadenopathy. IMPRESSION: Moderate bilateral pleural effusions and bilateral alveolar opacification new from the May CT chest. The lung parenchymal opacification is not substantially different from July 12 portable chest. Chest findings are consistent with the clinical diagnosis of bilateral COVID-19 pneumonia EXAM DESCRIPTION: US - Renal Ultrasound-Complete - 07/13/2020 10:01 am CLINICAL HISTORY: Acute renal insufficiency COMPARISON: 2007 FINDINGS: The right kidney measures 8 cm with an increased echotexture. The left kidney measures 9 cm with an increased echotexture. Hydronephrosis is not seen. Poor evaluation of bladder secondary to a [place] catheter present Milk of calcium gallbladder/cholelithiasis IMPRESSION: Increased renal echotexture consistent with parenchymal disease Conclusions/Impression: A/ EDU suspicious for ESRD. HD started 07-31-20 Uremia. Hypernatremia Hypocalcemia HTN with CKD DM II with CKD Anemia in chronic illness Hx COVID19 PNA. Suspected PE on Eliquis Acute cystitis P/ Continue current POC and Medications. Continue HD. Follow up culture. No NSAIDs. AM labs. Daily weight. Hepatitis panel negative. Placement pending at the [facility] [place].
[2020-08-02] MEDS: ALBUMIN HUMAN 25% 50 ML IV SCH (00:22)
[2020-08-02 05:17] LABS: Absolute Lymphocytes (CBC) 0.1 K/uL (0.7-4.9); Basophils % 0.1 % (0-1.3); Hematocrit 23.3 % (36.0-45.0); Lymphocytes % 0.9 % (15.3-44.8); MPV 9.6 fL (7.6-11.3); RBC Red Blood Cell Count 2.36 M/uL (3.86-4.86)
[2020-08-02 05:34] LABS: Albumin 3.3 g/dL (3.4-5.0); Potassium 3.7 mmol/L (3.5-5.1); Protein, Total 6.1 g/dL (6.4-8.2)
[2020-08-02] MEDS: INSULIN -REGULAR HUMAN 50 UNIT/0.5 ML ML SQ SCH ×4 (07:30→20:56)
[2020-08-02] MEDS: MULTIVITAMINS,THERAPEUT 1 TAB PO SCH (09:00)
[2020-08-02] MEDS: VITAMIN D 5,000 UNIT CAP PO SCH (09:00)
[2020-08-02] MEDS: APIXABAN 5 MG TABLET PO SCH ×2 (09:00→20:54)
[2020-08-02] MEDS: PROMOD 30 ML DOSE PO SCH ×2 (09:34→20:56)
[2020-08-02] MEDS: NEPRO SHAKE 237 ML CAN PO SCH ×2 (09:35→20:56)
[2020-08-02] MEDS: JUVEN PACKET PO SCH ×2 (09:35→20:56)
[2020-08-02] MEDS: METOPROLOL XL 50 MG TAB PO SCH ×2 (09:39→20:55)
[2020-08-02] MEDS: PANTOPRAZOLE 40MG TABLET PO SCH (09:39)
[2020-08-02] MEDS: DOCUSATE NA 100 MG CAP PO SCH ×2 (09:39→20:54)
[2020-08-02] MEDS: CALCITROL 0.25 MCG CAP PO SCH (09:39)
[2020-08-02] MEDS: SEVELAMER CARBONATE 800 MG TABLET PO SCH ×3 (09:39→16:30)
[2020-08-02] MEDS: FLUCONAZOLE 100 MG TAB PO SCH (09:39)
[2020-08-02] MEDS: predniSONE 20 MG TAB PO SCH ×2 (09:39→20:54)
[2020-08-02] MEDS: EPOETIN ALFA-EPBX 4,000 UNIT/ML VIAL SQ SCH (10:08)
[2020-08-02] MEDS: TRAMADOL HCL 50 MG TAB PO PRN ×2 (12:21→21:11)
--- NOTE | 2020-08-02 12:25 | EKG ---
Test Date: 2020-08-01 Test Time: 14:46:06 Margarine Churn Operator: MELINA MEASUREMENT RESULTS: Intervals: Rate: 96 SD: QRSD: 156 QT: 406 QTc: 512 Proctor: P: 54 SD: QRS: -58 T: 102 INTERPRETIVE STATEMENTS: Electronic ventricular pacemaker Compared to ECG 07/18/2020 09:38:06 No significant changes Electronically Signed On 08-02-20 12:22:48 CDT by Chalo Brown
--- NOTE | 2020-08-02 18:02 | P.PN ---
Subjective Date of Service: 08/02/20 Chief Complaint: Clement virus pneumonia Subjective: Improving Physical Examination - Vital Signs Temperature: 97.6 F Blood Pressure: 157/75 Pulse: 89 Respirations: 13 Pulse Ox (%): 94 - Physical Exam General: Alert, Cooperative HEENT: Atraumatic Neck: Supple Respiratory: Other (Patient on room air pre) Cardiovascular: Normal pulses, Regular rate/rhythm Gastrointestinal: Normal bowel sounds Neurological: Normal speech, Normal strength at 5/5 x4 extr, Normal tone, Normal affect - Studies Laboratory Data (last 24 hrs) 08/02/20 05:02: Sodium 140, Potassium 3.7, BUN 21 H, Creatinine 1.13, Glucose 125 H, Total Bilirubin 1.0, AST 19, ALT 14, Alkaline Phosphatase 106 08/02/20 05:02: WBC 14.0 H D, Hgb 7.6 L*, Hct 23.3 L, Plt Count 94 L Medications List Reviewed: Yes Assessment & Plan Discharge Plan: Home Plan to discharge in: 48 Hours Physician Review Additional Text: Impression: Acute on chronic renal failure stage 5 worsening CKD now with end-stage renal disease on hemodialysis COVID 19 infection UTI-yeast infection Chronic diastolic CHF COPD Diabetes mellitus type 2 insulin-dependent Hypertension Anemia of chronic disease Anti coagulation therapy for prior pulmonary embolism Hyperlipidemia Plan: Acute on chronic renal failure stage 5 worsening CKD now with end-stage renal disease on hemodialysis: Patient to be continued on dialysis. Spoke with nephrology. Hopefully renal function will continue to improve and no need for outpatient dialysis. But if no significant improvement outpatient dialysis will likely need to be arranged. Continue monitor closely. CRP improved. Will change IV steroids to oral. Continue other medications. Case discussed with pulmonology yesterday as well. Will discuss with manager social about plan of care. Possible discharge to skilled placement in the next 2 days pending renal function. COVID 19 infection: CRP improved. Continue oral steroid. Continue maintain sats above 93%. Patient on room air. UTI-yeast infection: Continue with Diflucan. Chronic diastolic CHF: Diuretics continued to be held. Maintain oxygen above 93%. COPD: Continue medication. Maintain oxygen above 93%. Continue with incentive spirometer. Diabetes mellitus type 2 insulin-dependent: Continue Accu-Cheks. Sliding scale in place. Hypertension: Continue medication. Will monitor and adjust appropriately. Patient reported some chest pain. Cardiology consulted to further evaluate. Will consider increasing beta-delfino therapy for better control. Anemia of chronic disease: Continue monitor closely Anti coagulation therapy for prior pulmonary embolism: Eliquis restarted. Hyperlipidemia: Continue medication Time Spent Managing Pts Care (In Minutes): 55
[2020-08-02] MEDS: ROSUVASTATIN 10 MG TAB PO SCH (20:54)
--- NOTE | 2020-08-02 21:11 | P.PN ---
Date of Service: 08/02/20 Vital Signs Temp Pulse Resp BP Pulse Ox 99 F 81 10 L 159/85 H 94 08/02/20 20:00 08/02/20 20:55 08/02/20 20:00 08/02/20 20:55 08/02/20 20:00 Medications Apixaban (Eliquis) 5 mg PO BID [facility] Stop: 08/30/20 21:01 Last Admin: 08/02/20 20:54 Dose: 5 mg Documented by: Calcitriol (Rocaltrol) 0.5 mcg PO DAILY [facility] Stop: 08/27/20 09:01 Last Admin: 08/02/20 09:39 Dose: 0.5 mcg Documented by: Cholecalciferol (Vitamin D 5,000 Iu Cap) 5,000 unit PO DAILY [facility] Stop: 08/27/20 09:01 Last Admin: 08/02/20 09:00 Dose: 5,000 unit Documented by: Docusate Sodium (Colace Cap) 100 mg PO BID [facility] Stop: 08/27/20 09:01 Last Admin: 08/02/20 20:54 Dose: 100 mg Documented by: Enteral Nutritional Formula (Nepro Shake) 237 ml PO BID [facility] Stop: 08/31/20 21:01 Last Admin: 08/02/20 20:56 Dose: 237 ml Documented by: Fluconazole (Diflucan Tab) 100 mg PO DAILY [facility]; Protocol Stop: 08/29/20 09:01 Last Admin: 08/02/20 09:39 Dose: 100 mg Documented by: Heparin Sodium (Porcine) (Heparin 1,000 Units/Ml) 6,000 unit IV EVERY HD PRN PRN Reason: AFTER EACH DIALYSIS Stop: 08/30/20 10:20 Last Admin: 08/02/20 02:54 Dose: 6,000 unit Documented by: Albumin Human (Albumin 25%) 50 mls @ 100 mls/hr IV EVERY HD [facility] Stop: 08/30/20 11:01 Last Admin: 08/02/20 00:22 Dose: 50 mls Documented by: Insulin Human Regular (Novolin -R) 0 unit SQ ACHS [facility]; Protocol Stop: 08/26/20 21:01 Last Admin: 08/02/20 20:56 Dose: Not Given Documented by: L-Arginine/L-Glutamine/HMB (Topher) 1 pkt PO BID [facility] Stop: 08/27/20 21:01 Last Admin: 08/02/20 20:56 Dose: 1 pkt Documented by: Levofloxacin (Levaquin) 250 mg PO Q48H [facility]; Protocol Stop: 08/31/20 14:01 Last Admin: 08/01/20 13:43 Dose: 250 mg Documented by: Mannitol (Mannitol 12.5 Gm/50 Ml Vial) 12.5 gm IV EVERY HD PRN PRN Reason: Titrate to SBP (MUST DEFINE) Stop: 08/30/20 10:20 Metoprolol Succinate (Toprol Xl) 50 mg PO BID [facility] Stop: 08/28/20 21:01 Last Admin: 08/02/20 20:55 Dose: 50 mg Documented by: Nutritional Formula (Promod Liquid Protein) 30 ml PO BID [facility] Stop: 08/28/20 09:01 Last Admin: 08/02/20 20:56 Dose: 30 ml Documented by: Pantoprazole Sodium (Protonix Tab) 40 mg PO DAILY [facility]; Protocol Stop: 08/29/20 09:01 Last Admin: 08/02/20 09:39 Dose: 40 mg Documented by: Prednisone (Deltasone) 20 mg PO BID [facility] Stop: 08/31/20 21:01 Last Admin: 08/02/20 20:54 Dose: 20 mg Documented by: Ramipril (Altace) 5 mg PO DAILY [facility] Stop: 09/01/20 22:01 Rosuvastatin Calcium (Crestor) 10 mg PO BEDTIME [facility] Stop: 08/28/20 21:01 Last Admin: 08/02/20 20:54 Dose: 10 mg Documented by: Sevelamer Carbonate (Renvela) 800 mg PO TIDWM [facility] Stop: 08/27/20 08:01 Last Admin: 08/02/20 16:30 Dose: 800 mg Documented by: Sodium Chloride (Normal Saline Flush) 10 ml IV BID [facility] Stop: 08/26/20 21:01 Last Admin: 08/02/20 20:55 Dose: 10 ml Documented by: Tramadol HCl (Ultram) 50 mg PO TID PRN PRN Reason: PAIN Stop: 08/31/20 15:45 Last Admin: 08/02/20 12:21 Dose: 50 mg Documented by: Vitamin B Complex/Vit C/Folic Acid (Nephro-Ely) 1 tab PO DAILY [facility] Stop: 08/27/20 09:01 Last Admin: 08/02/20 09:00 Dose: 1 tab Documented by: Lab Results (last 24 hrs) 08/02/20 20:11: POC Glucose 140 H 08/02/20 16:10: POC Glucose 169 H 08/02/20 11:22: POC Glucose 223 H 08/02/20 07:05: POC Glucose 146 H 08/02/20 05:02: Sodium 140, Potassium 3.7, Chloride 107, Carbon Dioxide 25, BUN 21 H, Creatinine 1.13, Estimated GFR 46 L, Glucose 125 H, Calcium 8.5, Total Bilirubin 1.0, AST 19, ALT 14, Alkaline Phosphatase 106, Serum Total Protein 6.1 L, Albumin 3.3 L, Globulin 2.8, Albumin/Globulin Ratio 1.2 08/02/20 05:02: WBC 14.0 H D, RBC 2.36 L, Hgb 7.6 L*, Hct 23.3 L, MCV 98.8, MCH 32.4, MCHC 32.8, RDW 17.3 H, Plt Count 94 L, MPV 9.6 D, Neutrophils % 94.0 H, Lymphocytes % 0.9 L, Monocytes % 5.0, Eosinophils % 0.0, Basophils % 0.1, Absolute Neutrophils 13.2 H, Absolute Lymphocytes 0.1 L, Absolute Monocytes 0.7, Absolute Eosinophils 0.0, Absolute Basophils 0.0 Microbiology Results 07/28/20 04:00 Wound - Right Groin Gram Stain - Final 07/28/20 04:00 Wound - Right Groin Culture & Sensitivity - Final Pseudomonas Aeruginosa 07/30/20 18:30 Blood - Blood Aerobic Blood Culture - Preliminary No growth in 24 hours. 07/30/20 18:30 Blood - Blood Anaerobic Blood Culture - Final 07/30/20 18:30 Blood - Blood Aerobic Blood Culture - Preliminary No growth in 24 hours. 07/30/20 18:30 Blood - Blood Anaerobic Blood Culture - Final 07/27/20 21:55 Clean Catch Urine [place] Count - Final >100,000 CFU/ML. 07/27/20 21:55 Clean Catch Urine - Final Assessment/ Plan: Nephrology Episode of CP this morning. Improving edema. No acute events overnight. Vitals, medications, blood work and imaging reviewed in the chart. General: In no apparent distress, Cooperative HEENT: Atraumatic Neck: Supple Respiratory: Clear to auscultation bilaterally, Diminished Cardiovascular: Regular rate/rhythm, Edema Gastrointestinal: Soft and benign, Non-distended Musculoskeletal: No clubbing, No contractures Integumentary: No rashes, No cyanosis Neurological: Normal speech Laboratory Data (last 24 hrs) 07/28/20 05:12: Sodium 152 H, Potassium 4.7, BUN 109 H, Creatinine 4.32 H, Glucose 163 H, Magnesium 2.5 H 07/28/20 05:12: PT 28.2 H, INR 2.43, APTT 35.2 07/28/20 05:12: WBC 10.3, Hgb 8.9 L, Hct 27.0 L, Plt Count 183 Imagings Data: EXAM DESCRIPTION: CT - Thorax Wo Con - 07/19/2020 10:32 am CLINICAL HISTORY: PNA COVID COMPARISON: Chest For Pe Angio dated 06/22/2020; Chest Single View dated 07/12/2020 TECHNIQUE: Axial 5 mm thick images of the chest were obtained without IV contrast. All CT scans are performed using dose optimization technique as appropriate and may include automated exposure control or mA/KV adjustment according to patient size. FINDINGS: Moderate bilateral pleural effusions have developed. Patchy bilateral airspace opacification is present. Small focal consolidation present posterior right upper lobe. Additional consolidation with air bronchogram formation seen i n the right upper lobe abutting the minor fissure. Pattern is not substantially different from the portable chest film. Findings would be consistent with the clinical diagnosis of COVID pneumonia. Airspace opacification is scattered in the left upper and left lower lobes. There is bilateral partial lower lobe atelectasis. No pneumothorax. No abnormal mediastinal or hilar masses or lymphadenopathy seen. No gross aortic or pulmonary artery finding suspected. Assessment is limited in the absence of IV contrast. No pericardial effusion. No chest wall mass or abnormal axillary lymphadenopathy. IMPRESSION: Moderate bilateral pleural effusions and bilateral alveolar opacification new from the May CT chest. The lung parenchymal opacification is not substantially different from July 12 portable chest. Chest findings are consistent with the clinical diagnosis of bilateral COVID-19 pneumonia EXAM DESCRIPTION: US - Renal Ultrasound-Complete - 07/13/2020 10:01 am CLINICAL HISTORY: Acute renal insufficiency COMPARISON: 2007 FINDINGS: The right kidney measures 8 cm with an increased echotexture. The left kidney measures 9 cm with an increased echotexture. Hydronephrosis is not seen. Poor evaluation of bladder secondary to a Gale[place] catheter present Milk of calcium gallbladder/cholelithiasis IMPRESSION: Increased renal echotexture consistent with parenchymal disease Conclusions/Impression: A/ EDU improving. HD started 07-31-20 Hypernatremia Hypocalcemia HTN with CKD DM II with CKD Anemia in chronic illness Hx COVID19 PNA. Suspected PE on Eliquis Acute cystitis P/ Continue current POC and Medications. HD as needed due to improving renal fx. Start Ramipril 5mg qhs. Follow up culture. No NSAIDs. AM labs. Daily weight. Hepatitis panel negative. Case reviewed with Dr. Barnard. Cardiology to see the patient for CP.
[2020-08-02] MEDS ORDERED: ramipriL 5 MG CAP PO SCH (22:00)
[2020-08-02] MEDS: ramipriL 5 MG CAP PO SCH (22:30)
[2020-08-02] MEDS ORDERED: ramipriL 5 MG CAP ONE (22:34)
[2020-08-03 05:55] LABS: C-Reactive Protein 18.2 mg/L (<3.00); Ferritin 1042.1 ng/mL (8-388); Magnesium 2.2 mg/dL (1.8-2.4); Phosphorus 3.4 mg/dL (2.5-4.9); Potassium 4.5 mmol/L (3.5-5.1)
[2020-08-03] MEDS: SEVELAMER CARBONATE 800 MG TABLET PO SCH ×3 (08:50→16:05)
[2020-08-03] MEDS: INSULIN -REGULAR HUMAN 50 UNIT/0.5 ML ML SQ SCH ×4 (08:50→20:23)
[2020-08-03] MEDS: CALCITROL 0.25 MCG CAP PO SCH ×2 (09:00→09:43)
[2020-08-03] MEDS: FLUCONAZOLE 100 MG TAB PO SCH ×2 (09:00→09:39)
[2020-08-03] MEDS: MULTIVITAMINS,THERAPEUT 1 TAB PO SCH ×2 (09:00→09:40)
[2020-08-03] MEDS: DOCUSATE NA 100 MG CAP PO SCH ×4 (09:00→20:52)
[2020-08-03] MEDS: VITAMIN D 5,000 UNIT CAP PO SCH ×2 (09:00→09:39)
[2020-08-03] MEDS ORDERED: D50W 25 GM/50 ML SYRINGE/VIAL IV PRN (09:19)
[2020-08-03] MEDS ORDERED: GLUCAGON 1 MG/VIAL IM PRN (09:19)
--- NOTE | 2020-08-03 09:19 | P.PN ---
Subjective Date of Service: 08/03/20 Chief Complaint: Clement virus pneumonia Subjective: Improving, Doing well Physical Examination - Vital Signs Temperature: 96.7 F Blood Pressure: 143/64 Pulse: 82 Respirations: 11 Pulse Ox (%): 93 - Physical Exam General: Alert, Cooperative, Other (No mention of chest pain today.) HEENT: Atraumatic Neck: Supple Respiratory: Clear to auscultation bilaterally Cardiovascular: Normal pulses, Regular rate/rhythm Integumentary: No tenderness/swelling, No erythema, No warmth, No cyanosis Neurological: Normal speech, Normal strength at 5/5 x4 extr, Normal tone, Normal affect - Studies Laboratory Data (last 24 hrs) 08/03/20 04:53: Sodium 139, Potassium 4.5, BUN 52 H D, Creatinine 1.91 H, Glucose 204 H, Phosphorus 3.4, Magnesium 2.2 Medications List Reviewed: Yes Assessment & Plan Discharge Plan: Other ([facility] facility) Plan to discharge in: 48 Hours Physician Review Additional Text: Impression: Acute on chronic renal failure stage 5 worsening CKD now with end-stage renal disease on hemodialysis COVID 19 infection UTI-yeast infection Groin wound, culture positive for Pseudomonas Chronic diastolic CHF COPD Diabetes mellitus type 2 insulin-dependent Hypertension Anemia of chronic disease 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 Check to see if dialysis will be arranged again today. Social work working on outpatient hemodialysis. Social work also working to place in a skilled facility. Family agrees with plan of care. Continue monitor closely. Will need to encourage ambulation. Spoke with nurses to help with this. Once outpatient dialysis arranged and approved to go to skilled facility then will consider discharge. COVID 19 infection: CRP improved. Continue oral steroid. Continue maintain sats above 93%. Patient on room air. UTI-yeast infection: Continue with Diflucan. Groin wound, culture positive for Pseudomonas: Contained antibiotic treatment. Chronic diastolic CHF: Continued diuresis. Continue dialysis.. Maintain oxygen above 93%. COPD: Continue medication. Maintain oxygen above 93%. Continue with incentive spirometer. Diabetes mellitus type 2 insulin-dependent: Continue Accu-Cheks. Sliding scale in place. Will add low-dose Lantus Hypertension: Continue medication. Will monitor and adjust appropriately. Patient reported some chest pain. Cardiology consulted to further evaluate. Will consider increasing beta-delfino therapy for better control. Anemia of chronic disease: Continue monitor closely. 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 Will have pharmacy verify dosing per renal function Hyperlipidemia: Continue medication Time Spent Managing Pts Care (In Minutes): 55
[2020-08-03] MEDS: JUVEN PACKET PO SCH ×2 (09:36→20:22)
[2020-08-03] MEDS: PROMOD 30 ML DOSE PO SCH ×2 (09:36→20:22)
[2020-08-03] MEDS: NEPRO SHAKE 237 ML CAN PO SCH ×2 (09:37→20:22)
[2020-08-03] MEDS: predniSONE 20 MG TAB PO SCH ×2 (09:40→20:20)
[2020-08-03] MEDS: METOPROLOL XL 50 MG TAB PO SCH ×2 (09:40→20:20)
[2020-08-03] MEDS: APIXABAN 5 MG TABLET PO SCH (09:42)
[2020-08-03] MEDS: PANTOPRAZOLE 40MG TABLET PO SCH (09:43)
[2020-08-03] MEDS: TRAMADOL HCL 50 MG TAB PO PRN ×2 (09:44→15:06)
[2020-08-03] MEDS: levoFLOXacin 250 MG TAB PO SCH (12:48)
[2020-08-03] MEDS ORDERED: HYDROCODONE/APAP 5/325 MG TAB PO PRN (17:25)
[2020-08-03] MEDS: ramipriL 5 MG CAP PO SCH (20:19)
[2020-08-03] MEDS: ROSUVASTATIN 10 MG TAB PO SCH (20:20)
[2020-08-03] MEDS: APIXABAN 2.5 MG TABLET PO SCH (20:21)
[2020-08-03] MEDS: INSULIN GLARGINE 100 UNITS/ML SQ SCH (20:23)
--- NOTE | 2020-08-03 21:31 | P.PN ---
Date of Service: 08/03/20 Vital Signs Temp Pulse Resp BP Pulse Ox 97.1 F 73 25 H 139/63 94 08/03/20 16:00 08/03/20 20:20 08/03/20 18:50 08/03/20 20:20 08/03/20 18:50 Medications Hydrocodone Bitart/Acetaminophen ([place] 5/325) 1 tab PO Q8H PRN PRN Reason: Pain scale 5-7 (Moderate) Stop: 09/02/20 17:26 Last Admin: 08/03/20 17:50 Dose: 1 tab Documented by: Apixaban (Eliquis) 2.5 mg PO BID [facility] Stop: 09/02/20 21:01 Last Admin: 08/03/20 20:21 Dose: Not Given Documented by: Calcitriol (Rocaltrol) 0.5 mcg PO DAILY [facility] Stop: 08/27/20 09:01 Last Admin: 08/03/20 09:00 Dose: Not Given Documented by: Cholecalciferol (Vitamin D 5,000 Iu Cap) 5,000 unit PO DAILY [facility] Stop: 08/27/20 09:01 Last Admin: 08/03/20 09:00 Dose: Not Given Documented by: Dextrose (Dextrose 50% Syringe/Vial) 12.5 gm IV PRN PRN; Protocol PRN Reason: HYPOGLYCEMIA Stop: 09/02/20 09:20 Docusate Sodium (Colace Cap) 100 mg PO BID [facility] Stop: 08/27/20 09:01 Last Admin: 08/03/20 20:52 Dose: Not Given Documented by: Enteral Nutritional Formula (Nepro Shake) 237 ml PO BID [facility] Stop: 08/31/20 21:01 Last Admin: 08/03/20 20:22 Dose: Not Given Documented by: Fluconazole (Diflucan Tab) 100 mg PO DAILY [facility]; Protocol Stop: 08/29/20 09:01 Last Admin: 08/03/20 09:00 Dose: Not Given Documented by: Glucagon (Glucagen) 1 mg IM 1X PRN; Protocol PRN Reason: HYPOGLYCEMIA Stop: 09/02/20 09:20 Heparin Sodium (Porcine) (Heparin 1,000 Units/Ml) 6,000 unit IV EVERY HD PRN PRN Reason: AFTER EACH DIALYSIS Stop: 08/30/20 10:20 Last Admin: 08/02/20 02:54 Dose: 6,000 unit Documented by: Albumin Human (Albumin 25%) 50 mls @ 100 mls/hr IV EVERY HD [facility] Stop: 08/30/20 11:01 Last Admin: 08/02/20 00:22 Dose: 50 mls Documented by: Insulin Glargine (Lantus) 5 units SQ BEDTIME [facility] Stop: 09/02/20 21:01 Last Admin: 08/03/20 20:23 Dose: 5 units Documented by: Insulin Human Regular (Novolin -R) 0 unit SQ ACHS [facility]; Protocol Stop: 08/26/20 21:01 Last Admin: 08/03/20 20:23 Dose: 5 unit Documented by: L-Arginine/L-Glutamine/HMB (Topher) 1 pkt PO BID [facility] Stop: 08/27/20 21:01 Last Admin: 08/03/20 20:22 Dose: Not Given Documented by: Levofloxacin (Levaquin) 250 mg PO Q48H [facility]; Protocol Stop: 08/31/20 14:01 Last Admin: 08/03/20 12:48 Dose: Not Given Documented by: Mannitol (Mannitol 12.5 Gm/50 Ml Vial) 12.5 gm IV EVERY HD PRN PRN Reason: Titrate to SBP (MUST DEFINE) Stop: 08/30/20 10:20 Metoprolol Succinate (Toprol Xl) 50 mg PO BID [facility] Stop: 08/28/20 21:01 Last Admin: 08/03/20 20:20 Dose: Not Given Documented by: Nutritional Formula (Promod Liquid Protein) 30 ml PO BID [facility] Stop: 08/28/20 09:01 Last Admin: 08/03/20 20:22 Dose: Not Given Documented by: Pantoprazole Sodium (Protonix Tab) 40 mg PO DAILY [facility]; Protocol Stop: 08/29/20 09:01 Last Admin: 08/03/20 09:43 Dose: 40 mg Documented by: Prednisone (Deltasone) 20 mg PO BID [facility] Stop: 08/31/20 21:01 Last Admin: 08/03/20 20:20 Dose: Not Given Documented by: Ramipril (Altace) 5 mg PO BEDTIME [facility] Stop: 09/01/20 21:31 Last Admin: 08/03/20 20:19 Dose: Not Given Documented by: Rosuvastatin Calcium (Crestor) 10 mg PO BEDTIME [facility] Stop: 08/28/20 21:01 Last Admin: 08/03/20 20:20 Dose: Not Given Documented by: Sevelamer Carbonate (Renvela) 800 mg PO TIDWM [facility] Stop: 08/27/20 08:01 Last Admin: 08/03/20 16:05 Dose: Not Given Documented by: Sodium Chloride (Normal Saline Flush) 10 ml IV BID [facility] Stop: 08/26/20 21:01 Last Admin: 08/03/20 20:24 Dose: 10 ml Documented by: Tramadol HCl (Ultram) 50 mg PO TID PRN PRN Reason: PAIN Stop: 08/31/20 15:45 Last Admin: 08/03/20 15:06 Dose: 50 mg Documented by: Vitamin B Complex/Vit C/Folic Acid (Nephro-Ely) 1 tab PO DAILY [facility] Stop: 08/27/20 09:01 Last Admin: 08/03/20 09:00 Dose: Not Given Documented by: Lab Results (last 24 hrs) 08/03/20 20:08: POC Glucose 205 H 08/03/20 15:49: POC Glucose 194 H 08/03/20 12:17: POC Glucose 210 H 08/03/20 07:55: POC Glucose 209 H 08/03/20 04:53: Sodium 139, Potassium 4.5, Chloride 106, Carbon Dioxide 26, BUN 52 H D, Creatinine 1.91 H, Estimated GFR 25 L, Glucose 204 H, Calcium 8.5, Phosphorus 3.4, Magnesium 2.2, Ferritin 1042.1 H, C-Reactive Protein 18.20 H Microbiology Results 07/28/20 04:00 Wound - Right Groin Gram Stain - Final 07/28/20 04:00 Wound - Right Groin Culture & Sensitivity - Final Pseudomonas Aeruginosa 07/30/20 18:30 Blood - Blood Aerobic Blood Culture - Preliminary No growth in 24 hours. 07/30/20 18:30 Blood - Blood Anaerobic Blood Culture - Final 07/30/20 18:30 Blood - Blood Aerobic Blood Culture - Preliminary No growth in 24 hours. 07/30/20 18:30 Blood - Blood Anaerobic Blood Culture - Final 07/27/20 21:55 Clean Catch Urine [place] Count - Final >100,000 CFU/ML. 07/27/20 21:55 Clean Catch Urine - Final Assessment/ Plan: Nephrology Still with episodes of chest pain. Improving edema. No acute events overnight. Vitals, medications, blood work and imaging reviewed in the chart. General: In no apparent distress, Cooperative HEENT: Atraumatic Neck: Supple Respiratory: Clear to auscultation bilaterally, Diminished Cardiovascular: Regular rate/rhythm, Edema Gastrointestinal: Soft and benign, Non-distended Musculoskeletal: No clubbing, No contractures Integumentary: No rashes, No cyanosis Neurological: Normal speech Laboratory Data (last 24 hrs) 07/28/20 05:12: Sodium 152 H, Potassium 4.7, BUN 109 H, Creatinine 4.32 H, Glucose 163 H, Magnesium 2.5 H 07/28/20 05:12: PT 28.2 H, INR 2.43, APTT 35.2 07/28/20 05:12: WBC 10.3, Hgb 8.9 L, Hct 27.0 L, Plt Count 183 Imagings Data: EXAM DESCRIPTION: CT - Thorax Wo Con - 07/19/2020 10:32 am CLINICAL HISTORY: PNA COVID COMPARISON: Chest For Pe Angio dated 06/22/2020; Chest Single View dated 07/12/2020 TECHNIQUE: Axial 5 mm thick images of the chest were obtained without IV contrast. All CT scans are performed using dose optimization technique as appropriate and may include automated exposure control or mA/KV adjustment according to patient size. FINDINGS: Moderate bilateral pleural effusions have developed. Patchy bilateral airspace opacification is present. Small focal consolidation present posterior right upper lobe. Additional consolidation with air bronchogram formation seen in the right upper lobe abutting the minor fissure. Pattern is not substantially different from the portable chest film. Findings would be consistent with the clinical diagnosis of COVID pneumonia. Airspace opacification is scattered in the left upper and left lower lobes. There is bilateral partial lower lobe atelectasis. No pneumothorax. No abnormal mediastinal or hilar masses or lymphadenopathy seen. No gross aortic or pulmonary artery finding suspected. Assessment is limited in the absence of IV contrast. No pericardial effusion. No chest wall mass or abnormal axillary lymphadenopathy. IMPRESSION: Moderate bilateral pleural effusions and bilateral alveolar opacification new from the May CT chest. The lung parenchymal opacification is not substantially different from July 12 portable chest. Chest findings are consistent with the clinical diagnosis of bilateral COVID-19 pneumonia EXAM DESCRIPTION: US - Renal Ultrasound-Complete - 07/13/2020 10:01 am CLINICAL HISTORY: Acute renal insufficiency COMPARISON: 2007 FINDINGS: The right kidney measures 8 cm with an increased echotexture. The left kidney measures 9 cm with an increased echotexture. Hydronephrosis is not seen. Poor evaluation of bladder secondary to a [place] catheter present Milk of calcium gallbladder/cholelithiasis IMPRESSION: Increased renal echotexture consistent with parenchymal disease Conclusions/Impression: A/ EDU improving. HD started 07-31-20 Hypernatremia Hypocalcemia HTN with CKD DM II with CKD Anemia in chronic illness Hx COVID19 PNA. Suspected PE on Eliquis Acute cystitis P/ Continue current POC and Medications. Continue HD TIW. Follow up culture. No NSAIDs. AM labs. Daily weight. Hepatitis panel negative. Case reviewed with Dr. Barnard.
[2020-08-04 05:26] LABS: C-Reactive Protein 17.5 mg/L (<3.00); Ferritin 1618.9 ng/mL (8-388); Magnesium 2.3 mg/dL (1.8-2.4); Potassium 4.4 mmol/L (3.5-5.1)
[2020-08-04 05:51] LABS: Basophils % 0.2 % (0-1.3); Hematocrit 25.8 % (36.0-45.0); Lymphocytes % 6.1 % (15.3-44.8); MPV 11.3 fL (7.6-11.3); RBC Red Blood Cell Count 2.56 M/uL (3.86-4.86)
[2020-08-04] MEDS: INSULIN -REGULAR HUMAN 50 UNIT/0.5 ML ML SQ SCH ×4 (07:30→19:56)
[2020-08-04 07:43] LABS: Basophilic Stippling 1+; Blood Morphology Comment NOTED (NOT SEEN); Platelet Estimate DECR
[2020-08-04] MEDS: SEVELAMER CARBONATE 800 MG TABLET PO SCH ×3 (08:00→17:00)
[2020-08-04] MEDS: APIXABAN 2.5 MG TABLET PO SCH ×2 (09:00→19:53)
[2020-08-04] MEDS: PROMOD 30 ML DOSE PO SCH ×2 (09:00→19:56)
[2020-08-04] MEDS: CALCITROL 0.25 MCG CAP PO SCH (09:00)
[2020-08-04] MEDS: PANTOPRAZOLE 40MG TABLET PO SCH (09:00)
[2020-08-04] MEDS: MULTIVITAMINS,THERAPEUT 1 TAB PO SCH (09:00)
[2020-08-04] MEDS: VITAMIN D 5,000 UNIT CAP PO SCH (09:00)
[2020-08-04] MEDS: METOPROLOL XL 50 MG TAB PO SCH ×2 (09:00→19:56)
[2020-08-04] MEDS: JUVEN PACKET PO SCH ×2 (09:00→19:53)
[2020-08-04] MEDS: NEPRO SHAKE 237 ML CAN PO SCH ×2 (09:00→19:55)
[2020-08-04] MEDS: predniSONE 20 MG TAB PO SCH ×2 (09:00→19:53)
[2020-08-04] MEDS: FLUCONAZOLE 100 MG TAB PO SCH (09:00)
[2020-08-04] MEDS: EPOETIN ALFA-EPBX 4,000 UNIT/ML VIAL SQ SCH (09:00)
[2020-08-04] MEDS: DOCUSATE NA 100 MG CAP PO SCH ×2 (09:00→19:52)
--- NOTE | 2020-08-04 09:30 | P.PN ---
Subjective Date of Service: 08/04/20 Chief Complaint: Clement virus pneumonia Subjective: Other (Patient reports some chest pain. Patient feels tired. Patient did not will not take her medication today.) Physical Examination - Vital Signs Temperature: 96.9 F Blood Pressure: 167/69 Pulse: 68 Respirations: 8 Pulse Ox (%): 96 - Physical Exam General: Alert, Cooperative HEENT: Atraumatic Neck: Supple Respiratory: Crackles/rales (To the bases) Cardiovascular: Normal pulses, Regular rate/rhythm Gastrointestinal: No masses, No rebound, No guarding Integumentary: No erythema, No warmth, No cyanosis, Tenderness/swelling (Mild edema to the lower extremities.) Neurological: Normal speech, Normal strength at 5/5 x4 extr, Normal tone, Normal affect (Some increase sedation minimal confusion) - Studies Laboratory Data (last 24 hrs) 08/04/20 04:56: Sodium 139, Potassium 4.4, BUN 67 H, Creatinine 2.41 H, Glucose 140 H, Magnesium 2.3 08/04/20 04:56: WBC 16.7 H D, Hgb 8.4 L, Hct 25.8 L, Plt Count 95 L Medications List Reviewed: Yes Assessment & Plan Discharge Plan: Home (With hospice) Plan to discharge in: 24 Hours Physician Review Additional Text: Impression: Acute on chronic renal failure stage 5 worsening CKD now with end-stage renal disease on hemodialysis COVID 19 infection UTI-yeast infection Groin wound, culture positive for Pseudomonas Chronic diastolic CHF COPD Diabetes mellitus type 2 insulin-dependent Hypertension Anemia of chronic disease 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 Had along discussion with nephrology yesterday. Patient would require further hemodialysis. Advanced care planning address with family in detail after my discussion with nephrology. Advanced directives readdressed. Patient remains DNR. Family fully understands her current medical status and future status is well. Family has expressed patient would not want dialysis in the future or fut ure intervention. I was able to get the family together in the patient room. Family spoke to patient with me present. Patient able to express that she no longer wants dialysis. She prefers to go home. Family agreeable to hospice at this time. Patient will receive dialysis once and then will be discontinued. Will talk to social media marketing manager to help arrange for hospice at home. Patient will likely require hospital bed, oxygen, and other possible needs. Anticipate discharge as early as today likely tomorrow once hospice in place. Family to signed appropriate paperwork including [id number] DNR. COVID 19 infection: CRP improved. Continue oral steroid. Continue maintain sats above 93%. Patient on room air. UTI-yeast infection: Continue with Diflucan. Groin wound, culture positive for Pseudomonas: Contained antibiotic treatment. Chronic diastolic CHF: Continued diuresis. Patient will receive 1 more dialysis then this will be discontinued. Maintain oxygen above 93%. COPD: Continue medication. Maintain oxygen above 93%. Continue with incentive spirometer. Diabetes mellitus type 2 insulin-dependent: Continue Accu-Cheks. Sliding scale in place. Will add low-dose Lantus Hypertension: Continue medication. Will monitor and adjust appropriately. Patient reported some chest pain. Cardiology consulted to further evaluate. Will consider increasing beta-delfino therapy for better control. Anemia of chronic disease: Continue monitor closely. Patient on Epogen Anti coagulation therapy for prior pulmonary embolism: Currently on Eliquis. Will have pharmacy verify dosing per renal function Hyperlipidemia: Continue medication Advanced care [id number] min Time Spent Managing Pts Care (In Minutes): 55
[2020-08-04] MEDS: MORPHINE 2 MG/ML SYR IV PRN ×2 (14:05→22:52)
[2020-08-04] MEDS: ramipriL 5 MG CAP PO SCH (19:52)
[2020-08-04] MEDS: INSULIN GLARGINE 100 UNITS/ML SQ SCH (19:53)
[2020-08-04] MEDS: ROSUVASTATIN 10 MG TAB PO SCH (19:53)
--- NOTE | 2020-08-04 22:38 | P.PN ---
Date of Service: 08/04/20 Vital Signs Temp Pulse Resp BP Pulse Ox 97 F 80 22 H 165/88 H 94 08/04/20 20:00 08/04/20 20:00 08/04/20 20:00 08/04/20 20:00 08/04/20 20:00 Medications Hydrocodone Bitart/Acetaminophen ([place] 5/325) 1 tab PO Q8H PRN PRN Reason: Pain scale 5-7 (Moderate) Stop: 09/02/20 17:26 Last Admin: 08/03/20 17:50 Dose: 1 tab Documented by: Apixaban (Eliquis) 2.5 mg PO BID [facility] Stop: 09/02/20 21:01 Last Admin: 08/04/20 19:53 Dose: Not Given Documented by: Calcitriol (Rocaltrol) 0.5 mcg PO DAILY [facility] Stop: 08/27/20 09:01 Last Admin: 08/04/20 09:00 Dose: Not Given Documented by: Cholecalciferol (Vitamin D 5,000 Iu Cap) 5,000 unit PO DAILY [facility] Stop: 08/27/20 09:01 Last Admin: 08/04/20 09:00 Dose: Not Given Documented by: Dextrose (Dextrose 50% Syringe/Vial) 12.5 gm IV PRN PRN; Protocol PRN Reason: HYPOGLYCEMIA Stop: 09/02/20 09:20 Docusate Sodium (Colace Cap) 100 mg PO BID [facility] Stop: 08/27/20 09:01 Last Admin: 08/04/20 19:52 Dose: Not Given Documented by: Enteral Nutritional Formula (Nepro Shake) 237 ml PO BID [facility] Stop: 08/31/20 21:01 Last Admin: 08/04/20 19:55 Dose: Not Given Documented by: Fluconazole (Diflucan Tab) 100 mg PO DAILY DENIS; Protocol Stop: 08/29/20 09:01 Last Admin: 08/04/20 09:00 Dose: Not Given Documented by: Glucagon (Glucagen) 1 mg IM 1X PRN; Protocol PRN Reason: HYPOGLYCEMIA Stop: 09/02/20 09:20 Heparin Sodium (Porcine) (Heparin 1,000 Units/Ml) 6,000 unit IV EVERY HD PRN PRN Reason: AFTER EACH DIALYSIS Stop: 08/30/20 10:20 Last Admin: 09/02/20 02:54 Dose: 6,000 unit Documented by: Albumin Human (Albumin 25%) 50 mls @ 100 mls/hr IV EVERY HD [facility] Stop: 08/30/20 11:01 Last Admin: 08/02/20 00:22 Dose: 50 mls Documented by: Insulin Glargine (Lantus) 5 units SQ BEDTIME [facility] Stop: 09/02/20 21:01 Last Admin: 08/04/20 19:53 Dose: Not Given Documented by: Insulin Human Regular (Novolin -R) 0 unit SQ ACHS [facility]; Protocol Stop: 08/26/20 21:01 Last Admin: 08/04/20 19:56 Dose: Not Given Documented by: L-Arginine/L-Glutamine/HMB (Topher) 1 pkt PO BID [facility] Stop: 08/27/20 21:01 Last Admin: 08/04/20 19:53 Dose: Not Given Documented by: Levofloxacin (Levaquin) 250 mg PO Q48H [facility]; Protocol Stop: 08/31/20 14:01 Last Admin: 08/03/20 12:48 Dose: Not Given Documented by: Mannitol (Mannitol 12.5 Gm/50 Ml Vial) 12.5 gm IV EVERY HD PRN PRN Reason: Titrate to SBP (MUST DEFINE) Stop: 08/30/20 10:20 Metoprolol Succinate (Toprol Xl) 50 mg PO BID [facility] Stop: 08/28/20 21:01 Last Admin: 08/04/20 19:56 Dose: Not Given Documented by: Morphine Sulfate (Morphine Sulfate) 2 mg IV TID PRN PRN Reason: Pain scale 5-7 (Moderate) Stop: 09/03/20 14:01 Last Admin: 08/04/20 14:05 Dose: 2 mg Documented by: Nutritional Formula (Promod Liquid Protein) 30 ml PO BID [facility] Stop: 08/28/20 09:01 Last Admin: 08/04/20 19:56 Dose: Not Given Documented by: Pantoprazole Sodium (Protonix Tab) 40 mg PO DAILY [facility]; Protocol Stop: 08/29/20 09:01 Last Admin: 08/04/20 09:00 Dose: Not Given Documented by: Prednisone (Deltasone) 20 mg PO BID [facility] Stop: 08/31/20 21:01 Last Admin: 08/04/20 19:53 Dose: Not Given Documented by: Ramipril (Altace) 5 mg PO BEDTIME DENIS Stop: 09/01/20 21:31 Last Admin: 08/04/20 19:52 Dose: Not Given Documented by: Rosuvastatin Calcium (Crestor) 10 mg PO BEDTIME DENIS Stop: 08/28/20 21:01 Last Admin: 08/04/20 19:53 Dose: Not Given Documented by: Sevelamer Carbonate (Renvela) 800 mg PO TIDWM DENIS Stop: 08/27/20 08:01 Last Admin: 08/04/20 17:00 Dose: Not Given Documented by: Sodium Chloride (Normal Saline Flush) 10 ml IV BID DENIS Stop: 08/26/20 21:01 Last Admin: 08/04/20 19:56 Dose: 10 ml Documented by: Tramadol HCl (Ultram) 50 mg PO TID PRN PRN Reason: PAIN Stop: 08/31/20 15:45 Last Admin: 08/03/20 15:06 Dose: 50 mg Documented by: Vitamin B Complex/Vit C/Folic Acid (Nephro-Ely) 1 tab PO DAILY DENIS Stop: 08/27/20 09:01 Last Admin: 08/04/20 09:00 Dose: Not Given Documented by: Lab Results (last 24 hrs) 08/04/20 19:38: POC Glucose 96 08/04/20 16:56: POC Glucose 103 08/04/20 11:36: POC Glucose 110 08/04/20 07:45: POC Glucose 110 08/04/20 04:56: Sodium 139, Potassium 4.4, Chloride 107, Carbon Dioxide 25, BUN 67 H, Creatinine 2.41 H, Estimated GFR 19 L, Glucose 140 H, Calcium 8.3 L, Magnesium 2.3, Ferritin 1618.9 H, C-Reactive Protein 17.50 H 08/04/20 04:56: WBC 16.7 H D, RBC 2.56 L, Hgb 8.4 L, Hct 25.8 L, MCV 100.8 H, MCH 32.7, MCHC 32.4, RDW 18.5 H, Plt Count 95 L, MPV 11.3 D, Neutrophils % 86.3 H, Lymphocytes % 6.1 L, Monocytes % 7.4, Eosinophils % 0.0, Basophils % 0.2, Absolute Neutrophils 14.4 H, Segmented Neutrophils 87 H, Absolute Lymphocytes 1.0, Lymphocytes 5 L, Monocytes 6, Absolute Monocytes 1.2, Absolute Eosinophils 0.0, Absolute Basophils 0.0, Myelocytes 2 H, Nucleated RBCs 9, Platelet Estimate Decr, Basophilic Stippling 1+, Morphology Comment Noted Microbiology Results 07/30/20 18:30 Blood - Blood Aerobic Blood Culture - Final No growth in 5 days. 07/30/20 18:30 Blood - Blood Anaerobic Blood Culture - Final 07/30/20 18:30 Blood - Blood Aerobic Blood Culture - Final No growth in 5 days. 07/30/20 18:30 Blood - Blood Anaerobic Blood Culture - Final 07/28/20 04:00 Wound - Right Groin Gram Stain - Final 07/28/20 04:00 Wound - Right Groin Culture & Sensitivity - Final Pseudomonas Aeruginosa 07/27/20 21:55 Clean Catch Urine [place] Count - Final >100,000 CFU/ML. 07/27/20 21:55 Clean Catch Urine - Final Assessment/ Plan: Nephrology CPS stable without CP or SOB. Condition worsening over the past two days with Anorexia and AMS. No acute events overnight. Limited IH/ ROS due to mental status. Vitals, medications, blood work and imaging reviewed in the chart. General: In no apparent distress, Cooperative HEENT: Atraumatic Neck: Supple Respiratory: Clear to auscultation bilaterally, Diminished Cardiovascular: Regular rate/rhythm, Edema Gastrointestinal: Soft and benign, Non-distended Musculoskeletal: No clubbing, No contractures Integumentary: No rashes, No cyanosis Neurological: Normal speech Laboratory Data (last 24 hrs) 07/28/20 05:12: Sodium 152 H, Potassium 4.7, BUN 109 H, Creatinine 4.32 H, Glucose 163 H, Magnesium 2.5 H 07/28/20 05:12: PT 28.2 H, INR 2.43, APTT 35.2 07/28/20 05:12: WBC 10.3, Hgb 8.9 L, Hct 27.0 L, Plt Count 183 Imagings Data: EXAM DESCRIPTION: CT - Thorax Wo Con - 07/19/2020 10:32 am CLINICAL HISTORY: PNA COVID COMPARISON: Chest For Pe Angio dated 06/22/2020; Chest Single View dated 07/12/2020 TECHNIQUE: Axial 5 mm thick images of the chest were obtained without IV contrast. All CT scans are performed using dose optimization technique as appropriate and may include automated exposure control or mA/KV adjustment according to patient size. FINDINGS: Moderate bilateral pleural effusions have developed. Patchy bilateral airspace opacification is present. Small focal consolidation present posterior right upper lobe. Additional consolidation with air bronchogram formation seen in the right upper lobe abutting the minor fissure. Pattern is not substantially different from the portable chest film. Findings would be consistent with the clinical diagnosis of COVID pneumonia. Airspace opacification is scattered in the left upper and left lower lobes. There is bilateral partial lower lobe atelectasis. No pneumothorax. No abnormal mediastinal or hilar masses or lymphadenopathy seen. No gross aortic or pulmonary artery finding suspected. Assessment is limited in the absence of IV contrast. No pericardial effusion. No chest wall mass or abnormal axillary lymphadenopathy. IMPRESSION: Moderate bilateral pleural effusions and bilateral alveolar opacification new from the May CT chest. The lung parenchymal opacification is not substantially different from July 12 portable chest. Chest findings are consistent with the clinical diagnosis of bilateral COVID-19 pneumonia EXAM DESCRIPTION: US - Renal Ultrasound-Complete - 07/13/2020 10:01 am CLINICAL HISTORY: Acute renal insufficiency COMPARISON: 2007 FINDINGS: The right kidney measures 8 cm with an increased echotexture. The left kidney measures 9 cm with an increased echotexture. Hydronephrosis is not seen. Poor evaluation of bladder secondary to a [place]ale[place] catheter present Milk of calcium gallbladder/cholelithiasis IMPRESSION: Increased renal echotexture consistent with parenchymal disease Conclusions/Impression: A/ EDU/ ESRD. HD started 07-31-20 Hypernatremia Hypocalcemia HTN with CKD DM II with CKD Anemia in chronic illness Hx COVID19 PNA. Suspected PE on Eliquis Acute cystitis Toxic metabolic encephalopathy P/ Continue current POC and Medications. Continue HD TIW. Acute HD as ordered. Continue abx. Encourage nutrition. No NSAIDs. AM labs. Daily weight. Hepatitis panel negative. Case reviewed with Dr. Barnard. Family considering hospice due to her worsening condition and failure to thrive. Greater than 30min patient care.
[2020-08-05] MEDS: INSULIN -REGULAR HUMAN 50 UNIT/0.5 ML ML SQ SCH ×2 (07:30→11:30)
[2020-08-05] MEDS ORDERED: FUROSEMIDE 40 MG/4 ML VIAL IV ONE (07:38)
[2020-08-05] MEDS: SEVELAMER CARBONATE 800 MG TABLET PO SCH ×2 (08:00→12:00)
[2020-08-05] MEDS: predniSONE 20 MG TAB PO SCH (08:28)
[2020-08-05] MEDS: DOCUSATE NA 100 MG CAP PO SCH (08:28)
[2020-08-05] MEDS: FLUCONAZOLE 100 MG TAB PO SCH (08:28)
[2020-08-05] MEDS: MULTIVITAMINS,THERAPEUT 1 TAB PO SCH (08:29)
[2020-08-05] MEDS: PROMOD 30 ML DOSE PO SCH (08:29)
[2020-08-05] MEDS: JUVEN PACKET PO SCH (08:29)
[2020-08-05] MEDS: APIXABAN 2.5 MG TABLET PO SCH (08:29)
[2020-08-05] MEDS: NEPRO SHAKE 237 ML CAN PO SCH (08:29)
[2020-08-05] MEDS: CALCITROL 0.25 MCG CAP PO SCH (08:30)
[2020-08-05] MEDS: PANTOPRAZOLE 40MG TABLET PO SCH (08:30)
[2020-08-05] MEDS: VITAMIN D 5,000 UNIT CAP PO SCH (08:31)
[2020-08-05] MEDS: METOPROLOL XL 50 MG TAB PO SCH (08:31)
[2020-08-05 08:34] VITALS: BP 141/78
--- NOTE | 2020-08-05 09:25 | P.PN ---
Subjective Date of Service: 08/05/20 Chief Complaint: Clement virus pneumonia Subjective: No new changes (-drowsy this am -family agreeable to hospice and being accepted -awaiting home hospice set up) Physical Examination - Vital Signs Temperature: 98.6 F Blood Pressure: 141/78 Pulse: 75 Respirations: 18 Pulse Ox (%): 94 - Physical Exam General: Unresponsive, Other (opens eyes alone) HEENT: Atraumatic, Normocephalic Neck: Supple, JVD not distended Respiratory: Diminished, Crackles/rales Cardiovascular: Normal pulses, Regular rate/rhythm, Edema Gastrointestinal: Normal bowel sounds, Soft and benign, Non-distended Musculoskeletal: No clubbing, No swelling, Swelling Neurological: Other (drowsy) Urinary: Dialysis catheter, Joaquin catheter - Studies Microbiology Data (last 24 hrs): 07/30/20 18:30 Blood - Blood Aerobic Blood Culture - Final No growth in 5 days. 07/30/20 18:30 Blood - Blood Anaerobic Blood Culture - Final 07/30/20 18:30 Blood - Blood Aerobic Blood Culture - Final No growth in 5 days. 07/30/20 18:30 Blood - Blood Anaerobic Blood Culture - Final Medications List Reviewed: Yes Assessment & Plan - Problems (Diagnosis) (1) Acute worsening of stage 4 chronic kidney disease Current Visit: Yes Status: Acute (2) Acute renal injury Onset Date: 12/03/17 Current Visit: No Status: Acute (3) CAP (community acquired pneumonia) Onset Date: 12/03/17 Current Visit: No Status: Acute Qualifiers: Laterality: right Lung location: unspecified part of lung Qualified Code(s): J18.9 - Pneumonia, unspecified organism (4) COVID-19 virus infection Current Visit: No Status: Acute Physician Review: Patient Assessed, Agree with Above Assessment and Plan Physician Review Additional Text: Impression: Acute on chronic renal failure stage 5 worsening CKD now with end-stage renal disease on hemodialysis COVID 19 infection UTI-yeast infection Groin wound, culture positive for Pseudomonas Chronic diastolic CHF COPD Diabetes mellitus type 2 insulin-dependent Hypertension Anemia of chronic disease 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 Continue oral steroid. UTI-yeast infection: Continue with Diflucan. Groin wound, culture positive for Pseudomonas: Contained antibiotic treatment. Chronic diastolic CHF: dose lasix prn COPD: Continue medication. Maintain oxygen above 93%. Continue with incentive spirometer. Diabetes mellitus type 2 insulin-dependent: will dc lantus at discharge since hospice Hypertension: controlled Anemia of chronic disease: dc Epogen Anti coagulation therapy for prior pulmonary embolism: Currently on Eliquis. will hold Hyperlipidemia: Continue medication possible dc home today when hospice set up
--- NOTE | 2020-08-05 09:33 | P.DS ---
Admission Date: 07/27/20 Discharge Date: 08/05/20 Disposition: HOSPICE-HOME Discharge Condition: SERIOUS Reason for Admission: Clement virus pneumonia Consultations: nephrology-Aglico - Problems (1) Acute worsening of stage 4 chronic kidney disease Current Visit: Yes Status: Acute (2) Acute renal injury Onset Date: 12/03/17 Current Visit: No Status: Acute (3) CAP (community acquired pneumonia) Onset Date: 12/03/17 Current Visit: No Status: Acute Qualifiers: Laterality: right Lung location: unspecified part of lung Qualified Code(s): J18.9 - Pneumonia, unspecified organism (4) COVID-19 virus infection Current Visit: No Status: Acute Brief History of Present Illness: she was admitted from [place] for initiation of dialysis for ARF on CKD - due to recent Covid infection Hospital Course: Acute on chronic renal failure stage 5 worsening CKD now with end-stage renal disease on hemodialysis COVID 19 infection UTI-yeast infection Groin wound, culture positive for Pseudomonas Chronic diastolic CHF COPD Diabetes mellitus type 2 insulin-dependent Hypertension Anemia of chronic disease Anti coagulation therapy for prior pulmonary embolism Hyperlipidemia Plan: Patient was admitted and manged for yeast UTI and groin wound Pseudomonas.She continued to have worsning of her kidney fucntion and required start of dialysis . She continue to have SOB and repeat Covid testing was positive . She was managed with oral steroids . She continue with progressive weakness and family decided for home hospice Vital Signs/Physical Exam: Temp Pulse Resp BP Pulse Ox 98.6 F 75 18 141/78 H 94 08/05/20 09:25 08/05/20 09:25 08/05/20 09:25 08/05/20 09:25 08/05/20 09:25 General: Delirious, Other HEENT: Atraumatic, Normocephalic Neck: Supple, 2+ carotid pulse no bruit Respiratory: Diminished, Crackles/rales Cardiovascular: Normal pulses, Regular rate/rhythm, Edema Gastrointestinal: Normal bowel sounds, Soft and benign, Non-distended Urinary: Dialysis catheter, [place] catheter External genitalia: Edema Laboratory Data at Discharge: WBC 16.7 K/uL (4.3-10.9) H D 08/04/20 04:56 Hgb 8.4 g/dL (12.0-15.0) L 08/04/20 04:56 Hct 25.8 % (36.0-45.0) L 08/04/20 04:56 Plt Count 95 K/uL (152-406) L 08/04/20 04:56 PT 15.0 SECONDS (9.5-12.5) H 07/30/20 05:06 INR 1.28 07/30/20 05:06 APTT 31.9 SECONDS (24.3-36.9) 07/31/20 09:58 Sodium 139 mmol/L (136-145) 08/04/20 04:56 Potassium 4.4 mmol/L (3.5-5.1) 08/04/20 04:56 BUN 67 mg/dL (7-18) H 08/04/20 04:56 Creatinine 2.41 mg/dL (0.55-1.3) H 08/04/20 04:56 Glucose 140 mg/dL (74-106) H 08/04/20 04:56 Uric Acid 12.0 mg/dL (2.6-6.0) H 07/30/20 05:06 Phosphorus 3.4 mg/dL (2.5-4.9) 08/03/20 04:53 Magnesium 2.3 mg/dL (1.8-2.4) 08/04/20 04:56 Total Bilirubin 1.0 mg/dL (0.2-1.0) 08/02/20 05:02 AST 19 U/L (15-37) 08/02/20 05:02 ALT 14 U/L (12-78) 08/02/20 05:02 Alkaline Phosphatase 106 U/L (45-117) 08/02/20 05:02 Troponin I 0.09 ng/mL (0.0-0.045) H 08/01/20 16:05 Home Medications: Furosemide [Lasix*] 20 mg PO DAILY 03/20/18 Gabapentin [Gralise] 300 mg PO BEDTIME 03/20/18 Albuterol Sulfate [Ventolin Hfa] 2 puff IH Q4H PRN 07/13/20 Aspirin 1 tab PO DAILY 07/13/20 Cetirizine HCl [Zyrtec] 1 tab PO BEDTIME 07/13/20 Fluticasone/Vilanterol [Breo Ellipta 100-25 Mcg INH] 1 puff IH DAILY 07/13/20 Insulin Degludec [Tresiba Flextouch U-200] 20 units SQ BEDTIME 07/13/20 Iron,Carb/Vit C/Vit B12/Folic [Iron 100 Plus Tablet] 1 tab PO DAILY 07/13/20 Pantoprazole [Protonix Tab*] 1 tab PO DAILY 07/13/20 Potassium Chloride [Klor-Con 10] 20 meq PO DAILY 07/13/20 Rosuvastatin [Crestor*] 1 tab PO BEDTIME 07/13/20 Apixaban [Eliquis] 5 mg PO BID #60 tablet 07/21/20 Cholecalciferol (Vitamin D3) [Vitamin D 5,000 IU Cap*] 5,000 unit PO DAILY #30 cap 07/21/20 Ensure High Protein 237 ml PO BID #20 can 07/21/20 Fluconazole [Diflucan] 100 mg PO DAILY #5 tablet 07/21/20 Insulin -Regular Human [Novolin -R*] See Protocol SQ ACHS #10 ml 07/21/20 Levofloxacin [Levaquin] 250 mg PO DAILY #7 tablet 07/21/20 Metoprolol Succinate 1 tab PO BID #60 07/21/20 Ascorbic Acid [C-1000] 500 mg PO DAILY 07/28/20 Na Bicarb Tab [Sodium Bicarb 325 MG Tab*] 325 mg PO TIDWM 07/28/20 predniSONE [Prednisone*] 10 mg PO BID 07/28/20 Diet: Regular Activity: Ad maura Physician Review: Patient Assessed, Agree with Above Assessment and Plan
[2020-08-05 12:17] VITALS: O2SAT 94
[2020-08-05 13:47] VITALS: TEMP 97.2
--- NOTE | 2020-08-06 10:47 | CON ---
Date of Consultation: 08/02/2020 Admitted on 07/27/[address] Barnard' service. The patient was seen on 08/02/2020. Reason For Consultation: Chest pain. History Of Present Illness: Ms. Kiser is 85, was admitted on 07/27/[address] Barnard with COVID p neumonia, altered mental status, new onset end-stage renal disease. She has a history of pacemaker, hypertension, diabetes, dyslipidemia, and gastroesophageal reflux disease. Her chest pain was atypic al, sharp, nonradiating, without any nausea, vomiting, diaphoresis, PND, orthopnea, pedal edema, palp itations, or syncope. She is known to have a moderate mitral stenosis with a normal ejection fractio n in July 2020. She is in a paced rhythm at a rate of 82, asymptomatic when we saw her, remained i n the ICU, remained hypoxic. Past Medical History: As stated above. Allergies: NONE. Review of Systems: Negative. Social History: Negative. Family History: Noncontributory. Medications: At home include inhalers, Crestor, Eliquis, aspirin, insulin, metformin, and metoprolol . Physical Examination: General: She was in a paced rhythm at 82. Vital Signs: Stable, afebrile. Chest: Revealed some crackles. Cardiac: Revealed a paced rhythm. Abdomen: Benign. Extremities: Revealed no clubbing, cyanosis, or edema. Diagnostic Data: Her EKG showed a paced rhythm. Chest x-ray is positive for COVID. Creatinine 1.91 , hemoglobin is 7.6. Her CRP was elevated. Impression And Plan: 1.Acute kidney injury. 2.Chest pain, atypical, probably a combination of hypoxia, mitral stenosis and possible coronary art eduardo disease. The patient is not a candidate for any cardiac workup at this point. She is still bein g worked up for possible pulmonary embolus. Her other problems include hypertension, diabetes, and C OVID for which she is being treated. Her present regimen includes Eliquis, Protonix, Crestor, insuli n, antibiotics, metoprolol, and ramipril and I agree with the management. We will reconsider further cardiac workup down the road depending on how she progresses. She is a do not resuscitate. She has moderate mitral stenosis that needs to be followed. She is not a candidate for coronary interventio n at this point. I will be available for questions if the need arises. PIEDAD/RADHA Voice ID: [id number] Report ID: [id number]
== END 2020-08-05 13:17 | disposition hospice, home (50) | DRG 177 ==
LOC: 2ND 18:54 → 3RD-ICU 21:00
PROVIDERS: ADMIT Hospitalist; ATTEND Internal Medicine
PROC: 02HV33Z Insertion of Infusion Device into Superior Vena Cava, Percutaneous Approach (ICD-10-PCS; 2020-07-31)
PROC: 5A1D70Z Performance of Urinary Filtration, Intermittent, Less than 6 Hours Per Day (ICD-10-PCS; 2020-07-31)
PROC: 0JH63XZ Insertion of Tunneled Vascular Access Device into Chest Subcutaneous Tissue and Fascia, Percutaneous Approach (ICD-10-PCS; principal; 2020-07-31 09:30)
DX: U07.1 COVID-19 (principal); N18.6 End stage renal disease; J12.89 Other viral pneumonia; G92 Toxic encephalopathy; J96.01 Acute respiratory failure with hypoxia; I13.2 Hypertensive heart and chronic kidney disease with heart failure and with stage 5 chronic kidney disease, or end stage renal disease; E44.1 Mild protein-calorie malnutrition; J44.1 Chronic obstructive pulmonary disease with (acute) exacerbation; E87.0 Hyperosmolality and hypernatremia; N30.00 Acute cystitis without hematuria; I50.32 Chronic diastolic (congestive) heart failure; N17.9 Acute kidney failure, unspecified; E11.22 Type 2 diabetes mellitus with diabetic chronic kidney disease; E78.5 Hyperlipidemia, unspecified; Z90.710 Acquired absence of both cervix and uterus; Z96.642 Presence of left artificial hip joint; Z88.0 Allergy status to penicillin; Z79.82 Long term (current) use of aspirin; Z79.4 Long term (current) use of insulin; Z79.01 Long term (current) use of anticoagulants; Z79.52 Long term (current) use of systemic steroids; Z79.899 Other long term (current) drug therapy; Z68.25 Body mass index [BMI] 25.0-25.9, adult; E66.9 Obesity, unspecified; L89.152 Pressure ulcer of sacral region, stage 2; N28.9 Disorder of kidney and ureter, unspecified; E83.51 Hypocalcemia; D63.8 Anemia in other chronic diseases classified elsewhere; E86.0 Dehydration; E11.65 Type 2 diabetes mellitus with hyperglycemia; B96.1 Klebsiella pneumoniae [K. pneumoniae] as the cause of diseases classified elsewhere; Z66 Do not resuscitate; B96.5 Pseudomonas (aeruginosa) (mallei) (pseudomallei) as the cause of diseases classified elsewhere; K21.9 Gastro-esophageal reflux disease without esophagitis; I25.10 Atherosclerotic heart disease of native coronary artery without angina pectoris; I05.0 Rheumatic mitral stenosis
CPT/HCPCS: 36415; 70450; 71045; 76000; 80048; 80053; 80074; 81003; 81015; 82728; 82805; 82947; 83540; 83735; 84100; 84132; 84145; 84466; 84484; 84550; 85025; 85610; 85730; 86140; 87040; 87070; 87077; 87086; 87088; 87186; 87205; 90935; 93005; 97110; 97112; 97161; 97530; C1752; G0257; J1170; J1644; J1815; J1940; J2270; J2370; J2405; J2704; J2920; J3010; J3430; J7512; P9047; Q5106; U0003